=== PATIENT | female | born 1945 | race Caucasian/White ===

== ENCOUNTER 2018-08-11 17:50 | Observation (INO) ==
[2018-08-11 18:50] LABS: Basophils # (auto) 0.02 K/uL (0-0.2); Basophils % (auto) 0.2 %; Eosinophils # (auto) 0.41 K/uL (0-0.5); Eosinophils % (auto) 4.1 %; Hematocrit (blood only) 42.6 % (37-47); Hemoglobin 14.1 g/dL (12.0-16.0); Immature Granulocytes # (auto) 0.02 K/uL (0.00-0.02); Immature Granulocytes % (auto) 0.2 %; Lymphocytes # (auto) 1.18 K/uL (1.2-3.4); Lymphocytes % (auto) 11.8 %; Mean Corpuscular Hgb Conc 33.1 g/dL (32-36); Mean Corpuscular Volume 92.4 fL (80-100); Mean Platelet Volume 10.5 fL (7.4-10.4); Monocytes # (auto) 0.61 K/uL (0.11-0.59); Monocytes % (auto) 6.1 %; Neutrophils % (auto) 77.6 %; Platelet Count 221 K/uL (130-400); RDW Coefficient of Variation 15.4 % (11.5-14.5); RDW Standard Deviation 52.1 fL (36.4-46.3); Red Blood Count 4.61 M/uL (4.2-5.4); White Blood Count 10.04 K/uL (4.8-10.8)
--- NOTE | 2018-08-11 18:50 | XRay Report ---
SINGLE VIEW CHEST CLINICAL HISTORY: Atypical chest pain. FINDINGS: An AP, portable, upright chest radiograph is obtained. No prior studies are available for c omparison at the time of dictation. The examination is degraded by portable technique and patient rot ation. There is a large hiatal hernia. The heart is enlarged and there is atherosclerotic calcificati on of the thoracic ureter. There is pulmonary vascular congestion. There is nonspecific interstitial thickening and hazy bilateral airspace opacities. No large pleural effusion or pneumothorax is seen. The skeletal structures are osteopenic. Chronic posttraumatic deformity is noted in the right humerus . IMPRESSION: 1. Cardiomegaly with evidence of mild congestive failure. 2. Nonspecific interstitial thickening is noted and there are hazy bilateral opacities. This may repr esent changes of chronic lung disease. Correlate clinically for evidence of superimposed pulmonary ed lo or pneumonia. 3. No large pleural effusion is identified. 4. Hiatal hernia. Electronically signed by: Krzysztof Quintero M.D. 08/11/2018 6:49 PM
--- NOTE | 2018-08-11 18:55 | Emergency Department Note ---
Entered by Melissa Duarte acting as a scribe for History of Present Illness General Chief complaint: Shortness of Breath/Dyspnea Stated complaint: REFERRED BY PCP FOR EVAL. Time Seen by Provider: 08/11/18 17:57 Source: patient Mode of arrival: EMS Limitations: no limitations History of Present Illness Provider complaint: shortness of breath Onset (ago): month(s) 1 Location: chest Pain Consistency: + other (persistent) Quality: + other (shortness of breath) Associated symptoms: + denies other symptoms (hematochezia, abdominal pain, pedal edema, numbness), + cough and + nausea/vomiting; no chest pain, no fever/ chills, no headaches and no weakness The patient is a 72 year old female who presents to the Emergency Room with complaints of a persistent shortness of breath that began a month ago. The patient reports that she has been coughing as well. She notes that she coughs "until she vomits." The patient states that she was referred here after being evaluated at [facility]. The patient denies any fevers, hematochezia, abdominal pain , headaches, pedal edema, weakness, numbness, chest pain or recent traumas or travel. She notes that she was placed on nasal cannula oxygen a month ago. The patient also denies any tobacco use, or a history of blood clots or fluid in her lungs. The patient states that she has a stent placed but denies taking any blood thinners. She reports that she takes daily diuretics. Home Medications Home Medications Medication Instructions Recorded Confirmed Type albuterol sulfate [Ventolin HFA] 2 puff INHALATION Q6H PRN 08/11/18 08/11/18 History alendronate 35 mg PO WK 08/11/18 08/11/18 History aspirin 81 mg PO DAILY 08/11/18 08/11/18 History betamethasone, augmented 1 applic TOPICAL DAILY PRN 08/11/18 08/11/18 History ergocalciferol (vitamin D2) 50,000 unit PO WK 08/11/18 08/11/18 History [Drisdol] furosemide [Lasix] 20 mg PO 3XWK 08/11/18 08/11/18 History letrozole 2.5 mg PO DAILY 08/11/18 08/11/18 History metoprolol succinate [Toprol XL] 25 mg PO DAILY 08/11/18 08/11/18 History mirtazapine 7.5 mg PO DAILY 08/11/18 08/11/18 History nitroglycerin [Nitrostat] 0.4 mg SUBLINGUAL DIRECTED PRN 08/11/18 08/11/18 History omeprazole 40 mg PO QAM 08/11/18 08/11/18 History potassium chloride [Klor-Con M20] 40 meq PO DAILY 08/11/18 08/11/18 History sertraline [Zoloft] 200 mg PO DAILY 08/11/18 08/11/18 History simvastatin 40 mg PO PM 08/11/18 08/11/18 History Allergies Allergy/AdvReac Type Severity Reaction Status Date / Time No Known Allergies Allergy Unverified 08/11/18 19:33 Past Med/Surg History Medical History HTN (hypertension) (Chronic) CAD (coronary artery disease) (Chronic) Depression Suicidal ideation Surgical History History of coronary artery stent placement (Resolved) History of colon resection (Resolved) H/O hernia repair (Resolved) H/O: hysterectomy (Resolved) History of cholecystectomy (Resolved) Social History marital status: Current Living Situation: Spouse Feels Safe at Home: Yes Smoking Status: Never smoker Review of Systems See HPI for pertinent positives & negatives. and A total of 10 systems reviewed and were otherwise negative Physical Exam Vital Signs Vital Signs - 24 hr 08/11/18 18:02 08/11/18 18:11 08/11/18 18:20 Temperature 37.1 C Temperature Source Oral Sepsis Recent Fever Within 48 Hours No Sepsis New/Unexplained Change in Mental Status No Sepsis Action Taken by Nursing No Action Required Pulse Rate 98 H Pulse Rate [Apical] Respiratory Rate 24 Respiratory Effort / Characteristics Non-Labored Respiratory Depth Normal Respiratory Pattern Regular Blood Pressure 152/88 H Blood Pressure [Left Arm] Blood Pressure Mean 109 Blood Pressure Mean [Left Arm] Pulse Oximetry 95 Oxygen Delivery Method Nasal Cannula Nasal Cannula Nasal Cannula Oxygen Flow Rate 3 3 08/11/18 19:59 08/11/18 21:06 08/11/18 22:47 Temperature Temperature Source Sepsis Recent Fever Within 48 Hours Sepsis New/Unexplained Change in Mental Status Sepsis Action Taken by Nursing Pulse Rate 85 Pulse Rate [Apical] 79 75 Respiratory Rate 20 22 22 Respiratory Effort / Characteristics Respiratory Depth Normal Respiratory Pattern Blood Pressure 137/75 Blood Pressure [Left Arm] 163/109 H 169/84 H Blood Pressure Mean Blood Pressure Mean [Left Arm] 127 112 Pulse Oximetry 98 98 96 Oxygen Delivery Method Room Air Nasal Cannula Nasal Cannula Oxygen Flow Rate 3 3 General: Non-ill appearing older female in no acute distress, wearing nasal cannula with O2 sat in lower. HEENT: Normal cephalic atraumatic. Pupils are equal round and reactive to light. Extraocular movements are intact. Oropharynx is pink with moist mucous membranes. No swelling of the mouth lips or tongue. Neck: Supple with a midline trachea. No meningeal signs or stiffness, no JVD or bruits. No Stridor. Chest: Clear to auscultation bilaterally. No wheezes or rhonchi. No increased work of breathing. Heart: regular rate and rhythm. Abdomen: Soft nontender, nondistended without rebound guarding or rigidity. Extremities: No cyanosis clubbing or edema. No calf tenderness or assymetry Spine/Back. Non tender to palpation. No CVA tenderness Skin: Good turgor without rashes. Neurologic exam: Cranial nerves two through 12 are intact. Motor and sensation are intact and symmetrical throughout. Course 1800: Past medical records reviewed. The patient was evaluated in room C11B, and a complete history and physical examination were performed. 1913: I spoke with the multiple family members present. The patient appears comfortable. 2052: I reviewed the patient's [facility] He will evaluate the patient for further management. Administered Medications Discontinued Medications Furosemide (Lasix) 20 mg IV NOW STA Stop: 08/11/18 20:45 Last Admin: 08/11/18 21:05 Dose: 20 mg Ioversol (Optiray 320 125ml) 116 ml IV ONCE PRN PRN Reason: Interaction Checking Stop: 08/15/18 19:54 Last Admin: 08/11/18 19:55 Dose: 116 ml Medical Decision Making Differential Diagnosis Differential Diagnosis includes: CHF, pneumonia, cardiac disease, PE, anemia, infection, electrolyte and metabolic abnormality. Medical Records Attestation: I reviewed the patient's medical records. Home Medications Current Medication List: was personally reviewed by me Laboratory Data Attestation: I reviewed the patient's lab results. Result diagrams: 08/11/18 18:35 12/16/18 18:35 Lab Results 08/11/18 08/11/18 08/11/18 Range/Units 18:35 18:35 18:46 WBC 10.04 (4.8-10.8) K/uL RBC 4.61 (4.2-5.4) M/uL Hgb 14.1 (12.0-16.0) g/dL Hct 42.6 (37-47) % MCV 92.4 (80-100) fL MCH 30.6 (25-34) pg MCHC 33.1 (32-36) g/dL RDW Std Deviation 52.1 H (36.4-46.3) fL RDW Coeff of Nicanor 15.4 H (11.5-14.5) % Plt Count 221 (130-400) K/uL MPV 10.5 H (7.4-10.4) fL Immature Gran % (Auto) 0.2 % Neut % (Auto) 77.6 % Lymph % (Auto) 11.8 % [place] % (Auto) 6.1 % Eos % (Auto) 4.1 % Baso % (Auto) 0.2 % Immature Gran # (Auto) 0.02 (0.00-0.02) K/uL Neut # (Auto) 7.80 H (1.4-6.5) K/uL Lymph # (Auto) 1.18 L (1.2-3.4) K/uL [place] # (Auto) 0.61 H (0.11-0.59) K/uL Eos # (Auto) 0.41 (0-0.5) K/uL Baso # (Auto) 0.02 (0-0.2) K/uL Sodium 139 (136-145) mmol/L Potassium 3.2 L (3.5-5.1) mmol/L Chloride 101 (98-107) mmol/L Carbon Dioxide 29 (21-32) mmol/L Anion Gap 9.0 (3-11) BUN 10 (7-18) mg/dl Creatinine 0.96 (0.6-1.2) mg/dl Est Cr Clr Drug Dosing 43.8 ml/min Est GFR ( Amer) 69.0 Est GFR (Non-Af Amer) 59.5 BUN/Creatinine Ratio 10.0 (10-20) Glucose 90 (70-99) mg/dl Calcium 9.4 (8.5-10.1) mg/dl Total Bilirubin 0.7 (0.1-1) mg/dl AST 30 (15-37) U/L ALT 21 (12-78) U/L Alkaline Phosphatase 96 (45-117) U/L POC Troponin I < 0.03 (0-0.045) ng/ml Troponin I < 0.015 (0-0.045) ng/ml NT-Pro-B Natriuret Pep 1165 H (0-900) pg/ml Total Protein 8.2 (6.4-8.2) gm/dl Albumin 4.0 (3.4-5.0) gm/dl Globulin 4.2 H (2.5-4.0) gm/dl Albumin/Globulin Ratio 1.0 (0.9-2) Lipase 166 (73-393) U/L Imaging Data Radiologist's Impression: Radiology results as stated below per my review and the radiologist's interpretation: SINGLE VIEW CHEST CLINICAL HISTORY: Atypical chest pain. FINDINGS: An AP, portable, upright chest radiograph is obtained. No prior studies are available for comparison at the time of dictation. The examination is degraded by portable technique and patient rotation. There is a large hiatal hernia. The heart is enlarged and there is atherosclerotic calcification of the thoracic ureter. There is pulmonary vascular congestion. There is nonspecific interstitial thickening and hazy bilateral airspace opacities. No large pleural effusion or pneumothorax is seen. The skeletal structures are osteopenic. Chronic posttraumatic deformity is noted in the right humerus. IMPRESSION: 1. Cardiomegaly with evidence of mild congestive failure. 2. Nonspecific interstitial thickening is noted and there are hazy bilateral opacities. This may represent changes of chronic lung disease. Correlate clinically for evidence of superimposed pulmonary edema or pneumonia. 3. No large pleural effusion is identified. 4. Hiatal hernia. Electronically signed by: Krzysztof Quintero M.D. 08/11/2018 6:[address] ANGIOGRAM OF THE CHEST CLINICAL HISTORY: Atypical chest pain. COMPARISON STUDY: Chest x-ray dated 08/11/2018. TECHNIQUE: Following the IV administration of 116 cc of Optiray 320, CT angiogram of the chest was performed from the upper abdomen to the thoracic inlet utilizing the pulmonary embolus protocol. Images are reviewed in the axial , sagittal, and coronal planes. 3-D MIPS images are created and assessed. IV contrast was administered without complication. A dose lowering technique was utilized adhering to the principles of ALARA. The examination is degraded by motion artifact. CT DOSE: 191.28 mGy.cm FINDINGS: Thyroid: Atrophic. Thoracic aorta: There is mild atherosclerotic calcification of the thoracic aorta. There is mild aneurysmal dilatation of the ascending thoracic aorta which measures up to 4.1 cm in diameter. The remainder of the thoracic ureter is normal in caliber and the arch demonstrates standard 3-vessel anatomy. No dissection is seen. Pulmonary vasculature: The pulmonary trunk is dilated, measuring 3.7 cm in diameter. This suggests pulmonary artery hypertension. There are no filling defects identified in main, lobar, or segmental pulmonary branches to suggest pulmonary embolus. Heart: The heart is enlarged and without pericardial effusion. The coronary arteries are densely calcified. Lungs and pleural spaces: Evaluation of the lung parenchyma is compromised by motion artifact. There is extensive subpleural reticulation with associated groundglass change. Mild traction bronchiectasis is seen throughout both lungs. The appearance is consistent with chronic interstitial lung disease. No honeycombing is identified. The trachea and central airways are clear. No pleural effusion is identified. There is no definite superimposed airspace consolidation to suggest pneumonia. A 9 mm irregular nodule is seen at the right apex on image #192. Intralobular septal thickening suggests a component of congestive failure. Mediastinum: There are scattered subcentimeter mediastinal lymph nodes. These are not pathologically enlarged by size criteria. Kerrie: Prominent hilar lymph nodes measure up to 12 mm in short axis. Axillae: There is no axillary lymphadenopathy. Upper abdomen: Cholecystectomy clips are noted. There is a large hiatal hernia, with the majority of the stomach located in the thoracic cavity. The spleen is top normal in size measuring 13 cm in length. Skeletal structures: The skeletal structures are osteopenic. No lytic or blastic bony lesions are seen. Findings of avascular necrosis are suggested in the right humeral head. IMPRESSION: 1. Motion compromised examination. 2. There is no evidence of pulmonary embolus in the main, lobar, or segmental pulmonary arteries. 3. Cardiomegaly. Mild intralobular septal thickening suggests a component of congestive failure. Clinical correlation will be required. 4. There is mild aneurysmal dilatation of the ascending thoracic aorta which measures up to 4.1 cm in diameter. 5. Parenchyma changes are consistent with chronic interstitial lung disease. There is no clear evidence of superimposed airspace consolidation to indicate pneumonia. Clinical correlation will be required. 6. There is a 9 mm irregular pulmonary nodule at the right apex. Although this could be on an inflammatory basis, the appearance is concerning for neoplasm. A 3 month follow-up examination is recommended for reassessment. 7. Large hiatal hernia. 8. Changes of avascular necrosis are suggested in the right humeral head. 9. Additional findings as above. Electronically signed by: Krzysztof Quintero M.D. 08/11/2018 8:29 PM ECG Data Attestation: I personally reviewed and interpreted this ECG as follows: Indication: SOB/dyspnea Rate (beats per minute): 85 Rhythm: normal sinus Findings: + other (LVH); no acute ischemic change and no ectopy Comparison ECG Date: no prior available Blood Pressure Blood Pressure Findings: Elevated blood pressure Blood Pressure Disposition: further management by hospitalist [facility] Narrative This patient comes in as described above. She was placed in room C 11. She sent over by her doctor after she has had shortness of breath and hypoxemia. This been going on for about a month. she was recently placed on oxygen. Her O2 sat on room air was 69% here with 2 L nasal cannula she appears in no distress and has no complaints however. She is afebrile and has had nothing to suggest pneumonia or infection. EKG was obtained as well as chest x-ray and multiple blood testing. She was reassessed frequently. EKG does not suggest acute coronary syndrome or arrhythmia. Troponin is not elevated. BNP is mildly elevated. Chest x-ray shows congestive heart failure findings as well as probably chronic lung interstitial process. Chest CT shows no PE or any definite infiltrate again it shows likely interstitial lung disease and CHF she was given IV Lasix 20 mg. I do think she needs to be admitted/observed.she has been significant hypoxemic. she was just recently started on oxygen according the family they are not sure why she has the symptoms she does have a congestive heart failure component as well and was given IV diuretics in the emergency department. I did consult the [facility] hospitalist to see her in the ER for these measures. Impression & Plan Hypoxemia, CHF (congestive heart failure), Lung disease, interstitial Discharge Plan Visit Data *Final* Discharge Date/Time: 08/11/18 22:47 Chief Complaint: Shortness of Breath/Dyspnea Stated Complaint: REFERRED BY PCP FOR EVAL. ED Provider: Lambert Olmedo Discharge Problem: Hypoxemia, CHF (congestive heart failure), Lung disease, interstitial Patient Disposition: Being Evaluated by Hospitalist Discharge Instructions Interventions: ED Discharge Assessment Last Done: 08/11/18 22:47 The scribe's documentation has been prepared under my direction and personally reviewed by me in its entirety. I confirm that the note above accurately reflects all work, treatment, procedures, and medical decision making performed by me.
[2018-08-11 19:09] LABS: Alanine Aminotransferase 21 U/L (12-78); Aspartate Aminotransferase 30 U/L (15-37); Blood Urea Nitrogen 10 mg/dl (7-18); Calcium 9.4 mg/dl (8.5-10.1); Carbon Dioxide 29 mmol/L (21-32); Chloride 101 mmol/L (98-107); Creatinine Clr Calc Pharmacy 43.8 ml/min; Est GFR (Non-African American) 59.5; Glucose 90 mg/dl (70-99); Potassium 3.2 mmol/L (3.5-5.1); Sodium 139 mmol/L (136-145)
[2018-08-11 19:14] LABS: Alkaline Phosphatase 96 U/L (45-117); Bilirubin,Total 0.7 mg/dl (0.1-1); Globulin 4.2 gm/dl (2.5-4.0); NT Pro B Type Natriuretic Pept 1165 pg/ml (0-900); Total Protein 8.2 gm/dl (6.4-8.2); Troponin I < 0.015 ng/ml (0-0.045)
[2018-08-11] MEDS ORDERED: OPTIRAY 320 125ml IV PRN (19:55)
--- NOTE | 2018-08-11 20:30 | CT Scan Report ---
CT ANGIOGRAM OF THE CHEST CLINICAL HISTORY: Atypical chest pain. COMPARISON STUDY: Chest x-ray dated 08/11/2018. TECHNIQUE: Following the IV administration of 116 cc of Optiray 320, CT angiogram of the chest was pe rformed from the upper abdomen to the thoracic inlet utilizing the pulmonary embolus protocol. Images are reviewed in the axial, sagittal, and coronal planes. 3-D MIPS images are created and assessed. I V contrast was administered without complication. A dose lowering technique was utilized adhering to the principles of ALARA. The examination is degraded by motion artifact. CT DOSE: 191.28 mGy.cm FINDINGS: Thyroid: Atrophic. Thoracic aorta: There is mild atherosclerotic calcification of the thoracic aorta. There is mild aneu rysmal dilatation of the ascending thoracic aorta which measures up to 4.1 cm in diameter. The remain rhiannon of the thoracic ureter is normal in caliber and the arch demonstrates standard 3-vessel anatomy. No dissection is seen. Pulmonary vasculature: The pulmonary trunk is dilated, measuring 3.7 cm in diameter. This suggests pu lmonary artery hypertension. There are no filling defects identified in main, lobar, or segmental pul monary branches to suggest pulmonary embolus. Heart: The heart is enlarged and without pericardial effusion. The coronary arteries are densely calc ified. Lungs and pleural spaces: Evaluation of the lung parenchyma is compromised by motion artifact. There is extensive subpleural reticulation with associated groundglass change. Mild traction bronchiectasis is seen throughout both lungs. The appearance is consistent with chronic interstitial lung disease. No honeycombing is identified. The trachea and central airways are clear. No pleural effusion is iden tified. There is no definite superimposed airspace consolidation to suggest pneumonia. A 9 mm irregul ar nodule is seen at the right apex on image #192. Intralobular septal thickening suggests a componen t of congestive failure. Mediastinum: There are scattered subcentimeter mediastinal lymph nodes. These are not pathologically enlarged by size criteria. Kerrie: Prominent hilar lymph nodes measure up to 12 mm in short axis. Axillae: There is no axillary lymphadenopathy. Upper abdomen: Cholecystectomy clips are noted. There is a large hiatal hernia, with the majority of the stomach located in the thoracic cavity. The spleen is top normal in size measuring 13 cm in lengt h. Skeletal structures: The skeletal structures are osteopenic. No lytic or blastic bony lesions are see n. Findings of avascular necrosis are suggested in the right humeral head. IMPRESSION: 1. Motion compromised examination. 2. There is no evidence of pulmonary embolus in the main, lobar, or segmental pulmonary arteries. 3. Cardiomegaly. Mild intralobular septal thickening suggests a component of congestive failure. Clin ical correlation will be required. 4. There is mild aneurysmal dilatation of the ascending thoracic aorta which measures up to 4.1 cm in diameter. 5. Parenchyma changes are consistent with chronic interstitial lung disease. There is no clear eviden ce of superimposed airspace consolidation to indicate pneumonia. Clinical correlation will be require d. 6. There is a 9 mm irregular pulmonary nodule at the right apex. Although this could be on an inflamm atory basis, the appearance is concerning for neoplasm. A 3 month follow-up examination is recommende d for reassessment. 7. Large hiatal hernia. 8. Changes of avascular necrosis are suggested in the right humeral head. 9. Additional findings as above. Electronically signed by: Krzysztof Quintero M.D. 08/11/2018 8:29 PM
[2018-08-11] MEDS ORDERED: FUROSEMIDE 40 MG/4 ML VIAL IV STA (20:44)
[2018-08-11] MEDS ORDERED: NITROGLYCERIN SL 0.4 MG/TAB TAB SL PRN (23:17)
[2018-08-11] MEDS ORDERED: XOPENEX/ATROVENT 1.25mg/0.5MG NEB COMBO NEB PRN (23:17)
[2018-08-11] MEDS ORDERED: POLYETHYLENE (MIRALAX) 17 GM PACK PO PRN (23:17)
[2018-08-11] MEDS ORDERED: ONDANSETRON INJ 2 MG/ML 2 ML VIAL IV PRN (23:17)
[2018-08-11] MEDS ORDERED: ALUMINUM/MAGNESIUM SUSP 30 ML UDC PO PRN (23:17)
[2018-08-11] MEDS ORDERED: ALBUTEROL HFA 8 GM INHALER INH PRN (23:17)
[2018-08-11] MEDS ORDERED: ACETAMINOPHEN 325 MG TAB PO PRN (23:17)
[2018-08-11] MEDS ORDERED: IPRATROPIUM BROMIDE NEB SOLN 0.02% 2.5 ML VIAL INH PRN (23:17)
[2018-08-11] MEDS ORDERED: LEVALBUTEROL 1.25MG/0.5ML NEB INH PRN (23:17)
[2018-08-11] MEDS ORDERED: BETAMETHASONE DIP AUG (DIPROLENE) 0.05% CR 15 GM TUBE EXT PRN (23:17)
[2018-08-11] MEDS ORDERED: methylPREDNISolone 40 MG in SYRINGE 0 ML IV STA (23:26)
--- NOTE | 2018-08-12 01:27 | History and Physical Report ---
DATE OF ADMISSION: 08/11/2018 CHIEF COMPLAINT: Shortness of breath. HISTORY OF PRESENT ILLNESS: This is a 72-year-old female with past medical history significant for congestive heart failure, interstitial lung disease with hypertension, CAD status post stent, history of colon resection secondary to twisting of the bowel, depression, suicidal ideation, comes because of shortness of breath. The patient generally goes to the [facility]. Since last 2 months, she is getting short of breath and cough bringing up whitish phlegm. She was treated for pneumonia and she was put on oxygen 2 months ago. She was supposed to be 2 L, but lately she is requiring more oxygen. 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 She is getting worse. She says cough is not getting better that is the reason she came to the ER today. In the ER in the room air, oxygen saturation was in 60s. Was placed back on oxygen on 3 L and saturating rate improved to above 92%. The patient speaking in full sentences. Denies any chest pain, no fever, no chills, no headache, some dizziness while ambulating, no blurred visions, no difficulty swallowing. No sore throat, no nausea, no abdominal pain. She has on and off incontinence of the urine and the stools. Denies any blood in the stool or black stools. No burning micturition. She lives with her and walks without any help. ALLERGIES: No known drug allergies. PAST MEDICAL HISTORY: As mentioned above. PAST SURGICAL HISTORY: She has cardiac catheterization, hernia surgery, hysterectomy, cholecystectomy. MEDICATIONS: The patient is on albuterol 2 puffs inhalation q. 6 hours p.r.n., aspirin 81 mg p.o. daily, vitamin D 50,000 units p.o. weekly, Lasix 20 mg p.o. 3 times a week, letrozole 2.5 mg p.o. daily, metoprolol succinate 25 mg p.o. daily, mirtazapine 7.5 mg p.o. daily, nitroglycerin 0.4 mg sublingual p.r.n., omeprazole 40 mg p.o. q.a.m., potassium chloride 40 mEq p.o. daily, Zoloft 200 mg p.o. daily, simvastatin 40 mg p.o. q.p.m. FAMILY HISTORY: The patient is adopted, but she thinks her family has history of significant heart disease. SOCIAL HISTORY: Significant passive smoking, no alcohol. Lives with her . REVIEW OF SYMPTOMS: As per HPI. Rest of review of systems negative. PHYSICAL EXAMINATION: GENERAL: The patient is old and frail, not in acute distress. VITAL SIGNS: Temperature 37.1, pulse 74, respiratory rate 22, blood pressure 116/84, oxygen 96% on 3 liters. HEENT: No pallor, no icterus. Pupils equal, round, and react to light. NECK: No JVD, no neck masses, no carotid bruits. CARDIOVASCULAR: S1, S2 heard, regular rate and rhythm, no murmur, no gallop. RESPIRATORY SYSTEM: Normal AP diameter, diminished bilateral breath sounds. Occasional fine crackles heard bilateral. ABDOMEN: Soft, bowel sounds present. Nontender. No distention. CENTRAL NERVOUS SYSTEM: Cranial nerves II-XII grossly nonfocal. EXTREMITIES: Trace pedal edema, no erythema seen. LABORATORIES: WBC 10, hemoglobin 14.1, hematocrit 42.6, platelets 221. Sodium 139, potassium 3.2, chloride 101, bicarbonate 29, BUN 10, creatinine 0.9, serum glucose 90, calcium 9.4, total bilirubin 0.4, AST 30, ALT 21, alkaline phosphatase 96, troponin I less than 0.015. BNP 1165. Lipase 166. CT of the chest, no evidence of pulmonary embolism, cardiomegaly, mild intralobular septal thickening, consistent with CHF, mild aneurysm dilatation of the ascending thoracic aorta, which measures 4.1 cm. Parenchymal changes are consistent with chronic interstitial lung disease. No clear evidence of pneumonia, 9 mm irregular pulmonary nodule on the right apex, although this could be inflammatory basis, appearance is concerning for neoplasm and 3 month followup examination is recommended for reassessment. Avascular necrosis of right humeral head. Chest x-ray: Cardiomegaly with evidence of mild congestive failure. EKG: Normal sinus rhythm with sinus arrhythmia at rate of 85, nonspecific T-wave abnormalities, no acute ST changes seen. ASSESSMENT AND PLAN: This is a 72-year-old female who presents with ongoing shortness of breath. 1. Shortness of breath, possible interstitial lung disease, flare up or acute congestive heart failure. The patient is on Lasix 20 mg 3 times a week and also on inhalers. Received 20mg IV Lasix in the ER. We will continue with IV Lasix 20 daily. We will get an echocardiogram. Place her on steroids. Nebs. Consult pulmonary and cardiology for further recommendation. Monitor on medical floor. The patient was started on oxygen 2 months ago by family doctor and recently saw pulmonary at [facility] in [place] recently. Two step prior to discharge. Await cardiology and pulmonary recommendations. 2. Lung nodule 9mm irregular at right apex. Await pulmonary input. 3. Ascending aortic aneurysm 4.1 cm. Needs followup. 4. Coronary artery disease status post stent. Continue home medication of aspirin, Toprol-XL, and statins. Currently stable. Follow echocardiogram. 5. History of hypertension. Continue Toprol-XL. Monitor the blood pressure. 6. Hyperlipidemia. Continue statin. 7. Depression and suicidal ideation. Continue Zoloft and Remeron. 8. History of breast cancer status post right breast lumpectomy, 9. Avascular necrosis right humeral head. consulted ortho. 10. Deep venous thrombosis prophylaxis, sequential compression devices for now. DISPOSITION: Observation in tele floor. PT and OT prior to discharge. office services clerk to help with discharge planning. Level 1 full code. MTDD
[2018-08-12] MEDS: IPRATROPIUM BROMIDE NEB SOLN 0.02% 2.5 ML VIAL INH SCH ×2 (07:15→13:56)
[2018-08-12] MEDS: LEVALBUTEROL 1.25MG/0.5ML NEB INH SCH ×2 (07:15→13:57)
[2018-08-12] MEDS: predniSONE 20 MG TAB PO SCH (07:46)
[2018-08-12] MEDS: LETROZOLE 2.5 MG TAB PO SCH (07:46)
[2018-08-12] MEDS: ASPIRIN 81 MG ECTAB PO SCH (07:46)
[2018-08-12] MEDS: POTASSIUM CHLORIDE 20 MEQ TABCR PO SCH (07:46)
[2018-08-12] MEDS: METOPROLOL SUCC 25MG EXT REL TAB PO SCH (07:47)
[2018-08-12] MEDS: PANTOprazole 40 MG TAB PO SCH (07:47)
[2018-08-12] MEDS: SERTRALINE HCL 100 MG TABLET PO SCH (07:47)
[2018-08-12] MEDS: MIRTAZAPINE TAB 15 MG TAB PO SCH ×2 (07:47→20:57)
[2018-08-12] MEDS ORDERED: FUROSEMIDE 20 MG in SYRINGE 0 ML IV SCH (09:00)
[2018-08-12] MEDS ORDERED: FUROSEMIDE 40 MG/4 ML VIAL IV SCH (09:00)
[2018-08-12] MEDS ORDERED: XOPENEX/ATROVENT 1.25mg/0.5MG NEB COMBO NEB SCH (09:00)
--- NOTE | 2018-08-12 09:20 | Cardiology Consultation ---
Date of Consultation August 12, 2018 Assessment & Plan (1) Hypoxemia: Patient does not appear acutely volume overloaded. Mild diastolic dysfunction with preserved LV systolic function noted per echocardiogram without evidence of significant valvular disease. I suspect dyspnea and hypoxemia related to underlying pulmonary/interstitial lung process. Await pulmonary consultation. Discontinue IV Lasix at this time. Transition to 20 mg p.o. daily as inpatient then resume 20 mg 3 days/week in the outpatient setting. (2) HTN (hypertension): BP somewhat labile however controlled this a.m. Continue current medications including Toprol-XL and furosemide. (3) CAD (coronary artery disease): No evidence of acute coronary syndrome thus far. Repeat troponin. Continue aspirin, statin, and beta-beatriz therapy. (4) History of coronary artery stent placement: (5) Ascending aortic aneurysm: Repeat imaging in 1 year. This can be reassessed for echocardiogram or CT. Given evidence of pulmonary mass, CT may be the more appropriate choice. History of Present Illness Reason for Consultation: Possible CHF, SOB, hypoxia Requesting Physician: Dr. Leonel Frazier Attending Physician: Leonel Frazier MD History of Present Illness 72-year-old female presented to the emergency department with shortness of breath and hypoxia. Symptoms progressive over the past 6-8 weeks. Prescribed supplemental oxygen approximately 1 month ago after being diagnosed with pneumonia. Carries a history of coronary disease status post stenting approximately 6 years ago to on the close vessel. Patient is uncertain of details. Follows with Dr. Sesay in the [place] area. Denies orthopnea, PND, or weight gain. Notes bilateral varicose veins and mild intermittent pedal edema. Takes Lasix 3 days/week. Denies palpitations, lightheadedness, dizziness, syncope, near syncope, focal weakness, slurred speech, or paresthesias. Telemetry demonstrates sinus rhythm and sinus tachycardia. Occasional PVCs noted. Initial troponins are negative. CT of the chest negative for pulmonary embolus with evidence of interstitial process. 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 Possible chemical/irritant exposure noted. Offers no other concerns/complaints at this time. Allergies Allergy/AdvReac Type Severity Reaction Status Date / Time No Known Allergies Allergy Unverified 08/11/18 19:33 Home Medications Home Medications Medication Instructions Recorded Confirmed Type albuterol sulfate [Ventolin HFA] 2 puff INHALATION Q6H PRN 08/11/18 08/11/18 History alendronate 35 mg PO WK 08/11/18 08/11/18 History aspirin 81 mg PO DAILY 08/11/18 08/11/18 History betamethasone, augmented 1 applic TOPICAL DAILY PRN 08/11/18 08/11/18 History ergocalciferol (vitamin D2) 50,000 unit PO WK 08/11/18 08/11/18 History [Drisdol] furosemide [Lasix] 20 mg PO 3XWK 08/11/18 08/11/18 History letrozole 2.5 mg PO DAILY 08/11/18 08/11/18 History metoprolol succinate [Toprol XL] 25 mg PO DAILY 08/11/18 08/11/18 History mirtazapine 7.5 mg PO DAILY 08/11/18 08/11/18 History nitroglycerin [Nitrostat] 0.4 mg SUBLINGUAL DIRECTED PRN 08/11/18 08/11/18 History omeprazole 40 mg PO QAM 08/11/18 08/11/18 History potassium chloride [Klor-Con M20] 40 meq PO DAILY 08/11/18 08/11/18 History sertraline [Zoloft] 200 mg PO DAILY 08/11/18 08/11/18 History simvastatin 40 mg PO PM 08/11/18 08/11/18 History Patient History Medical History HTN (hypertension) (Chronic) CAD (coronary artery disease) (Chronic) Depression Suicidal ideation Surgical History History of coronary artery stent placement (Resolved) History of colon resection (Resolved) H/O hernia repair (Resolved) H/O: hysterectomy (Resolved) History of cholecystectomy (Resolved) Social History marital status: Current Living Situation: Alone Other Information That Helps Us Care for You: No Feels Safe at Home: Yes Safety Concerns: Feels Safe At This Time Smoking Status: Never smoker Do You Dip or Chew Tobacco: No Second Hand Exposure: No Tobacco Cessation Education Requested by Patient: No Hx Alcohol Use: No Hx Substance Use: No Beliefs That Will Affect Care: None Preferred Language: Austrian Communication Ability: Effective Review of Systems Pertinent positives noted per HPI, comprehensive 10 system review otherwise negative. Physical Exam 2 Vital Signs (Past 24 Hours): Last Vital Signs Temp 36.7 C 08/12/18 07:42 Pulse 97 H 08/12/18 07:42 Resp 18 08/12/18 07:42 BP 114/72 08/12/18 07:42 Pulse Ox 94 08/12/18 07:42 Physical Exam: General: NAD, AAO x3, well nourished. HEENT: Normocephalic. Atraumatic. Conjunctiva pink, no scleral icterus. Neck: No carotid bruits, the carotid upstrokes are brisk. No JVD. No HJR Heart: Regular normal S-1 and S-2 no S-3 or S-4 gallop. No murmurs or rub appreciated. PMI is not displaced. No RV heave. Lungs: +crackles B/L lower and mid lung doss. Abdomen: Normal bowel sounds. Soft. Nontender. No masses or organomegaly. No abdominal bruits. Extremities: + B/L LE varicoe veins. No clubbing, cyanosis, or edema. Pulses: radial=2/4, Dorsalis pedis =2/4, posterior tibial=2/4. Neuro: Cranial nerves grossly intact. No focal motor deficit. Results & Data Laboratory Results Laboratory Results - last 24 hr 08/11/18 08/11/18 08/11/18 18:35 18:35 18:46 WBC 10.04 RBC 4.61 Hgb 14.1 Hct 42.6 MCV 92.4 MCH 30.6 MCHC 33.1 RDW Std Deviation 52.1 H RDW Coeff of Nicanor 15.4 H Plt Count 221 MPV 10.5 H Immature Gran % (Auto) 0.2 Neut % (Auto) 77.6 Lymph % (Auto) 11.8 [place] % (Auto) 6.1 Eos % (Auto) 4.1 Baso % (Auto) 0.2 Immature Gran # (Auto) 0.02 Neut # (Auto) 7.80 H Lymph # (Auto) 1.18 L [place] # (Auto) 0.61 H Eos # (Auto) 0.41 Baso # (Auto) 0.02 Sodium 139 Potassium 3.2 L Chloride 101 Carbon Dioxide 29 Anion Gap 9.0 BUN 10 Creatinine 0.96 Est Cr Clr Drug Dosing 43.8 Est GFR ( Amer) 69.0 Est GFR (Non-Af Amer) 59.5 BUN/Creatinine Ratio 10.0 Glucose 90 Calcium 9.4 Total Bilirubin 0.7 AST 30 ALT 21 Alkaline Phosphatase 96 POC Troponin I < 0.03 Troponin I < 0.015 NT-Pro-B Natriuret Pep 1165 H Total Protein 8.2 Albumin 4.0 Globulin 4.2 H Albumin/Globulin Ratio 1.0 Lipase 166 ECG Additional Comments: Sinus rhythm with nonspecific ST abnormality.
--- NOTE | 2018-08-12 11:56 | XRay Report ---
XR hip RT 2-3V w pelvis CLINICAL HISTORY: Avascular necrosis. Right hip pain. COMPARISON: None. FINDINGS: There is contrast within the bladder from recent contrast-enhanced CT. Hip joint spaces ar e preserved. There is no radiographic evidence for avascular necrosis within the femoral heads. There are pelvic surgical clips. IMPRESSION: No radiographic evidence of avascular necrosis of the femoral heads. Electronically signed by: Ambrose Arenas M.D. 08/12/2018 11:55 AM
--- NOTE | 2018-08-12 13:33 | Orthopedic Progress Note ---
Date of Service August 12, 2018 Subjective Right hip x rays were ordered in error, there was no examination findings to indicate hip x rays. Right shoulder x rays were ordered as per consult. Physical Exam 2 Vital Signs (Past 24 Hours): Last Vital Signs Temp 36.6 C 08/12/18 12:00 Pulse 91 H 08/12/18 12:00 Resp 18 08/12/18 12:00 BP 105/69 08/12/18 12:00 Pulse Ox 97 08/12/18 12:00
--- NOTE | 2018-08-12 13:38 | Consultation Report ---
DATE OF CONSULTATION: 08/12/2018 REASON FOR CONSULTATION: Pulmonary hypertension/interstitial lung disease. HISTORY OF PRESENT ILLNESS: A 72-year-old black female from the [place] area and a patient of Dr. Maria Novak, who was admitted through the Emergency Room by Dr. Molina on to the [facility] service. She states she has been dyspneic for approximately a month when she was placed on O2 at 2 L via nasal cannula continually. She has been a nonsmoker although has had secondary exposure from her first who smoked significantly. 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 She has a history of hypertension, ischemic cardiac disease with stenting, history of colon resection from a bowel volvulus, depression, with suicidal ideation, and progressive shortness of breath. She was scheduled to see a claim attorney with [facility] in the near future. She states she has been treated for pneumonia in the past, and she is currently bringing up whitish phlegm, perhaps a small amount of blood streaking in the remote past. She has been on oxygen at 2 L. 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 Her dyspnea is getting worse, and she has had increased pedal edema as well. She has been on a diuretic several times a week. She was brought to the ER on room air and oxygen saturation was in the 60s, on 3 L it improved to 92%. She denies recent fevers, chills, or sweats. She has some arthralgias with arthritis involving the distal joints of her fingers but nothing active. She denies nausea, sore throat, or GI symptomatology. She denies voice change. Besides cardiac catheterization, she has had a hernia surgery, hysterectomy, and cholecystectomy. MEDICATIONS: Include albuterol inhaler p.r.n., Lasix 20 mg 3 times weekly. She is on antireflux. FAMILY HISTORY: She is adopted and does not know much of her family history. SOCIAL HISTORY: See HPI. REVIEW OF SYSTEMS: See HPI. PHYSICAL EXAMINATION: GENERAL: Well-developed, well-nourished, friendly white female, in no obvious distress at rest. VITAL SIGNS: Temperature 36.5, pulse 76 and regular, respiratory rate in mid 20s, blood pressure 110/84, and O2 saturation 96% on 3 L. SKIN: Without lesion. HEENT: Atraumatic and normocephalic. PERRLA. EOMI. Conjunctivae pink. Sclerae are nonicteric. Fundi benign. Tympanic membranes within normal limits. Pharyngeal exam intact. NECK: Neck veins are not distended at 45 degrees. No lymphadenopathy in the supraclavicular or infraclavicular areas. LUNGS: Velcro rales at the bases, left greater than right. CARDIAC: Regular rate and rhythm. I do not appreciate a gallop. ABDOMEN: Soft, scaphoid, no evidence of hepatosplenomegaly. EXTREMITIES: Trace pedal edema. No clubbing. Peripheral cyanosis. NEUROLOGIC: Intact. No lateralizing signs. Echocardiogram shows an LVEF 65%-70%, grade 1 diastolic dysfunction, mild AI, estimated pulmonary arterial systolic pressure of 69 mmHg. The CTA done in the ER was reviewed, shows no evidence of pulmonary thromboembolic disease. Cardiomegaly is noted. There is mild intralobular septal thickening suggesting a component of CHF with mild aneurysmal dilatation of the ascending thoracic aorta and clear changes of extensive subpleural reticulation with associated ground-glass changes and mild traction bronchiectasis seen throughout both lungs. No honeycombing identified. There is no obvious evidence for consolidation. A 9 mm irregular nodule is seen at the right apex that is suspicious but nondiagnostic. LABORATORY DATA: White count 10,000, H and H 14 and 42. Potassium 3.2. ProBNP 1165 pg/mL, which is markedly elevated. ASSESSMENT: Overall, a 72-year-old with ischemic and hypertensive cardiomyopathy, presents with a 1 month history of progressive dyspnea and marked hypoxemia requiring significant O2 supplementation to maintain adequate saturations. The CT scan looks very reminiscent of usual interstitial pneumonitis/IPF without the honeycombing, but the subpleural reticulation, ground glass opacities, and distribution in the regions noted are certainly a concern. There may be an element of left ventricular decompensation suggesting mild CHF per Dr. Garcia and has been called in to evaluate the patient. Patient appears to have moderate to severe pulmonary hypertension, which I believe is a result of longstanding interstitial lung disease and chronic hypoxemia. I do not think at her age, given what I have seen on x-ray, that a video-assisted thorascopic biopsy would be helpful, and it may be that we will need to start patient on pirfenidone as an outpatient once it is preauthorized. In addition, we may need to start the patient on treatment for pulmonary arterial hypertension as well. All this could be done as an outpatient. Unfortunately, patient's overall prognosis remains poor. Patient apparently is currently on observation status. She is on prednisone and receiving aerosolized bronchodilator. I do not believe there is evidence to suggest infection at this point in time, and it is pretty common to have a dry and for the most part nonproductive cough with this disease, and I agree with diuresis for the potential that she has an element of CHF. Will be happy to see her in our clinic as an outpatient once discharged. Will order some additional rheumatologic serologies to rule out an accompanying connective tissue disease although that would seem less likely. While it is possible that patient has significant occupational exposure that could have triggered this, the development of ILD, this may help explain things but would not change overall prognosis.
--- NOTE | 2018-08-12 14:25 | XRay Report ---
RIGHT SHOULDER 4 VIEWS CLINICAL HISTORY: Avascular necrosis of the right humeral head. FINDINGS: 4 views of the right shoulder are correlated with chest x-ray and chest CT dated 08/11/2018 . The skeletal structures are osteopenic. No acute fracture is identified. There is chronic posttraum atic deformity of the right humeral head and neck. The humeral head is flattened with evidence of maggi scular necrosis. Superior subluxation of the humeral head suggests chronic rotator cuff injury. Mild productive change is noted at the acromioclavicular joint. The overlying soft tissues are within norm al limits. Parenchymal abnormality throughout the right lung was better assessed on yesterday's chest CT. IMPRESSION: 1. Osteopenia with no acute bony abnormality identified. 2. There is chronic posttraumatic deformity with evidence of avascular necrosis of the right humeral head. Dictated: 08/12/2018 2:17 PM Transcribed: 08/12/2018 2:24 PM Yue [id number] [facility] Electronically signed by: Krzysztof Quintero M.D. 08/12/2018 2:38 PM
--- NOTE | 2018-08-12 15:19 | Orthopedic Consultation ---
Date of Consultation August 12, 2018 Assessment & Plan (1) Avascular necrosis of bone: Mild malunion proximal humerus with AVN probable with no collapse of the bone. Patient has some minor end range of motion pain likely due to malunion of the humerus and will have some mild loss of range of motion that is permanent due to the mild malunion of the proximal humerus fracture. Patient asymptomatic with regard to any AVN. I discussed with her that at this time no treatment is required. If she develops pain running in her shoulder loss of mobility and will re-x-ray the shoulder and surgical options would include shoulder arthroplasty type procedure. This time no activity restrictions are required and she can be full weightbearing on the right upper extremity. No follow-up required unless she is symptomatic. History of Present Illness Attending Physician: Leonel Frazier MD Consult for radiographic finding right shoulder. Patient's history is that she fractured her arm about 2-1/2 years ago. Apparently she had a fall and fell along with her who was holding onto her at the time. She had no surgical intervention. Allergies Allergy/AdvReac Type Severity Reaction Status Date / Time No Known Allergies Allergy Unverified 08/11/18 19:33 Home Medications Home Medications Medication Instructions Recorded Confirmed Type albuterol sulfate [Ventolin HFA] 2 puff INHALATION Q6H PRN 08/11/18 08/11/18 History alendronate 35 mg PO WK 08/11/18 08/11/18 History aspirin 81 mg PO DAILY 08/11/18 08/11/18 History betamethasone, augmented 1 applic TOPICAL DAILY PRN 08/11/18 08/11/18 History ergocalciferol (vitamin D2) 50,000 unit PO WK 08/11/18 08/11/18 History [Drisdol] furosemide [Lasix] 20 mg PO 3XWK 08/11/18 08/11/18 History letrozole 2.5 mg PO DAILY 08/11/18 08/11/18 History metoprolol succinate [Toprol XL] 25 mg PO DAILY 08/11/18 08/11/18 History mirtazapine 7.5 mg PO DAILY 08/11/18 08/11/18 History nitroglycerin [Nitrostat] 0.4 mg SUBLINGUAL DIRECTED PRN 08/11/18 08/11/18 History omeprazole 40 mg PO QAM 08/11/18 08/11/18 History potassium chloride [Klor-Con M20] 40 meq PO DAILY 08/11/18 08/11/18 History sertraline [Zoloft] 200 mg PO DAILY 08/11/18 08/11/18 History simvastatin 40 mg PO PM 08/11/18 08/11/18 History Patient History Medical History HTN (hypertension) (Chronic) CAD (coronary artery disease) (Chronic) Depression Suicidal ideation Surgical History History of coronary artery stent placement (Resolved) History of colon resection (Resolved) H/O hernia repair (Resolved) H/O: hysterectomy (Resolved) History of cholecystectomy (Resolved) Social History marital status: Current Living Situation: Alone Other Information That Helps Us Care for You: No Feels Safe at Home: Yes Safety Concerns: Feels Safe At This Time Smoking Status: Never smoker Do You Dip or Chew Tobacco: No Second Hand Exposure: No Tobacco Cessation Education Requested by Patient: No Hx Alcohol Use: No Hx Substance Use: No Beliefs That Will Affect Care: None Communication Ability: Effective Review of Systems Patient denies any pain in her right shoulder or left shoulder at this time. No recent injury. Physical Exam 2 Vital Signs (Past 24 Hours): Last Vital Signs Temp 36.6 C 08/12/18 12:00 Pulse 81 08/12/18 13:57 Resp 18 08/12/18 13:57 BP 105/69 08/12/18 12:00 Pulse Ox 95 08/12/18 13:57 Physical Exam: Right shoulder exam demonstrates that she has no pain with range of motion she has no crepitation she has normal strength normal neurological exam. She does have some restricted range of motion and has abduction of 130 degrees, forward elevation of 150 degrees and normal internal/ external rotation with the arm at the side. Her opposite shoulder has full range of motion. Results & Data Diagnostic Findings Shoulder x-rays demonstrate that she has some mild malunion of a proximal humerus fracture with sclerotic and cystic changes of the proximal humeral subchondral bone likely consistent with avascular necrosis. There is no collapse however and there is a round articular surface of the humeral head.
[2018-08-12 15:54] LABS: Eosinophils # (auto) 0.01 K/uL (0-0.5); Eosinophils % (auto) 0.2 %; Hematocrit (blood only) 40.7 % (37-47); Lymphocytes # (auto) 0.59 K/uL (1.2-3.4); Lymphocytes % (auto) 11.1 %; Mean Corpuscular Volume 91.3 fL (80-100); Mean Platelet Volume 10.3 fL (7.4-10.4); Monocytes # (auto) 0.18 K/uL (0.11-0.59); Monocytes % (auto) 3.4 %; Neutrophils # (auto) 4.54 K/uL (1.4-6.5); Neutrophils % (auto) 85.3 %; Platelet Count 238 K/uL (130-400); RDW Coefficient of Variation 14.9 % (11.5-14.5); Red Blood Count 4.46 M/uL (4.2-5.4); White Blood Count 5.32 K/uL (4.8-10.8)
[2018-08-12 16:08] LABS: Mean Corpuscular Hgb Conc 34.4 g/dL (32-36)
[2018-08-12 16:13] LABS: Albumin Level 3.7 gm/dl (3.4-5.0); Calcium 10.2 mg/dl (8.5-10.1); Creatinine Clr Calc Pharmacy 47.4 ml/min; Est GFR (African American) 76.6; Est GFR (Non-African American) 66.1; Magnesium 2.3 mg/dl (1.8-2.4); Potassium 3.8 mmol/L (3.5-5.1)
[2018-08-12 16:21] LABS: Albumin Globulin Ratio 0.9 (0.9-2); Bilirubin,Total 0.5 mg/dl (0.1-1); Globulin 4.1 gm/dl (2.5-4.0); Total Protein 7.8 gm/dl (6.4-8.2)
--- NOTE | 2018-08-12 17:37 | Hospitalist Progress Note ---
Date of Service August 12, 2018 Assessment & Plan (1) Hypoxemia: 72 year old female who presents to the Emergency Room with complaints of a persistent shortness of breath she has been on oxygen therapy since 1 to 2 month ago multi-factorial reasons for acute on chronic respiratory failure with hypoxia -as per pulmonary consult Dr. Alcantara: The CT scan looks very reminiscent of usual interstitial pneumonitis/IPF without the honeycombing, but the subpleural reticulation, ground glass opacities, and distribution in the regions noted are certainly a concern. -may be an element of left ventricular decompensation -moderate to severe pulmonary hypertension, may need to start the patient on treatment for pulmonary arterial hypertensioas outpatient -possibly may benefit from pirfenidone as an outpatient which may need prior authorization -as per cardiology consult Dr. Garcia: Patient does not appear acutely volume overloaded. Mild diastolic dysfunction with preserved LV systolic function noted per echocardiogram without evidence of significant valvular disease. Discontinue IV Lasix at this time. Transition to 20 mg p.o. daily as inpatient then resume 20 mg 3 days/week in the outpatient setting -given this above assessments, will continue daily lasix, will change scheduled nebulizer treatments to just prn for acute shortness of breath, will continue prednisone 40 mg which was started on admission There is a 9 mm irregular pulmonary nodule at the right apex. Although this could be on an inflammatory basis, the appearance is concerning for neoplasm. A 3 month follow-up examination is recommended for reassessment mild aneurysmal dilatation of the ascending thoracic aorta which measures up to 4.1 cm in diameter -will need outpatient follow up in the future Coronary artery disease status post stent. -Continue home medication of aspirin, Toprol-XL, and statins hypertension -Continue Toprol-XL and Lasix Mild malunion proximal humerus with Avascular necrosis probable with no collapse of the bone -orthopedics evaluated and this requires no intervention as per their assessment History of Depression (no suicidal ideation on this admission) Continue Zoloft and Remeron. History of breast cancer status post right breast lumpectomy, Deep venous thrombosis prophylaxis, sequential compression devices DISPOSITION: will monitor further in the hospital upon discharge will need follow up with primary care doctor; patient is considering a switch from PCP Dr. Novak will need follow up with pulmonary clinic whether this is pulmonary at [facility] in [place] or with [facility] pulmonary clinic Full Code Subjective Patient breathing on oxygen nasal cannula. Denies chest pain. Able to eat her food. Denies vomiting. Denies abdominal pain. Denies leg pain Physical Exam 2 Vital Signs (Past 24 Hours): Last Vital Signs Temp 36.4 C L 08/12/18 15:13 Pulse 79 08/12/18 15:13 Resp 18 08/12/18 15:13 BP 116/73 08/12/18 15:13 Pulse Ox 96 08/12/18 15:13 Constitutional: WD/WN, vitals as above Eyes: PERRL, conjunctivae normal, anicteric sclerae EOM intact bilaterally ENMT: external ear and nose normal, oropharynx normal Neck: trachea midline, no thyromegaly Respiratory: normal respiratory effort Auscultation: + rales Cardiovascular: Rate/Rhythm: regular rate and regular rhythm Gastrointestinal (Abdomen): normal bowel sounds, soft, nontender, no hepatosplenomegaly Musculoskeletal: no cyanosis or clubbing, extremities motor strength 5/5 Head/Neck/Chest: normocephalic Neurologic: PERRL, EOMI, accommodation nl, no face palsy, no dysarthria CN' s II-XI intact bilaterally Psychiatric: A+Ox3, euthymic affect
[2018-08-12] MEDS ORDERED: SIMVASTATIN 40 MG TAB PO SCH (21:00)
[2018-08-13] MEDS: METOPROLOL SUCC 25MG EXT REL TAB PO SCH (07:22)
[2018-08-13] MEDS: POTASSIUM CHLORIDE 20 MEQ TABCR PO SCH (07:23)
[2018-08-13] MEDS: predniSONE 20 MG TAB PO SCH (07:23)
[2018-08-13] MEDS: PANTOprazole 40 MG TAB PO SCH (07:23)
[2018-08-13] MEDS: SERTRALINE HCL 100 MG TABLET PO SCH (07:23)
[2018-08-13] MEDS: ASPIRIN 81 MG ECTAB PO SCH (07:23)
[2018-08-13] MEDS: LETROZOLE 2.5 MG TAB PO SCH (07:23)
[2018-08-13] MEDS ORDERED: FUROSEMIDE 20 MG TAB PO SCH (09:00)
--- NOTE | 2018-08-13 10:58 | Cardiology Progress Note ---
Date of Service August 13, 2018 Assessment & Plan (1) Hypoxemia: Patient does not appear acutely volume overloaded. Mild diastolic dysfunction with preserved LV systolic function noted per echocardiogram without evidence of significant valvular disease. Pulmonary consultation appreciated. Patient may resume Lasix 3 days weekly at time of discharge. No further inpatient cardiac testing or medication changes. She will follow-up at the outpatient setting with her usual journal clerk, Dr. Sesay. Cardiology will sign off at this time. Please call with questions. (2) HTN (hypertension): Labile with fair control. No medication changes at this time. (3) CAD (coronary artery disease): No evidence of acute coronary syndrome thus far. Continue current medications including aspirin, statin, and beta-beatriz. (4) History of coronary artery stent placement: (5) Ascending aortic aneurysm: Repeat imaging in 1 year. This can be reassessed for echocardiogram or CT. Further evaluation of pulmonary mass via pulmonary medicine. Subjective Patient seen and examined at the bedside. Feeling well from a cardiovascular standpoint. Denies chest pain or usual shortness of breath. Chronic cough and dyspnea on exertion unchanged. No edema, orthopnea, or PND. No dysrhythmias on telemetry. is present at bedside. He offers no additional concerns/ complaints at this time. Review of Systems All systems reviewed & are unremarkable except as noted in HPI & below Physical Exam 2 Vital Signs (Past 24 Hours): Last Vital Signs Temp 36.7 C 08/13/18 07:42 Pulse 61 08/13/18 07:42 Resp 16 08/13/18 07:42 BP 151/87 H 08/13/18 07:42 Pulse Ox 100 08/13/18 07:42 Physical Exam: General: NAD, AAO x3, well nourished. HEENT: Normocephalic. Atraumatic. Conjunctiva pink, no scleral icterus. Neck: No carotid bruits, the carotid upstrokes are brisk. No JVD. No HJR Heart: Regular normal S-1 and S-2 no S-3 or S-4 gallop. No murmurs or rub appreciated. PMI is not displaced. No RV heave. Lungs: + Crackles bilaterally at the base and mid lung doss. No wheeze. No rhonchi appreciated. Abdomen: Normal bowel sounds. Soft. Nontender. No masses or organomegaly. No abdominal bruits. Extremities: + Bilateral varicose veins. No clubbing, cyanosis, or edema. Pulses: radial=2/4, Dorsalis pedis =2/4, posterior tibial=2/4. Neuro: Cranial nerves grossly intact. No focal motor deficit. _ (1) HTN (hypertension) Hypertension type: essential hypertension Qualified Code(s): I10 - Essential (primary) hypertension (2) CAD (coronary artery disease) Coronary Disease-Associated Artery/Lesion type: [place] artery [place] vs. transplanted heart: [place] heart Associated angina: without angina Qualified Code(s): I25.10 - Atherosclerotic heart disease of [place] coronary artery without angina pectoris
--- NOTE | 2018-08-13 12:42 | Progress Note ---
DATE: 08/13/2018 Patient's chart was reviewed, patient examined. Patient feels much better since her admission. She has been diuresed although the assessment by cardiology was that patient does not appear acutely volume overloaded. The echo did show grade 1 diastolic dysfunction with preserved LV systolic function but significant pulmonary hypertension. Her essential hypertension has been labile. Clearly, patient presented hypoxemic, and this was multifactorial in my opinion. She has responded nicely to oxygen therapy and will need to go home on O2 either at 2-3 L pending a 6-minute ambulation study to see what level of supplementation she requires. This will need to be a 24/7 form of therapy and that has been explained to the patient. The addition of oxygen therapy in that manner may very well bring down the level of pulmonary hypertension, and some people have been known to respond to O2 therapy alone; however, suspect in the near future will need to treat her underlying interstitial lung disease and probably UIP with pirfenidone and would need to get her preauthorized for that drug as they can be quite expensive. In addition, I would continue to diurese patient perhaps 3 times weekly with Lasix, and we will need to consider treatment for pulmonary arterial hypertension, some of the more effective drugs out there. I have had a lengthy discussion with the family and believe she can be discharged within the next 24 hours on home oxygen with home health consultation as the family has several questions for social service before her discharge. We will be happy to see her in the clinic and make arrangements to get started on therapy. Thank you very much for this consultation.
[2018-08-13] MEDS ORDERED: ALBUTEROL 0.5% NEB SOLN 2.5 MG/0.5 ML VIAL NEB PRN (15:55)
--- NOTE | 2018-08-13 16:08 | Hospitalist Progress Note ---
Date of Service August 13, 2018 Assessment & Plan (1) Hypoxemia: 72 year old female who presents to the Emergency Room with complaints of a persistent shortness of breath she has been on oxygen therapy since 1 to 2 month ago multi-factorial reasons for acute on chronic respiratory failure with hypoxia -as per pulmonary consult Dr. Alcantara: The CT scan looks very reminiscent of usual interstitial pneumonitis/IPF without the honeycombing, but the subpleural reticulation, ground glass opacities, and distribution in the regions noted are certainly a concern; moderate to severe pulmonary hypertension, may need to start the patient on treatment for pulmonary arterial hypertension as outpatient -possibly may benefit from pirfenidone as an outpatient which may need prior authorization -08/13/19 Had 2 step walk test (6 minute walk test) which showed that on room air at rest that patient saturates at 90% oxygen and does not meet medical criteria to continue oxygen at rest but on ambulation she desturates to 84% and needs 2.5 liters/min (Patient can take nasal cannula 2.5 liters/minute with exertion) (Patient also can take albuterol nebulizer every 6 hours as needed for shortness of breath or wheezing with nebuilzer machine and prescriptions were made for the interstitial lung disease) -admission CT scan: There is a 9 mm irregular pulmonary nodule at the right apex. Although this could be on an inflammatory basis, the appearance is concerning for neoplasm. A 3 month follow-up examination is recommended for reassessment -will follow up with [facility] -as per cardiology consult Dr. Garcia: Patient does not appear acutely volume overloaded. Mild diastolic dysfunction with preserved LV systolic function noted per echocardiogram without evidence of significant valvular disease; was started on IV Lasix but then switched to oral lasix 20 mg; because no acute CHF, and then recommend on discharge back to Lasix 3 days weekly at time of discharge admission CT scan: mild aneurysmal dilatation of the ascending thoracic aorta which measures up to 4.1 cm in diameter -will need outpatient follow up in the future Coronary artery disease status post stent. -Continue home medication of aspirin, Toprol-XL, and statins hypertension -Continue Toprol-XL and Lasix home doses Mild malunion proximal humerus with Avascular necrosis probable with no collapse of the bone -orthopedics evaluated and this requires no intervention as per their assessment History of Depression (no suicidal ideation on this admission) Continue Zoloft and Remeron. History of breast cancer status post right breast lumpectomy, Deep venous thrombosis prophylaxis, sequential compression devices while inpatient Discharge Diagnosis shortness of breath Interstitial Lung disease (interstitial pneumonitis/IPF without the honeycombing ) pulmonary arterial hypertension Mild diastolic dysfunction with preserved LV systolic function noted per echocardiogram without evidence of significant valvular disease chronic respiratory failure with Hypoxemia (on exertion requiring supplementary oxygen) 9 mm irregular pulmonary nodule at the right apex of the lung mild aneurysmal dilatation of the ascending thoracic aorta which measures up to 4.1 cm in diameter (ascending aortic aneurysm) Mild malunion proximal humerus with Avascular necrosis probable with no collapse of the bone Discharge Instructions Patient should follow up with primary care doctor in 1 week Sunday August 19, 2018 at 10 AM with Rosy Sanders nurse practitioner Pulmonary Clinic appointment [address], [address] [place] [id number] Patient can take nasal cannula 2.5 liters/minute with exertion Patient also can take albuterol nebulizer every 6 hours as needed for shortness of breath or wheezing with nebuilzer machine Ascending aortic aneurysm: Repeat imaging in 1 year. This can be reassessed for echocardiogram or CT Follow up with outpatient cardiology doctor 9 mm irregular pulmonary nodule at the right apex: A 3 month follow-up examination is recommended for reassessment Subjective Patient reports that the breathing feels better. Had 2 step walk test (6 minute walk test) which showed that on room air at rest that patient saturates at 90% oxygen and does not meet medical criteria to continue oxygen at rest but on ambulation she desturates to 84% and needs 2.5 liters/min Patient denies chest pain or leg swelling or lightheadedness. Denies vomiting. denies abdominal pain Physical Exam 2 Vital Signs (Past 24 Hours): Last Vital Signs Temp 36.3 C L 08/13/18 15:16 Pulse 70 08/13/18 15:16 Resp 16 08/13/18 15:16 BP 147/85 H 08/13/18 15:16 Pulse Ox 98 08/13/18 15:16 Constitutional: WD/WN, vitals as above Eyes: PERRL, conjunctivae normal, anicteric sclerae EOM intact bilaterally ENMT: external ear and nose normal, oropharynx normal Neck: trachea midline, no thyromegaly Respiratory: normal respiratory effort Auscultation: + rales Cardiovascular: Rate/Rhythm: regular rate and regular rhythm Gastrointestinal (Abdomen): normal bowel sounds, soft, nontender, no hepatosplenomegaly Musculoskeletal: no cyanosis or clubbing, extremities motor strength 5/5 Head/Neck/Chest: normocephalic Neurologic: PERRL, EOMI, accommodation nl, no face palsy, no dysarthria CN' s II-XI intact bilaterally Psychiatric: A+Ox3, euthymic affect
--- NOTE | 2018-08-13 16:27 | Discharge Summary ---
Date of Service August 13, 2018 Admission HPI Per Admitting Provider HISTORY OF PRESENT ILLNESS: This is a 72-year-old female with past medical history significant for congestive heart failure, interstitial lung disease with hypertension, CAD status post stent, history of colon resection secondary to twisting of the bowel, depression, suicidal ideation, comes because of shortness of breath. The patient generally goes to the [facility]. Since last 2 months, she is getting short of breath and cough bringing up whitish phlegm. She was treated for pneumonia and she was put on oxygen 2 months ago. She was supposed to be 2 L, but lately she is requiring more oxygen. 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 She is getting worse. She says cough is not getting better that is the reason she came to the ER today. In the ER in the room air, oxygen saturation was in 60s. Was placed back on oxygen on 3 L and saturating rate improved to above 92%. The patient speaking in full sentences. Denies any chest pain, no fever, no chills, no headache, some dizziness while ambulating, no blurred visions, no difficulty swallowing. No sore throat, no nausea, no abdominal pain. She has on and off incontinence of the urine and the stools. Denies any blood in the stool or black stools. No burning micturition. She lives with her and walks without any help. ALLERGIES: No known drug allergies. PAST MEDICAL HISTORY: As mentioned above. PAST SURGICAL HISTORY: She has cardiac catheterization, hernia surgery, hysterectomy, cholecystectomy. MEDICATIONS: The patient is on albuterol 2 puffs inhalation q. 6 hours p.r.n., aspirin 81 mg p.o. daily, vitamin D 50,000 units p.o. weekly, Lasix 20 mg p.o. 3 times a week, letrozole 2.5 mg p.o. daily, metoprolol succinate 25 mg p.o. daily, mirtazapine 7.5 mg p.o. daily, nitroglycerin 0.4 mg sublingual p.r.n., omeprazole 40 mg p.o. q.a.m., potassium chloride 40 mEq p.o. daily, Zoloft 200 mg p.o. daily, simvastatin 40 mg p.o. q.p.m. FAMILY HISTORY: The patient is adopted, but she thinks her family has history of significant heart disease. SOCIAL HISTORY: Significant passive smoking, no alcohol. Lives with her . REVIEW OF SYMPTOMS: As per HPI. Rest of review of systems negative. Admission Exam Per Admitting Provider PHYSICAL EXAMINATION: GENERAL: The patient is old and frail, not in acute distress. VITAL SIGNS: Temperature 37.1, pulse 74, respiratory rate 22, blood pressure 116/84, oxygen 96% on 3 liters. HEENT: No pallor, no icterus. Pupils equal, round, and react to light. NECK: No JVD, no neck masses, no carotid bruits. CARDIOVASCULAR: S1, S2 heard, regular rate and rhythm, no murmur, no gallop. RESPIRATORY SYSTEM: Normal AP diameter, diminished bilateral breath sounds. Occasional fine crackles heard bilateral. ABDOMEN: Soft, bowel sounds present. Nontender. No distention. CENTRAL NERVOUS SYSTEM: Cranial nerves II-XII grossly nonfocal. EXTREMITIES: Trace pedal edema, no erythema seen. Principal Diagnosis shortness of breath Interstitial Lung disease (interstitial pneumonitis/IPF without the honeycombing ) pulmonary arterial hypertension Mild diastolic dysfunction with preserved LV systolic function noted per echocardiogram without evidence of significant valvular disease chronic respiratory failure with Hypoxemia (on exertion requiring supplementary oxygen) 9 mm irregular pulmonary nodule at the right apex of the lung mild aneurysmal dilatation of the ascending thoracic aorta which measures up to 4.1 cm in diameter (ascending aortic aneurysm) Mild malunion proximal humerus with Avascular necrosis probable with no collapse of the bone Discharge Exam Constitutional WD/WN, vitals as above Eyes PERRL, conjunctivae normal, anicteric sclerae EOM intact bilaterally ENMT external ear and nose normal, oropharynx normal Neck trachea midline, no thyromegaly Respiratory normal respiratory effort Auscultation: + rales Cardiovascular Rate/Rhythm: regular rate and regular rhythm Gastrointestinal (Abdomen) normal bowel sounds, soft, nontender, no hepatosplenomegaly Musculoskeletal no cyanosis or clubbing, extremities motor strength 5/5 Head/Neck/Chest: normocephalic Neurologic PERRL, EOMI, accommodation nl, no face palsy, no dysarthria CN's II-XI intact bilaterally Psychiatric A+Ox3, euthymic affect Discharge Data Allergies Allergy/AdvReac Type Severity Reaction Status Date / Time No Known Allergies Allergy Unverified 08/11/18 19:33 Consultations 08/11/18 20:43 ED Decision to Admit Stat 08/11/18 23:17 Consult Case Management - Discharge Planning Routine 08/12/18 08:00 Consult Cardiology Routine Consult Orthopedic Surgery Routine Consult Pulmonology Routine Ordered Studies 08/11/18 19:19 CT angio chest PE protocol Stat Hospital Course (1) Hypoxemia: 72 year old female who presents to the Emergency Room with complaints of a persistent shortness of breath she has been on oxygen therapy since 1 to 2 month ago multi-factorial reasons for acute on chronic respiratory failure with hypoxia -as per pulmonary consult Dr. Alcantara: The CT scan looks very reminiscent of usual interstitial pneumonitis/IPF without the honeycombing, but the subpleural reticulation, ground glass opacities, and distribution in the regions noted are certainly a concern; moderate to severe pulmonary hypertension, may need to start the patient on treatment for pulmonary arterial hypertension as outpatient -possibly may benefit from pirfenidone as an outpatient which may need prior authorization -08/13/19 Had 2 step walk test (6 minute walk test) which showed that on room air at rest that patient saturates at 90% oxygen and does not meet medical criteria to continue oxygen at rest but on ambulation she desturates to 84% and needs 2.5 liters/min (Patient can take nasal cannula 2.5 liters/minute with exertion) (Patient also can take albuterol nebulizer every 6 hours as needed for shortness of breath or wheezing with nebuilzer machine and prescriptions were made for the interstitial lung disease) -admission CT scan: There is a 9 mm irregular pulmonary nodule at the right apex. Although this could be on an inflammatory basis, the appearance is concerning for neoplasm. A 3 month follow-up examination is recommended for reassessment -will follow up with [facility] pulmonary -as per cardiology consult Dr. Garcia: Patient does not appear acutely volume overloaded. Mild diastolic dysfunction with preserved LV systolic function noted per echocardiogram without evidence of significant valvular disease; was started on IV Lasix but then switched to oral lasix 20 mg; because no acute CHF, and then recommend on discharge back to Lasix 3 days weekly at time of discharge admission CT scan: mild aneurysmal dilatation of the ascending thoracic aorta which measures up to 4.1 cm in diameter -will need outpatient follow up in the future Coronary artery disease status post stent. -Continue home medication of aspirin, Toprol-XL, and statins hypertension -Continue Toprol-XL and Lasix home doses Mild malunion proximal humerus with Avascular necrosis probable with no collapse of the bone -orthopedics evaluated and this requires no intervention as per their assessment History of Depression (no suicidal ideation on this admission) Continue Zoloft and Remeron. History of breast cancer status post right breast lumpectomy, Deep venous thrombosis prophylaxis, sequential compression devices while inpatient Discharge Diagnosis shortness of breath Interstitial Lung disease (interstitial pneumonitis/IPF without the honeycombing ) pulmonary arterial hypertension Mild diastolic dysfunction with preserved LV systolic function noted per echocardiogram without evidence of significant valvular disease chronic respiratory failure with Hypoxemia (on exertion requiring supplementary oxygen) 9 mm irregular pulmonary nodule at the right apex of the lung mild aneurysmal dilatation of the ascending thoracic aorta which measures up to 4.1 cm in diameter (ascending aortic aneurysm) Mild malunion proximal humerus with Avascular necrosis probable with no collapse of the bone Discharge Instructions Patient should follow up with primary care doctor in 1 week Sunday August 19, 2018 at 10 AM with Rosy Sanders nurse practitioner Pulmonary Clinic appointment [address], [address] [place] [address] Patient can take nasal cannula 2.5 liters/minute with exertion Patient also can take albuterol nebulizer every 6 hours as needed for shortness of breath or wheezing with nebuilzer machine Ascending aortic aneurysm: Repeat imaging in 1 year. This can be reassessed for echocardiogram or CT Follow up with outpatient cardiology doctor 9 mm irregular pulmonary nodule at the right apex: A 3 month follow-up examination is recommended for reassessment Total Time Total Time Spent Total Time Spent (In Minutes): 40 minutes Total Time Includes: Examination of the Patient, Discharge Planning and Medication Reconciliation Discharge Plan Discharge Items Patient Disposition: Home - Self-Care Reason For Visit: SOB Discharge Diagnosis: shortness of breath Interstitial Lung disease (interstitial pneumonitis/IPF without the honeycombing ) pulmonary arterial hypertension Mild diastolic dysfunction with preserved LV systolic function noted per echocardiogram without evidence of significant valvular disease chronic respiratory failure with Hypoxemia (on exertion requiring supplementary oxygen) 9 mm irregular pulmonary nodule at the right apex of the lung; mild aneurysmal dilatation of the ascending thoracic aorta which measures up to 4.1 cm in diameter (ascending aortic aneurysm); Mild malunion proximal humerus with Avascular necrosis probable with no collapse of the bone Condition: Good Discharge Goals: Improve disease control Activity: Resume your previous activity Non-emergency contact: Primary Care Provider and Chain Offbearer Call non-emergency contact if: you have any medication questions Diet: Heart Healthy Addtl Provider Instructions: Discharge Instructions Patient should follow up with primary care doctor in 1 week Sunday August 19, 2018 at 10 AM with Rosy Sanders nurse practitioner Pulmonary Clinic appointment [address], [address] [place] [address] Patient can take nasal cannula 2.5 liters/minute with exertion Patient also can take albuterol nebulizer every 6 hours as needed for shortness of breath or wheezing with nebuilzer machine Ascending aortic aneurysm: Repeat imaging in 1 year. This can be reassessed for echocardiogram or CT Follow up with outpatient cardiology doctor 9 mm irregular pulmonary nodule at the right apex: A 3 month follow-up examination is recommended for reassessment Prescriptions: New albuterol sulfate 2.5 mg/0.5 mL Solution For Nebulization 2.5 mg NEB Q6R PRN (Reason: shortness of breath or wheezing) 30 Days Qty: 120 RF: 0 Continue metoprolol succinate [Toprol XL] 50 mg Tablet Extended Release 24 Hr 25 mg PO DAILY RF: 0 betamethasone, augmented 0.05 % Cream 1 applic TOPICAL DAILY PRN (Reason: breakout) RF: 0 sertraline [Zoloft] 100 mg Tablet 200 mg PO DAILY RF: 0 omeprazole 40 mg Capsule,Delayed Release(Dr/Ec) 40 mg PO QAM RF: 0 aspirin 81 mg Tablet,Delayed Release (Dr/Ec) 81 mg PO DAILY RF: 0 simvastatin 40 mg Tablet 40 mg PO PM RF: 0 alendronate 35 mg Tablet 35 mg PO WK RF: 0 potassium chloride [Klor-Con M20] 20 mEq Tablet,Er Particles/Crystals 40 meq PO DAILY RF: 0 nitroglycerin [Nitrostat] 0.4 mg Tablet, Sublingual 0.4 mg Sublingual DIRECTED PRN (Reason: Chest Pain) RF: 0 furosemide [Lasix] 20 mg Tablet 20 mg PO 3XWK RF: 0 ergocalciferol (vitamin D2) [Drisdol] 50,000 unit Capsule 50,000 unit PO WK RF: 0 letrozole 2.5 mg Tablet 2.5 mg PO DAILY RF: 0 albuterol sulfate [Ventolin HFA] 90 mcg/actuation Hfa Aerosol Inhaler 2 puff INHALATION Q6H PRN (Reason: Shortness Of Breath) RF: 0 mirtazapine 7.5 mg Tablet 7.5 mg PO DAILY RF: 0 Visit Report Forms: [facility] Discharge Orders: Discharge Order (Routine); Ordered 08/13/18 Ordered By: Leonel Frazier Admission Data Admit Date/Time: 08/11/18 22:20 Attending Provider: Leonel Frazier Admit Provider: Celio Molina Primary Care Provider: Sarah Thapa. Other Providers: Celio Molina ; Fidel Abbasi ; Ronald Ambrose ; Sony Lopez ; Augusto Garcia ; Cristóbal Fung ; Gilson Gamino ; Olivia Antonio ; Janet Alonso ; Cory Omer ; Petr Nuñez Service: Telemetry
== END 2018-08-13 17:15 | disposition home or self-care (01) ==
LOC: ED 17:50 → 2S 17:50

== ENCOUNTER 2019-04-04 09:10 | Inpatient (IN) ==
[2019-04-04] MEDS ORDERED: methylPREDNISolone 125 MG/2 ML VIAL IV STA (09:28)
[2019-04-04] MEDS ORDERED: cefTRIAXone SODIUM 1,000 MG/50 ML BAG IV STA (09:28)
[2019-04-04] MEDS ORDERED: ALBUT/IPRATROP 3MG/0.5MG NEB 3 ML VIAL INH STA (09:28)
[2019-04-04 09:42] LABS: Basophils # (auto) 0.02 K/uL (0-0.2); Basophils % (auto) 0.2 %; Eosinophils # (auto) 0.11 K/uL (0-0.5); Eosinophils % (auto) 0.9 %; Hematocrit (blood only) 34.7 % (37-47); Hemoglobin 11.8 g/dL (12.0-16.0); Immature Granulocytes # (auto) 0.15 K/uL (0.00-0.02); Immature Granulocytes % (auto) 1.2 %; Lymphocytes % (auto) 8.9 %; Mean Corpuscular Volume 95.3 fL (80-100); Monocytes # (auto) 0.47 K/uL (0.11-0.59); Monocytes % (auto) 3.8 %; Neutrophils # (auto) 10.57 K/uL (1.4-6.5); Nucleated RBC # (auto) 0.13 K/uL (0-0); Nucleated RBC % (auto) 1.1 %; Platelet Count 172 K/uL (130-400); RDW Coefficient of Variation 19.6 % (11.5-14.5); RDW Standard Deviation 65.7 fL (36.4-46.3); Red Blood Count 3.64 M/uL (4.2-5.4); White Blood Count 12.42 K/uL (4.8-10.8)
[2019-04-04 09:52] LABS: Alanine Aminotransferase 31 U/L (12-78); Albumin Level 2.9 gm/dl (3.4-5.0); Aspartate Aminotransferase 29 U/L (15-37); BUN Creatinine Ratio 16.4 (10-20); Blood Urea Nitrogen 18 mg/dl (7-18); Calcium 9.6 mg/dl (8.5-10.1); Carbon Dioxide 26 mmol/L (21-32); Chloride 101 mmol/L (98-107); Est GFR (African American) 57.5; Est GFR (Non-African American) 49.6; Glucose 199 mg/dl (70-99); Potassium 4.1 mmol/L (3.5-5.1); Sodium 139 mmol/L (136-145)
[2019-04-04 09:57] LABS: Albumin Globulin Ratio 0.7 (0.9-2); Alkaline Phosphatase 94 U/L (45-117); Bilirubin,Total 1.1 mg/dl (0.2-1); Creatine Kinase MB 1.3 ng/ml (0.5-3.6); Globulin 4.2 gm/dl (2.5-4.0); Total Protein 7.1 gm/dl (6.4-8.2); Troponin I 0.032 ng/ml (0-0.045)
[2019-04-04 10:05] LABS: Partial Thromboplastin Ratio 0.9; Partial Thromboplastin Time 23.4 Seconds (21.0-31.0)
--- NOTE | 2019-04-04 10:07 | XRay Report ---
XR chest 1V portable HISTORY: 73 years-old Female Dyspnea acute shortness of breath COMPARISON: Chest CT 12/25/2018, chest radiograph 11/26/2018 TECHNIQUE: Portable AP view of the chest FINDINGS: Cardiac silhouette is enlarged, unchanged. Calcified plaque of the thoracic aortic arch. No pneumotho rax or pleural effusion. Chronic extensive reticular opacities, right greater than left redemonstrate d. Slightly progressed ill-defined opacities about the right midlung and right upper lobe. Large hiat al hernia. Degenerative changes of the shoulders and spine. IMPRESSION: 1. Chronic interstitial lung disease with new ill-defined opacities about the right midlung and right upper lobe suspicious for superimposed pneumonitis or asymmetric pulmonary edema. Correlate clinical ly. 2. Cardiomegaly. 3. Large hiatal hernia. The above report was generated using voice recognition software. It may contain grammatical, syntax o r spelling errors. Electronically signed by: Maxim Alford M.D. 04/04/2019 10:05 AM
[2019-04-04 10:16] LABS: iSTAT Arterial Blood Gas HCO3 26 meg/L (19-24); iSTAT Arterial Blood Gas pCO2 37 mmHg (35-46); iSTAT Arterial Blood Gas pH 7.46 (7.35-7.45); iSTAT Carbon Dioxide 27 mEq/l (24-31)
[2019-04-04] MEDS ORDERED: LEVOFLOXACIN/D5W 500 MG/100 ML BAG IV SCH (10:45)
--- NOTE | 2019-04-04 12:14 | Communication Note ---
Date of Service: April 04, 2019 73 yo F with idiopathic pulmonary fibrosis on Enbriet presents with worsening shortness of breath for the past two days. She denies productive cough, fevers, or chills and is not feeling ill but is short of breath at rest. She has been trying to increase her supplemental oxygen for the last two days without success. On arrival to the ER, she was placed on BIPAP which has improved her work of breathing. She is feeling better in the ER at the time of this examination, and is mentating well. She is a poor historian, however. Daughters and supplement the history. She reportedly stopped the Enbriet 2/2 side effects for several months until starting it again one month ago when her breathing was worse. She did well until her titration went to 3 tabs daily and she developed n/v/d which affected her in the last two days. This happened in the past. Family also notes a d=swollen face 2/2 a recent steroid taper. She is now on prednisone 10mg daily. Imaging reveals possible edema but she doesn't appear volume overloaded on exam. Additionally, there is a question of pneumonia, however, she doesn't clinically appear to be infected. Will order procalcitonin and cont empiric antibiotics until breathing improved and we discuss the case with pulmonary. Will continue IV solumedrol and nebs. Will cont BIPAP but would try her off when she gets upstairs and gets settled. NPO until breathing reliably. Ice chips and small sips with meds ok for now. On exam she is in no acute distress on 12/6 BIPAP mask. She is oriented. MMM, oropharynx clear, no cervical or submandibular LAD. No sinus TTP. No JVD, S1/2 heard without murmurs, gallops or rubs. Diffuse crackles heard to auscultation of lungs throughout all doss. No edema. Assessment: Acute on chronic respiratory failure 2/2 probable IPF flare with possible superimposed pneumonia. Admit to PCU, cont BIPAP with respiratory performing intermittent weaning trials as she is improved, solumedrol IV, bronchodilator via nebs, ceftriaxone. Hold Enbriet for now. Consult pulmonary. Appreciate recommendations. DO Vinnie
--- NOTE | 2019-04-04 12:22 | History & Physical Report ---
Date of Service April 04, 2019 Assessment & Plan (1) Acute and chronic respiratory failure: (2) Lung disease, interstitial: 73 yo F with PMHx of interstitial lung disease (Idiopathic Pulmonary Fibrosis), pulm HTN, CAD who presents today with increased SOB in the last 48 hours. She is typically on 4L of oxygen at home but in the last two days has increased to 5L but is still feeling SOB at rest which caused her to come to the hospital today. In the ED was placed on BIPAP which has greatly improved her dyspnea and work of breathing. She reports at baseline has a cough and mucous production, does not note an increase in this recently. Denies any fevers or chills, feeling ill otherwise. Has a hx of ILD and follows with Dr. Crowe for pulm needs-- she was started on a prednisone taper 03/18/19 and is currently taking 10 mg daily. Also takes Esbriet 267 mg which she restarted on one month ago-- has found that she can only tolerate 2 tablets daily, when she increased to 3 tabs daily is when she started noticing issues with n/v/d which happened in the last 2 days. Family also notes increase in swelling of face and feet-- thought to be secondary to recent steroid taper and pt increase in sodium in diet. Pt is a poor historian and history was obtained through patient, family (who appears reliable), and past progress notes from PCP and pulmonary. In the ED: Improved tachypnea on BIPAP, sats stabilized WBC 12.42, pCO2 53, CXR: 1. Chronic interstitial lung disease with new ill- defined opacities about the right midlung and right upper lobe suspicious for superimposed pneumonitis or asymmetric pulmonary edema. Correlate clinically. 2. Cardiomegaly. 3. Large hiatal hernia. In the ED given: Solumedrol, Duoneb, Rocephin, and Levaquin - Admit to PCU - Does not appear to be septic or volume overloaded - Continue with BIPAP with intermittent weaning trials - Continue with Duonebs q6 - Solumedrol IV - ? of PNA so will continue with empiric antibiotics until improved -- Rocephin and Zithromax and await further recommendations from pulmonary - NPO, hold PO meds aside from metoprolol, zoloft, and simvastatin - consult pulm, Dr. Junior (3) HTN (hypertension): (4) CAD (coronary artery disease): Stable. Continue to monitor-- continue home meds of metoprolol 50 mg, simvastatin 20 mg (5) Depression: Stable. Continue home med of sertraline 200 mg VTE Prophylaxis: Heparin 5,000U SQ q8h Pt is a DNR/DNI-- discussed with patient and family. Pt follows with Dr. Morocho of [facility] for routine care, office # [phone]. Patient seen in coordination with Dr. [place]. See addendum for further details. History of Present Illness Chief Complaint: SOB Primary Care Provider: Jose Manuel Morocho 73 yo F with PMHx of interstitial lung disease (IPF), pulm HTN, CAD who presents today with increased SOB in the last 48 hours. She is typically on 4L of oxygen at home but in the last two days has increased to 5L but is still feeling SOB at rest which caused her to come to the hospital today. In the ED was placed on BIPAP which has greatly improved her dyspnea and work of breathing. She reports at baseline has a cough and mucous production, does not note an increase in this recently. Denies any fevers or chills, feeling ill otherwise. Has a hx of ILD and follows with Dr. Crowe for pulm needs-- she was started on a prednisone taper 03/18/19 and is currently taking 10 mg daily. Also takes Esbriet 267 mg which she restarted on one month ago-- has found that she can only tolerate 2 tablets daily, when she increased to 3 tabs daily is when she started noticing issues with n/v/d which happened in the last 2 days. Family also notes increase in swelling of face and feet-- thought to be secondary to recent steroid taper and pt increase in sodium in diet. Denies hx of COPD, asthma, smoking. Pt is a poor historian and history was obtained through patient, family (who appears reliable), and past progress notes from PCP and pulmonary. Allergies Allergy/AdvReac Type Severity Reaction Status Date / Time No Known Allergies Allergy Verified 08/21/18 16:19 Home Medications Home Medications Medication Instructions Recorded Confirmed Type albuterol sulfate [Ventolin HFA] 2 puff INHALATION Q6H PRN 08/11/18 04/04/19 History alendronate 75 mg PO WK 12/16/18 08/09/19 History aspirin 81 mg PO DAILY 08/11/18 04/04/19 History betamethasone, augmented 1 applic TOPICAL DAILY PRN 08/11/18 04/04/19 History furosemide [Lasix] 20 mg PO DAILY 08/11/18 04/04/19 History letrozole 2.5 mg PO DAILY 08/11/18 04/04/19 History metoprolol succinate [Toprol XL] 50 mg PO DAILY 08/11/18 04/04/19 History mirtazapine 7.5 mg PO DAILY 08/11/18 04/04/19 History nitroglycerin [Nitrostat] 0.4 mg SUBLINGUAL DIRECTED PRN 08/11/18 04/04/19 History omeprazole 40 mg PO QAM 08/11/18 04/04/19 History potassium chloride [Klor-Con M20] 40 meq PO DAILY 08/11/18 04/04/19 History sertraline [Zoloft] 200 mg PO DAILY 08/11/18 04/04/19 History simvastatin 20 mg PO PM 08/11/18 04/04/19 History pirfenidone [Esbriet] 534 mg PO DAILY 04/04/19 04/04/19 History prednisone 10 mg PO DAILY 04/04/19 04/04/19 History Past Med/Surg History Medical History Avascular necrosis of bone Ascending aortic aneurysm Hypoxemia (Acute) CHF (congestive heart failure) (Acute) Lung disease, interstitial (Acute) HTN (hypertension) (Chronic) CAD (coronary artery disease) (Chronic) Depression Suicidal ideation Surgical History History of coronary artery stent placement (Resolved) History of colon resection (Resolved) H/O hernia repair (Resolved) H/O: hysterectomy (Resolved) History of cholecystectomy (Resolved) Family History Other No significant family history Social History Preferred Language: Thai Communication Ability: Effective 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 Beliefs That Will Affect Care: None marital status: Current Living Situation: Spouse Feels Safe at Home: Yes Smoking Status: Never smoker Second Hand Exposure: No ; Hx Alcohol Use: No Hx Substance Use: No Review of Systems Review of Systems: A total of 10 systems were reviewed and otherwise negative unless noted in the HPI or below: Physical Exam Physical Exam: GENERAL: alert, oriented, in no acute distress on BIPAP mask resting in bed comfortably HEAD: Normocephalic, atraumatic EYES: PERRL, EOMI, Conjunctiva are pink and non-injected, sclera clear NECK: supple, no adenopathy HEART: regular rate & rhythm, no murmurs and no gallops, trace edema b/l LE, no warmth or tenderness LUNGS: mild diffuse crackles on auscultation ABDOMEN: abdomen soft, non-tender, normal bowel sounds, no masses or organomegaly, no rebound or guarding, no CVA tenderness, no bladder distention identified and no bruits SKIN: skin color, texture, turgor are normal, no rashes or significant lesions NEURO: alert & oriented x 3 with fluent speech, no focal motor/sensory deficits Results & Data Vital Signs (Past 12 Hours) Vital Signs Temp Pulse Pulse Resp BP Pulse Ox 04/04/19 10:00 121 H 36 H 95 04/04/19 09:44 123 H 28 H 95 04/04/19 09:18 37.1 C 134 H 50 H 124/67 95 Laboratory Results Short CBC 04/04/19 Range/Units 09:20 WBC 12.42 H (4.8-10.8) K/uL Hgb 11.8 L (12.0-16.0) g/dL Hct 34.7 L (37-47) % Plt Count 172 (130-400) K/uL BMP 04/04/19 09:20 Sodium 139 Potassium 4.1 Chloride 101 Carbon Dioxide 26 BUN 18 Creatinine 1.11 Glucose 199 H Calcium 9.6 Cardiac Enzymes 04/04/19 Range/Units 09:20 CK-MB (CK-2) 1.3 (0.5-3.6) ng/ml Troponin I 0.032 (0-0.045) ng/ml Liver Function 04/04/19 Range/Units 09:20 Total Bilirubin 1.1 H (0.2-1) mg/dl AST 29 (15-37) U/L ALT 31 (12-78) U/L Alkaline Phosphatase 94 (45-117) U/L Albumin 2.9 L (3.4-5.0) gm/dl Diagnostic Findings Chest Xray: IMPRESSION: 1. Chronic interstitial lung disease with new ill-defined opacities about the right midlung and right upper lobe suspicious for superimposed pneumonitis or asymmetric pulmonary edema. Correlate clinically. 2. Cardiomegaly. 3. Large hiatal hernia. Supervising Physician Co-Signing Physician Notes I have seen and examined the patient and have discussed the case with the provider above. I agree with the assessment and plan as stated with the following exceptions. 73 yo F with idiopathic pulmonary fibrosis on Enbriet presents with worsening shortness of breath for the past two days. She denies productive cough, fevers, or chills and is not feeling ill but is short of breath at rest. She has been trying to increase her supplemental oxygen for the last two days without success. On arrival to the ER, she was placed on BIPAP which has improved her work of breathing. She is feeling better in the ER at the time of this examination, and is mentating well. She is a poor historian, however. Daughters and supplement the history. She reportedly stopped the Enbriet 2/2 side effects for several months until starting it again one month ago when her breathing was worse. She did well until her titration went to 3 tabs daily and she developed n/v/d which affected her in the last two days. This happened in the past. Family also notes facial swelling after a recent steroid taper. She is now on prednisone 10mg daily. Imaging reveals possible edema but she doesn't appear volume overloaded on exam. BNP pending. Additionally, there is a question of pneumonia, however, she doesn't clinically appear to be infected. Will order procalcitonin and cont empiric antibiotics until breathing improved and we discuss the case with pulmonary. Will continue IV solumedrol and nebs. Will cont BIPAP but would try her off when she gets upstairs and gets settled. NPO until breathing reliably. Ice chips and small sips with meds ok for now. On exam she is in no acute distress on 12/6 BIPAP mask. She is oriented. MMM, oropharynx clear, no cervical or submandibular LAD. No sinus TTP. No JVD, S1/2 heard without murmurs, gallops or rubs. Diffuse crackles heard to auscultation of lungs throughout all doss. No edema. Assessment: Acute on chronic respiratory failure 2/2 probable IPF flare with possible superimposed pneumonia. Admit to PCU, cont BIPAP with respiratory performing intermittent weaning trials as she is improved, solumedrol IV, bronchodilator via nebs, ceftriaxone. Hold Enbriet for now. Consult pulmonary. Appreciate recommendations. DO Vinnie (1) CAD (coronary artery disease) Associated angina: without angina Coronary Disease-Associated Artery/Lesion type: [place] artery [place] vs. transplanted heart: hop[place] heart Qualified Code(s): I25.10 - Atherosclerotic heart disease of [place] coronary artery without angina pectoris (2) HTN (hypertension) Hypertension type: essential hypertension Qualified Code(s): I10 - Essential (primary) hypertension
--- NOTE | 2019-04-04 12:42 | Emergency Department Note ---
Entered by Fifi Pruett acting as a scribe for Edi Roche DO History of Present Illness General Chief complaint: Shortness of Breath/Dyspnea Stated complaint: sob/chest pain Time Seen by Provider: 04/04/19 09:18 Source: patient and EMS History of Present Illness Onset (ago): day(s) 1 Location: chest Pain Consistency: + other (worsening) Quality: + other (shortness of breath) Associated symptoms: + cough, + nausea/vomiting and + other (negative abdominal pain; negative pain or swelling in legs; negative anxious; negative nervous) Treatments prior to arrival: other (oxygen) The patient is a 73 year old female who presents to the Emergency Room with complaints of worsening shortness of breath that began yesterday. The patient states that she began coughing during this time. She reports vomiting this morning, but denies abdominal pain. The patient denies pain or swelling in her legs. She denies any history of COPD, but states that she wears 4-5L of oxygen at home. Per EMS, the patient was 50% on room air just prior to arrival. The patient denies feeling anxious or nervous. Home Medications Home Medications Medication Instructions Recorded Confirmed Type albuterol sulfate [Ventolin HFA] 2 puff INHALATION Q6H PRN 08/11/18 04/04/19 History alendronate 75 mg PO WK 08/11/18 04/04/19 History aspirin 81 mg PO DAILY 08/11/18 04/04/19 History betamethasone, augmented 1 applic TOPICAL DAILY PRN 08/11/18 04/04/19 History furosemide [Lasix] 20 mg PO DAILY 08/11/18 04/04/19 History letrozole 2.5 mg PO DAILY 08/11/18 04/04/19 History metoprolol succinate [Toprol XL] 50 mg PO DAILY 08/11/18 04/04/19 History mirtazapine 7.5 mg PO DAILY 08/11/18 04/04/19 History nitroglycerin [Nitrostat] 0.4 mg SUBLINGUAL DIRECTED PRN 08/11/18 04/04/19 History omeprazole 40 mg PO QAM 08/11/18 04/04/19 History potassium chloride [Klor-Con M20] 40 meq PO DAILY 08/11/18 04/04/19 History sertraline [Zoloft] 200 mg PO DAILY 08/11/18 04/04/19 History simvastatin 20 mg PO PM 08/11/18 04/04/19 History pirfenidone [Esbriet] 534 mg PO DAILY 04/04/19 04/04/19 History prednisone 10 mg PO DAILY 04/04/19 04/04/19 History Allergies Allergy/AdvReac Type Severity Reaction Status Date / Time No Known Allergies Allergy Verified 08/21/18 16:19 Past Med/Surg History Medical History Avascular necrosis of bone Ascending aortic aneurysm Hypoxemia (Acute) CHF (congestive heart failure) (Acute) Lung disease, interstitial (Acute) HTN (hypertension) (Chronic) CAD (coronary artery disease) (Chronic) Depression Suicidal ideation Surgical History History of coronary artery stent placement (Resolved) History of colon resection (Resolved) H/O hernia repair (Resolved) H/O: hysterectomy (Resolved) History of cholecystectomy (Resolved) Family History Other No significant family history Social History Preferred Language: [place] Communication Ability: Effective Beliefs That Will Affect Care: None marital status: Current Living Situation: Alone Feels Safe at Home: Yes Smoking Status: Unknown if ever smoked Hx Alcohol Use: No Hx Substance Use: No Review of Systems See HPI for pertinent positives & negatives. and A total of 10 systems reviewed and were otherwise negative Physical Exam Vital Signs Vital Signs - 24 hr 04/04/19 09:18 04/04/19 09:44 04/04/19 10:00 Temperature 37.1 C Temperature Source Oral Sepsis Recent Fever Within 48 Hours No Sepsis New/Unexplained Change in Mental Status No Sepsis Action Taken by Nursing Physician Notified Pulse Rate 134 H 121 H Pulse Rate [Apical] 123 H Pulse Rhythm Regular Pulse Strength Normal Respiratory Rate 50 H 28 H 36 H Respiratory Effort / Characteristics Spontaneous Spontaneous Spontaneous Short of Breath Respiratory Depth Shallow Respiratory Pattern Regular Blood Pressure 124/67 Blood Pressure Mean 86 Blood Pressure Position Lying Pulse Oximetry 95 95 95 Oxygen Delivery Method Non-rebreather Oxymask Oxygen Flow Rate 15 15 Fraction of Inspired Oxygen 50 CONSTITUTIONAL/VITAL SIGNS: Reviewed / noted above. GENERAL: Non-toxic in appearance. INTEGUMENTARY: Warm, dry, and [place]. HEAD: Normocephalic. EYES: without scleral icterus or trauma. ENT/OROPHARYNX: clear and moist. LYMPHADENOPATHY/NECK: Is supple without lymphadenopathy or meningismus. RESPIRATORY: Tachypneic. Fine diffuse crackles, good air movement. Lungs are eq ual. CARDIOVASCULAR: Regular rate and rhythm. GI/ABDOMEN: Soft and nontender. No organomegaly or pulsatile mass. No rebound or guarding. Normal bowel sounds. EXTREMITIES: Warm and well perfused. BACK: No CVA tenderness. NEUROLOGICAL: Intact without focal deficits. PSYCHIATRIC: normal affect. MUSCULOSKELETAL: Normally developed with good muscle tone. Course 917: Past medical records reviewed. The patient was evaluated in room B6. A complete history and physical exam was performed. 1047: I discussed the case with Lilian Winter PA-C who accepts the patient for further evaluation under Dr. Paty Gonzalez service. Consultations Consultation #1: I discussed the case with Lilian Winter PA-C who accepts the patient for further evaluation under Dr. Paty Gonzalez service. Time: 10:47 Administered Medications Levofloxacin/Dextrose (Levaquin/D5w) 500 mg in 100 mls @ 100 mls/hr IV ONCE TOY Stop: 04/06/19 10:44 Last Admin: 04/04/19 12:36 Dose: 100 mls/hr Documented by: [id number] Discontinued Medications Albuterol (Duoneb) 12 ml INH ONE STA Stop: 04/04/19 09:29 Last Admin: 04/04/19 09:43 Dose: 12 ml Documented by: [id number] Ceftriaxone Sodium (Rocephin) 1,000 mg in 50 mls @ 100 mls/hr IV NOW STA Stop: 04/04/19 09:57 Last Infusion: 04/04/19 10:19 Dose: 0 mls/hr Documented by: [id number] Admin: 04/04/19 09:46 Dose: 100 mls/hr Documented by: [id number] Methylprednisolone (Solumedrol) 125 mg IV NOW STA Stop: 04/04/19 09:29 Last Admin: 04/04/19 09:46 Dose: 125 mg Documented by: [id number] Medical Decision Making Differential Diagnosis Differential diagnosis: Etiologies such as infections, reactive airway disease, pneumonia, pneumothorax, COPD, CHF, cardiac ischemia, pulmonary embolism, musculoskeletal, gastrointestinal, as well as others were entertained. Medical Records Attestation: I reviewed the patient's medical records. Home Medications Current Medication List: was personally reviewed by me Laboratory Data Attestation: I reviewed the patient's lab results. Result diagrams: 04/04/19 09:20 04/04/19 09:20 Lab Results 04/04/19 04/04/19 04/04/19 Range/Units 09:20 09:20 09:20 WBC 12.42 H (4.8-10.8) K/uL RBC 3.64 L (4.2-5.4) M/uL Hgb 11.8 L (12.0-16.0) g/dL Hct 34.7 L (37-47) % MCV 95.3 (80-100) fL MCH 32.4 (25-34) pg MCHC 34.0 (32-36) g/dL RDW Std Deviation 65.7 H (36.4-46.3) fL RDW Coeff of Nicanor 19.6 H (11.5-14.5) % Plt Count 172 (130-400) K/uL MPV 10.0 (7.4-10.4) fL Immature Gran % (Auto) 1.2 % Neut % (Auto) 85.0 % Lymph % (Auto) 8.9 % [place] % (Auto) 3.8 % Eos % (Auto) 0.9 % Baso % (Auto) 0.2 % Immature Gran # (Auto) 0.15 H (0.00-0.02) K/uL Neut # (Auto) 10.57 H (1.4-6.5) K/uL Lymph # (Auto) 1.10 L (1.2-3.4) K/uL [place] # (Auto) 0.47 (0.11-0.59) K/uL Eos # (Auto) 0.11 (0-0.5) K/uL Baso # (Auto) 0.02 (0-0.2) K/uL Absolute Nucleated RBC 0.13 H (0-0) K/uL Nucleated RBC % (auto) 1.1 % PT 10.0 (9.0-12.0) Seconds INR 1.0 (0.9-1.1) APTT 23.4 (21.0-31.0) Seconds PTT Ratio 0.9 POC pH (7.35-7.45) POC pCO2 (35-46) mmHg POC pO2 (80-95) mmHg POC HCO3 (19-24) [place]/L POC Total CO2 (24-31) mEq/l POC Base Excess (-9-1.8) [place]/L POC ABG O2 Sat (90-95) % Sodium 139 (136-145) mmol/L Potassium 4.1 (3.5-5.1) mmol/L Chloride 101 (98-107) mmol/L Carbon Dioxide 26 (21-32) mmol/L Anion Gap 12.0 H (3-11) BUN 18 (7-18) mg/dl Creatinine 1.11 (0.6-1.2) mg/dl Est Cr Clr Drug Dosing Not Reportable Est GFR ( Amer) 57.5 Est GFR (Non-Af Amer) 49.6 BUN/Creatinine Ratio 16.4 (10-20) Glucose 199 H (70-99) mg/dl Calcium 9.6 (8.5-10.1) mg/dl Total Bilirubin 1.1 H (0.2-1) mg/dl AST 29 (15-37) U/L ALT 31 (12-78) U/L Alkaline Phosphatase 94 (45-117) U/L CK-MB (CK-2) 1.3 (0.5-3.6) ng/ml CK/CKMB % Calc Not Reportable Troponin I 0.032 (0-0.045) ng/ml Total Protein 7.1 (6.4-8.2) gm/dl Albumin 2.9 L (3.4-5.0) gm/dl Globulin 4.2 H (2.5-4.0) gm/dl Albumin/Globulin Ratio 0.7 L (0.9-2) 04/04/19 Range/Units 10:00 WBC (4.8-10.8) K/uL RBC (4.2-5.4) M/uL Hgb (12.0-16.0) g/dL Hct (37-47) % MCV (80-100) fL MCH (25-34) pg MCHC (32-36) g/dL RDW Std Deviation (36.4-46.3) fL RDW Coeff of Nicanor (11.5-14.5) % Plt Count (130-400) K/uL MPV (7.4-10.4) fL Immature Gran % (Auto) % Neut % (Auto) % Lymph % (Auto) % [place] % (Auto) % Eos % (Auto) % Baso % (Auto) % Immature Gran # (Auto) (0.00-0.02) K/uL Neut # (Auto) (1.4-6.5) K/uL Lymph # (Auto) (1.2-3.4) K/uL [place] # (Auto) (0.11-0.59) K/uL Eos # (Auto) (0-0.5) K/uL Baso # (Auto) (0-0.2) K/uL Absolute Nucleated RBC (0-0) K/uL Nucleated RBC % (auto) % PT (9.0-12.0) Seconds INR (0.9-1.1) APTT (21.0-31.0) Seconds PTT Ratio POC pH 7.46 H (7.35-7.45) POC pCO2 37 (35-46) mmHg POC pO2 53 L (80-95) mmHg POC HCO3 26 H (19-24) [place]/L POC Total CO2 27 (24-31) mEq/l POC Base Excess 2.0 H (-9-1.8) [place]/L POC ABG O2 Sat 89.0 L (90-95) % Sodium (136-145) mmol/L Potassium (3.5-5.1) mmol/L Chloride (98-107) mmol/L Carbon Dioxide (21-32) mmol/L Anion Gap (3-11) BUN (7-18) mg/dl Creatinine (0.6-1.2) mg/dl Est Cr Clr Drug Dosing Est GFR ( Amer) Est GFR (Non-Af Amer) BUN/Creatinine Ratio (10-20) Glucose (70-99) mg/dl Calcium (8.5-10.1) mg/dl Total Bilirubin (0.2-1) mg/dl AST (15-37) U/L ALT (12-78) U/L Alkaline Phosphatase (45-117) U/L CK-MB (CK-2) (0.5-3.6) ng/ml CK/CKMB % Calc Troponin I (0-0.045) ng/ml Total Protein (6.4-8.2) gm/dl Albumin (3.4-5.0) gm/dl Globulin (2.5-4.0) gm/dl Albumin/Globulin Ratio (0.9-2) Imaging Data Radiologist's Impression: Radiology results as stated below per my review and the radiologist's interpretation: XR chest 1V portable HISTORY: 73 years-old Female Dyspnea acute shortness of breath COMPARISON: Chest CT 12/25/2018, chest radiograph 11/26/2018 TECHNIQUE: Portable AP view of the chest FINDINGS: Cardiac silhouette is enlarged, unchanged. Calcified plaque of the thoracic aortic arch. No pneumothorax or pleural effusion. Chronic extensive reticular opacities, right greater than left redemonstrated. Slightly progressed ill- defined opacities about the right midlung and right upper lobe. Large hiatal hernia. Degenerative changes of the shoulders and spine. IMPRESSION: 1. Chronic interstitial lung disease with new ill-defined opacities about the right midlung and right upper lobe suspicious for superimposed pneumonitis or asymmetric pulmonary edema. Correlate clinically. 2. Cardiomegaly. 3. Large hiatal hernia. The above report was generated using voice recognition software. It may contain grammatical, syntax or spelling errors. Electronically signed by: Maxim Alford M.D. 04/04/2019 10:05 AM ECG Data Attestation: I personally reviewed and interpreted this ECG as follows: Indication: SOB/dyspnea Rate (beats per minute): 126 Rhythm: sinus tachycardia Findings: no PAC, no PVC, no ST elevation and no ectopy Blood Pressure Blood Pressure Findings: Normal blood pressure MDM Narrative This is a 73-year-old female who presents to the ED with a chief complaint of increasing shortness of breath over the last 24 hours. The patient reports a chronic history of interstitial lung disease. She denies COPD or smoking. The patient is chronically on 4 L of oxygen at home. The patient's initial vital signs revealed a tachycardia. EKG showed a sinus tach at a rate of 126. Chemistry panel was unremarkable. White blood cell count was 12. Troponin was negative. Chest x-ray reveals chronic interstitial lung disease with a right mid and upper lung pneumonia. The patient was ordered a 1 hour DuoNeb treatment as well as IV Rocephin, IV Levaquin and Solu-Medrol. The patient required BiPAP because of some increased respiratory distress and fatigue. She was placed on BiPAP. I spoke with the hospitalist, who will see the patient for further inpatient evaluation and care. Impression & Plan Pneumonia, Hypoxia, Respiratory failure Critical Care Time Critical Care Time: Yes Total Critical Care Time: 35 I have personally spent 35 minutes of critical care time in the direct management of this patient. This includes bedside care, interpretation of diagnostic studies, and testing, discussion with consultants, patient, and family members, and other required patient management activities. This 35 minutes is in excess of all separately billable procedures. Discharge Plan Visit Data Chief Complaint: Shortness of Breath/Dyspnea Stated Complaint: sob/chest pain ED Provider: Edi Roche Discharge Problem: Pneumonia, Hypoxia, Respiratory failure Patient Disposition: Being Evaluated by Hospitalist Forms Stand Alone Forms: [facility] Prescriptions Prescriptions: No Action metoprolol succinate [Toprol XL] 50 mg Tablet Extended Release 24 Hr 50 mg PO DAILY RF: 0 betamethasone, augmented 0.05 % Cream 1 applic TOPICAL DAILY PRN (Reason: breakout) RF: 0 sertraline [Zoloft] 100 mg Tablet 200 mg PO DAILY RF: 0 omeprazole 40 mg Capsule,Delayed Release(Dr/Ec) 40 mg PO QAM RF: 0 aspirin 81 mg Tablet,Delayed Release (Dr/Ec) 81 mg PO DAILY RF: 0 simvastatin 40 mg Tablet 20 mg PO PM RF: 0 alendronate 35 mg Tablet 75 mg PO WK RF: 0 potassium chloride [Klor-Con M20] 20 mEq Tablet,Er Particles/Crystals 40 meq PO DAILY RF: 0 nitroglycerin [Nitrostat] 0.4 mg Tablet, Sublingual 0.4 mg Sublingual DIRECTED PRN (Reason: Chest Pain) RF: 0 furosemide [Lasix] 20 mg Tablet 20 mg PO DAILY RF: 0 letrozole 2.5 mg Tablet 2.5 mg PO DAILY RF: 0 albuterol sulfate [Ventolin HFA] 90 mcg/actuation Hfa Aerosol Inhaler 2 puff INHALATION Q6H PRN (Reason: Shortness Of Breath) RF: 0 mirtazapine 7.5 mg Tablet 7.5 mg PO DAILY RF: 0 prednisone 10 mg Tablet 10 mg PO DAILY RF: 0 Esbriet 267 mg Tablet 534 mg PO DAILY RF: 0 Referrals Referrals: Jose Manuel Morocho [Primary Care Provider] - Discharge Problem: Pneumonia Qualifiers: Pneumonia type: due to unspecified organism Laterality: right Lung location: mi ddle lobe of lung Qualified Code(s): J18.1 - Lobar pneumonia, unspecified o rganism Respiratory failure Qualifiers: Chronicity: acute Respiratory failure complication: hypoxia Qualified Code(s): J96.01 - Acute respiratory failure with hypoxia The scribe's documentation has been prepared under my direction and personally reviewed by me in its entirety. I confirm that the note above accurately reflects all work, treatment, procedures, and medical decision making performed by me.
--- NOTE | 2019-04-04 14:49 | Pulmonary Consultation ---
Date of Consultation April 04, 2019 Impression: 73-year-old female with advanced interstitial lung disease, presumptively felt to be idiopathic pulmonary fibrosis with baseline oxygen requirement between 2 and 4 L presenting now with increasing breathlessness, cough, and increasing oxygen requirement. Assessment & Plan (1) Lung disease, interstitial: Plan: 1. Interstitial lung disease NOS. Presumptive working diagnosis has been idiopathic pulmonary fibrosis/UIP however CT scan is not classic as there is not really a basilar predominance and significant associated bronchiectasis. Will conduct serological evaluation including rheumatoid factor, anti-CCP, DELMI with reflex, ANCA, CRP, ESR, IgE level, aldolase 2. The patient is a poor candidate for bronchoscopy or lung biopsy and given the advanced nature of her disease, I am not sure that it would change the overall therapy. 3. We will hold pirfenidone for now. 4. There may be a component of fluid overload as well as potential infection. Seems reasonable to continue antibiotics for now awaiting procalcitonin. Would also recommend diuretics pending BNP level. Ggven the progression noted on CT scan, higher dose steroids may be appropriate and would continue Solu-Medrol for now. 5. The patient's advanced age would preclude transplant. (2) Acute hypoxemic respiratory failure: 1. Secondary to above. Patient initially required bilevel in the emergency room however she appears to be doing quite well currently with an oxygen mask. Should her oxygen requirements increased, consideration for heated high flow oxygen may be appropriate. (3) Pulmonary hypertension: 1. Suspect WHO class II and III. No indication for additional evaluation or pulmonary vasodilators. Continue oxygen therapy and optimize lung disease. Gentle diuresis is being initiated pending BNP levels. History of Present Illness History of Present Illness History is obtained from review the electronic medical record as well as the interview the patient in the bedside in discussion with the admitting hospitalist service. The patient is a 73-year-old female with a history of interstitial lung disease, presumptive IPF. She was diagnosed approximately 8 months ago. She was seen by Dr. Alcantara at that point in time. She followed up in the pulmonary clinic and was initiated on prednisone as well as pirfenidone. She has had difficulty tolerating the pirfenidone due to GI issues. She states she has been compliant with her oxygen at 2 to 4 L/min on a regular basis but over the last several days she has noted increasing breathlessness with some cough. She does not rep ort fevers chills or night sweats. No chest pain or palpitations. She has noted some mild lower extremity edema. She states she has been taking her pirfenidone and prednisone as previously prescribed. She has not noted any skin rashes or lesions. Allergies Allergy/AdvReac Type Severity Reaction Status Date / Time No Known Allergies Allergy Verified 08/21/18 16:19 Home Medications Home Medications Medication Instructions Recorded Confirmed Type albuterol sulfate [Ventolin HFA] 2 puff INHALATION Q6H PRN 08/11/18 04/04/19 History alendronate 75 mg PO WK 08/11/18 04/04/19 History aspirin 81 mg PO DAILY 08/11/18 04/04/19 History betamethasone, augmented 1 applic TOPICAL DAILY PRN 08/11/18 04/04/19 History furosemide [Lasix] 20 mg PO DAILY 08/11/18 04/04/19 History letrozole 2.5 mg PO DAILY 08/11/18 04/04/19 History metoprolol succinate [Toprol XL] 50 mg PO DAILY 08/11/18 04/04/19 History mirtazapine 7.5 mg PO DAILY 08/11/18 04/04/19 History nitroglycerin [Nitrostat] 0.4 mg SUBLINGUAL DIRECTED PRN 08/11/18 04/04/19 History omeprazole 40 mg PO QAM 08/11/18 04/04/19 History potassium chloride [Klor-Con M20] 40 meq PO DAILY 08/11/18 04/04/19 History sertraline [Zoloft] 200 mg PO DAILY 08/11/18 04/04/19 History simvastatin 20 mg PO PM 08/11/18 04/04/19 History pirfenidone [Esbriet] 534 mg PO DAILY 04/04/19 04/04/19 History prednisone 10 mg PO DAILY 04/04/19 04/04/19 History Patient History Medical History Avascular necrosis of bone Ascending aortic aneurysm Hypoxemia (Acute) CHF (congestive heart failure) (Acute) Lung disease, interstitial (Acute) HTN (hypertension) (Chronic) CAD (coronary artery disease) (Chronic) Depression Suicidal ideation Surgical History History of coronary artery stent placement (Resolved) History of colon resection (Resolved) H/O hernia repair (Resolved) H/O: hysterectomy (Resolved) History of cholecystectomy (Resolved) Family History Other No significant family history Social History Preferred Language: Frisian Communication Ability: Effective Beliefs That Will Affect Care: None marital status: Current Living Situation: Alone Feels Safe at Home: Yes Smoking Status: Unknown if ever smoked Hx Alcohol Use: No Hx Substance Use: No Review of Systems Review of Systems: All systems reviewed & are unremarkable except as noted in HPI & below Physical Exam Constitutional: WD/WN, vitals as above Neck: trachea midline, no thyromegaly Respiratory: Coarse basilar crackles. Cardiovascular: RRR, no murmur, no edema Gastrointestinal (Abdomen): normal bowel sounds, soft, nontender, no hepatosplenomegaly Skin: no rashes, warm and dry Results & Data Vital Signs (Past 12 Hours) Vital Signs Temp Pulse Pulse Resp BP Pulse Ox 04/04/19 13:59 111 H 36 H 100 04/04/19 13:15 92 H 32 H 100 04/04/19 10:00 121 H 36 H 95 04/04/19 09:44 123 H 38 H 95 04/04/19 09:18 37.1 C 134 H 50 H 124/67 95 Laboratory Results 04/04/19 09:20 04/04/19 09:20 Prior labs were reviewed. No significant serological data. Diagnostic Findings Chest x-ray independently reviewed. XR chest 1V portable HISTORY: 73 years-old Female Dyspnea acute shortness of breath COMPARISON: Chest CT 12/25/2018, chest radiograph 11/26/2018 TECHNIQUE: Portable AP view of the chest FINDINGS: Cardiac silhouette is enlarged, unchanged. Calcified plaque of the thoracic aortic arch. No pneumothorax or pleural effusion. Chronic extensive reticular opacities, right greater than left redemonstrated. Slightly progressed ill- defined opacities about the right midlung and right upper lobe. Large hiatal hernia. Degenerative changes of the shoulders and spine. IMPRESSION: 1. Chronic interstitial lung disease with new ill-defined opacities about the right midlung and right upper lobe suspicious for superimposed pneumonitis or asymmetric pulmonary edema. Correlate clinically. 2. Cardiomegaly. 3. Large hiatal hernia. PG Care Time/CCT Total # of Minutes Spent Total Time Spent with Patient: Total time spent is greater than 50% in coordination of care (as documented) at patient's floor/unit and/or counseling patient:
[2019-04-04] MEDS: ALBUT/IPRATROP 3MG/0.5MG NEB 3 ML VIAL NEB SCH ×2 (15:31→19:41)
[2019-04-04 16:09] LABS: C Reactive Protein 12.4 mg/dl (0-0.29)
[2019-04-04] MEDS: methylPREDNISolone 125 MG in SYRINGE 0 ML IV SCH ×2 (16:11→20:46)
[2019-04-04] MEDS: HEPARIN SOD 5,000 UNIT/0.5 ML VIAL SQ SCH ×2 (16:12→20:47)
[2019-04-04] MEDS: METOPROLOL SUCC 50MG EXT REL TAB PO SCH (16:21)
[2019-04-04] MEDS ORDERED: FUROSEMIDE 20 MG in SYRINGE 0 ML IV ONE (16:30)
[2019-04-04] MEDS ORDERED: SIMVASTATIN 20 MG TAB PO SCH (21:00)
[2019-04-05] MEDS: ALBUT/IPRATROP 3MG/0.5MG NEB 3 ML VIAL NEB SCH ×4 (01:35→19:00)
[2019-04-05] MEDS: methylPREDNISolone 125 MG in SYRINGE 0 ML IV SCH ×4 (04:01→20:21)
[2019-04-05] MEDS: HEPARIN SOD 5,000 UNIT/0.5 ML VIAL SQ SCH ×3 (06:03→20:21)
[2019-04-05 06:31] LABS: Hematocrit (blood only) 28.7 % (37-47); Hemoglobin 9.9 g/dL (12.0-16.0); Mean Corpuscular Hgb Conc 34.5 g/dL (32-36); Mean Corpuscular Volume 93.5 fL (80-100); Mean Platelet Volume 9.6 fL (7.4-10.4); Platelet Count 133 K/uL (130-400); RDW Coefficient of Variation 18.8 % (11.5-14.5); RDW Standard Deviation 62.2 fL (36.4-46.3); Red Blood Count 3.07 M/uL (4.2-5.4); White Blood Count 6.72 K/uL (4.8-10.8)
[2019-04-05 07:00] LABS: BUN Creatinine Ratio 22.7 (10-20); Calcium 9.1 mg/dl (8.5-10.1); Creatinine Clr Calc Pharmacy 48.7 ml/min; Est GFR (African American) 81.7; Est GFR (Non-African American) 70.4; Potassium 3.9 mmol/L (3.5-5.1)
[2019-04-05] MEDS: cefTRIAXone SODIUM 1,000 MG in DEXTROSE 5% 50 ML IV SCH (08:32)
[2019-04-05] MEDS: FUROSEMIDE 20 MG TAB PO SCH (08:32)
[2019-04-05] MEDS: SERTRALINE HCL 100 MG TABLET PO SCH (08:33)
[2019-04-05] MEDS: METOPROLOL SUCC 50MG EXT REL TAB PO SCH (08:33)
[2019-04-05] MEDS ORDERED: AZITHROMYCIN 500 MG in DEXTROSE 5% 250 ML IV SCH (09:00)
--- NOTE | 2019-04-05 11:19 | Hospitalist Progress Note ---
Date of Service April 05, 2019 Assessment & Plan (1) Acute and chronic respiratory failure: 2/2 flare IPF vs pneumonia in the setting of volume overload-Net output 1- 1.5L overnight with Lasix administration. She is feeling better and tachypnea has resolved. Cont Duonebs, steroids, ceftriaxone and azithromycin for now pending cultures and continued clinical improvement. Appreciate pulm recs. IPF workup pending. (2) Lung disease, interstitial: workup pending as above. Holding pirfenidone. (3) CAD (coronary artery disease): stable, cont medical management including ASA, Toprol XL. Notably not on ACEI at [facility]-will discuss with her who manages her medications. Holding Zocor in setting of leg cramps. Will check CK level. (4) Depression: stable, sertraline. (5) Diarrhea: resolved per patient. (6) Leg cramping: chronic issue, may be precipitated by diuretics. Will try holding statin first. CK level pending. PO meds held yesterday with poor respiratory status. Now that improved PO meds are being added back including daily potassium. (7) DVT prophylaxis: Heparin DNR/DNI Dispo-cont PCU monitoring. Denise Birmingham DO [facility] Hospitalist Subjective Feeling better today breathing easier +coughing-nonproductive denies fevers or chills reports resolution of diarrhea tolerationg PO Review of Systems Review of Systems: All systems reviewed & are unremarkable except as noted in HPI & below Physical Exam Physical Exam: CONSTITUTIONAL: WNWD, vitals as above, generally well- appearing EYES: normal conjunctivae, no scleral icterus ENT: MMM, NC in place RESPIRATORY: crackles at bases, no wheezing or rales, good air movement, no respiratory ditress. CARDIOVASCULAR: regular rate and rhythm, S1 and 2 heard without murmurs, gallops or rubs, no JVD, no peripheral edema GASTROINTESTINAL: soft, nontender, nondistended MUSCULOSKELETAL: strength 5/5 throughout, head is normocephalic and atraumatic, able to sit up in bed without assistance. SKIN: warm and dry NEUROLOGIC: CN 2-12 grossly intact, normal cognition, normal speech, no gross focal deficits. Results & Data Vital Signs (Past 12 Hours) Vital Signs Temp Pulse Resp BP Pulse Ox 04/05/19 07:19 100 H 26 H 97 08/10/19 03:54 36.6 C 88 21 104/67 98 04/05/19 01:35 77 24 96 04/05/19 00:01 36.5 C 98 H 19 102/65 100 Laboratory Results Short CBC 04/05/19 Range/Units 06:21 WBC 6.72 (4.8-10.8) K/uL Hgb 9.9 L (12.0-16.0) g/dL Hct 28.7 L (37-47) % Plt Count 133 (130-400) K/uL BMP 04/05/19 06:21 Sodium 138 Potassium 3.9 Chloride 98 Carbon Dioxide 35 H BUN 19 H Creatinine 0.83 Glucose 154 H Calcium 9.1 Medications Administered Current Inpatient Medications Albuterol (Duoneb) 3 ml NEB Q6R TOY Stop: 05/04/19 14:49 Last Admin: 04/05/19 07:19 Dose: 3 ml Documented by: Furosemide (Lasix) 20 mg PO DAILY TOY Stop: 05/05/19 08:59 Last Admin: 04/05/19 08:32 Dose: 20 mg Documented by: Heparin Sodium (Porcine) (Heparin Sodium (Porcine)) 5,000 units SQ Q8 TOY Stop: 05/04/19 14:49 Last Admin: 04/05/19 06:03 Dose: 5,000 units Documented by: Methylprednisolone 125 mg/ (Syringe) 2 mls @ 1.5 mls/min IV Q6H [facility] Stop: 05/04/19 15:59 Last Admin: 04/05/19 09:05 Dose: 1.5 mls/min Documented by: Azithromycin 500 mg/ Dextrose 255 mls @ 125 mls/hr IV Q24H [facility] Stop: 04/07/19 08:59 Last Admin: 04/05/19 09:05 Dose: 125 mls/hr Documented by: Ceftriaxone Sodium 1,000 mg/ (Dextrose) 50 mls @ 100 mls/hr IV Q24H [facility]; Protocol Stop: 04/07/19 08:59 Last Infusion: 04/05/19 09:02 Dose: Infused Documented by: Metoprolol Succinate (Toprol Xl) 50 mg PO DAILY [facility] Stop: 05/04/19 14:49 Last Admin: 04/05/19 08:33 Dose: 50 mg Documented by: Sertraline HCl (Zoloft) 200 mg PO DAILY TOY Stop: 05/05/19 08:59 Last Admin: 04/05/19 08:33 Dose: 200 mg Documented by: (1) CAD (coronary artery disease) Coronary Disease-Associated Artery/Lesion type: beaver artery [place] vs. transplanted heart: beaver heart Associated angina: without angina Qualified Code(s): I25.10 - Atherosclerotic heart disease of beaver coronary artery witho ut angina pectoris
--- NOTE | 2019-04-05 11:23 | Pulmonology Progress Note ---
Date of Service April 05, 2019 Impression: 73-year-old female with advanced interstitial lung disease, presumptively felt to be idiopathic pulmonary fibrosis with baseline oxygen requirement between 2 and 4 L presenting now with increasing breathlessness, cou gh, and increasing oxygen requirement. Her procalcitonin was markedly elevated suggestive of an infectious etiology and the patient appears to be responding to therapy for infection Assessment & Plan (1) Lung disease, interstitial: Plan: 1. Interstitial lung disease NOS. Presumptive working diagnosis has been idiopathic pulmonary fibrosis/UIP however CT scan is not classic as there is not really a basilar predominance and significant associated bronchiectasis. Serologic evaluation currently pending. The patient does not have hot bird or animal exposures. Hypersensitivity panel pending 2. The patient is a poor candidate for bronchoscopy or lung biopsy and given the advanced nature of her disease. She does not give any clear history for etiologies which may be associated with hypersensitivity pneumonitis but this would remain on the differential in which case anti-inflammatory agents such as Cellcept may be a consideration. she can likely be discharged from the hospital on prednisone 40 mg daily with outpatient follow-up in the pulmonary clinic within the next 1 to 2 weeks 3. We will hold pirfenidone for now. Continue antibiotics and steroids 4. There may be a component of fluid overload as well as potential infection. Can transition to oral Ceftin and azithromycin for total of 7 days therapy. With elevated BNP, outpatient low-dose diuretic such as Lasix 20 mg a day would be reasonable as well 5. The patient's advanced age would preclude transplant. The patient's oxygen requirement appears to be at her baseline. Recommend having her ambulate and see how she does. She may be approaching dismissal from the hospital. (2) Acute hypoxemic respiratory failure: 1. Secondary to above. (3) Pulmonary hypertension: 1. Suspect WHO class II and III. No indication for additional evaluation or pulmonary vasodilators. Continue oxygen therapy and optimize lung disease. Continue gentle diuresis. Subjective Patient feels that her breathing is better. She is coughing less. Her oxygen requirement is decreased significantly. She denies any chest pain or palpitations. No significant lower extremity edema. Physical Exam Constitutional: WD/WN, vitals as above Neck: trachea midline, no thyromegaly Cardiovascular: RRR, no murmur, no edema Gastrointestinal (Abdomen): normal bowel sounds, soft, nontender, no hepatosplenomegaly Skin: no rashes, warm and dry Results & Data Vital Signs (Past 12 Hours) Vital Signs Temp Pulse Resp BP Pulse Ox 04/05/19 07:19 100 H 26 H 97 04/05/19 03:54 36.6 C 88 21 104/67 98 04/05/19 01:35 77 24 96 04/05/19 00:01 36.5 C 98 H 19 102/65 100 Laboratory Results 04/05/19 06:21 04/05/19 06:21 PG Care Time/CCT Total # of Minutes Spent Total Time Spent with Patient: Total time spent is greater than 50% in coordination of care (as documented) at patient's floor/unit and/or counseling patient:
[2019-04-05] MEDS: PANTOprazole 40 MG TAB PO SCH (12:34)
[2019-04-05] MEDS: ASPIRIN 81 MG ECTAB PO SCH (12:34)
[2019-04-05] MEDS: POTASSIUM CHLORIDE 20 MEQ TABCR PO SCH (12:34)
[2019-04-05] MEDS: MIRTAZAPINE TAB 15 MG TAB PO SCH (12:34)
[2019-04-05] MEDS: LETROZOLE 2.5 MG TAB PO SCH (12:34)
[2019-04-06] MEDS: ALBUT/IPRATROP 3MG/0.5MG NEB 3 ML VIAL NEB SCH ×2 (01:47→07:08)
[2019-04-06] MEDS: methylPREDNISolone 125 MG in SYRINGE 0 ML IV SCH (03:33)
[2019-04-06] MEDS: HEPARIN SOD 5,000 UNIT/0.5 ML VIAL SQ SCH (06:08)
[2019-04-06 06:32] LABS: Hematocrit (blood only) 28.1 % (37-47); Hemoglobin 9.6 g/dL (12.0-16.0); Mean Corpuscular Hgb Conc 34.2 g/dL (32-36); Mean Corpuscular Volume 95.6 fL (80-100); Nucleated RBC # (auto) 0.03 K/uL (0-0); Nucleated RBC % (auto) 0.4 %; Platelet Count 166 K/uL (130-400); RDW Coefficient of Variation 19.1 % (11.5-14.5); RDW Standard Deviation 64.5 fL (36.4-46.3); Red Blood Count 2.94 M/uL (4.2-5.4); White Blood Count 7.51 K/uL (4.8-10.8)
[2019-04-06 07:03] LABS: BUN Creatinine Ratio 25.4 (10-20); Calcium 9.2 mg/dl (8.5-10.1); Creatinine Clr Calc Pharmacy 45.4 ml/min; Est GFR (Non-African American) 64.7; Potassium 4.8 mmol/L (3.5-5.1)
--- NOTE | 2019-04-06 08:14 | Pulmonology Progress Note ---
Date of Service April 06, 2019 Impression: 73-year-old female with advanced interstitial lung disease, presumptively felt to be idiopathic pulmonary fibrosis with baseline oxygen requirement between 2 and 4 L presenting now with increasing breathlessness, cou gh, and increasing oxygen requirement. Assessment & Plan (1) Lung disease, interstitial: Plan: 1. Interstitial lung disease NOS. Presumptive working diagnosis has been idiopathic pulmonary fibrosis/UIP however CT scan is not classic as there is not really a basilar predominance and significant associated bronchiectasis. Sero logic evaluation currently pending. The patient does not have hot tub, bird or animal exposures. Hypersensitivity panel and additional serologies currently pending 2. The patient is a poor candidate for bronchoscopy or lung biopsy and given the advanced nature of her disease. She does not give any clear history for etiologies which may be associated with hypersensitivity pneumonitis but this would remain on the differential in which case anti-inflammatory agents such as Cellcept may be a consideration. she can likely be discharged from the hospital on prednisone 40 mg daily with outpatient follow-up in the pulmonary clinic within the next 1 to 2 weeks 3. We will hold pirfenidone for now. Continue antibiotics and steroids 4. There may be a component of fluid overload as well as potential infection. Can transition to oral Ceftin and azithromycin for total of 7 days therapy. Wi th elevated BNP, outpatient low-dose diuretic such as Lasix 20 mg a day would be reasonable as well Okay to discharge from a pulmonary standpoint with close outpatient pulmonary follow-up. 5. The patient's advanced age would preclude transplant. The patient's oxygen requirement appears to be at her baseline. Recommend having her ambulate and see how she does. She may be approaching dismissal from the hospital. (2) Acute hypoxemic respiratory failure: 1. Secondary to above. (3) Pulmonary hypertension: 1. Suspect WHO class II and III. No indication for additional evaluation or pulmonary vasodilators. Continue oxygen therapy and optimize lung disease. Continue gentle diuresis. Subjective Feels much better. Her shortness of breath is left. She is not coughing or expectorating phlegm. Her oxygen requirement is decreased. She tried to use her CPAP at night but has difficulty tolerating it when she is coughing. Review of Systems Review of Systems: Unchanged from prior Physical Exam Constitutional: WD/WN, vitals as above Neck: trachea midline, no thyromegaly Cardiovascular: RRR, no murmur, no edema Gastrointestinal (Abdomen): normal bowel sounds, soft, nontender, no hepa tosplenomegaly Skin: no rashes, warm and dry Results & Data Vital Signs (Past 12 Hours) Vital Signs Temp Pulse Pulse Pulse Resp BP Pulse Ox 04/06/19 07:23 36.9 C 76 18 138/79 91 04/06/19 07:09 77 77 20 96 04/06/19 04:41 36.4 C L 72 19 120/43 L 99 04/06/19 01:51 74 18 98 04/06/19 01:47 74 18 100 04/05/19 23:36 36.7 C 78 19 120/74 98 04/05/19 22:28 81 22 99 04/05/19 20:22 36.4 C L 94 H 21 115/72 92 Laboratory Results 04/06/19 05:57 04/06/19 05:57 C-reactive protein 12.4 BNP elevated at almost 5000 Procalcitonin elevated at 3.95 Aldolase pending Anti-CCP negative. Remaining serologies pending. PG Care Time/CCT Total # of Minutes Spent Total Time Spent with Patient: Total time spent is greater than 50% in coordination of care (as documented) at patient's floor/unit and/or counseling patient:
[2019-04-06] MEDS: cefTRIAXone SODIUM 1,000 MG in DEXTROSE 5% 50 ML IV SCH (08:16)
[2019-04-06] MEDS: METOPROLOL SUCC 50MG EXT REL TAB PO SCH (08:19)
[2019-04-06] MEDS: PANTOprazole 40 MG TAB PO SCH (08:19)
[2019-04-06] MEDS: SERTRALINE HCL 100 MG TABLET PO SCH (08:19)
[2019-04-06] MEDS: MIRTAZAPINE TAB 15 MG TAB PO SCH (08:20)
[2019-04-06] MEDS: FUROSEMIDE 20 MG TAB PO SCH (08:21)
[2019-04-06] MEDS: ASPIRIN 81 MG ECTAB PO SCH (08:21)
[2019-04-06] MEDS: LETROZOLE 2.5 MG TAB PO SCH (08:21)
[2019-04-06] MEDS: POTASSIUM CHLORIDE 20 MEQ TABCR PO SCH (08:22)
[2019-04-06] MEDS ORDERED: AZITHROMYCIN 250 MG TAB PO SCH (09:00)
[2019-04-06] MEDS ORDERED: ALBUT/IPRATROP 3MG/0.5MG NEB 3 ML VIAL NEB PRN (09:21)
[2019-04-06] MEDS ORDERED: predniSONE 20 MG TAB PO SCH (09:30)
[2019-04-06 11:16] VITALS: BP 108/73; TEMP 97.7; O2SAT 100
--- NOTE | 2019-04-06 12:55 | Discharge Summary ---
Date of Service April 06, 2019 Admission HPI Per Admitting Provider 73 yo F with PMHx of interstitial lung disease (IPF), pulm HTN, CAD who presents today with increased SOB in the last 48 hours. She is typically on 4L of oxygen at home but in the last two days has increased to 5L but is still feeling SOB at rest which caused her to come to the hospital today. In the ED was placed on BIPAP which has greatly improved her dyspnea and work of breathing. She reports at baseline has a cough and mucous production, does not note an increase in this recently. Denies any fevers or chills, feeling ill otherwise. Has a hx of ILD and follows with Dr. Crowe for pulm needs-- she was started on a prednisone taper 03/18/19 and is currently taking 10 mg daily. Also takes Esbriet 267 mg which she restarted on one month ago-- has found that she can only tolerate 2 tablets daily, when she increased to 3 tabs daily is when she started noticing issues with n/v/d which happened in the last 2 days. Family also notes increase in swelling of face and feet-- thought to be secondary to recent steroid taper and pt increase in sodium in diet. Denies hx of COPD, asthma, smoking. Pt is a poor historian and history was obtained through patient, family (who appears reliable), and past progress notes from PCP and pulmonary. Admission Exam Per Admitting Provider GENERAL: alert, oriented, in no acute distress on BIPAP mask resting in bed comfortably HEAD: Normocephalic, atraumatic EYES: PERRL, EOMI, Conjunctiva are pink and non-injected, sclera clear NECK: supple, no adenopathy HEART: regular rate & rhythm, no murmurs and no gallops, trace edema b/l LE, no warmth or tenderness LUNGS: mild diffuse crackles on auscultation ABDOMEN: abdomen soft, non-tender, normal bowel sounds, no masses or organomegaly, no rebound or guarding, no CVA tenderness, no bladder distention identified and no bruits SKIN: skin color, texture, turgor are normal, no rashes or significant lesions NEURO: alert & oriented x 3 with fluent speech, no focal motor/sensory deficits Principal Diagnosis Acute on chronic hypoxic respiratory failure Pneumonia Interstitial lung disease NAYANA on CPAP Pulmonary Hypertension Discharge Data Allergies Allergy/AdvReac Type Severity Reaction Status Date / Time No Known Allergies Allergy Verified 08/21/18 16:19 Consultations 04/04/19 10:47 ED Decision to Admit Stat 04/04/19 14:50 Consult Case Management - Discharge Planning Routine Consult Pulmonology Routine Hospital Course (1) Acute and chronic respiratory failure: (2) Lung disease, interstitial: (3) CAD (coronary artery disease): (4) Depression: (5) Leg cramping: The patient was placed on BIPAP in the ER, and was admitted to the Hospitalist service with acute on chronic respiratory failure. She was able to wean down to face mask the nasal cannula within a few hours. Solu-Medrol 125mg every 6 hours was continued for 2 days. She was notably on 4 L of oxygen at home chronically. Esbriet was held. Duo nebs were continued in addition to antibiotics. Although the patient did not appear volume overloaded on exam, imaging revealed possible pulmonary edema versus pneumonia. She did not report overt infectious symptoms. However a BNP and procalcitonin were elevated. Antibiotics were continued for community-acquired pneumonia, and she was given IV diuresis with improvement in breathing. On admission diffuse crackles were heard to auscultation of the lungs throughout all doss, and by time of discharge there were only mild crackles at the bases of her lungs and she was breathing at baseline with her baseline supplemental oxygen. Pulmonary was consulted. He ordered a work-up for presumed idiopathic pulmonary fibrosis/UIP as the diagnosis was uncertain and the CT scan did not reflect the classic findings associated with this. Serologic evaluation was pending at time of discharge. Hypersensitivity panel was also pending at discharge. She was notably a poor candidate for bronchoscopy or lung biopsy given the advanced nature of her disease. Although she did not give a clear history for etiologies which may be associated with hypersensitivity pneumonitis this would remain on the differential in which case anti-inflammatory agent such as CellCept may be a consideration. In the event the question would arise the patient's advanced age would preclude transplant per pulmonology recommendations. At time of discharge a [id number] examination was performed with lung exam as above. Otherwise physical exam was unremarkable. She was hemodynamically stable and afebrile and mentating and ambulating at baseline. She was evaluated by physical therapy and occupational therapy and felt safe to return home with family support. She was discharged with home health for physical therapy and medical management. Close from her care follow-up and pulmonary follow-up was recommended within the next 1 to 2 weeks. She was discharged on prednisone 40 mg daily and Ceftin and azithromycin for pneumonia. A repeat chest x-ray was recommended in the next 2 to 4 weeks to ensure resolution of pneumonia radiographically. A complete medicine reconciliation was performed with the patient and her at time of discharge including identification of bottles and what would be stopped and continued. She reported leg cramping throughout the hospitalization and simvastatin was stopped. Total CK level was 49. This issue should be followed up by primary care doctor. Total Time Total Time Spent Total Time Spent (In Minutes): 60 Total Time Includes: Examination of the Patient, Discharge Planning, Medication Reconciliation, Communication With Other Providers and Other Discharge Plan Discharge Items Patient Disposition: Home - Home Health Services Reason For Visit: HYPOXIA Discharge Diagnosis: Acute on chronic hypoxic respiratory failure Pneumonia Interstitial lung disease NAYANA on CPAP Pulmonary Hypertension Condition: Good Discharge Goals: Improve disease control Activity: Resume your previous activity Non-emergency contact: Primary Care Provider Call non-emergency contact if: you have any medication questions, your symptoms worsen, your pain is not controlled, your pain is worsening, your pain is unusual for you, your pain is concerning for you and you have a fever Follow-up/Referrals: Jay Junior MD [Physician] - Jose Manuel Morocho [Primary Care Provider] - Diet: Low Sodium (2gm) Diet Texture: Dental soft (bite-sized) Addtl Provider Instructions: Please take all medications as instructed on discharge list below. A one week follow-up with your primary care physician is recommended to ensure you are doing well after discharge, and tolerating the medications prescribed. Someone will contact you on Sunday to set up a time and date that works for you. You will need to see Dr. Junior at the [facility] Pulmon[facility] office in 1-2 weeks time. Please contact the office to schedule. Please continue the prednisone until that time. Please stay off of the Esbriet until that time. It was a pleasure taking care of you! Please call if you have any questions or problems. You can reach a [facility] hospitalist on duty at [facility] 24 hours a day by calling [phone]. Take care of yourself. Denise Birmingham, DO [facility] Hospitalist Prescriptions: New azithromycin [Zithromax] 250 mg Tablet 250 mg PO QAM Qty: 5 RF: 0 cefuroxime axetil 500 mg Tablet 500 mg PO Q12H 5 Days Qty: 10 RF: 0 prednisone 20 mg Tablet 40 mg PO DAILY Qty: 60 RF: 1 Continued metoprolol succinate [Toprol XL] 50 mg Tablet Extended Release 24 Hr 50 mg PO DAILY RF: 0 betamethasone, augmented 0.05 % Cream 1 applic TOPICAL DAILY PRN (Reason: breakout) RF: 0 sertraline [Zoloft] 100 mg Tablet 150 mg PO DAILY RF: 0 omeprazole 40 mg Capsule,Delayed Release(Dr/Ec) 40 mg PO QAM RF: 0 aspirin 81 mg Tablet,Delayed Release (Dr/Ec) 81 mg PO DAILY RF: 0 alendronate 35 mg Tablet 75 mg PO LU@0900 RF: 0 potassium chloride [Klor-Con M20] 20 mEq Tablet,Er Particles/Crystals 40 meq PO DAILY RF: 0 furosemide [Lasix] 20 mg Tablet 20 mg PO DAILY RF: 0 letrozole 2.5 mg Tablet 2.5 mg PO DAILY RF: 0 albuterol sulfate [Ventolin HFA] 90 mcg/actuation Hfa Aerosol Inhaler 2 puff INHALATION Q6H PRN (Reason: Shortness Of Breath) RF: 0 mirtazapine 7.5 mg Tablet 7.5 mg PO DAILY RF: 0 ergocalciferol (vitamin D2) 50,000 unit Capsule 50,000 unit PO FR@0900 RF: 0 Discontinued prednisone 10 mg Tablet 10 mg PO DAILY RF: 0 Esbriet 267 mg Tablet 534 mg PO DAILY RF: 0 simvastatin 20 mg Tablet 20 mg PO HS RF: 0 Stand-Alone Forms: [facility] Discharge Orders: Discharge Order (Routine); Ordered 04/06/19 Ordered By: Denise Birmingham Admission Data Admit Date/Time: 04/04/19 12:11 Attending Provider: Denise Birmingham Admit Provider: Denise Birmingham Primary Care Provider: Jose Manuel Morocho Other Providers: Jay Junior ; Denise Birmingham Service: Telemetry Other Interventions: Discharge Summary Assessment (RN) Last Done: 04/06/19 13:18 DC Date/Time DO NOT enter until pt leaves facility: 04/06/19 14:05
[2019-04-06 13:19] VITALS: PULSE 77
[2019-04-07] MEDS ORDERED: cefUROXime axetil 500 MG TAB PO SCH (09:00)
[2019-04-13 18:54] LABS: Aldolase 6.3 U/L (0.0-8.1); Anti Nuclear Antibody Screen NEGATIVE (NEGATIVE); Aspergillus fumigatus NEGATIVE (NEGATIVE); Immunoglobulin IgE 50 KU/L (<115); JO 1 Antibody <1.0 NEG AI (<1.0 NEG); Myeloperoxidase Ab <1.0 AI (<1.0); Rheumatoid Factor < 14 IU/ML (<14)
== END 2019-04-06 14:05 | disposition home health service (06) | DRG 189 ==
LOC: ED 09:10 → 2S 12:11

== ENCOUNTER 2019-04-27 12:26 | Inpatient (IN) ==
[2019-04-27 13:00] LABS: Basophils # (auto) 0.01 K/uL (0-0.2); Basophils % (auto) 0.1 %; Eosinophils # (auto) 0.06 K/uL (0-0.5); Eosinophils % (auto) 0.5 %; Hematocrit (blood only) 44.1 % (37-47); Hemoglobin 14.9 g/dL (12.0-16.0); Immature Granulocytes # (auto) 0.07 K/uL (0.00-0.02); Immature Granulocytes % (auto) 0.5 %; Lymphocytes # (auto) 0.87 K/uL (1.2-3.4); Lymphocytes % (auto) 6.8 %; Mean Corpuscular Hemoglobin 34.6 pg (25-34); Mean Corpuscular Hgb Conc 33.8 g/dL (32-36); Mean Corpuscular Volume 102.3 fL (80-100); Monocytes % (auto) 3.1 %; Neutrophils # (auto) 11.43 K/uL (1.4-6.5); Platelet Count 185 K/uL (130-400); RDW Coefficient of Variation 19.2 % (11.5-14.5); RDW Standard Deviation 71.7 fL (36.4-46.3); Red Blood Count 4.31 M/uL (4.2-5.4); White Blood Count 12.84 K/uL (4.8-10.8)
[2019-04-27 13:01] LABS: Appearance Urine Clear (Clear); Bilirubin Urine Negative (Negative); Blood Urine Negative (Negative); Color Urine Yellow; Glucose Urine UA Negative (Negative); Ketones Urine Negative (Negative); Leukocyte Esterase Urine Negative (Negative); Nitrite Urine Negative (Negative); Protein Urine Negative (Negative); Specific Gravity Urine 1.011 (1.000-1.030); Urobilinogen Urine Negative (Negative); pH Urine 7.5 (4.5-7.5)
[2019-04-27 13:12] LABS: Alanine Aminotransferase 38 U/L (12-78); Albumin Level 4.6 gm/dl (3.4-5.0); Aspartate Aminotransferase 29 U/L (15-37); BUN Creatinine Ratio 20.3 (10-20); Bilirubin Direct 0.2 mg/dl (0-0.2); Blood Urea Nitrogen 21 mg/dl (7-18); Calcium 10.3 mg/dl (8.5-10.1); Carbon Dioxide 35 mmol/L (21-32); Chloride 97 mmol/L (98-107); Est GFR (African American) 61.4; Glucose 130 mg/dl (70-99); Magnesium 2.7 mg/dl (1.8-2.4); Potassium 3.6 mmol/L (3.5-5.1); Sodium 139 mmol/L (136-145)
[2019-04-27 13:15] LABS: INR 0.9 (0.9-1.1); Prothrombin Time 9.7 Seconds (9.0-12.0)
[2019-04-27 13:16] LABS: Alkaline Phosphatase 116 U/L (45-117); Total Protein 8.3 gm/dl (6.4-8.2); Troponin I < 0.015 ng/ml (0-0.045)
--- NOTE | 2019-04-27 13:24 | CT Scan Report ---
HEAD CT NONCONTRAST CT DOSE: 537.48 mGy.cm HISTORY: confusion TECHNIQUE: Multiaxial CT images of the head were performed without the use of intravenous contrast. A utomated exposure control was utilized for this study. A dose lowering technique was utilized adheri ng to the principles of ALARA. Comparison: Head CT 11/26/2018. Findings: The paranasal sinuses and mastoid air cells are clear. Anterior nasal septal perforation me asuring 1.2 cm. The calvarium and skull base are intact. There is no mass, hematoma, midline shift, a cute infarct. White matter hypodensity is nonspecific but suggestive of microvascular ischemic change . The ventricles and sulci demonstrate mild age-related involutional changes. Impression: No acute intracranial abnormality. Atrophy and microvascular ischemic changes. Electronically signed by: Alexsander Thomas M.D. 04/27/2019 1:23 PM
[2019-04-27] MEDS ORDERED: SODIUM CHLORIDE 0.9% 1000ML 1,000 ML IV ONE (13:31)
--- NOTE | 2019-04-27 14:12 | XRay Report ---
XR chest 1V portable HISTORY: confusion COMPARISON: Chest 04/04/2019. FINDINGS: No pneumothorax. No pleural effusions. There are low lung volumes with diffuse interstitial thickening. This remains unchanged. The heart remains mildly enlarged. Prior cholecystectomy. Large hiatus hernia, unchanged. IMPRESSION: No significant change compared to the prior study. Chronic fibrotic change and a large hiatus hernia again noted. Electronically signed by: Alexsander Thomas M.D. 04/27/2019 2:10 PM
--- NOTE | 2019-04-27 17:54 | History and Physical Report ---
DATE OF ADMISSION: 04/27/2019 CHIEF COMPLAINT: Confusion. HISTORY OF PRESENT ILLNESS: This is a 73-year-old female with past medical history significant for interstitial lung disease, pulmonary hypertension, CAD, history of chronic respiratory failure on 4 liters oxygen, hypertension, depression, history of suicidal ideation, history of CHF, presents with confusion. The patient was recently in the hospital for acute on chronic respiratory failure secondary to interstitial lung disease flare and she was treated with antibiotics for community-acquired pneumonia and also given IV Lasix during the admission for some volume overload. Seen by Pulmonary, and was of opinion maybe possible hypersensitivity pneumonitis and some labs were done. She was thought to be not a candidate for bronchoscopy because of her respiratory status. She did fine and she was sent home with home health and she was discharged on prednisone 40 mg daily to follow with pulmonary. She saw Pulmonary as per recently and advised to taper down prednisone 5 mg a week until 20 mg and to stay on 20 mg and currently she is on prednisone 30 mg daily. As per , since last Sunday, she started getting confused and other day she saw some shooting in the news and she got worked up and she got scared and her confusion got progressively worse and she was just totally confused today , then he brought the patient to the hospital. Currently, the patient is alert and awake. Speech is clear, but she is speaking tangentially, which does not make any sense. She is not oriented, but obeys simple commands. As per , she is eating fine. Her appetite is much better now than prior. denies any fever, chills. No complaints of chest pain or belly pain. She has some loose stools and she has normal bladder movements. No blood in stools or black stools, no hematuria. She is ambulating okay. Cough is better. No nausea or vomiting. Currently, patient is confused but does not seem to be agitated. As per , she is also not angry at home. Her blood pressure is running somewhat high otherwise vitals are okay. She is saturating fine on 4 liters. She has some leukocytosis of 12, but she is on prednisone. Her kidney function is okay. LFTs are okay. Troponin is negative. Urinalysis was negative. CT of the head was unremarkable for any acute findings. Chest x-ray, no significant change from prior. EKG is unremarkable. Family is concerned if the patient had stroke. ALLERGIES: No known drug allergies. PAST MEDICAL HISTORY: As mentioned above. PAST SURGICAL HISTORY: History of cardiac catheterization and stent placement, history of colon resection, history of hernia repair, history of hysterectomy, history of cholecystectomy. FAMILY HISTORY: No significant family history. SOCIAL HISTORY: Lives with her spouse. No smoking history. No alcohol use, no drug use. REVIEW OF SYSTEMS: Unobtainable at this time because of confusion. MEDICATIONS: Patient is on currently prednisone 30 mg daily, Toprol-XL 50 mg p.o. daily, betamethasone topical application daily p.r.n., Zoloft 150 mg p.o. daily, omeprazole 40 mg p.o. in a.m., aspirin 81 mg p.o. daily, alendronate 75 mg p.o. weekly, potassium chloride 40 mEq p.o. daily, Lasix 20 mg p.o. daily, letrozole 2.5 mg p.o. daily, albuterol 2 puffs inhalation q. 6 hours p.r.n., mirtazapine 7.5 mg p.o. daily, vitamin D 50,000 units p.o. weekly. PHYSICAL EXAMINATION: GENERAL: The patient is alert and awake but a little confused. VITAL SIGNS: Temperature 36.8, pulse 78, respiratory rate 20s, blood pressure 172/101, oxygen 100% on 4 liters. HEENT: No pallor, no icterus. Pupils equal, round, and reactive to light. NECK: No JVD, no neck masses, no carotid bruits. CARDIOVASCULAR: S1, S2 heard, regular rate and rhythm, no murmur, no gallop. RESPIRATORY SYSTEM: Normal AP diameter. No accessory muscle use. No wheezing. No crackles. ABDOMEN: Soft, bowel sounds present, nontender. No distention. CENTRAL NERVOUS SYSTEM: Alert and awake, but confused and speaks tangentially, but obeys simple commands. EXTREMITIES: No edema, no erythema. LABORATORY DATA: WBC 12.8, hemoglobin 14.9, hematocrit 44.1, platelets 185. PT 9.7, INR 0.9. Sodium 139, potassium 3.6, chloride 97, bicarbonate 35, BUN 21, creatinine 1.05, serum glucose 130, calcium 10.3, magnesium 2.7, total bilirubin 1, direct bilirubin 0.2, AST 29, ALT 38, alkaline phosphatase 116. Troponin I less than 0.015. Urinalysis negative. IMAGING: CT of the head, no acute abnormality, atrophy and microvascular ischemic changes. Chest x-ray, no significant change compared to prior study. EKG: Normal sinus rhythm, rate of 77, left ventricle hypertrophy. No acute findings. ASSESSMENT AND PLAN: A 73-year-old female with history of chronic respiratory failure on 4 liters oxygen at home and interstitial lung disease presents with confusion. 1. Confusion, encephalopathy, etiology unclear, patient was on high dose prednisone at home for last couple of weeks. Infectious?, but UA is negative and chest x-ray is unremarkable. Mild leukocytosis could be from the steroids, recently treated for community-acquired pneumonia. We will get an ABG and also ammonia level, rule out cerebrovascular accident. Because the patient understanding questions and obeys simple commands, but speaking tangentially. We will get MRI scan and if the patient is uncooperative, we will give a small dose of Ativan, so we can complete the MRI scan. We will place on Seroquel p.r.n. for anxiety or agitation. As per the , patient is not angry at home. Will also consult Neurology to help with diagnosis and workup for ongoing confusion. We will follow the blood cultures. 2. History of chronic interstitial lung disease. Last time presented with respiratory failure requiring BiPAP. We will follow the ABG levels. Continue home inhalers. Currently, she saw Pulmonary and tapered on prednisone 5 mg per week. Currently on 30 mg daily, plan to keep on 20 mg. Workup for hypersensitivity pneumonitis was done last admission labs seems to be unremarkable. Currently, saturating okay and exam is benign, we will closely monitor.Continuing prednisone 30mg for now but if any concerns for it causing confusion will taper it down. 3. History of coronary artery disease status post stent. Continue her home medication of aspirin, beta beatriz. 4. History of pulmonary artery hypertension, follow with Pulmonary. 5. History of congestive heart failure, possible diastolic. Continue home diuretics and potassium supplements.Seems stable 6. Depression. Continue mirtazapine and Zoloft. 7. Hypertension. Continue Toprol-XL. We will monitor blood pressure. 8. Deep venous thrombosis prophylaxis. We will keep her on SCDs for now. 9. Code status, DNR/DNI as per my discussion with the family DISPOSITION: Admit to tele floor. To be determined. MTDD
[2019-04-27] MEDS ORDERED: XOPENEX/ATROVENT 1.25mg/0.5MG NEB COMBO NEB PRN (18:00)
[2019-04-27] MEDS ORDERED: BETAMETHASONE DIP AUG (DIPROLENE) 0.05% CR 15 GM TUBE EXT PRN (18:00)
[2019-04-27] MEDS ORDERED: ONDANSETRON INJ 2 MG/ML 2 ML VIAL IV PRN (18:00)
[2019-04-27] MEDS ORDERED: ALBUTEROL HFA 8 GM INHALER INH PRN (18:00)
[2019-04-27] MEDS ORDERED: IPRATROPIUM BROMIDE NEB SOLN 0.02% 2.5 ML VIAL INH PRN (18:00)
[2019-04-27] MEDS ORDERED: NITROGLYCERIN SL 0.4 MG/TAB TAB SL PRN (18:00)
[2019-04-27] MEDS ORDERED: ACETAMINOPHEN 325 MG TAB PO PRN (18:00)
[2019-04-27] MEDS ORDERED: LORazepam 0.5 MG/1 ML VIAL IV SCH (18:00)
[2019-04-27] MEDS ORDERED: LEVALBUTEROL 1.25MG/0.5ML NEB INH PRN (18:00)
--- NOTE | 2019-04-27 18:32 | Emergency Department Note ---
Entered by Sabine Meyers acting as a scribe for ED Provider Note Name: Anne Malone Age: 73 Arrives Via: Ambulance Informant: Patient CC: Confusion HPI: A 73 year old female arrives for evaluation of confusion beginning 2 days ago. HPI and ROS limited due to the patient's AMS. She arrives via EMS coming from home where she lives with her . She denies any headache, breathing problems, abdominal pain. As per nursing staff, the patient is incontinent however, the patient states she has no issues using the bathroom. Per family no reported falls/injuries. She has been breathing comfortably and happy though they note 2 days acute change in mental status and talking to herself and others in 3rd person. ROS: See above HPI for pertinent positives & negatives. HPI and ROS limited due to the patient's AMS. Past Medical History: Pulmonary fibrosis. Hypoxia. HTN. CHF. CAD. Pneumonia Past Surgical History: H/O of hernia repair. H/O hysterectomy. H/O cholecystectomy. Hx of coronary artery stent placement. Family History: No pertinent family history Social History: . Home Medications: Albuterol. 81 mg Aspirin. Lasix. Zoloft. Prednisone. Allergies None Physical: Vitals: BP 159/113, P 88, R 20, O2 97%, Temp 98.2 Exam: GENERAL: Patient is well appearing and in no minimal distress. Pleasantly confused. EYES: No scleral icterus, unremarkable pupils. ENT: Mucous membranes moist, no nasal congestion. NECK: No masses appreciated, no meningismus, trachea is midline. RESPIRATORY: Distant lung sounds. No wheezing. CARDIOVASCULAR: Regular rate and rhythm. No murmurs, rubs, gallops appreciated. GASTROINTESTINAL: Abdomen soft, non-tender, no peritonitis. Bowel sounds positive. No masses appreciated. BACK: No midline tenderness, no CVA tenderness EXTREMITIES: Normal motion all extremities, no cyanosis, no edema. NEUROLOGIC: Awake, answers questions in third person. Doesnt answer some question. GCS 15. SKIN: No rash, no jaundice, no diaphoresis. ED Course: Prior Medical Record, Triage/Nursing Notes, Medications, Allergies reviewed by Me Vital Signs: reviewed and remarkable for HTN Labs: Reviewed and remarkable for mild hypercalcemia Interventions: saline lock, nss bolus 1 L IV Imaging: Radiology results as stated below per my review and the radiologist's interpretation: HEAD CT NONCONTRAST CT DOSE: 537.48 mGy.cm HISTORY: confusion TECHNIQUE: Multiaxial CT images of the head were performed without the use of intravenous contrast. Automated exposure control was utilized for this study. A dose lowering technique was utilized adhering to the principles of ALARA. Comparison: Head CT 11/26/2018. Findings: The paranasal sinuses and mastoid air cells are clear. Anterior nasal septal perforation measuring 1.2 cm. The calvarium and skull base are intact. There is no mass, hematoma, midline shift, acute infarct. White matter hypodensity is nonspecific but suggestive of microvascular ischemic change. The ventricles and sulci demonstrate mild age-related involutional changes. Impression: No acute intracranial abnormality. Atrophy and microvascular ischemic changes. Electronically signed by: Alexsander Thomas M.D. 04/27/2019 1:23 PM EKG: Per My Interpretation: Indication Confusion: NSR 77bpm qtc 434 no ectopy no ischemia. Similar to ekg 04/04/19 with decreased rate Blood pressure: 159/113 Elevated - Further management by hospitalist Course: 1245: The patient was evaluated in room B6. A complete history and physical examination was performed. 1328: I checked on the patient at this time. Family confirms this is, in no way, her normal self. She continues to be confused and speaking in third person. They agree to inpatient evaluation. Consults: 1416: I discussed the patients case with GUANAKO Olmedo. The patient will be further evaluated by Dr. Molina, [facility] Hospitalist. Disposition: Hospitalization Prescriptions: none. Differentials: Toxicological, Infectious, Stroke, SAH, Trauma, Electrolyte Abnormality, Hypoglycemia, Alcohol Intoxication, Drug Intoxication, Cardiac Abnormality, Sepsis, Meningitis/Encephalitis, Trauma, Excited Delirium, Serotonin Syndrome, Psychiatric, amongst other pathologies Entertained. Medical Decision Makin yr old female arrives with acutely altered mental status in last 48-72 hours. She is pleasant though clearly confused and is referring to herself in third person. Neuro intact. No fevers. No nuchal ridgity. No evidence of trauma nor injury. Labs unremarkable other than mild ca elevation which I suspect is not cause of her symptoms though may represent some mild dehydration. She was given IV fluids for treatment. She has no evidence of UTI, pna, nor meningitis. She has normal CT head. While dehydrated could cause this, I am suspicious for some stroke like event causing this and given persistent of symptoms in setting of acuity I feel bringing in to hospitalist would be necessary. Impression: Acute confusion Hypercalcemia Dehydration The scribe's documentation has been prepared under my direction and personally reviewed by me in its entirety. I confirm that the note above accurately reflects all work, treatment, procedures, and medical decision making performed by me. Cleve Osuna MD Impression & Plan Acute confusion, Hypercalcemia, Dehydration Past Med/Surg History Medical History Avascular necrosis of bone Ascending aortic aneurysm Hypoxemia (Acute) CHF (congestive heart failure) (Acute) Lung disease, interstitial (Acute) HTN (hypertension) (Chronic) CAD (coronary artery disease) (Chronic) Depression Suicidal ideation Surgical History History of coronary artery stent placement (Resolved) History of colon resection (Resolved) H/O hernia repair (Resolved) H/O: hysterectomy (Resolved) History of cholecystectomy (Resolved) Family History Other No significant family history Social History Preferred Language: Lebanese Communication Ability: Effective Communication Ability Comment: able to answer some history, states.."I know..I know.." Clinical Research Nurse Required: No Beliefs That Will Affect Care: None marital status: Current Living Situation: Spouse Other Information That Helps Us Care for You: No Feels Safe at Home: Yes Safety Concerns: Feels Safe At This Time Smoking Status: Never smoker Do You Dip or Chew Tobacco: No ; Second Hand Exposure: No ; Tobacco Cessation Education Requested by Patient: No Hx Alcohol Use: No Hx Substance Use: No Results & Data Vital Signs Vital Signs - 24 hr 04/27/19 12:25 04/27/19 13:27 04/27/19 15:10 Temperature 36.8 C Temperature Source Oral Sepsis Recent Fever Within 48 Hours No Sepsis Action Taken by Nursing No Action Required Pulse Rate 88 Pulse Rate [Left Finger] 90 78 Respiratory Rate 20 20 26 H Respiratory Effort / Characteristics Non-Labored Non-Labored Non-Labored Respiratory Depth Normal Normal Normal Respiratory Pattern Blood Pressure 169/113 H Blood Pressure [Right Arm] 135/83 172/101 H Blood Pressure Mean 131 Blood Pressure Mean [Right Arm] 100 124 Pulse Oximetry 97 100 100 Oxygen Delivery Method Nasal Cannula Nasal Cannula Room Air Oxygen Flow Rate 4 4 04/27/19 15:31 Temperature Temperature Source Sepsis Recent Fever Within 48 Hours Sepsis Action Taken by Nursing Pulse Rate Pulse Rate [Left Finger] Respiratory Rate Respiratory Effort / Characteristics Non-Labored Spontaneous Respiratory Depth Normal Respiratory Pattern Regular Tachypnea Blood Pressure Blood Pressure [Right Arm] Blood Pressure Mean Blood Pressure Mean [Right Arm] Pulse Oximetry Oxygen Delivery Method Room Air Oxygen Flow Rate Home Medications Current Medication List: was personally reviewed by me Laboratory Data Attestation: I reviewed the patient's lab results. Result diagrams: 04/27/19 12:43 04/27/19 12:43 Lab Results 04/27/19 04/27/19 04/27/19 Range/Units 12:43 12:43 12:43 WBC 12.84 H (4.8-10.8) K/uL RBC 4.31 (4.2-5.4) M/uL Hgb 14.9 (12.0-16.0) g/dL Hct 44.1 (37-47) % MCV 102.3 H (80-100) fL MCH 34.6 H (25-34) pg MCHC 33.8 (32-36) g/dL RDW Std Deviation 71.7 H (36.4-46.3) fL RDW Coeff of Nicanor 19.2 H (11.5-14.5) % Plt Count 185 (130-400) K/uL MPV 10.0 (7.4-10.4) fL Immature Gran % (Auto) 0.5 % Neut % (Auto) 89.0 % Lymph % (Auto) 6.8 % [place] % (Auto) 3.1 % Eos % (Auto) 0.5 % Baso % (Auto) 0.1 % Immature Gran # (Auto) 0.07 H (0.00-0.02) K/uL Neut # (Auto) 11.43 H (1.4-6.5) K/uL Lymph # (Auto) 0.87 L (1.2-3.4) K/uL [place]oun # (Auto) 0.40 (0.11-0.59) K/uL Eos # (Auto) 0.06 (0-0.5) K/uL Baso # (Auto) 0.01 (0-0.2) K/uL PT 9.7 (9.0-12.0) Seconds INR 0.9 (0.9-1.1) Sodium 139 (136-145) mmol/L Potassium 3.6 (3.5-5.1) mmol/L Chloride 97 L (98-107) mmol/L Carbon Dioxide 35 H (21-32) mmol/L Anion Gap 7.0 (3-11) BUN 21 H (7-18) mg/dl Creatinine 1.05 (0.6-1.2) mg/dl Est Cr Clr Drug Dosing Not Reportable Est GFR ( Amer) 61.4 Est GFR (Non-Af Amer) 53.0 BUN/Creatinine Ratio 20.3 H (10-20) Glucose 130 H (70-99) mg/dl Calcium 10.3 H (8.5-10.1) mg/dl Magnesium 2.7 H (1.8-2.4) mg/dl Total Bilirubin 1.0 (0.2-1) mg/dl Direct Bilirubin 0.2 (0-0.2) mg/dl AST 29 (15-37) U/L ALT 38 (12-78) U/L Alkaline Phosphatase 116 (45-117) U/L Troponin I < 0.015 (0-0.045) ng/ml Total Protein 8.3 H (6.4-8.2) gm/dl Albumin 4.6 (3.4-5.0) gm/dl Urine Color Urine Appearance (Clear) Urine pH (4.5-7.5) Ur Specific [place] (1.000-1.030) Urine Protein (Negative) Urine Glucose (UA) (Negative) Urine Ketones (Negative) Urine Blood (Negative) Urine Nitrite (Negative) Urine Bilirubin (Negative) Urine Urobilinogen (Negative) Ur Leukocyte Esterase (Negative) 04/27/19 Range/Units 12:43 WBC (4.8-10.8) K/uL RBC (4.2-5.4) M/uL Hgb (12.0-16.0) g/dL Hct (37-47) % MCV (80-100) fL MCH (25-34) pg MCHC (32-36) g/dL RDW Std Deviation (36.4-46.3) fL RDW Coeff of Nicanor (11.5-14.5) % Plt Count (130-400) K/uL MPV (7.4-10.4) fL Immature Gran % (Auto) % Neut % (Auto) % Lymph % (Auto) % [place]oun % (Auto) % Eos % (Auto) % Baso % (Auto) % Immature Gran # (Auto) (0.00-0.02) K/uL Neut # (Auto) (1.4-6.5) K/uL Lymph # (Auto) (1.2-3.4) K/uL [place]oun # (Auto) (0.11-0.59) K/uL Eos # (Auto) (0-0.5) K/uL Baso # (Auto) (0-0.2) K/uL PT (9.0-12.0) Seconds INR (0.9-1.1) Sodium (136-145) mmol/L Potassium (3.5-5.1) mmol/L Chloride (98-107) mmol/L Carbon Dioxide (21-32) mmol/L Anion Gap (3-11) BUN (7-18) mg/dl Creatinine (0.6-1.2) mg/dl Est Cr Clr Drug Dosing Est GFR ( Amer) Est GFR (Non-Af Amer) BUN/Creatinine Ratio (10-20) Glucose (70-99) mg/dl Calcium (8.5-10.1) mg/dl Magnesium (1.8-2.4) mg/dl Total Bilirubin (0.2-1) mg/dl Direct Bilirubin (0-0.2) mg/dl AST (15-37) U/L ALT (12-78) U/L Alkaline Phosphatase (45-117) U/L Troponin I (0-0.045) ng/ml Total Protein (6.4-8.2) gm/dl Albumin (3.4-5.0) gm/dl Urine Color Yellow Urine Appearance Clear (Clear) Urine pH 7.5 (4.5-7.5) Ur Specific [place] 1.011 (1.000-1.030) Urine Protein Negative (Negative) Urine Glucose (UA) Negative (Negative) Urine Ketones Negative (Negative) Urine Blood Negative (Negative) Urine Nitrite Negative (Negative) Urine Bilirubin Negative (Negative) Urine Urobilinogen Negative (Negative) Ur Leukocyte Esterase Negative (Negative) Administered Medications Discontinued Medications Sodium Chloride (Nss 1000ml) 1,000 mls @ 999 mls/hr IV .[id number] ONE Stop: 04/27/19 14:31 Last Infusion: 04/27/19 16:00 Dose: 0 mls/hr Documented by: [id number] Admin: 04/27/19 14:27 Dose: 999 mls/hr Documented by: [id number] Imaging Data Radiologist's Impression: Radiology results as stated below per my review and the radiologist's interpretation: HEAD CT NONCONTRAST CT DOSE: 537.48 mGy.cm HISTORY: confusion TECHNIQUE: Multiaxial CT images of the head were performed without the use of intravenous contrast. Automated exposure control was utilized for this study. A dose lowering technique was utilized adhering to the principles of ALARA. Comparison: Head CT 11/26/2018. Findings: The paranasal sinuses and mastoid air cells are clear. Anterior nasal septal perforation measuring 1.2 cm. The calvarium and skull base are intact. There is no mass, hematoma, midline shift, acute infarct. White matter hypodensity is nonspecific but suggestive of microvascular ischemic change. The ventricles and sulci demonstrate mild age-related involutional changes. Impression: No acute intracranial abnormality. Atrophy and microvascular ischemic changes. Electronically signed by: Alexsander Thomas M.D. 04/27/2019 1:23 PM Blood Pressure Blood Pressure Findings: Elevated blood pressure Blood Pressure Disposition: elevated BP felt to be situational Head Trauma GCS Score: 15 Discharge Plan Visit Data Chief Complaint: Confusion ED Provider: Cleve Osuna Discharge Problem: Acute confusion, Hypercalcemia, Dehydration Patient Disposition: Being Evaluated by Hospitalist Discharge Instructions Interventions: ED Discharge Assessment Last Done: 04/27/19 17:57 The scribe's documentation has been prepared under my direction and personally reviewed by me in its entirety. I confirm that the note above accurately reflects all work, treatment, procedures, and medical decision making performed by me.
[2019-04-27 19:00] LABS: Allen Test Pos (Pos); Base Excess ABG 10.2 mEq/L (-9-1.8); HCO3 ABG 34 mmol/L (19-24); PCO2 ABG 44 mmHg (35-46); PO2 ABG 79 mm/Hg (80-95)
[2019-04-27 19:05] LABS: pH ABG 7.51 (7.35-7.45)
[2019-04-27] MEDS: SODIUM CHLORIDE 0.9% 1000ML 1,000 ML IV SCH (20:44)
[2019-04-28] MEDS: SODIUM CHLORIDE 0.9% 1000ML 1,000 ML IV SCH (05:20)
[2019-04-28 06:04] LABS: BUN Creatinine Ratio 28.4 (10-20); Calcium 8.5 mg/dl (8.5-10.1); Creatinine Clr Calc Pharmacy 51.4 ml/min; Est GFR (African American) 86.7; Est GFR (Non-African American) 74.8; Magnesium 2.4 mg/dl (1.8-2.4); Potassium 4.2 mmol/L (3.5-5.1)
[2019-04-28 06:23] LABS: Basophils # (auto) 0.01 K/uL (0-0.2); Basophils % (auto) 0.2 %; Eosinophils # (auto) 0.11 K/uL (0-0.5); Eosinophils % (auto) 1.7 %; Hematocrit (blood only) 33.2 % (37-47); Hemoglobin 10.8 g/dL (12.0-16.0); Immature Granulocytes # (auto) 0.05 K/uL (0.00-0.02); Immature Granulocytes % (auto) 0.8 %; Lymphocytes # (auto) 1.71 K/uL (1.2-3.4); Lymphocytes % (auto) 26.8 %; Mean Corpuscular Hemoglobin 33.3 pg (25-34); Mean Corpuscular Hgb Conc 32.5 g/dL (32-36); Mean Corpuscular Volume 102.5 fL (80-100); Mean Platelet Volume 9.4 fL (7.4-10.4); Monocytes # (auto) 0.46 K/uL (0.11-0.59); Monocytes % (auto) 7.2 %; Neutrophils # (auto) 4.04 K/uL (1.4-6.5); Neutrophils % (auto) 63.3 %; Platelet Count 136 K/uL (130-400); RDW Coefficient of Variation 18.7 % (11.5-14.5); RDW Standard Deviation 70.6 fL (36.4-46.3); Red Blood Count 3.24 M/uL (4.2-5.4); White Blood Count 6.38 K/uL (4.8-10.8)
[2019-04-28 07:18] LABS: Estimated Average Glucose 97 mg/dl
[2019-04-28 07:46] LABS: Base Excess ABG 7.7 mEq/L (-9-1.8); HCO3 ABG 32 mmol/L (19-24); Oxygen Saturation ABG 97.8 % (90-95); PCO2 ABG 46 mmHg (35-46); PO2 ABG 99 mm/Hg (80-95); pH ABG 7.47 (7.35-7.45)
[2019-04-28 08:00] LABS: Allen Test Pos (Pos)
[2019-04-28] MEDS: SERTRALINE HCL 100 MG TABLET PO SCH (08:15)
[2019-04-28] MEDS: LETROZOLE 2.5 MG TAB PO SCH (08:15)
[2019-04-28] MEDS: METOPROLOL SUCC 50MG EXT REL TAB PO SCH (08:15)
[2019-04-28] MEDS: MIRTAZAPINE TAB 15 MG TAB PO SCH (08:16)
[2019-04-28] MEDS: ASPIRIN 81 MG ECTAB PO SCH (08:16)
[2019-04-28] MEDS: QUETIAPINE FUMARATE 25 MG TABLET PO PRN ×2 (08:16→22:54)
[2019-04-28] MEDS ORDERED: POTASSIUM CHLORIDE 20 MEQ TABCR PO SCH (09:00)
[2019-04-28] MEDS ORDERED: FUROSEMIDE 20 MG TAB PO SCH (09:00)
[2019-04-28] MEDS ORDERED: predniSONE 10 MG TABLET PO SCH (09:00)
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
[2019-04-28] MEDS ORDERED: LORazepam 2 MG/4 ML VIAL ONE (09:18)
[2019-04-28] MEDS ORDERED: GADOBUTROL 65ML VIAL IV PRN (10:21)
--- NOTE | 2019-04-28 11:30 | Magnetic Resonance Report ---
MR brain wo/w con CLINICAL HISTORY: 73 years-old Female presenting with confusion starting on last Sunday, worsening on Sunday into Sunday morning, history of remote fall earlier this year, history of breast cancer. TECHNIQUE: Multisequence, multiplanar MR imaging of the brain was performed before and after the admi nistration of intravenous contrast. IV contrast: 5.8 mL of Gadavist. COMPARISON: Noncontrast CT head performed the previous day. FINDINGS: Localizer images: Unremarkable. Bone marrow signal intensity within the calvarium within normal limits. Normal midline sagittal structures. Proportional ventricular and sulcal prominence, likely age-relate d parenchymal volume loss. No mass effect or midline shift. No restricted diffusion or hemorrhage. Br ain parenchyma normal in appearance with preserved wright-white differentiation. No abnormal parenchyma l enhancement. No extra-axial fluid collection. T2 skull base flow voids preserved. Bilateral [place] lenses are abse nt. IMPRESSION: 1. No acute intracranial pathology. No abnormal enhancement. Electronically signed by: Az Reaves M.D. 04/28/2019 11:29 AM
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
--- NOTE | 2019-04-28 16:35 | Pulmonology Progress Note ---
Date of Service April 28, 2019 Assessment & Plan (1) Delusions: Impression: 73-year-old female with interstitial lung disease of unclear etiology. Serological evaluation has been unrevealing. This does not appear classic for UIP and the patient was briefly on a trial of pirfenidone. Steroids had been initiated in an effort to see whether this would be a steroid responsive illness but the patient may have poorly tolerated them and certainly steroid psychosis could have contributed to her underlying current neurological presentation. Her lung status appears stable. Recommendations: 1. Acute encephalopathy in the setting of ILD: As I cannot exclude a potential contributing component of the steroids, would recommend rapid taper decreasing by 5 mg every other day until off and following the patient's mental status. If her mental status is related to the steroids, should see fairly rapid resolution with decreasing the dose. Her lung disease does not appear to be steroid re sponsive and as of yet has defied classification. She is not a candidate for bronchoscopy or surgical lung biopsy. If her mental status improves significantly, would have to weigh risk versus benefit of continued immunosuppressive therapy. Could consider alternative agents such as mycophenolate or azathioprine but again the diagnostic uncertainty may preclude empiric trials of agents with higher incidence of toxicity. Additional evaluation for encephalopathic changes per primary service. 2. Chronic hypoxemic respiratory failure: Continue oxygen therapy. This is secondary to her interstitial lung disease. Oxygen is medically necessary and she is achieving a clinical benefit from it. 3. We will continue to follow with you. Feel free to contact us with additional pulmonary questions (2) Acute and chronic respiratory failure: Subjective Asked by a primary hospitalist service to assist in evaluating this patient with known interstitial lung disease ill-defined on chronic steroid therapy who I had the opportunity to meet approximately 2 weeks ago. We did check serologies at that point time to evaluate for other potential etiologies of interstitial lung pattern was not entirely consistent with UIP. She was discharged on prednisone and followed up with Dr. Alcantara who initiated a 5 mg a week taper. The patient presented to the emergency room with altered mental status which is been going on for over a week. The etiology was unclear. Imaging was under dealing for acute vascular injury. The patient states her breathing is fine although history is somewhat compromised. Neurological evaluation was also on. Review of Systems Review of Systems: Unobtainable due to mental health condition Unable to complete reliable review of systems with the patient due to her tangential speech and being easily distracted. Physical Exam Constitutional: WD/WN, vitals as above Neck: trachea midline, no thyromegaly Respiratory: Coarse crackles bilaterally more prominent on the right than the left. Cardiovascular: RRR, no murmur, no edema Extremities: no edema Gastrointestinal (Abdomen): normal bowel sounds, soft, nontender, no hepatosplenomegaly Skin: no rashes, warm and dry Results & Data Vital Signs (Past 12 Hours) Vital Signs Temp Pulse Pulse Resp BP Pulse Ox 04/28/19 16:00 85 04/28/19 14:58 36.6 C 75 18 116/73 99 04/28/19 11:55 36.5 C 78 18 130/65 98 04/28/19 07:09 36.5 C 73 16 147/76 H 98 Laboratory Results 04/28/19 05:03 04/28/19 05:03 Diagnostic Findings Imaging studies independently reviewed. Chest x-ray from this hospitalization demonstrated no acute change. Persistent interstitial abnormalities identified. MRI of the brain unrevealing. Clinical notes from outpatient pulmonary were reviewed. PG Care Time/CCT Total # of Minutes Spent Total Time Spent with Patient: Total time spent is greater than 50% in coordination of care (as documented) at patient's floor/unit and/or counseling patient:
[2019-04-28 18:39] LABS: Hemoglobin 12.3 g/dL (12.0-16.0); Mean Corpuscular Hemoglobin 33.7 pg (25-34); Mean Corpuscular Volume 104.1 fL (80-100); Mean Platelet Volume 9.7 fL (7.4-10.4); Platelet Count 168 K/uL (130-400); RDW Coefficient of Variation 18.8 % (11.5-14.5); RDW Standard Deviation 71.2 fL (36.4-46.3); Red Blood Count 3.65 M/uL (4.2-5.4); White Blood Count 7.54 K/uL (4.8-10.8)
[2019-04-28 18:43] LABS: Mean Corpuscular Hgb Conc 32.4 g/dL (32-36)
[2019-04-28 19:03] LABS: BUN Creatinine Ratio 20.9 (10-20); Calcium 8.5 mg/dl (8.5-10.1); Creatinine Clr Calc Pharmacy 39.4 ml/min; Est GFR (African American) 62.9; Est GFR (Non-African American) 54.3; Potassium 3.6 mmol/L (3.5-5.1)
[2019-04-29] MEDS: predniSONE 5 MG TAB PO SCH (08:27)
[2019-04-29] MEDS: MIRTAZAPINE TAB 15 MG TAB PO SCH (08:27)
[2019-04-29] MEDS: METOPROLOL SUCC 50MG EXT REL TAB PO SCH (08:27)
[2019-04-29] MEDS: SERTRALINE HCL 100 MG TABLET PO SCH (08:28)
[2019-04-29] MEDS: LETROZOLE 2.5 MG TAB PO SCH (08:28)
[2019-04-29] MEDS: QUETIAPINE FUMARATE 25 MG TABLET PO PRN (08:28)
[2019-04-29] MEDS: ASPIRIN 81 MG ECTAB PO SCH (08:28)
[2019-04-29 08:40] LABS: Hematocrit (blood only) 36.3 % (37-47); Hemoglobin 11.9 g/dL (12.0-16.0); Mean Corpuscular Hemoglobin 33.8 pg (25-34); Mean Corpuscular Hgb Conc 32.8 g/dL (32-36); Mean Corpuscular Volume 103.1 fL (80-100); Mean Platelet Volume 9.3 fL (7.4-10.4); Platelet Count 148 K/uL (130-400); RDW Coefficient of Variation 18.5 % (11.5-14.5); RDW Standard Deviation 69.4 fL (36.4-46.3); Red Blood Count 3.52 M/uL (4.2-5.4); White Blood Count 9.46 K/uL (4.8-10.8)
[2019-04-29 09:16] LABS: BUN Creatinine Ratio 24.3 (10-20); Calcium 9.1 mg/dl (8.5-10.1); Creatinine Clr Calc Pharmacy 45.9 ml/min; Est GFR (Non-African American) 64.7
--- NOTE | 2019-04-29 10:56 | Pulmonology Progress Note ---
Date of Service April 29, 2019 Assessment & Plan (1) Delusions: Impression: 73-year-old female with interstitial lung disease of unclear etiology. Serological evaluation has been unrevealing. This does not appear classic for UIP and the patient was briefly on a trial of pirfenidone. Steroids had been initiated in an effort to see whether this would be a steroid responsive illness but the patient may have poorly tolerated them and certainly steroid psychosis could have contributed to her underlying current neurological presentation. Her lung status appears stable. Recommendations: 1. Acute encephalopathy in the setting of ILD: Recommend taper of steroids as noted previously. She is not a candidate for bronchoscopy or surgical lung biopsy. If her mental status improves significantly off steroids, would have to weigh risk versus benefit of continued immunosuppressive therapy. Could consider alternative agents such as mycophenolate or azathioprine but again the diagnostic uncertainty may preclude empiric trials of agents with higher incidence of toxicity. Additional evaluation for encephalopathic changes per primary service. 2. Chronic hypoxemic respiratory failure: Continue oxygen therapy. This is secondary to her interstitial lung disease. Oxygen is medically necessary and she is achieving a clinical benefit from it. 3. We will continue to follow with you. Feel free to contact us with additional pulmonary questions (2) Acute and chronic respiratory failure: Subjective Patient seen and examined. EMR reviewed. She again pleasantly delirious. She is having no respiratory issues and denies any cough or sputum production or chest pain. She continues to have tangential speech. Review of Systems Review of Systems: Unable to complete reliable review of systems with the patient due to her tangential speech and being easily distracted. Physical Exam Constitutional: WD/WN, vitals as above Neck: trachea midline, no thyromegaly Cardiovascular: RRR, no murmur, no edema Extremities: no edema Gastrointestinal (Abdomen): normal bowel sounds, soft, nontender, no hepatosplenomegaly Skin: no rashes, warm and dry Results & Data Vital Signs (Past 12 Hours) Vital Signs Temp Pulse Pulse Resp BP Pulse Ox 04/29/19 08:34 36.8 C 79 16 118/63 97 04/29/19 08:00 62 04/28/19 23:44 73 04/28/19 23:02 36.6 C 78 19 145/97 H 90 PG Care Time/CCT Total # of Minutes Spent Total Time Spent with Patient: Total time spent is greater than 50% in coordination of care (as documented) at patient's floor/unit and/or counseling patient:
[2019-04-29] MEDS: POTASSIUM CHLORIDE 20 MEQ TABCR PO SCH ×2 (12:13→17:18)
--- NOTE | 2019-04-29 14:10 | Psychiatric Consultation ---
Date of Consultation April 29, 2019 Impression / Recommendations Impression 73 yo female with prior history of depression presents with onset of disorganized thinking and some lability of affect following restart of steroids for chronic lung disease--she doesn't appear to have full blown michaela at this time and is quite pleasant yet perseverative in conversation. Symptoms are persistent rather than waxing and waning. She has received a few doses of low dose Seroquel and Steroid is being tapered as able given chronic dependence on O2. discussed impression with son and daughter in law. reviewed that I'd suggest temporary use of low dose Haldol which they support. Reviewed that I would generally start Haldol [address] Birmingham. Risk Factors Assessment Do You Have Access To A Gun?: No Psych History Identifying Data 73 yo female previously treated by our service for depression in 2013, consult is by Dr. Birmingham for additional recs re: MS change, neurology ruled out acute stroke, etc via MRI. Chief Complaint "I'm bad, so are those boys, and also that Rosey, mog mouth". History of Present Illness Confusion reportedly started 04/24, recently hospitalized for respiratory failure for interstitial lung disease, tx with antibiotics and prednisone. Son/daughter in law arrived toward end of exam and stated that Dr. Alcantara had tapered her chronic steroids, home O2 requirement has remained 4L. UA, CT head, CXR negative so no identifiable cause for delirium. Family confirms she has been making these senseless statements about Rosey, they believe is her landlord. She also perseverates on things like technology but doesn't report paranoia or seem to be responding to internal stimuli. At the same time she is alert, clearly recognizes and even jokes with them. The patient also keeps saying that she has a secret. Family confirms that until this started she has remained sharp/in usual state of health. Past Psychiatric History Current Psychiatric Diagnosis: remains on Remeron and Zoloft for depressive disorder, no bipolar Outpatient Services: after discharge 2013 to [facility] Previous Psych Admissions: 2013 [facility] Do You Have Access To A Gun?: No History of Previous Suicide Attempt: No Past Medication Trials: Celexa, Ativan Allergies Allergy/AdvReac Type Severity Reaction Status Date / Time No Known Allergies Allergy Verified 04/16/19 11:24 Home Medications Home Medications Medication Instructions Recorded Confirmed Type albuterol sulfate [Ventolin HFA] 2 puff INHALATION Q6H PRN 08/11/18 04/27/19 History alendronate 75 mg PO LU@0900 08/11/18 04/27/19 History aspirin 81 mg PO DAILY 08/11/18 04/27/19 History betamethasone, augmented 1 applic TOPICAL DAILY PRN 08/11/18 04/27/19 History furosemide [Lasix] 20 mg PO DAILY 08/11/18 04/27/19 History letrozole 2.5 mg PO DAILY 08/11/18 04/27/19 History metoprolol succinate [Toprol XL] 50 mg PO DAILY 08/11/18 04/27/19 History mirtazapine 7.5 mg PO DAILY 08/11/18 04/27/19 History potassium chloride [Klor-Con M20] 40 meq PO DAILY 08/11/18 04/27/19 History sertraline [Zoloft] 200 mg PO DAILY 08/11/18 04/27/19 History azithromycin [Zithromax] 250 mg PO QAM #5 tab 04/06/19 04/27/19 Rx ergocalciferol (vitamin D2) 50,000 unit PO FR@0900 04/06/19 04/27/19 History prednisone 40 mg PO DAILY #60 tab 04/06/19 04/27/19 Rx prednisone 10 mg tablet 10 mg PO .COMPLEX #100 tab 04/16/19 04/27/19 Rx Family History adopted Substance Abuse History none Personal History Living Arrangements: Home Employment Status: Retired Marital Status: (following of first ) Beliefs That Will Affect Care: None History of Legal Problems: no Patient History Medical History Avascular necrosis of bone Ascending aortic aneurysm Hypoxemia (Acute) CHF (congestive heart failure) (Acute) Lung disease, interstitial (Acute) HTN (hypertension) (Chronic) CAD (coronary artery disease) (Chronic) Depression Suicidal ideation Surgical History History of coronary artery stent placement (Resolved) History of colon resection (Resolved) H/O hernia repair (Resolved) H/O: hysterectomy (Resolved) History of cholecystectomy (Resolved) Family History Other No significant family history Social History Preferred Language: [place] Communication Ability: Effective Communication Ability Comment: able to answer some history, states.."I know..I know.." 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 Beliefs That Will Affect Care: None marital status: Current Living Situation: Spouse Other Information That Helps Us Care for You: No Feels Safe at Home: Yes Safety Concerns: Feels Safe At This Time Smoking Status: Never smoker Do You Dip or Chew Tobacco: No ; Second Hand Exposure: No ; Tobacco Cessation Education Requested by Patient: No Hx Alcohol Use: No Hx Substance Use: No Physical Exam Psychiatric: Orientation: alert Apperance: appropriately groomed Eye Contact: good eye contact Motor Behavior: no abnormal motor movements Speech: normal rate/rhythm/volume of speech silly affect at times Thought Process: + tangential thought process Thought Content: + preoccupation; not paranoid Suicidal Thoughts: denies suicidal thoughts Homicidal Thoughts: denies homicidal thoughts Hallucinations: no auditory hallucinations and no visual hallucinations Cognition: language grossly intact; + recent memory not intact and + attention not intact Insight: + impaired insight Judgement: + impaired judgement Vital Signs (Past 24 Hours): Last Vital Signs Temp 37.2 C 04/29/19 11:04 Pulse 76 04/29/19 11:04 Resp 18 04/29/19 11:04 BP 111/63 04/29/19 11:04 Pulse Ox 96 04/29/19 11:04 Review of Systems Unobtainable due to mental health condition Results & Data Medications Administered Aspirin (Ecotrin Ectab) 81 mg PO DAILY TOY Stop: 05/28/19 08:59 Last Admin: 04/29/19 08:28 Dose: 81 mg Documented by: [id number] Admin: 04/28/19 08:16 Dose: 81 mg Documented by: [id number] Furosemide (Lasix) 20 mg PO DAILY TOY Stop: 05/28/19 08:59 Last Admin: 04/28/19 08:15 Dose: 20 mg Documented by: [id number] Gadobutrol (Gadavist 65ml) 5.8 ml IV ONCE PRN PRN Reason: Interaction Checking Stop: 05/02/19 10:20 Last Admin: 04/28/19 10:00 Dose: 5.8 ml Documented by: [id number] Letrozole (Femara) 2.5 mg PO DAILY [facility] Stop: 05/28/19 08:59 Last Admin: 04/29/19 08:28 Dose: 2.5 mg Documented by: [id number] Cosigned by: [id number] Admin: 04/28/19 08:15 Dose: 2.5 mg Documented by: [id number] Cosigned by: [id number] Metoprolol Succinate (Toprol Xl) 50 mg PO DAILY [facility] Stop: 05/28/19 08:59 Last Admin: 04/29/19 08:27 Dose: 50 mg Documented by: [id number] Admin: 04/28/19 08:15 Dose: 50 mg Documented by: [id number] Mirtazapine (Remeron) 7.5 mg PO DAILY [facility] Stop: 05/28/19 08:59 Last Admin: 04/29/19 08:27 Dose: 7.5 mg Documented by: [id number] Admin: 04/28/19 08:16 Dose: 7.5 mg Documented by: [id number] Potassium Chloride (Klor-Con M20) 40 meq PO DAILY [facility] Stop: 05/28/19 08:59 Last Admin: 04/28/19 08:17 Dose: 40 meq Documented by: [id number] Potassium Chloride (Klor-Con M20) 40 meq PO Q6H [facility] Stop: 04/29/19 17:31 Last Admin: 04/29/19 12:13 Dose: 40 meq Documented by: [id number] Prednisone (Prednisone) 25 mg PO DAILY [facility]; Taper Stop: 05/09/19 08:59 Last Admin: 04/29/19 08:27 Dose: 25 mg Documented by: [id number] Quetiapine Fumarate (Seroquel) 12.5 mg PO Q6H PRN PRN Reason: Anxiety/Agitation Stop: 05/27/19 17:59 Last Admin: 04/29/19 08:28 Dose: 12.5 mg Documented by: [id number] Admin: 04/28/19 22:54 Dose: 12.5 mg Documented by: [id number] Sertraline HCl (Zoloft) 200 mg PO DAILY [facility] Stop: 05/28/19 08:59 Last Admin: 04/29/19 08:28 Dose: 200 mg Documented by: [id number] Admin: 04/28/19 08:15 Dose: 200 mg Documented by: [id number]
[2019-04-29] MEDS: HALOPERIDOL 1 MG TAB PO SCH ×2 (15:29→20:11)
--- NOTE | 2019-04-29 17:38 | Hospitalist Progress Note ---
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 Will manage delirium with reassurance at this point if it occurs. Pulmonology was consulted and is of the opinion the steroids were not improving her interstitial lung disease, of which the diagnosis is still unclear. Tapering prednisone down per their recommended schedule, started 25mg today. Haldol scheduled per psych. Will stop Odansetron and seroquel and monitor QTc with daily EKG. (2) Lung disease, interstitial: Taper prednisone per pulmonology. Will watch for any disease flare. Currently has baseline crackles at bases of lungs but no increased respiratory distress. She is oxygen eating well on her baseline home oxygen supplementation at 4 L/min. (3) Hypernatremia: resolved. (4) Hypokalemia: Possibly secondary to recent diuretic use. Lasix and potassium per home regimen were held. Replaced today and repeat in am. (5) Anemia: Improved, no overt bleeding. Monitor CBC PRN. (6) DVT prophylaxis: Heparin DNR Dispo-uncertain at this time depending on needs and home support options. Denise Birmingham DO [facility] Hospitalist Subjective confused, unable to obtain a ROS or history of how her day and night went. 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 Titration down of prednisone 5mg q2days has started. Haldol started per psych. Daily EKGs while on this and Zofran was stopped, although not using this. Review of Systems Review of Systems: Unobtainable due to mental health condition Physical Exam Physical Exam: CONSTITUTIONAL: WNWD, vitals as above, generally well- appearing EYES: pupils are equal and round bilaterally, normal conjunctivae ENT: MMM RESPIRATORY: clear to auscultation bilaterally, no crackles, rales or wheezes, normal respiratory effort CARDIOVASCULAR: regular rate and rhythm, S1 and 2 heard without murmurs, gallops or rubs, no JVD, no peripheral edema GASTROINTESTINAL: soft, nontender, nondistended. MUSCULOSKELETAL: moves all extremities equally SKIN: warm and dry NEUROLOGIC: limited as cannot participate with exam 2/2 cognitive status. CN 2-12 grossly intact. Clear speech PSYCHIATRIC: alert , disoriented Results & Data Vital Signs (Past 12 Hours) Vital Signs Temp Pulse Pulse Resp BP Pulse Ox 04/29/19 15:15 37.2 C 77 21 123/71 99 04/29/19 11:04 37.2 C 76 18 111/63 96 04/29/19 08:34 36.8 C 79 16 118/63 97 04/29/19 08:00 62 Laboratory Results Short CBC 04/28/19 04/29/19 Range/Units 18:27 08:26 WBC 7.54 9.46 (4.8-10.8) K/uL Hgb 12.3 11.9 L (12.0-16.0) g/dL Hct 38.0 36.3 L (37-47) % Plt Count 168 148 (130-400) K/uL BMP 04/28/19 04/29/19 18:27 08:26 Sodium 142 145 Potassium 3.6 3.0 L D Chloride 106 106 Carbon Dioxide 34 H 34 H BUN 22 H 22 H Creatinine 1.03 0.89 Glucose 158 H 93 Calcium 8.5 9.1 Medications Administered Current Inpatient Medications Acetaminophen (Tylenol) 650 mg PO Q4H PRN PRN Reason: Pain or Fever Stop: 05/27/19 17:59 Albuterol (Ventolin Hfa) 2 puffs INH Q6H PRN PRN Reason: Shortness Of Breath Stop: 05/27/19 17:59 Aspirin (Ecotrin Ectab) 81 mg PO DAILY [facility] Stop: 05/28/19 08:59 Last Admin: 04/29/19 08:28 Dose: 81 mg Documented by: Betamethasone Dipropion Augmented (Diprolene 0.5%) 1 gm EXT DAILY PRN PRN Reason: breakout Stop: 05/27/19 17:59 Furosemide (Lasix) 20 mg PO DAILY [facility] Stop: 05/28/19 08:59 Last Admin: 04/28/19 08:15 Dose: 20 mg Documented by: Gadobutrol (Gadavist 65ml) 5.8 ml IV ONCE PRN PRN Reason: Interaction Checking Stop: 05/02/19 10:20 Last Admin: 04/28/19 10:00 Dose: 5.8 ml Documented by: Haloperidol (Haldol) 1 mg PO BID TOY Stop: 05/29/19 14:44 Last Admin: 04/29/19 15:29 Dose: 1 mg Documented by: Ipratropium [place] (Atrovent 0.02% 0.5mg/2.5ml) 0.5 mg INH Q4H PRN PRN Reason: SOB/WHEEZING Stop: 05/27/19 17:59 Letrozole (Femara) 2.5 mg PO DAILY [facility] Stop: 05/28/19 08:59 Last Admin: 04/29/19 08:28 Dose: 2.5 mg Documented by: Levalbuterol HCl (Xopenex 1.25mg/0.5ml Neb) 1.25 mg INH Q4H PRN PRN Reason: SOB/WHEEZING Stop: 05/27/19 17:59 Metoprolol Succinate (Toprol Xl) 50 mg PO DAILY [facility] Stop: 05/28/19 08:59 Last Admin: 04/29/19 08:27 Dose: 50 mg Documented by: Mirtazapine (Remeron) 7.5 mg PO DAILY [facility] Stop: 05/28/19 08:59 Last Admin: 04/29/19 08:27 Dose: 7.5 mg Documented by: Nitroglycerin (Nitrostat) 0.4 mg SL UD PRN PRN Reason: Chest Pain Stop: 05/27/19 17:59 Ondansetron HCl (Zofran) 4 mg IV Q6H PRN PRN Reason: Nausea Stop: 05/27/19 17:59 Potassium Chloride (Klor-Con M20) 40 meq PO DAILY [facility] Stop: 05/28/19 08:59 Last Admin: 04/28/19 08:17 Dose: 40 meq Documented by: Prednisone (Prednisone) 25 mg PO DAILY [facility]; Taper Stop: 05/09/19 08:59 Last Admin: 04/29/19 08:27 Dose: 25 mg Documented by: Sertraline HCl (Zoloft) 200 mg PO DAILY [facility] Stop: 05/28/19 08:59 Last Admin: 04/29/19 08:28 Dose: 200 mg Documented by:
[2019-04-30 06:33] LABS: BUN Creatinine Ratio 21.6 (10-20); Calcium 8.8 mg/dl (8.5-10.1); Creatinine Clr Calc Pharmacy 50.8 ml/min; Est GFR (African American) 85.4; Est GFR (Non-African American) 73.7; Magnesium 2.3 mg/dl (1.8-2.4); Potassium 3.5 mmol/L (3.5-5.1)
[2019-04-30] MEDS ORDERED: POTASSIUM CHLORIDE 20 MEQ TABCR PO STA (07:19)
[2019-04-30] MEDS: LETROZOLE 2.5 MG TAB PO SCH (07:50)
[2019-04-30] MEDS: ASPIRIN 81 MG ECTAB PO SCH (07:50)
[2019-04-30] MEDS: predniSONE 5 MG TAB PO SCH (07:50)
[2019-04-30] MEDS: SERTRALINE HCL 100 MG TABLET PO SCH (07:50)
[2019-04-30] MEDS: METOPROLOL SUCC 50MG EXT REL TAB PO SCH (07:50)
[2019-04-30] MEDS: MIRTAZAPINE TAB 15 MG TAB PO SCH (07:50)
[2019-04-30] MEDS: HALOPERIDOL 1 MG TAB PO SCH ×2 (07:51→19:33)
--- NOTE | 2019-04-30 08:08 | Hospitalist Progress Note ---
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 -patient was evaluated by psychiatry and as of the evaluation on 04/29/19 and "doesn't appear to have full blown michaela at this time" -continue Haldol 1 mg BID as recommended by psychiatry at this time -patient currently on 25 mg prednisone daily and the plan will be to gradually taper -check TSH, B12, folic acid levels, RPR serology -telemetry reviewed, repeat EKG on 04/30/19 to rule out prolonged QTc, patient is cardiac stable to be transferred to medical katz from telemetry service (2) Lung disease, interstitial: -as per pulmonary evaluations, patient with interstitial lung disease of unclear etiology. Serological evaluation has been unrevealing. "This does not appear classic for UIP and the patient was briefly on a trial of pirfenidone. Steroids had been initiated in an effort to see whether this would be a steroid responsive illness but the patient may have poorly tolerated them and certainly steroid psychosis could have contributed to her underlying current neurological presentation. Her lung status appears stable." -patient currently on 25 mg prednisone daily and the plan will be to gradually taper -outpatient home oxygen supplementation at 4 L/min, continue supplementary oxygen in the hospital as needed (3) Hypernatremia: -admission serum sodium on 04/28/19 elevated as 146 -hypernatremia appears resolved or at high limits of normal at this time (4) Hypokalemia: -has been improving off diuretic and with potassium supplementation -continue to hold Lasix as patient us euvolemic (5) Anemia: -stable (6) DVT prophylaxis: -Lovenox 40 mg daily as long as renal function is stable and no signs of bleeding DNR/DNI James Malone () contact number [phone] Subjective Patient seen and examined on telemetry katz. No acute telemetry events. Patient seen this AM singing to herself "Please pay attention" repetitively. Patient was asked whether she was in pain and she denies while continuing to sing. She reports she is singing because she is happy. She cannot answer what medical staff should pay attention to. She allowed physician to perform physical exam. When asked if she was aware where she was right now or whom she lived with at home, patient responds that it does not matter. Physical Exam Constitutional: comfortable Eyes: EOM intact bilaterally ENMT: external ear and nose normal, oropharynx normal Neck: normal visual inspection Cardiovascular: RRR, no murmur, no edema Gastrointestinal (Abdomen): normal bowel sounds, soft, nontender, no hepatosplenomegaly Musculoskeletal: Head/Neck/Chest: normocephalic and head atraumatic Neurologic: moves all extremities and awake Psychiatric: Orientation: alert and cooperative Patient seen this AM singing to herself "Please pay attention" repetitively. Patient was asked whether she was in pain and she denies while continuing to sing. She reports she is singing because she is happy. She cannot answer what medical staff should pay attention to. She allowed physician to perform physical exam. When asked if she was aware where she was right now or whom she lived with at home, patient responds that it does not matter Results & Data Vital Signs (Past 12 Hours) Vital Signs Temp Pulse Resp BP Pulse Ox 04/30/19 07:07 36.8 C 82 19 135/72 98 04/30/19 04:00 37.0 C 80 19 141/78 H 95 04/30/19 00:20 36.8 C 72 18 145/79 H 99
[2019-04-30 08:55] LABS: Folate (Folic Acid) 15.74 ng/ml (>5.38)
[2019-04-30] MEDS: ENOXAPARIN INJ 40 MG/0.4 ML SYR SQ SCH (08:56)
[2019-04-30] MEDS ORDERED: CYANOCOBALAMIN 1000 MCG/ML VIAL IM STA (14:40)
[2019-04-30] MEDS: CYANOCOBALAMIN 500 MCG TABLET (VITAMIN B-12) PO SCH (15:41)
[2019-04-30] MEDS ORDERED: HALOPERIDOL LACTATE 5 MG/ML 1 ML VIAL IM STA (19:29)
[2019-05-01] MEDS: CYANOCOBALAMIN 500 MCG TABLET (VITAMIN B-12) PO SCH (08:09)
[2019-05-01] MEDS: MIRTAZAPINE TAB 15 MG TAB PO SCH (08:09)
[2019-05-01] MEDS: ASPIRIN 81 MG ECTAB PO SCH (08:09)
[2019-05-01] MEDS: predniSONE 5 MG TAB PO SCH (08:10)
[2019-05-01] MEDS: METOPROLOL SUCC 50MG EXT REL TAB PO SCH (08:10)
[2019-05-01] MEDS: ENOXAPARIN INJ 40 MG/0.4 ML SYR SQ SCH (08:11)
[2019-05-01] MEDS: LETROZOLE 2.5 MG TAB PO SCH (08:11)
[2019-05-01] MEDS: SERTRALINE HCL 100 MG TABLET PO SCH (08:11)
[2019-05-01] MEDS: HALOPERIDOL 1 MG TAB PO SCH ×2 (08:11→23:07)
--- NOTE | 2019-05-01 12:11 | Hospitalist Progress Note ---
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 she is to be on 20 mg prednisone today on 05/01/19, then 20 mg on 05/02/19 and to decrease by 5 mg every 2 days; as of 05/01/19 physical exam, patient's agitation is resolving but it is unclear whether this a period of lucidity versus a substantial behavioral change Vitamin B12 deficiency -lab reference of normal is 211 to 911 pg/ml but patient's level is low as 180 -given IM dose of 1000 mcg on 04/30/19, give 1000 mcg orally once per day of vitamin B12 started on 04/30/19 and to continue daily (2) Lung disease, interstitial: -as per pulmonary evaluations, patient with interstitial lung disease of unclear etiology. Serological evaluation has been unrevealing. "This does not appear classic for UIP and the patient was briefly on a trial of pirfenidone. Steroids had been initiated in an effort to see whether this would be a steroid responsive illness but the patient may have poorly tolerated them and certainly steroid psychosis could have contributed to her underlying current neurological presentation. Her lung status appears stable." -patient currently on prednisone taper -outpatient home oxygen supplementation at 4 L/min, continue supplementary oxygen in the hospital as needed (3) Hypernatremia: -admission serum sodium on 04/28/19 elevated as 146 -hypernatremia appears resolved or at high limits of normal at this time (4) Hypokalemia: -has been improving off diuretic and with potassium supplementation -continue to hold Lasix as patient us euvolemic (5) Anemia: -stable (6) DVT prophylaxis: -Lovenox 40 mg daily as long as renal function is stable and no signs of bleeding DNR/DNI James Malone () contact number [phone] Daughter Arabella [phone] Subjective Overnight she was agitated and night time medical doctor gave additional haldol dose. She is currently around noon time seen by medical doctor and is calm and cooperative and eating her lunch. She does not know that she is in a hospital. she denies acute pain. is on nasal cannula. patient does not report of other symptoms Physical Exam Constitutional: comfortable Eyes: EOM intact bilaterally ENMT: external ear and nose normal, oropharynx normal Neck: normal visual inspection Respiratory: normal respiratory effort, lungs clear to auscultation Cardiovascular: RRR, no murmur, no edema Gastrointestinal (Abdomen): normal bowel sounds, soft, nontender, no hepatosplenomegaly Musculoskeletal: Head/Neck/Chest: normocephalic and head atraumatic Neurologic: moves all extremities and awake Psychiatric: Orientation: alert and cooperative Results & Data Vital Signs (Past 12 Hours) Vital Signs Temp Pulse Resp BP Pulse Ox 05/01/19 08:26 36.9 C 71 18 154/81 H 100 05/01/19 00:21 36.6 C 88 20 121/75 98
[2019-05-02 08:47] LABS: Basophils # (auto) 0.01 K/uL (0-0.2); Basophils % (auto) 0.1 %; Eosinophils # (auto) 0.22 K/uL (0-0.5); Eosinophils % (auto) 3.3 %; Hematocrit (blood only) 37.7 % (37-47); Hemoglobin 12.2 g/dL (12.0-16.0); Immature Granulocytes # (auto) 0.04 K/uL (0.00-0.02); Immature Granulocytes % (auto) 0.6 %; Lymphocytes # (auto) 1.64 K/uL (1.2-3.4); Lymphocytes % (auto) 24.3 %; Mean Corpuscular Hemoglobin 33.5 pg (25-34); Mean Corpuscular Hgb Conc 32.4 g/dL (32-36); Mean Corpuscular Volume 103.6 fL (80-100); Mean Platelet Volume 9.7 fL (7.4-10.4); Monocytes % (auto) 8.9 %; Neutrophils # (auto) 4.24 K/uL (1.4-6.5); Neutrophils % (auto) 62.8 %; Platelet Count 168 K/uL (130-400); RDW Coefficient of Variation 17.8 % (11.5-14.5); RDW Standard Deviation 67.3 fL (36.4-46.3); Red Blood Count 3.64 M/uL (4.2-5.4); White Blood Count 6.75 K/uL (4.8-10.8)
[2019-05-02] MEDS ORDERED: predniSONE 5 MG TAB PO SCH (09:00)
[2019-05-02] MEDS ORDERED: HALOPERIDOL 0.5 MG TAB PO SCH (09:00)
[2019-05-02 09:11] LABS: BUN Creatinine Ratio 25.3 (10-20); Calcium 9.2 mg/dl (8.5-10.1); Creatinine Clr Calc Pharmacy 42.7 ml/min; Est GFR (African American) 70.2; Est GFR (Non-African American) 60.6; Potassium 3.4 mmol/L (3.5-5.1)
[2019-05-02] MEDS: ENOXAPARIN INJ 40 MG/0.4 ML SYR SQ SCH (09:18)
[2019-05-02] MEDS: SERTRALINE HCL 100 MG TABLET PO SCH (09:19)
[2019-05-02] MEDS: CYANOCOBALAMIN 500 MCG TABLET (VITAMIN B-12) PO SCH (09:19)
[2019-05-02] MEDS: LETROZOLE 2.5 MG TAB PO SCH (09:19)
[2019-05-02] MEDS: METOPROLOL SUCC 50MG EXT REL TAB PO SCH (09:19)
[2019-05-02] MEDS: MIRTAZAPINE TAB 15 MG TAB PO SCH (09:20)
[2019-05-02] MEDS: ASPIRIN 81 MG ECTAB PO SCH (09:20)
[2019-05-02] MEDS: predniSONE 5 MG TAB PO SCH (11:02)
--- NOTE | 2019-05-02 12:53 | Hospitalist Progress Note ---
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 -patient was evaluated by psychiatry and as of the evaluation on 04/29/19 and "doesn't appear to have full blown michaela at this time"; was then started Haldol 1 mg BID as recommended by psychiatry -TSH is mildly elevated as 5.07, but normal free T4 and T4 levels, RPR serology nonreactive -patient on prednisone taper which is to decrease the home dose prednisone 40 mg daily, currently she is on 20 mg prednisone on 05/02/19 and to continue decrease by 5 mg every 2 days -as per recent assessments, patient;s ag as of 05/01/19 and 05/02/19 assessments, patient's delirium appears to be resolving as she is more calm and cooperative, will hold off further Haldol starting on 05/02/19 and continue to monitor patient in hospital during steroid taper Vitamin B12 deficiency -lab reference of normal is 211 to 911 pg/ml but patient's level is low as 180 -given IM dose of 1000 mcg on 04/30/19, give 1000 mcg orally once per day of vitamin B12 started on 04/30/19 and to continue daily (2) Lung disease, interstitial: -as per pulmonary evaluations, patient with interstitial lung disease of unclear etiology. Serological evaluation has been unrevealing. "This does not appear classic for UIP and the patient was briefly on a trial of pirfenidone. Steroids had been initiated in an effort to see whether this would be a steroid responsive illness but the patient may have poorly tolerated them and certainly steroid psychosis could have contributed to her underlying current neurological presentation. Her lung status appears stable." -outpatient home oxygen supplementation had been 4 L/min -patient currently on prednisone taper and attempt to titrate oxygen requirements if possible - (3) Hypernatremia: -admission serum sodium on 04/28/19 elevated as 146 -hypernatremia appears resolved or at high limits of normal at this time (4) Hypokalemia: -had improved off diuretic and with potassium supplementation -continue to hold Lasix as patient us euvolemic -will try to aim to serum potassium level of 3.5 or above (5) Anemia: -stable (6) DVT prophylaxis: -Lovenox 40 mg daily as long as renal function is stable and no signs of bleeding DNR/DNI James Malone () contact number [phone] Daughter Arabella [phone] Subjective Patient is calm and cooperative. She is not oriented to place that she is currently in the hospital but she is not agitated and responds to questions and walks to the bathroom with supervision. no complaints of pain. continues to be on nasal cannula oxygen Physical Exam Constitutional: comfortable Eyes: EOM intact bilaterally ENMT: external ear and nose normal, oropharynx normal Neck: normal visual inspection Respiratory: normal respiratory effort, lungs clear to auscultation Cardiovascular: RRR, no murmur, no edema Gastrointestinal (Abdomen): normal bowel sounds, soft, nontender, no hepatosplenomegaly Musculoskeletal: Head/Neck/Chest: normocephalic and head atraumatic Neurologic: moves all extremities and awake Psychiatric: Orientation: alert and cooperative Patient is calm and cooperative. She is not oriented to place that she is currently in the hospital but she is not agitated and responds to questions and walks to the bathroom with supervision Results & Data Vital Signs (Past 12 Hours) Vital Signs Temp Pulse Resp BP Pulse Ox 05/02/19 07:00 37.3 C 66 20 140/78 96
[2019-05-02] MEDS ORDERED: POTASSIUM CHLORIDE 20 MEQ TABCR PO STA (13:00)
[2019-05-02] MEDS: POTASSIUM CHLORIDE / WTR 10 MEQ/100 ML PLCT IV SCH ×2 (13:27→15:38)
[2019-05-03] MEDS: CYANOCOBALAMIN 500 MCG TABLET (VITAMIN B-12) PO SCH (08:30)
[2019-05-03] MEDS: METOPROLOL SUCC 50MG EXT REL TAB PO SCH (08:30)
[2019-05-03] MEDS: SERTRALINE HCL 100 MG TABLET PO SCH (08:31)
[2019-05-03] MEDS: ASPIRIN 81 MG ECTAB PO SCH (08:31)
[2019-05-03] MEDS: MIRTAZAPINE TAB 15 MG TAB PO SCH (08:31)
[2019-05-03] MEDS: LETROZOLE 2.5 MG TAB PO SCH (08:31)
[2019-05-03] MEDS: predniSONE 5 MG TAB PO SCH (08:32)
[2019-05-03] MEDS: ENOXAPARIN INJ 40 MG/0.4 ML SYR SQ SCH (08:32)
[2019-05-03 09:54] LABS: BUN Creatinine Ratio 22.6 (10-20); Calcium 8.9 mg/dl (8.5-10.1); Creatinine Clr Calc Pharmacy 39.9 ml/min; Est GFR (African American) 64.4; Est GFR (Non-African American) 55.6; Magnesium 2.2 mg/dl (1.8-2.4); Potassium 3.3 mmol/L (3.5-5.1)
--- NOTE | 2019-05-03 12:17 | XRay Report ---
XR chest 1V portable CLINICAL HISTORY: Chronic hypoxia COMPARISON STUDY: 04/27/2019 FINDINGS: The heart remains enlarged. There is stable right hilar/paramediastinal fullness, finding l ikely secondary to a prominent pulmonary artery and prominent ascending thoracic aorta. There are dif fuse interstitial pulmonary fibrotic changes. There is no acute parenchymal consolidation. There is n o overt failure. There are no pleural effusions. There is an old proximal right humeral deformity.[ IMPRESSION: Chronic interstitial lung disease similar to the prior study. No acute findings Electronically signed by: Ab Mckeon M.D. 05/03/2019 12:16 PM
--- NOTE | 2019-05-03 14:48 | Hospitalist Progress Note ---
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 -patient was evaluated by psychiatry and as of the evaluation on 04/29/19 and "doesn't appear to have full blown michaela at this time"; was then started Haldol 1 mg BID as recommended by psychiatry -TSH is mildly elevated as 5.07, but normal free T4 and T4 levels, RPR serology nonreactive -patient on prednisone taper which is to decrease the home dose prednisone 40 mg daily, currently she is on 20 mg prednisone on 05/02/19 and to continue decrease by 5 mg every 2 days -as per recent assessments, patient;s ag as of 05/01/19 and 05/02/19 assessments, patient's delirium appears to be resolving as she is more calm and cooperative, held off further Haldol starting on 05/02/19 and steroid taper was continued -05/03/19: as per patient's family members they affirm she is baseline mental status, and that with her being able to ambulate at baseline. Family members to take patient home today. Discharge plans and follow ups discussed at length. Patient is aware that she is in the hospital currently. responding well to questions. denies acute pain -discharge to home under care of her family referral to [facility] in place continue prednisone taper at home as 15 mg on 05/04/19,then 10 mg for 2 days,then 5 mg for 2 days Patient should follow up with primary care doctor and clinic pulmonary doctor. Patient should have vitamin B12 levels retested and oxygen use re-assessed by clinic doctors Vitamin B12 deficiency -lab reference of normal is 211 to 911 pg/ml but patient's level is low as 180 -given IM dose of 1000 mcg on 04/30/19, give 1000 mcg orally once per day of vitamin B12 started on 04/30/19 and to continue daily -continue cyanocobalamin Vitamin B12 1,000 mcg daily for next 14 days (2) Lung disease, interstitial: -Chronic Respiratory failure with hypoxia as per pulmonary evaluations, patient with interstitial lung disease of unclear etiology. Serological evaluation has been unrevealing. "This does not appear classic for UIP and the patient was briefly on a trial of pirfenidone. Steroids had been initiated in an effort to see whether this would be a steroid responsive illness but the patient may have poorly tolerated them and certainly steroid psychosis could have contributed to her underlying current neurological presentation. Her lung status appears stable." -outpatient home oxygen supplementation had been 4 L/min -Patient remains on nasal cannula 4 liters/minute as her baseline. attempts to try to titrate down oxygen yesterday was not successful (3) Hypernatremia: -admission serum sodium on 04/28/19 elevated as 146 -hypernatremia appears resolved or at high limits of normal at this time (4) Hypokalemia: -serum potassium is 3 on 04/29/19 -had gotten potassium supplements during hospital course and Lasix had been held -discharge serum potassium is 3.3 which is acceptable as long patient follow up with primary care doctor while on home dose potassium supplements and can resume Lasix at home (5) Anemia: -stable (6) DVT prophylaxis: -Lovenox 40 mg daily as long as renal function is stable and no signs of bleeding DNR/DNI James Malone () contact number [phone] Daughter Arabella [phone] Discharge Diagnosis: Acute confusion (altered mental status/encephalopathy on this admission has been 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 attempts to try to titrate down oxygen yesterday was not successful. as per patient's family members they affirm she is baseline mental status, and that with her being able to ambulate at baseline. Family members to take patient home today. Discharge plans and follow ups discussed at length. Patient is aware that she is in the hospital currently. responding well to questions. denies acute pain. Physical Exam Constitutional: comfortable Eyes: EOM intact bilaterally ENMT: external ear and nose normal, oropharynx normal Neck: normal visual inspection Respiratory: normal respiratory effort, lungs clear to auscultation Cardiovascular: RRR, no murmur, no edema Gastrointestinal (Abdomen): normal bowel sounds, soft, nontender, no hepatosplenomegaly Musculoskeletal: Head/Neck/Chest: normocephalic and head atraumatic Neurologic: moves all extremities and awake Psychiatric: Orientation: alert and cooperative Results & Data Vital Signs (Past 12 Hours) Vital Signs Temp Pulse Resp BP Pulse Ox 05/03/19 07:22 36.8 C 65 20 131/78 96
--- NOTE | 2019-05-03 14:54 | Discharge Summary ---
Date of Service May 03, 2019 Admission HPI Per Admitting Provider Confusion reportedly started 04/24, recently hospitalized for respiratory failure for interstitial lung disease, tx with antibiotics and prednisone. Son/daughter in law arrived toward end of exam and stated that Dr. Alcantara had tapered her chronic steroids, home O2 requirement has remained 4L. UA, CT head, CXR negative so no identifiable cause for delirium. Family confirms she has been making these senseless statements about Rosey, they believe is her landlord. She also perseverates on things like technology but doesn't report paranoia or seem to be responding to internal stimuli. At the same time she is alert, clearly recognizes and even jokes with them. The patient also keeps saying that she has a secret. Family confirms that until this started she has remained sharp/in usual state of health. Admission Exam Per Admitting Provider PHYSICAL EXAMINATION: GENERAL: The patient is alert and awake but a little confused. VITAL SIGNS: Temperature 36.8, pulse 78, respiratory rate 20s, blood pressure 172/101, oxygen 100% on 4 liters. HEENT: No pallor, no icterus. Pupils equal, round, and reactive to light. NECK: No JVD, no neck masses, no carotid bruits. CARDIOVASCULAR: S1, S2 heard, regular rate and rhythm, no murmur, no gallop. RESPIRATORY SYSTEM: Normal AP diameter. No accessory muscle use. No wheezing. No crackles. ABDOMEN: Soft, bowel sounds present, nontender. No distention. CENTRAL NERVOUS SYSTEM: Alert and awake, but confused and speaks tangentially, but obeys simple commands. EXTREMITIES: No edema, no erythema. 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), chronic respiratory failure with hypoxia; Vitamin B12 deficiency, Hypokalemia Discharge Exam Constitutional comfortable Eyes EOM intact bilaterally ENMT external ear and nose normal, oropharynx normal Neck normal visual inspection Respiratory normal respiratory effort, lungs clear to auscultation Cardiovascular RRR, no murmur, no edema Gastrointestinal (Abdomen) normal bowel sounds, soft, nontender, no hepatosplenomegaly Musculoskeletal Head/Neck/Chest: normocephalic and head atraumatic Neurologic moves all extremities and awake Psychiatric Orientation: alert and cooperative Discharge Data Allergies Allergy/AdvReac Type Severity Reaction Status Date / Time No Known Allergies Allergy Verified 04/16/19 11:24 Consultations 04/27/19 13:33 ED Decision to Admit Stat 04/27/19 18:00 Consult Case Management - Discharge Planning Routine Consult Neurology Routine 04/28/19 15:16 Consult Psychiatry Routine 04/28/19 15:18 Consult Pulmonology Routine Ordered Studies 04/27/19 12:51 CT head/brain wo con Stat 04/28/19 09:01 MR brain wo/w con Urgent Hospital Course (1) Acute confusion: -altered mental status/encephalopathy on this admission has been 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 -patient was evaluated by psychiatry and as of the evaluation on 04/29/19 and "doesn't appear to have full blown michaela at this time"; was then started Haldol 1 mg BID as recommended by psychiatry -TSH is mildly elevated as 5.07, but normal free T4 and T4 levels, RPR serology nonreactive -patient on prednisone taper which is to decrease the home dose prednisone 40 mg daily, currently she is on 20 mg prednisone on 05/02/19 and to continue decrease by 5 mg every 2 days -as per recent assessments, patient;s ag as of 05/01/19 and 05/02/19 assessments, patient's delirium appears to be resolving as she is more calm and cooperative, held off further Haldol starting on 05/02/19 and steroid taper was continued -05/03/19: as per patient's family members they affirm she is baseline mental status, and that with her being able to ambulate at baseline. Family members to take patient home today. Discharge plans and follow ups discussed at length. Patient is aware that she is in the hospital currently. responding well to questions. denies acute pain -discharge to home under care of her family referral to [facility] in place continue prednisone taper at home as 15 mg on 05/04/19,then 10 mg for 2 days,then 5 mg for 2 days Patient should follow up with primary care doctor and clinic pulmonary doctor. Patient should have vitamin B12 levels retested and oxygen use re-assessed by clinic doctors Vitamin B12 deficiency -lab reference of normal is 211 to 911 pg/ml but patient's level is low as 180 -given IM dose of 1000 mcg on 04/30/19, give 1000 mcg orally once per day of vitamin B12 started on 04/30/19 and to continue daily -continue cyanocobalamin Vitamin B12 1,000 mcg daily for next 14 days (2) Lung disease, interstitial: -Chronic Respiratory failure with hypoxia as per pulmonary evaluations, patient with interstitial lung disease of unclear etiology. Serological evaluation has been unrevealing. "This does not appear classic for UIP and the patient was briefly on a trial of pirfenidone. Steroids had been initiated in an effort to see whether this would be a steroid responsive illness but the patient may have poorly tolerated them and certainly steroid psychosis could have contributed to her underlying current neurological presentation. Her lung status appears stable." -outpatient home oxygen supplementation had been 4 L/min -Patient remains on nasal cannula 4 liters/minute as her baseline. attempts to try to titrate down oxygen yesterday was not successful (3) Hypernatremia: -admission serum sodium on 04/28/19 elevated as 146 -hypernatremia appears resolved or at high limits of normal at this time (4) Hypokalemia: -serum potassium is 3 on 04/29/19 -had gotten potassium supplements during hospital course and Lasix had been held -discharge serum potassium is 3.3 which is acceptable as long patient follow up with primary care doctor while on home dose potassium supplements and can resume Lasix at home (5) Anemia: -stable (6) DVT prophylaxis: -Lovenox 40 mg daily as long as renal function is stable and no signs of bleeding DNR/DNI James Malone () contact number [phone] Daughter Arabella [phone] Discharge Diagnosis: Acute confusion (altered mental status/encephalopathy on this admission has been 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), chronic respiratory failure with hypoxia; Vitamin B12 deficiency, Hypokalemia Total Time Total Time Spent Total Time Spent (In Minutes): 40 minutes Total Time Includes: Examination of the Patient, Discharge Planning, Medication Reconciliation and Communication With Other Providers Discharge Plan Discharge Items Patient Disposition: Home - Home Health Services Reason For Visit: CONFUSION Discharge Diagnosis: Acute confusion (altered mental status/encephalopathy on this admission has been 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), chronic respiratory failure with hypoxia; Vitamin B12 deficiency; Hypokalemia Condition: Good Discharge Goals: Improve disease control Activity: Resume your previous activity Non-emergency contact: Primary Care Provider and [employer] 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 Patient should have vitamin B12 levels retested and oxygen use re-assessed by clinic doctors discharge serum potassium is 3.3 which is acceptable as long patient follow up with primary care doctor while on home dose potassium supplements and can resume Lasix at home Prescriptions: New cyanocobalamin (vitamin B-12) [Vitamin B-12] 500 mcg Tablet 1,000 mcg PO QAM 14 Days Qty: 28 RF: 0 prednisone 5 mg Tablet 5 mg PO DAILY 5 Days Qty: 9 RF: 0 Continued metoprolol succinate [Toprol XL] 50 mg Tablet Extended Release 24 Hr 50 mg PO DAILY RF: 0 betamethasone, augmented 0.05 % Cream 1 applic TOPICAL DAILY PRN (Reason: breakout) RF: 0 sertraline [Zoloft] 100 mg Tablet 200 mg PO DAILY RF: 0 aspirin 81 mg Tablet,Delayed Release (Dr/Ec) 81 mg PO DAILY RF: 0 alendronate 35 mg Tablet 75 mg PO LU@0900 RF: 0 potassium chloride [Klor-Con M20] 20 mEq Tablet,Er Particles/Crystals 40 meq PO DAILY RF: 0 furosemide [Lasix] 20 mg Tablet 20 mg PO DAILY RF: 0 letrozole 2.5 mg Tablet 2.5 mg PO DAILY RF: 0 albuterol sulfate [Ventolin HFA] 90 mcg/actuation Hfa Aerosol Inhaler 2 puff INHALATION Q6H PRN (Reason: Shortness Of Breath) RF: 0 mirtazapine 7.5 mg Tablet 7.5 mg PO DAILY RF: 0 ergocalciferol (vitamin D2) 50,000 unit Capsule 50,000 unit PO FR@0900 RF: 0 azithromycin [Zithromax] 250 mg Tablet 250 mg PO QAM Qty: 5 RF: 0 Discontinued prednisone 10 mg tablet 10 mg PO .COMPLEX Qty: 100 RF: 1 prednisone 20 mg Tablet 40 mg PO DAILY Qty: 60 RF: 1 Stand-Alone Forms: [facility] Discharge Orders: Discharge Order (Routine); Ordered 05/03/19 Ordered By: Leonel Frazier Admission Data Admit Date/Time: 04/28/19 15:16 Attending Provider: Leonel Frazier Admit Provider: Celio Molina Primary Care Provider: Jose Manuel Morocho Other Providers: Celio Molina ; Jose Nelson ; Jovita Gaxiola Gregory Service: Medical
[2019-05-07] MEDS ORDERED: CYANOCOBALAMIN 1000 MCG/ML VIAL IM SCH (09:00)
== END 2019-05-03 16:01 | disposition home health service (06) | DRG 947 ==
LOC: 2E 12:26 → ED 12:26 → 2E 17:57 → SUATTDRO 04-28 15:16 → 2W 04-30 09:15

== ENCOUNTER 2019-05-04 13:53 | Inpatient (IN) ==
--- NOTE | 2019-05-04 14:19 | XRay Report ---
SINGLE VIEW CHEST CLINICAL HISTORY: Generalized weakness. FINDINGS: An AP, portable, upright chest radiograph is compared to study dated 05/03/2019 and correlate d with chest CT dated 12/25/2018. The examination is degraded by portable technique and patient rotatio n. There is a large hiatal hernia. The heart is enlarged and there is atherosclerotic calcification o f the thoracic aorta. Pulmonary vascular congestion has improved from yesterday. Changes of chronic i nterstitial lung disease are similar to previous. No focal airspace consolidation or large pleural ef fusion is identified. There is no pneumothorax. The skeletal structures are osteopenic. Chronic postt raumatic deformity is noted in the right humerus. Cholecystectomy clips are noted in the right upper quadrant. IMPRESSION: 1. Cardiomegaly. Mild pulmonary vascular congestion has improved from yesterday. 2. Changes of chronic interstitial lung disease are similar to previous. 3. There is no evidence of superimposed airspace consolidation or large pleural effusion. 4. Hiatal hernia. Electronically signed by: Krzysztof Quintero M.D. 05/04/2019 2:18 PM
[2019-05-04 14:56] LABS: Basophils # (auto) 0.01 K/uL (0-0.2); Basophils % (auto) 0.1 %; Eosinophils # (auto) 0.04 K/uL (0-0.5); Eosinophils % (auto) 0.4 %; Hematocrit (blood only) 39.5 % (37-47); Hemoglobin 13.4 g/dL (12.0-16.0); Immature Granulocytes # (auto) 0.06 K/uL (0.00-0.02); Immature Granulocytes % (auto) 0.6 %; Lymphocytes # (auto) 0.77 K/uL (1.2-3.4); Lymphocytes % (auto) 7.7 %; Mean Corpuscular Hemoglobin 34.4 pg (25-34); Mean Corpuscular Hgb Conc 33.9 g/dL (32-36); Mean Corpuscular Volume 101.3 fL (80-100); Mean Platelet Volume 9.5 fL (7.4-10.4); Monocytes # (auto) 0.57 K/uL (0.11-0.59); Monocytes % (auto) 5.7 %; Neutrophils # (auto) 8.51 K/uL (1.4-6.5); Neutrophils % (auto) 85.5 %; Nucleated RBC # (auto) 0.02 K/uL (0-0); Nucleated RBC % (auto) 0.2 %; Platelet Count 180 K/uL (130-400); RDW Coefficient of Variation 17.1 % (11.5-14.5); RDW Standard Deviation 63.7 fL (36.4-46.3); White Blood Count 9.96 K/uL (4.8-10.8)
[2019-05-04 15:14] LABS: Albumin Level 3.9 gm/dl (3.4-5.0); BUN Creatinine Ratio 18.8 (10-20); Calcium 9.3 mg/dl (8.5-10.1); Creatinine Clr Calc Pharmacy 42.6 ml/min; Est GFR (African American) 69.4; Est GFR (Non-African American) 59.8; Potassium 3.7 mmol/L (3.5-5.1)
[2019-05-04 15:17] LABS: Albumin Globulin Ratio 1.1 (0.9-2); Bilirubin,Total 0.5 mg/dl (0.2-1); Globulin 3.6 gm/dl (2.5-4.0); Total Protein 7.5 gm/dl (6.4-8.2)
[2019-05-04] MEDS ORDERED: ALBUTEROL HFA 8 GM INHALER INH PRN (16:01)
--- NOTE | 2019-05-04 16:09 | History & Physical Report ---
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 At time of discharge, patient's family members confirmed that patient had been back to baseline mental status as prednisone was tapered down and as patient was ambulating at baseline, there did not appear to be any needs that may have qualified patient for physical therapy rehabilitation. When patient was discharged she went back to her home with her . Patient's daughter reported at night the patient awoke from sleep and not following directions appropriately. As per patient's daughter the patient also did take scheduled medications including prednisone 15 mg. Patient's daughter found out after going to the patient's home today. A nurse from [facility] at the patient's home called hospitalist medical doctor and explained that patient was back to "rocking motions" back and forth. And that patient's family members would like patient to be brought back to the hospital for [place] [facility] [place]. When examined by hospitalist medical doctor, patient was calm and laid on the bed and laid still but an inability to focus her attention appropriately almost like how she was acting 4 days prior to hospital discharge. When asked how she was doing or if anything was bothering her, the patient just responded "You're funny" several times. She was not combative or in acute pain but she could not cooperate to follow directions for physical exam as she had done in the days leading up to her hospital discharge -at this time a diagnosis of dementia is very likely as multiple work up on previous hospitalization from 04/27/19 to 05/03/19 did not find acute reversible causes of delirium. And patient was treated for diagnosis of steroid induced psychosis, it seems unlikely that current behaviors are reflective of steroid use as patient is on less steroids than previous 40 mg daily dosing prior to 04/27/19 hospitalization. Interstitial lung disease Chronic Respiratory failure with hypoxia -home oxygen supplementation had been 4 L/min -prednisone was started in the past by [facility] pulmonary service because of interstitial lung disease of unclear etiology -Patient will need follow up as outpatient with Dr. Alcantara of [facility] pulmonary service or his colleagues -will continue current prednisone taper as 10 mg on 05/05/19 for 2 days, then 5 mg for 2 days then stop as previously planned when it was thought that steroids were contributing to patient's confusion Vitamin B12 deficiency -lab reference of normal is 211 to 911 pg/ml but patient's level was low as 180 on 04/30/19 -she had been given 1000 mcg on 04/30/19 IM and then started on oral cyanocobalamin Vitamin B12 1,000 mcg daily on 04/30/19 -level is 947 on 05/04/19 which shows adequate repletion. will hold off oral cyanocobalamin Vitamin B12 for now Patient had recent workup with 04/30/19 labs of normal folic acid levels, TSH of 5 with normal total/free T4 levels, negative RPR send copper serum levels as part of mental status workup but emphasized to patient's family that these levels are unlikely the cause of confusion normal Urine analysis and and no signs of infection on last admission. blood cultures drawn on 05/04/19 and send urine analysis Electrolytes -normal level sodium and potassium on 05/04/19 presentation Anemia: -Hgb on 05/04/19 is 13.4 which is stable DVT prophylaxis:SCDs Code Status: DNR/DNI Case Management needed for placement. 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 At time of discharge, patient's family members confirmed that patient had been back to baseline mental status as prednisone was tapered down and as patient was ambulating at baseline, there did not appear to be any needs that may have qualified patient for physical therapy rehabilitation. When patient was discharged she went back to her home with her . Patient's daughter reported at night the patient awoke from sleep and not following directions appropriately. As per patient's daughter the patient also did take scheduled medications including prednisone 15 mg. Patient's daughter found out after going to the patient's home today. A nurse from [facility] at the patient's home called hospitalist medical doctor and explained that patient was back to "rocking motions" back and forth. And that patient's family members would like patient to be brought back to the hospital for [place] [facility] [place]. When examined by hospitalist medical doctor, patient was calm and laid on the bed and laid still but an inability to focus her attention appropriately almost like how she was acting 4 days prior to hospital discharge. When asked how she was doing or if anything was bothering her, the patient just responded "You're funny" several times. She was not combative or in acute pain but she could not cooperate to follow directions for physical exam as she had done in the days leading up to her hospital discharge. Patient's daughter denies family history of medical issues Primary Care Provider: Jose Manuel Morocho Allergies Allergy/AdvReac Type Severity Reaction Status Date / Time No Known Allergies Allergy Verified 05/04/19 14:25 Home Medications Home Medications Medication Instructions Recorded Confirmed Type albuterol sulfate [Ventolin HFA] 2 puff INHALATION Q6H PRN 08/11/18 05/04/19 History alendronate 75 mg PO LU@0908/11/18 05/04/19 History aspirin 81 mg PO DAILY 08/11/18 05/04/19 History betamethasone, augmented 1 applic TOPICAL DAILY PRN 08/11/18 05/04/19 History furosemide [Lasix] 20 mg PO DAILY 08/11/18 05/04/19 History letrozole 2.5 mg PO DAILY 08/11/18 05/04/19 History metoprolol succinate [Toprol XL] 50 mg PO DAILY 08/11/18 05/04/19 History mirtazapine 7.5 mg PO DAILY 08/11/18 05/04/19 History potassium chloride [Klor-Con M20] 40 meq PO DAILY 08/11/18 05/04/19 History sertraline [Zoloft] 200 mg PO DAILY 08/11/18 05/04/19 History azithromycin [Zithromax] 250 mg PO QAM #5 tab 04/06/19 05/04/19 Rx ergocalciferol (vitamin D2) 50,000 unit PO FR@0900 04/06/19 05/04/19 History cyanocobalamin (vitamin B-12) 1,000 mcg PO QAM 14 Days #28 tab 05/03/19 05/04/19 Rx [Vitamin B-12] prednisone See Rx Instructions .ROUTE .COMPLEX 05/04/19 05/04/19 History Past Med/Surg History Medical History Avascular necrosis of bone Ascending aortic aneurysm Hypoxemia (Acute) CHF (congestive heart failure) (Acute) Lung disease, interstitial (Acute) HTN (hypertension) (Chronic) CAD (coronary artery disease) (Chronic) Depression Suicidal ideation Surgical History History of coronary artery stent placement (Resolved) History of colon resection (Resolved) H/O hernia repair (Resolved) H/O: hysterectomy (Resolved) History of cholecystectomy (Resolved) Family History Other No significant family history Social History Preferred Language: Lao Communication Ability: Effective Consumer Safety Officer Required: No Beliefs That Will Affect Care: None marital status: Current Living Situation: Spouse Feels Safe at Home: Yes Smoking Status: Never smoker Second Hand Exposure: No ; Hx Alcohol Use: No Hx Substance Use: No Physical Exam Constitutional: comfortable Eyes: PERRL, conjunctivae normal, anicteric sclerae EOM intact bilaterally Neck: normal visual inspection Respiratory: normal respiratory effort, lungs clear to auscultation Cardiovascular: Rate/Rhythm: regular rate and regular rhythm Gastrointestinal (Abdomen): normal bowel sounds, soft, nontender, no hepatosplenomegaly Musculoskeletal: Head/Neck/Chest: normocephalic and head atraumatic Neurologic: When examined by hospitalist medical doctor, patient was calm and laid on the bed and laid still but an inability to focus her attention appropriately almost like how she was acting 4 days prior to hospital discharge. When asked how she was doing or if anything was bothering her, the patient just responded "You're funny" several times. She was not combative or in acute pain but she could not cooperate to follow directions for physical exam as she had done in the days leading up to her hospital discharge Results & Data Vital Signs (Past 12 Hours) Vital Signs Temp Pulse Resp BP Pulse Ox 05/04/19 14:11 96 05/04/19 14:10 88 L 05/04/19 14:05 37.4 C 95 H 16 127/82 95 Code Status & VTE Plan VTE Prophylaxis Plan VTE Prophylaxis will be ordered: Yes
--- NOTE | 2019-05-04 18:51 | Emergency Department Note ---
Entered by Hayley White acting as a scribe for Krzysztof Aldridge MD History of Present Illness General Chief complaint: Confusion Time Seen by Provider: 05/04/19 13:59 Source: patient Limitations: altered mental status History of Present Illness Provider complaint: Confusion Onset (ago): unknown The patient is a 73 year old female with past medical history of hypokalemia, anemia, delusions, confusion, who presents to the ED with complaints of confusion. Per nursing staff: The ambulance received a called from the family and was told they would like the patient to stay at the hospital for worsening dementia. HPI is limited secondary to mental state. Home Medications Home Medications Medication Instructions Recorded Confirmed Type albuterol sulfate [Ventolin HFA] 2 puff INHALATION Q6H PRN 08/11/18 05/04/19 History alendronate 75 mg PO UL@0900 08/11/18 05/04/19 History aspirin 81 mg PO DAILY 08/11/18 05/04/19 History betamethasone, augmented 1 applic TOPICAL DAILY PRN 08/11/18 05/04/19 History furosemide [Lasix] 20 mg PO DAILY 08/11/18 05/04/19 History letrozole 2.5 mg PO DAILY 08/11/18 05/04/19 History metoprolol succinate [Toprol XL] 50 mg PO DAILY 08/11/18 05/04/19 History mirtazapine 7.5 mg PO DAILY 08/11/18 05/04/19 History potassium chloride [Klor-Con M20] 40 meq PO DAILY 08/11/18 05/04/19 History sertraline [Zoloft] 200 mg PO DAILY 08/11/18 05/04/19 History azithromycin [Zithromax] 250 mg PO QAM #5 tab 04/06/19 05/04/19 Rx ergocalciferol (vitamin D2) 50,000 unit PO FR@0900 04/06/19 05/04/19 History cyanocobalamin (vitamin B-12) 1,000 mcg PO QAM 14 Days #28 tab 05/03/19 05/04/19 Rx [Vitamin B-12] prednisone See Rx Instructions .ROUTE .COMPLEX 05/04/19 05/04/19 History Allergies Allergy/AdvReac Type Severity Reaction Status Date / Time No Known Allergies Allergy Verified 05/04/19 14:25 Past Med/Surg History Medical History Avascular necrosis of bone Ascending aortic aneurysm Hypoxemia (Acute) CHF (congestive heart failure) (Acute) Lung disease, interstitial (Acute) HTN (hypertension) (Chronic) CAD (coronary artery disease) (Chronic) Depression Suicidal ideation Surgical History History of coronary artery stent placement (Resolved) History of colon resection (Resolved) H/O hernia repair (Resolved) H/O: hysterectomy (Resolved) History of cholecystectomy (Resolved) Family History Other No significant family history Social History Preferred Language: Slovenian Communication Ability: Effective Lens Grinder And Polisher Required: No Beliefs That Will Affect Care: None marital status: Current Living Situation: Spouse Feels Safe at Home: Yes Safety Concerns: Feels Safe At This Time Smoking Status: Never smoker Second Hand Exposure: No ; Hx Alcohol Use: No Hx Substance Use: No Review of Systems Other (ROS is limited secondary to mental state. ) Physical Exam Vital Signs Vital Signs - 24 hr 05/04/19 14:05 05/04/19 14:10 05/04/19 14:11 Temperature 37.4 C Temperature Source Oral Sepsis Recent Fever Within 48 Hours No Sepsis New/Unexplained Change in Mental Status No Sepsis Action Taken by Nursing No Action Required Oxygen Flow Rate - Titration 4 Pulse Oximetry Post Tiitration 96 Pulse Rate 95 H Respiratory Rate 16 Blood Pressure 127/82 Blood Pressure Mean 97 Pulse Oximetry 95 88 L 96 Oxygen Delivery Method Nasal Cannula Room Air Nasal Cannula Nasal Cannula Oxygen Flow Rate 4 0 4 GENERAL: Patient is in no acute distress. HEENT: No acute trauma, normocephalic atraumatic, mucous membranes moist, no nasal congestion, no scleral icterus. NECK: No stridor, no adenopathy, no meningismus, trachea is midline. LUNGS: Crackles heard bilaterally. No respiratory distress. No wheezing. HEART: Without murmurs gallops or rubs, regular rate and rhythm. ABDOMEN: Soft, nontender, bowel sounds positive, no hernias, no peritonitis. EXTREMITIES: No cyanosis or edema, full range of motion of all the joints without pain or difficulty, no signs for acute trauma. NEUROLOGIC: Awake, moves all extremities, confused, pleasant, follows simple commands. SKIN: No rash, no jaundice, no diaphoresis. Course 1403: The patient was evaluated in room C12B. A complete history and physical exam was performed. 1359: I reviewed the patients old records. The patient was discharged yesterday with confusion secondary to steroid use, as well as hypoxia and respiratory failure. She was seen by psychiatry and was started on Haldol during her hospital stay. However, she did not continue it when she left the hospital. 1419: I discussed the patient's case with Ivanna Mosley PA-C. The patient will be evaluated by Dr. Frazier, [place] [facility]. Medical Decision Making Differential Diagnosis Differential Diagnosis: Dementia, medication reaction, electrolyte imbalance, anemia, infection, interracial bleeding, stroke. Medical Records Attestation: I reviewed the patient's medical records. Home Medications Current Medication List: was personally reviewed by me Laboratory Data Attestation: I reviewed the patient's lab results. Result diagrams: 05/04/19 14:40 05/04/19 14:40 Lab Results 05/04/19 05/04/19 05/04/19 Range/Units 14:40 14:40 15:10 WBC 9.96 (4.8-10.8) K/uL RBC 3.90 L (4.2-5.4) M/uL Hgb 13.4 (12.0-16.0) g/dL Hct 39.5 (37-47) % MCV 101.3 H (80-100) fL MCH 34.4 H (25-34) pg MCHC 33.9 (32-36) g/dL RDW Std Deviation 63.7 H (36.4-46.3) fL RDW Coeff of Nicanor 17.1 H (11.5-14.5) % Plt Count 180 (130-400) K/uL MPV 9.5 (7.4-10.4) fL Immature Gran % (Auto) 0.6 % Neut % (Auto) 85.5 % Lymph % (Auto) 7.7 % [place] % (Auto) 5.7 % Eos % (Auto) 0.4 % Baso % (Auto) 0.1 % Immature Gran # (Auto) 0.06 H (0.00-0.02) K/uL Neut # (Auto) 8.51 H (1.4-6.5) K/uL Lymph # (Auto) 0.77 L (1.2-3.4) K/uL [place] # (Auto) 0.57 (0.11-0.59) K/uL Eos # (Auto) 0.04 (0-0.5) K/uL Baso # (Auto) 0.01 (0-0.2) K/uL Absolute Nucleated RBC 0.02 H (0-0) K/uL Nucleated RBC % (auto) 0.2 % Sodium 143 (136-145) mmol/L Potassium 3.7 (3.5-5.1) mmol/L Chloride 102 (98-107) mmol/L Carbon Dioxide 31 (21-32) mmol/L Anion Gap 10.0 (3-11) BUN 18 (7-18) mg/dl Creatinine 0.95 (0.6-1.2) mg/dl Est Cr Clr Drug Dosing 42.6 ml/min Est GFR ( Amer) 69.4 Est GFR (Non-Af Amer) 59.8 BUN/Creatinine Ratio 18.8 (10-20) Glucose 160 H (70-99) mg/dl Calcium 9.3 (8.5-10.1) mg/dl Total Bilirubin 0.5 (0.2-1) mg/dl AST 20 (15-37) U/L ALT 29 (12-78) U/L Alkaline Phosphatase 74 (45-117) U/L Ammonia 12.9 (11-32) umol/L Total Protein 7.5 (6.4-8.2) gm/dl Albumin 3.9 (3.4-5.0) gm/dl Globulin 3.6 (2.5-4.0) gm/dl Albumin/Globulin Ratio 1.1 (0.9-2) Vitamin B12 (211-911) pg/ml 05/04/19 Range/Units 15:10 WBC (4.8-10.8) K/uL RBC (4.2-5.4) M/uL Hgb (12.0-16.0) g/dL Hct (37-47) % MCV (80-100) fL MCH (25-34) pg MCHC (32-36) g/dL RDW Std Deviation (36.4-46.3) fL RDW Coeff of Nicanor (11.5-14.5) % Plt Count (130-400) K/uL MPV (7.4-10.4) fL Immature Gran % (Auto) % Neut % (Auto) % Lymph % (Auto) % [place] % (Auto) % Eos % (Auto) % Baso % (Auto) % Immature Gran # (Auto) (0.00-0.02) K/uL Neut # (Auto) (1.4-6.5) K/uL Lymph # (Auto) (1.2-3.4) K/uL [place] # (Auto) (0.11-0.59) K/uL Eos # (Auto) (0-0.5) K/uL Baso # (Auto) (0-0.2) K/uL Absolute Nucleated RBC (0-0) K/uL Nucleated RBC % (auto) % Sodium (136-145) mmol/L Potassium (3.5-5.1) mmol/L Chloride (98-107) mmol/L Carbon Dioxide (21-32) mmol/L Anion Gap (3-11) BUN (7-18) mg/dl Creatinine (0.6-1.2) mg/dl Est Cr Clr Drug Dosing ml/min Est GFR ( Amer) Est GFR (Non-Af Amer) BUN/Creatinine Ratio (10-20) Glucose (70-99) mg/dl Calcium (8.5-10.1) mg/dl Total Bilirubin (0.2-1) mg/dl AST (15-37) U/L ALT (12-78) U/L Alkaline Phosphatase (45-117) U/L Ammonia (11-32) umol/L Total Protein (6.4-8.2) gm/dl Albumin (3.4-5.0) gm/dl Globulin (2.5-4.0) gm/dl Albumin/Globulin Ratio (0.9-2) Vitamin B12 947 H (211-911) pg/ml Imaging Data Radiologist's Impression: Radiology results as stated below per my review and the radiologist's interpretation: SINGLE VIEW CHEST CLINICAL HISTORY: Generalized weakness. FINDINGS: An AP, portable, upright chest radiograph is compared to study dated 05/03/2019 and correlated with chest CT dated 12/25/2018. The examination is degr aded by portable technique and patient rotation. There is a large hiatal hernia. The heart is enlarged and there is atherosclerotic calcification of the thoracic aorta. Pulmonary vascular congestion has improved from yesterday. Changes of chronic interstitial lung disease are similar to previous. No focal airspace consolidation or large pleural effusion is identified. There is no pneumothorax. The skeletal structures are osteopenic. Chronic posttraumatic deformity is noted in the right humerus. Cholecystectomy clips are noted in the right upper quadrant. IMPRESSION: 1. Cardiomegaly. Mild pulmonary vascular congestion has improved from yesterday. 2. Changes of chronic interstitial lung disease are similar to previous. 3. There is no evidence of superimposed airspace consolidation or large pleural effusion. 4. Hiatal hernia. Electronically signed by: Krzysztof Quintero M.D. 05/04/2019 2:18 PM ECG Data Attestation: I personally reviewed and interpreted this ECG as follows: Indication: other (confusion ) Rate (beats per minute): 92 Rhythm: normal sinus Findings: + other (LVH is present. ) and + nonspecific-ST abn; no ST elevation and no acute ischemic change Comparison ECG Date: from (05/10/19) Change: no significant change Blood Pressure Blood Pressure Findings: Elevated blood pressure Blood Pressure Disposition: further management by hospitalist AJ Narrative There is no leukocytosis. No worrisome anemia. No significant electrolyte abnormality or kidney failure. No concerning liver enzyme elevation. Ammonia level was normal. Chest film did not show any new findings, there was some parenchymal congestion noted which appears baseline. On exam, the patient was not febrile or toxic. She was moving all extremities. She was awake and pleasant. The patient presents to the ED by ambulance after being discharged just yesterday. She is confused. She has dementia. Her family no longer capable of caring for her. The patient will require placement. I did speak to the patient, I did speak with case management. The on-call hospitalist has been consulted. Case management did attempt to find placement for the patient directly from the ED but this was unsuccessful. Hospitalization will be required. In short, I suspect her confusion is from persistent/worsening dementia. Impression & Plan Change in mental status, Confusion Discharge Plan Visit Data *Final* Discharge Date/Time: 05/04/19 16:55 Chief Complaint: Confusion ED Provider: Krzysztof Aldridge Discharge Problem: Change in mental status, Confusion Patient Disposition: Admitted As Inpatient Discharge Instructions Interventions: ED Discharge Assessment Last Done: 05/04/19 16:55 Discharge Problem: Change in mental status Qualifiers: Altered mental status type: unspecified Qualified Code(s): R41.82 - Altered mental status, unspecified The scribe's documentation has been prepared under my direction and personally reviewed by me in its entirety. I confirm that the note above accurately reflects all work, treatment, procedures, and medical decision making performed by me.
[2019-05-04] MEDS ORDERED: MICONAZOLE NITRATE POWDER 43 GM EXT PRN (19:13)
[2019-05-04 21:52] LABS: Appearance Urine Clear (Clear); Bacteria Urine Automated Negative (Negative); Bilirubin Urine Negative (Negative); Blood Urine Negative (Negative); Color Urine Yellow; Glucose Urine UA Negative (Negative); Ketones Urine Trace (Negative); Leukocyte Esterase Urine Negative (Negative); Nitrite Urine Negative (Negative); Protein Urine 2+ (Negative); RBC Urine Automated 0-4 /hpf (0-4); Specific Gravity Urine 1.022 (1.000-1.030); Urobilinogen Urine Negative (Negative); pH Urine 5.5 (4.5-7.5)
[2019-05-05] MEDS: SERTRALINE HCL 100 MG TABLET PO SCH (08:16)
[2019-05-05] MEDS: ASPIRIN 81 MG ECTAB PO SCH (08:16)
[2019-05-05] MEDS: MIRTAZAPINE TAB 15 MG TAB PO SCH (08:16)
[2019-05-05] MEDS: METOPROLOL SUCC 50MG EXT REL TAB PO SCH (08:16)
[2019-05-05] MEDS: predniSONE 5 MG TAB PO SCH (08:16)
[2019-05-05] MEDS: LETROZOLE 2.5 MG TAB PO SCH (08:17)
[2019-05-05] MEDS ORDERED: CYANOCOBALAMIN 500 MCG TABLET (VITAMIN B-12) PO SCH (09:00)
--- NOTE | 2019-05-05 11:29 | Hospitalist Progress Note ---
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 At time of discharge, patient's family members confirmed that patient had been back to baseline mental status as prednisone was tapered down and as patient was ambulating at baseline, there did not appear to be any needs that may have qualified patient for physical therapy rehabilitation. When patient was discharged she went back to her home with her . Patient's daughter reported at night the patient awoke from sleep and not following directions appropriately. As per patient's daughter the patient also did take scheduled medications including prednisone 15 mg. Patient's daughter found out after going to the patient's home today. A nurse from [facility] at the patient's home called hospitalist medical doctor and explained that patient was back to "rocking motions" back and forth. And that patient's family members would like patient to be brought back to the hospital for shelter placement. When examined by hospitalist medical doctor, patient was calm and laid on the bed and laid still but an inability to focus her attention appropriately almost like how she was acting 4 days prior to hospital discharge. When asked how she was doing or if anything was bothering her, the patient just responded "You're funny" several times. She was not combative or in acute pain but she could not cooperate to follow directions for physical exam as she had done in the days leading up to her hospital discharge -at this time a diagnosis of dementia is very likely as multiple work up on previous hospitalization from 04/27/19 to 05/03/19 did not find acute reversible causes of delirium. And patient was treated for diagnosis of steroid induced psychosis, it seems unlikely that current behaviors are reflective of steroid use as patient is on less steroids than previous 40 mg daily dosing prior to 04/27/19 hospitalization. -05/05/19 exam:Yesterday night, patient was singing for a long time and then went to sleep. Patient seen and examined today and is calm and cooperative. She was able to focus and carry a conversation with medical providers. She reports that she is aware that she is in the hospital. Patient denies pain. She was cooperative and allow for physical exam. Interstitial lung disease Chronic Respiratory failure with hypoxia -home oxygen supplementation had been 4 L/min -prednisone was started in the past by [facility] pulmonary service because of interstitial lung disease of unclear etiology -Patient will need follow up as outpatient with Dr. Alcantara of [facility] pulmonary service or his colleagues -continue current prednisone taper as 10 mg on 05/05/19 for 2 days, then 5 mg for 2 days then stop as previously planned when it was thought that steroids were contributing to patient's confusion Vitamin B12 deficiency -lab reference of normal is 211 to 911 pg/ml but patient's level was low as 180 on 04/30/19 -she had been given 1000 mcg on 04/30/19 IM and then started on oral cyanocobalamin Vitamin B12 1,000 mcg daily on 04/30/19 -level is 947 on 05/04/19 which shows adequate repletion. hold off oral cyanocobalamin Vitamin B12 for now Patient had recent workup with 04/30/19 labs of normal folic acid levels, TSH of 5 with normal total/free T4 levels, negative RPR send copper serum levels as part of mental status workup but emphasized to patient's family that these levels are unlikely the cause of confusion normal Urine analysis and and no signs of infection on last admission. blood cultures drawn on 05/04/19 and send urine analysis Electrolytes -normal level sodium and potassium on 05/04/19 presentation Anemia: -Hgb on 05/04/19 is 13.4 which is stable DVT prophylaxis:SCDs Code Status: DNR/DNI Case Management consulted for placement. patient to be re-assess by PT/OT evaluations on this hospital presentation James Malone () contact number [phone] Daughter Arabella [phone] Subjective Yesterday night, patient was singing for a long time and then went to sleep. Patient seen and examined today and is calm and cooperative. She was able to focus and carry a conversation with medical providers. She reports that she is aware that she is in the hospital. Patient denies pain. She was cooperative and allow for physical exam Patient denies pain. breathing on baseline nasal cannula oxygen supplementation. no acute distress. Physical Exam Constitutional: comfortable Eyes: PERRL, conjunctivae normal, anicteric sclerae EOM intact bilaterally Neck: normal visual inspection Respiratory: normal respiratory effort, lungs clear to auscultation Cardiovascular: Rate/Rhythm: regular rate and regular rhythm Gastrointestinal (Abdomen): normal bowel sounds, soft, nontender, no hepatosplenomegaly Musculoskeletal: Head/Neck/Chest: normocephalic and head atraumatic Neurologic: PERRL, EOMI, accommodation nl, no face palsy, no dysarthria Psychiatric: Patient seen and examined today and is calm and cooperative. She was able to focus and carry a conversation with medical providers. She reports that she is aware that she is in the hospital. Patient denies pain. She was cooperative and allow for physical exam Results & Data Vital Signs (Past 12 Hours) Vital Signs Temp Pulse Resp BP Pulse Ox 05/05/19 07:17 36.9 C 79 18 126/80 95
[2019-05-05] MEDS ORDERED: ACETAMINOPHEN 325 MG TAB PO STA (14:27)
[2019-05-05] MEDS ORDERED: ACETAMINOPHEN 325 MG TAB ONE (14:32)
[2019-05-05] MEDS ORDERED: LORazepam 0.25 MG/0.5 ML VIAL IV PRN (16:15)
[2019-05-05] MEDS ORDERED: LORazepam 0.5 MG/1 ML VIAL IV ONE (16:30)
[2019-05-06] MEDS: ASPIRIN 81 MG ECTAB PO SCH (07:27)
[2019-05-06] MEDS: predniSONE 5 MG TAB PO SCH (07:27)
[2019-05-06] MEDS: SERTRALINE HCL 100 MG TABLET PO SCH (07:27)
[2019-05-06] MEDS: METOPROLOL SUCC 50MG EXT REL TAB PO SCH (07:27)
[2019-05-06] MEDS: LETROZOLE 2.5 MG TAB PO SCH (07:27)
[2019-05-06] MEDS: MIRTAZAPINE TAB 15 MG TAB PO SCH (07:27)
--- NOTE | 2019-05-06 12:39 | Hospitalist Progress Note ---
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 At time of discharge, patient's family members confirmed that patient had been back to baseline mental status as prednisone was tapered down and as patient was ambulating at baseline, there did not appear to be any needs that may have qualified patient for physical therapy rehabilitation. When patient was discharged she went back to her home with her . Patient's daughter reported at night the patient awoke from sleep and not following directions appropriately. As per patient's daughter the patient also did take scheduled medications including prednisone 15 mg. Patient's daughter found out after going to the patient's home today. A nurse from [facility] at the patient's home called hospitalist medical doctor and explained that patient was back to "rocking motions" back and forth. And that patient's family members would like patient to be brought back to the hospital for residential placement. When examined by hospitalist medical doctor, patient was calm and laid on the bed and laid still but an inability to focus her attention appropriately almost like how she was acting 4 days prior to hospital discharge. When asked how she was doing or if anything was bothering her, the patient just responded "You're funny" several times. She was not combative or in acute pain but she could not cooperate to follow directions for physical exam as she had done in the days leading up to her hospital discharge -at this time a diagnosis of dementia is very likely as multiple work up on previous hospitalization from 04/27/19 to 05/03/19 did not find acute reversible causes of delirium. And patient was treated for diagnosis of steroid induced psychosis, it seems unlikely that current behaviors are reflective of steroid use as patient is on less steroids than previous 40 mg daily dosing prior to 04/27/19 hospitalization. -05/05/19 exam:Yesterday night, patient was singing for a long time and then went to sleep. Patient cooperative during the day and was able to focus with speaking with physician and physical exam. Later in evening, patient needed several nurses to help orient her as she was repeatedly banging her leg on the bedboard. IV ativan needed -05/06/19 exam: patient needed IV ativan for acute agitation in AM. when examined by medical doctor, patient calm and cooperative. as per case management, patient did not qualify for placement to care home facility and that remaining disposition would be ultimately back to home with family. will upgrade to full admission and transition Ativan prn IV to Ativan prn oral with anticipation that if patient can remain behaviorally stable without IV anxiolytics then this may help patient's transition from hospital to home Interstitial lung disease Chronic Respiratory failure with hypoxia -home oxygen supplementation had been 4 L/min -prednisone was started in the past by [facility] pulmonary service because of interstitial lung disease of unclear etiology -Patient will need follow up as outpatient with Dr. Alcantara of [facility] pulmonary service or his colleagues -continue current prednisone taper as 10 mg on 05/05/19 for 2 days, then 5 mg for 2 days starting on 05/07/19 then stop as previously planned when it was thought that steroids were contributing to patient's confusion Vitamin B12 deficiency -lab reference of normal is 211 to 911 pg/ml but patient's level was low as 180 on 04/30/19 -she had been given 1000 mcg on 04/30/19 IM and then started on oral c yanocobalamin Vitamin B12 1,000 mcg daily on 04/30/19 -level is 947 on 05/04/19 which shows adequate repletion. hold off oral cyanocobalamin Vitamin B12 for now Patient had recent workup with 04/30/19 labs of normal folic acid levels, TSH of 5 with normal total/free T4 levels, negative RPR send copper serum levels as part of mental status workup but emphasized to patient's family that these levels are unlikely the cause of confusion normal Urine analysis and and no signs of infection on last admission. blood cultures drawn on 05/04/19 and no growth and normal urine analysis on this presentation Electrolytes -normal level sodium and potassium on 05/04/19 presentation Anemia: -Hgb on 05/04/19 is 13.4 which is stable DVT prophylaxis:heparin subcut Code Status: DNR/DNI James Malone () contact number [phone] Daughter Arabella [phone] Subjective Patient needed IV ativan earlier this morning for acute agitation. Patient currently calm and cooperative and sitting in chair and responding appropriately to physician verbally. patient denies acute pain. Physical Exam Constitutional: comfortable Eyes: PERRL, conjunctivae normal, anicteric sclerae EOM intact bilaterally ENMT: external ear and nose normal, oropharynx normal Neck: normal visual inspection Respiratory: normal respiratory effort, lungs clear to auscultation Cardiovascular: Rate/Rhythm: regular rate and regular rhythm Gastrointestinal (Abdomen): normal bowel sounds, soft, nontender, no hepatosplenomegaly Musculoskeletal: Head/Neck/Chest: normocephalic and head atraumatic Neurologic: PERRL, EOMI, accommodation nl, no face palsy, no dysarthria Psychiatric: Patient currently calm and cooperative and sitting in chair and responding appropriately to physician verbally. patient denies acute pain. Results & Data Vital Signs (Past 12 Hours) Vital Signs Temp Pulse Resp BP Pulse Ox 05/06/19 07:31 36.7 C 80 18 143/83 H 96
[2019-05-06] MEDS: FUROSEMIDE 20 MG TAB PO SCH (15:12)
[2019-05-06] MEDS: LORazepam 0.5 MG TAB PO PRN (16:41)
[2019-05-06] MEDS: HEPARIN SOD 5,000 UNIT/0.5 ML VIAL SQ SCH (19:53)
[2019-05-07] MEDS: predniSONE 5 MG TAB PO SCH (07:40)
[2019-05-07] MEDS: LETROZOLE 2.5 MG TAB PO SCH (07:40)
[2019-05-07] MEDS: MIRTAZAPINE TAB 15 MG TAB PO SCH (07:40)
[2019-05-07] MEDS: ASPIRIN 81 MG ECTAB PO SCH (07:40)
[2019-05-07] MEDS: HEPARIN SOD 5,000 UNIT/0.5 ML VIAL SQ SCH ×2 (07:40→20:39)
[2019-05-07] MEDS: SERTRALINE HCL 100 MG TABLET PO SCH (07:41)
[2019-05-07] MEDS: METOPROLOL SUCC 50MG EXT REL TAB PO SCH (07:41)
[2019-05-07] MEDS: LORazepam 0.5 MG TAB PO PRN (10:43)
--- NOTE | 2019-05-07 12:19 | Hospitalist Progress Note ---
Date of Service May 07, 2019 Assessment & Plan (1) Change in mental status: possibly related to steroid-induced psychosis, as she appears the same as last visit. Consider scheduled Haldol per prior recommendation by psychiatry which seemed to have a calming effect on her after a couple of days. Monitor EKG daily. Almost through her taper. (2) Dementia: steroid-related psychosis with delusions, readmitted after haldol was stopped. Restarted this as above. Monitor for improvement off the steroids. (3) Diarrhea: soft brown formed stool noted by nurses x 1 this am. Cont to monitor, appears to have resolved. (4) Lung disease, interstitial: Interstitial lung disease Chronic Respiratory failure with hypoxia -home oxygen supplementation had been 4 L/min -prednisone started over the summer with outpatient pulm followup. (5) Chronic respiratory failure with hypoxia: At baseline oxygen needs. No respiratory symptoms, respiratory distress and continues on supplemental oxygen. (6) DVT prophylaxis: Heparin DNR Dispo-home with home health once confusion is improved on a couple of days of haldol and off steroids. Cont to monitor. Denise Birmingham DO [facility] Hospitalist Subjective 73-year-old female presents as a readmission to the hospital a few days ago for continued confusion at home. She now has reported loose stools, but is otherwise feeling well. She is alert and oriented to person and place. Long- term memory appears to be intact. During last hospitalization she was seen by psychiatry and placed on Haldol twice daily as a scheduled medication for steroid-induced psychosis. Pulmonary was able to put her on a rapid taper of steroids for which she is still taking but is almost complete as of tomorrow. The Haldol was stopped prior to discharge although she was not having any apparent adverse reactions to it. She was noted to be more calm and cooperative, actually. Mental status appears to be similar to her last hospitalization. She is living with her at home alone, however her daughter Arabella is planning to move in with a couple upon discharge. The patient does not qualify for SNF at this time and a residential is cost prohibitive for the family. Will discuss continued options with case management and continue to assess her mental status as the prednisone taper is completed. Review of Systems Review of Systems: All systems reviewed & are unremarkable except as noted in HPI & below Physical Exam Physical Exam: CONSTITUTIONAL: WNWD, vitals as above, generally well- appearing EYES: normal conjunctivae, no scleral icterus ENT: MMM RESPIRATORY: diffuse crackles at bases bilaterally, no rales or wheezes, normal respiratory effort CARDIOVASCULAR: regular rate and rhythm, S1 and 2 heard without murmurs, gallops or rubs, no JVD, no peripheral edema GASTROINTESTINAL: normal bowel sounds, soft, nontender, nondistended MUSCULOSKELETAL: strength 5/5 throughout, head is normocephalic and atraumatic SKIN: warm and dry NEUROLOGIC: No facial palsy, no dysarthria. CN 2-12 grossly intact, normal speech, no tremor. Abnormal cognition. PSYCHIATRIC: alert cooperative and oriented to person and place. Results & Data Vital Signs (Past 12 Hours) Vital Signs Temp Pulse Resp BP Pulse Ox 05/07/19 07:25 36.8 C 72 16 126/80 96 Medications Administered Current Inpatient Medications Acetaminophen (Tylenol) 325 mg PO Q4H PRN PRN Reason: Pain or Fever Stop: 06/04/19 14:26 Albuterol (Ventolin Hfa) 2 puffs INH Q6H PRN PRN Reason: Shortness Of Breath Stop: 06/03/19 16:00 Aspirin (Ecotrin Ectab) 81 mg PO DAILY [facility] Stop: 06/04/19 08:59 Last Admin: 05/07/19 07:40 Dose: 81 mg Documented by: Furosemide (Lasix) 20 mg PO Q3D@0900 [facility] Stop: 06/05/19 12:44 Last Admin: 05/06/19 15:12 Dose: 20 mg Documented by: Heparin Sodium (Porcine) (Heparin Sodium (Porcine)) 5,000 units SQ Q12 [facility] Stop: 06/05/19 20:59 Last Admin: 05/07/19 07:40 Dose: 5,000 units Documented by: Letrozole (Femara) 2.5 mg PO DAILY [facility] Stop: 06/04/19 08:59 Last Admin: 05/07/19 07:40 Dose: 2.5 mg Documented by: Lorazepam (Ativan) 0.5 mg PO Q8H PRN PRN Reason: Anxiety Stop: 06/05/19 12:28 Last Admin: 05/07/19 10:43 Dose: 0.5 mg Documented by: Metoprolol Succinate (Toprol Xl) 50 mg PO DAILY [facility] Stop: 06/04/19 08:59 Last Admin: 05/07/19 07:41 Dose: 50 mg Documented by: Miconazole Nitrate (Desenex) 1 appln EXT PRN PRN PRN Reason: Affected Skin Folds Stop: 06/03/19 19:12 Mirtazapine (Remeron) 7.5 mg PO DAILY [facility] Stop: 06/04/19 08:59 Last Admin: 05/07/19 07:40 Dose: 7.5 mg Documented by: Prednisone (Prednisone) 5 mg PO DAILY [facility] Stop: 05/09/19 10:59 Last Admin: 05/07/19 07:40 Dose: 5 mg Documented by: Sertraline HCl (Zoloft) 200 mg PO DAILY [facility] Stop: 06/04/19 08:59 Last Admin: 05/07/19 07:41 Dose: 200 mg Documented by: (1) Change in mental status Altered mental status type: unspecified Qualified Code(s): R41.82 - Altered mental status, unspecified
[2019-05-07] MEDS: HALOPERIDOL 1 MG TAB PO SCH (20:39)
[2019-05-08] MEDS: predniSONE 5 MG TAB PO SCH (08:29)
[2019-05-08] MEDS: HEPARIN SOD 5,000 UNIT/0.5 ML VIAL SQ SCH ×2 (08:29→20:34)
[2019-05-08] MEDS: ASPIRIN 81 MG ECTAB PO SCH (08:29)
[2019-05-08] MEDS: LETROZOLE 2.5 MG TAB PO SCH (08:29)
[2019-05-08] MEDS: HALOPERIDOL 1 MG TAB PO SCH (08:29)
[2019-05-08] MEDS: SERTRALINE HCL 100 MG TABLET PO SCH (08:30)
[2019-05-08] MEDS: MIRTAZAPINE TAB 15 MG TAB PO SCH (08:30)
[2019-05-08] MEDS: METOPROLOL SUCC 50MG EXT REL TAB PO SCH (08:30)
[2019-05-08] MEDS: LORazepam 0.5 MG TAB PO PRN (09:46)
--- NOTE | 2019-05-08 11:51 | Hospitalist Progress Note ---
Date of Service May 08, 2019 Assessment & Plan (1) Change in mental status: possibly related to steroid-induced psychosis, as she appears the same as last visit. Haldol appears to be helping keep her calm and free of delusions. She is demonstrating good judgement. She is otherwise tolerating PO and doing well. Steroid taper almost complete. Cont to monitor (2) Dementia: steroid-related psychosis with delusions, readmitted after haldol was stopped. Restarted this as above. Monitor for improvement off the steroids. (3) Lung disease, interstitial: Interstitial lung disease Chronic Respiratory failure with hypoxia -home oxygen supplementation had been 4 L/min -prednisone started over the summer with outpatient pulm followup. (4) Chronic respiratory failure with hypoxia: At baseline oxygen needs. No respiratory symptoms, respiratory distress and continues on supplemental oxygen. (5) DVT prophylaxis: Heparin DNR Dispo-home with home health once confusion is improved on a couple of days of haldol and off steroids. Cont to monitor. Denise Birmingham DO [facility] Hospitalist Subjective doing well today states that she hasn't seen Rosey today tolerating PO one episode of loose brown stool-nurse reviewed, no blood likely diet related-eats alot of ice cream Review of Systems Review of Systems: All systems reviewed & are unremarkable except as noted in HPI & below Physical Exam Physical Exam: CONSTITUTIONAL: WNWD, vitals as above, generally well- appearing EYES: normal conjunctivae, no scleral icterus ENT: MMM RESPIRATORY: diffuse crackles at bases bilaterally, no rales or wheezes, normal respiratory effort CARDIOVASCULAR: regular rate and rhythm, S1 and 2 heard without murmurs, gallops or rubs, no JVD, no peripheral edema GASTROINTESTINAL: normal bowel sounds, soft, nontender, nondistended MUSCULOSKELETAL: strength 5/5 throughout, head is normocephalic and atraumatic SKIN: warm and dry NEUROLOGIC: No facial palsy, no dysarthria. CN 2-12 grossly intact, normal speech, no tremor. She is answering questions appropriately. She is demonstrating appropriate judgement, telling me that if there was a fire in the trashcan she would try to throw water on it, and if that didn't work she would get away and call for help. She is not demonstrating hallucinations today. PSYCHIATRIC: alert cooperative and oriented to person and place. Results & Data Vital Signs (Past 12 Hours) Vital Signs Temp Pulse Resp BP BP Pulse Ox 05/08/19 07:31 36.9 C 79 18 124/80 97 05/08/19 00:44 36.3 C L 75 20 145/90 H 92 Medications Administered Current Inpatient Medications Acetaminophen (Tylenol) 325 mg PO Q4H PRN PRN Reason: Pain or Fever Stop: 06/04/19 14:26 Albuterol (Ventolin Hfa) 2 puffs INH Q6H PRN PRN Reason: Shortness Of Breath Stop: 06/03/19 16:00 Aspirin (Ecotrin Ectab) 81 mg PO DAILY [facility] Stop: 06/04/19 08:59 Last Admin: 05/08/19 08:29 Dose: 81 mg Documented by: Furosemide (Lasix) 20 mg PO Q3D@0900 [facility] Stop: 06/05/19 12:44 Last Admin: 05/06/19 15:12 Dose: 20 mg Documented by: Haloperidol (Haldol) 1 mg PO BID [facility] Stop: 06/07/19 20:59 Heparin Sodium (Porcine) (Heparin Sodium (Porcine)) 5,000 units SQ Q12 [facility] Stop: 06/05/19 20:59 Last Admin: 05/08/19 08:29 Dose: 5,000 units Documented by: Letrozole (Femara) 2.5 mg PO DAILY [facility] Stop: 06/04/19 08:59 Last Admin: 05/08/19 08:29 Dose: 2.5 mg Documented by: Lorazepam (Ativan) 0.5 mg PO Q8H PRN PRN Reason: Anxiety Stop: 06/05/19 12:28 Last Admin: 05/08/19 09:46 Dose: 0.5 mg Documented by: Metoprolol Succinate (Toprol Xl) 50 mg PO DAILY [facility] Stop: 06/04/19 08:59 Last Admin: 05/08/19 08:30 Dose: 50 mg Documented by: Miconazole Nitrate (Desenex) 1 appln EXT PRN PRN PRN Reason: Affected Skin Folds Stop: 06/03/19 19:12 Mirtazapine (Remeron) 7.5 mg PO DAILY [facility] Stop: 06/04/19 08:59 Last Admin: 05/08/19 08:30 Dose: 7.5 mg Documented by: Prednisone (Prednisone) 5 mg PO DAILY [facility] Stop: 05/09/19 10:59 Last Admin: 05/08/19 08:29 Dose: 5 mg Documented by: Sertraline HCl (Zoloft) 200 mg PO DAILY [facility] Stop: 06/04/19 08:59 Last Admin: 05/08/19 08:30 Dose: 200 mg Documented by: (1) Change in mental status Altered mental status type: unspecified Qualified Code(s): R41.82 - Altered mental status, unspecified
[2019-05-08] MEDS: HALOPERIDOL 0.5 MG TAB PO SCH (20:34)
[2019-05-09 06:22] LABS: Hematocrit (blood only) 33.1 % (37-47); Hemoglobin 10.6 g/dL (12.0-16.0); Mean Corpuscular Hemoglobin 33.1 pg (25-34); Mean Corpuscular Volume 103.4 fL (80-100); Mean Platelet Volume 9.7 fL (7.4-10.4); Platelet Count 157 K/uL (130-400); RDW Coefficient of Variation 16.2 % (11.5-14.5); RDW Standard Deviation 61.4 fL (36.4-46.3); White Blood Count 6.96 K/uL (4.8-10.8)
[2019-05-09 06:51] LABS: BUN Creatinine Ratio 20.4 (10-20); Calcium 9.1 mg/dl (8.5-10.1); Creatinine Clr Calc Pharmacy 52.6 ml/min; Est GFR (African American) 90.8; Est GFR (Non-African American) 78.4; Potassium 3.7 mmol/L (3.5-5.1)
[2019-05-09] MEDS: HEPARIN SOD 5,000 UNIT/0.5 ML VIAL SQ SCH ×2 (08:40→20:12)
[2019-05-09] MEDS: HALOPERIDOL 0.5 MG TAB PO SCH ×2 (08:41→20:12)
[2019-05-09] MEDS: MIRTAZAPINE TAB 15 MG TAB PO SCH (08:41)
[2019-05-09] MEDS: ASPIRIN 81 MG ECTAB PO SCH (08:41)
[2019-05-09] MEDS: FUROSEMIDE 20 MG TAB PO SCH (08:41)
[2019-05-09] MEDS: LETROZOLE 2.5 MG TAB PO SCH (08:41)
[2019-05-09] MEDS: METOPROLOL SUCC 50MG EXT REL TAB PO SCH (08:43)
[2019-05-09] MEDS: SERTRALINE HCL 100 MG TABLET PO SCH (08:43)
[2019-05-09] MEDS: predniSONE 5 MG TAB PO SCH (08:43)
--- NOTE | 2019-05-09 18:46 | Hospitalist Progress Note ---
Date of Service May 09, 2019 Assessment & Plan (1) Change in mental status: Improved, back to normal per her who is at bedside today. 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 Haldol appears to be helping keep her calm and free of delusions. She is demonstrating good judgement. She is otherwise tolerating PO and doing well. Steroid taper almost complete. Cont to monitor (2) Dementia: steroid-related psychosis with delusions, readmitted after haldol was stopped. Restarted this as above. Monitor for improvement off the steroids. (3) Lung disease, interstitial: Interstitial lung disease Chronic Respiratory failure with hypoxia -home oxygen supplementation had been 4 L/min -prednisone started over the summer with outpatient pulm followup. (4) Chronic respiratory failure with hypoxia: At baseline oxygen needs. No respiratory symptoms, respiratory distress and continues on supplemental oxygen. (5) DVT prophylaxis: Heparin DNR Dispo-home with home health once confusion is improved on a couple of days of haldol and off steroids. Cont to monitor. Denise Birmingham DO [facility] Hospitalist Subjective doing well no issues today tolerating PO Review of Systems Review of Systems: All systems reviewed & are unremarkable except as noted in HPI & below Physical Exam Physical Exam: CONSTITUTIONAL: WNWD, vitals as above, generally well- appearing EYES: normal conjunctivae, no scleral icterus ENT: MMM RESPIRATORY: diffuse crackles at bases bilaterally, no rales or wheezes, normal respiratory effort CARDIOVASCULAR: regular rate and rhythm, S1 and 2 heard without murmurs, gallops or rubs, no JVD, no peripheral edema GASTROINTESTINAL: normal bowel sounds, soft, nontender, nondistended MUSCULOSKELETAL: strength 5/5 throughout, head is normocephalic and atraumatic SKIN: warm and dry NEUROLOGIC: no hallucinations today, no gross focal deficits. PSYCHIATRIC: alert cooperative and oriented to person and place. Results & Data Vital Signs (Past 12 Hours) Vital Signs Temp Pulse Resp BP Pulse Ox 05/09/19 15:15 36.9 C 86 20 107/68 93 05/09/19 07:27 36.9 C 60 16 120/78 94 Laboratory Results Short CBC 05/09/19 Range/Units 06:05 WBC 6.96 (4.8-10.8) K/uL Hgb 10.6 L (12.0-16.0) g/dL Hct 33.1 L (37-47) % Plt Count 157 (130-400) K/uL BMP 05/09/19 06:05 Sodium 144 Potassium 3.7 Chloride 106 Carbon Dioxide 33 H BUN 16 Creatinine 0.76 Glucose 85 Calcium 9.1 Medications Administered Current Inpatient Medications Acetaminophen (Tylenol) 325 mg PO Q4H PRN PRN Reason: Pain or Fever Stop: 06/04/19 14:26 Albuterol (Ventolin Hfa) 2 puffs INH Q6H PRN PRN Reason: Shortness Of Breath Stop: 06/03/19 16:00 Aspirin (Ecotrin Ectab) 81 mg PO DAILY [facility] Stop: 06/04/19 08:59 Last Admin: 05/09/19 08:41 Dose: 81 mg Documented by: Furosemide (Lasix) 20 mg PO Q3D@0900 [facility] Stop: 06/05/19 12:44 Last Admin: 05/09/19 08:41 Dose: 20 mg Documented by: Haloperidol (Haldol) 1 mg PO BID [facility] Stop: 06/07/19 20:59 Last Admin: 05/09/19 08:41 Dose: 1 mg Documented by: Heparin Sodium (Porcine) (Heparin Sodium (Porcine)) 5,000 units SQ Q12 [facility] Stop: 06/05/19 20:59 Last Admin: 05/09/19 08:40 Dose: 5,000 units Documented by: Letrozole (Femara) 2.5 mg PO DAILY [facility] Stop: 06/04/19 08:59 Last Admin: 05/09/19 08:41 Dose: 2.5 mg Documented by: Lorazepam (Ativan) 0.5 mg PO Q8H PRN PRN Reason: Anxiety Stop: 06/05/19 12:28 Last Admin: 05/08/19 09:46 Dose: 0.5 mg Documented by: Metoprolol Succinate (Toprol Xl) 50 mg PO DAILY [facility] Stop: 06/04/19 08:59 Last Admin: 05/09/19 08:43 Dose: 50 mg Documented by: Miconazole Nitrate (Desenex) 1 appln EXT PRN PRN PRN Reason: Affected Skin Folds Stop: 06/03/19 19:12 Mirtazapine (Remeron) 7.5 mg PO DAILY [facility] Stop: 06/04/19 08:59 Last Admin: 05/09/19 08:41 Dose: 7.5 mg Documented by: Sertraline HCl (Zoloft) 200 mg PO DAILY [facility] Stop: 06/04/19 08:59 Last Admin: 05/09/19 08:43 Dose: 200 mg Documented by: (1) Change in mental status Altered mental status type: unspecified Qualified Code(s): R41.82 - Altered mental status, unspecified
[2019-05-10] MEDS: LETROZOLE 2.5 MG TAB PO SCH (09:58)
[2019-05-10] MEDS: ASPIRIN 81 MG ECTAB PO SCH (09:58)
[2019-05-10] MEDS: HALOPERIDOL 0.5 MG TAB PO SCH (09:59)
[2019-05-10] MEDS: HEPARIN SOD 5,000 UNIT/0.5 ML VIAL SQ SCH ×2 (09:59→21:38)
[2019-05-10] MEDS: MIRTAZAPINE TAB 15 MG TAB PO SCH (10:00)
[2019-05-10] MEDS: METOPROLOL SUCC 50MG EXT REL TAB PO SCH (10:01)
[2019-05-10] MEDS: SERTRALINE HCL 100 MG TABLET PO SCH (10:02)
[2019-05-10] MEDS: ACETAMINOPHEN 325 MG TAB PO PRN (14:17)
--- NOTE | 2019-05-10 15:01 | Hospitalist Progress Note ---
Date of Service May 10, 2019 Assessment & Plan (1) Change in mental status: Improved, back to normal per her who is at bedside today. 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 Cont Haldol. Cont monitoring off steroids. (2) Dementia: steroid-related psychosis with delusions, readmitted after haldol was stopped. Restarted this as above. Monitor for improvement off the steroids. (3) Lung disease, interstitial: Interstitial lung disease Chronic Respiratory failure with hypoxia -home oxygen supplementation had been 4 L/min -prednisone started over the summer with outpatient pulm followup. (4) Chronic respiratory failure with hypoxia: At baseline oxygen needs. No respiratory symptoms, respiratory distress and continues on supplemental oxygen. (5) DVT prophylaxis: Heparin DNR Dispo-home with home health once confusion is improved on a couple of days of haldol and off steroids. Cont to monitor. Denise Birmingham DO [facility] Hospitalist Subjective Initially evaluated earlier today and she was hemodynamically stable and afebrile and doing well. She was alert and oriented She mentioned not getting much sleep overnight because of the tailgators. I responded to a Code Purple later in the afternoon. She was hypertensive, tachycardic with a heart rate in the 120s and was sitting on the edge of the bed with a 15L NRB in place and tachypnea. She was not working to breathe and wasn't coughing or struggling. She was able to tell me that she had a negative interaction with the man taking her order just now and it upset her. She was oxygenating well and repeat BP was improved to 140s systolic. The nurse reported giving her some tylenol for a headache, and she had pulled 0.5mg Ativan to give for shakiness and nervousness. However, I requested a CXR initially and to give her a chance to calm down with reassurance only. Review of Systems Review of Systems: All systems reviewed & are unremarkable except as noted in HPI & below Physical Exam Physical Exam: CONSTITUTIONAL: WNWD, vitals as above, generally well-appeari ng EYES: normal conjunctivae, no scleral icterus ENT: MMM RESPIRATORY: diffuse crackles at bases bilaterally, no rales or wheezes, normal respiratory effort CARDIOVASCULAR: regular rate and rhythm, S1 and 2 heard without murmurs, gallops or rubs, no JVD, no peripheral edema GASTROINTESTINAL: normal bowel sounds, soft, nontender, nondistended MUSCULOSKELETAL: head is normocephalic and atraumatic SKIN: warm and dry NEUROLOGIC: no hallucinations today, no gross focal deficits. PSYCHIATRIC: alert cooperative and oriented to person and place. Results & Data Vital Signs (Past 12 Hours) Vital Signs Temp Pulse Resp BP Pulse Ox 05/10/19 07:17 37.1 C 90 17 115/70 90 Medications Administered Current Inpatient Medications Acetaminophen (Tylenol) 325 mg PO Q4H PRN PRN Reason: Pain or Fever Stop: 06/04/19 14:26 Last Admin: 05/10/19 14:17 Dose: 325 mg Documented by: Albuterol (Ventolin Hfa) 2 puffs INH Q6H PRN PRN Reason: Shortness Of Breath Stop: 06/03/19 16:00 Last Admin: 05/10/19 14:45 Dose: 2 puffs Documented by: Aspirin (Ecotrin Ectab) 81 mg PO DAILY [facility] Stop: 06/04/19 08:59 Last Admin: 05/10/19 09:58 Dose: 81 mg Documented by: Furosemide (Lasix) 20 mg PO Q3D@0900 [facility] Stop: 06/05/19 12:44 Last Admin: 05/09/19 08:41 Dose: 20 mg Documented by: Haloperidol (Haldol) 1 mg PO BID [facility] Stop: 06/07/19 20:59 Last Admin: 05/10/19 09:59 Dose: 1 mg Documented by: Heparin Sodium (Porcine) (Heparin Sodium (Porcine)) 5,000 units SQ Q12 [facility] Stop: 06/05/19 20:59 Last Admin: 05/10/19 09:59 Dose: 5,000 units Documented by: Letrozole (Femara) 2.5 mg PO DAILY [facility] Stop: 06/04/19 08:59 Last Admin: 05/10/19 09:58 Dose: 2.5 mg Documented by: Lorazepam (Ativan) 0.5 mg PO Q8H PRN PRN Reason: Anxiety Stop: 06/05/19 12:28 Last Admin: 05/08/19 09:46 Dose: 0.5 mg Documented by: Metoprolol Succinate (Toprol Xl) 50 mg PO DAILY [facility] Stop: 06/04/19 08:59 Last Admin: 05/10/19 10:01 Dose: 50 mg Documented by: Miconazole Nitrate (Desenex) 1 appln EXT PRN PRN PRN Reason: Affected Skin Folds Stop: 06/03/19 19:12 Mirtazapine (Remeron) 7.5 mg PO DAILY [facility] Stop: 06/04/19 08:59 Last Admin: 05/10/19 10:00 Dose: 7.5 mg Documented by: Sertraline HCl (Zoloft) 200 mg PO DAILY [facility] Stop: 06/04/19 08:59 Last Admin: 05/10/19 10:02 Dose: 200 mg Documented by: (1) Change in mental status Altered mental status type: unspecified Qualified Code(s): R41.82 - Altered mental status, unspecified
--- NOTE | 2019-05-10 15:35 | XRay Report ---
XR chest 1V portable CLINICAL HISTORY: 73 years-old Female presenting with increased hypoxia. TECHNIQUE: Portable upright AP view of the chest was obtained. COMPARISON: 05/04/2019. FINDINGS: Atherosclerosis of the aortic arch. Cardiac silhouette enlarged. Interval worsening of volume overloa d and interstitial prominence. Diffuse added density of the lungs, right greater than left. Small rig ht pleural effusion may be present. No pneumothorax. Post rheumatic deformity of the right humeral ne ck. Osteopenia suspected. Upper abdomen normal. IMPRESSION: 1. Cardiomegaly with worsening volume overload, congestive change, and pulmonary edema. 2. Given the slight asymmetric density of the diffuse right lung infiltrates versus the left, superi mposed infection is difficult to exclude. 3. Small right pleural effusion. Electronically signed by: Az Reaves M.D. 05/10/2019 3:34 PM
[2019-05-10] MEDS ORDERED: FUROSEMIDE 40 MG/4 ML VIAL IV STA (16:04)
[2019-05-10] MEDS ORDERED: NITROGLYCERIN 2% OINTMENT 30GM TUBE EXT STA (16:10)
--- NOTE | 2019-05-10 16:14 | Communication Note ---
Date of Service: May 10, [address] 115 with no evidence of ST changes. LVH present. CXR reveals volume overload and her hypoxia is persistent, requiring 12 L per oxymask from a baseline oxygen need of 5Lpm via nasal canula. She is in acute heart failure. Nitro was initially ordered, however repeat BP went from 168/82 to 98/63. Lasix 40mg IV was given and she was transferred to PCU and placed on BIPAP therapy. Heart rate is 103 and she is 89% on 14L with a respiratory rate of 23. She is DNR, will update family on the change in status. Place kaplan catheter to monitor output effectively. Will consult cards and pulm for assistance tomorrow relative to the acute heart failure and ILD management, respectively. DO Vinnie
[2019-05-10] MEDS ORDERED: FUROSEMIDE 40 MG in SYRINGE 0 ML IV ONE (16:15)
[2019-05-10 16:53] LABS: Hematocrit (blood only) 32.8 % (37-47); Hemoglobin 10.8 g/dL (12.0-16.0); Mean Corpuscular Hemoglobin 33.9 pg (25-34); Mean Corpuscular Volume 102.8 fL (80-100); Mean Platelet Volume 10.5 fL (7.4-10.4); Platelet Count 166 K/uL (130-400); RDW Coefficient of Variation 16.3 % (11.5-14.5); RDW Standard Deviation 61.2 fL (36.4-46.3); Red Blood Count 3.19 M/uL (4.2-5.4); White Blood Count 9.39 K/uL (4.8-10.8)
[2019-05-10 16:56] LABS: Mean Corpuscular Hgb Conc 32.9 g/dL (32-36)
[2019-05-10 17:09] LABS: BUN Creatinine Ratio 18.3 (10-20); Calcium 9.1 mg/dl (8.5-10.1); Creatinine Clr Calc Pharmacy 51.9 ml/min; Est GFR (African American) 89.4; Est GFR (Non-African American) 77.1; Potassium 3.3 mmol/L (3.5-5.1)
[2019-05-10 17:14] LABS: Troponin I 0.037 ng/ml (0-0.045)
[2019-05-10] MEDS ORDERED: POTASSIUM CHLORIDE 20 MEQ TABCR PO STA (17:16)
[2019-05-11 08:02] LABS: Partial Thromboplastin Ratio 1.1; Partial Thromboplastin Time 30.1 Seconds (21.0-31.0)
[2019-05-11 08:13] LABS: BUN Creatinine Ratio 18.3 (10-20); Blood Urea Nitrogen 13 mg/dl (7-18); Carbon Dioxide 34 mmol/L (21-32); Chloride 104 mmol/L (98-107); Creatinine Clr Calc Pharmacy 55.5 ml/min; Est GFR (Non-African American) 83.7; Glucose 99 mg/dl (70-99); Magnesium 2.1 mg/dl (1.8-2.4); Potassium 3.6 mmol/L (3.5-5.1); Sodium 144 mmol/L (136-145)
[2019-05-11 08:17] LABS: Troponin I < 0.015 ng/ml (0-0.045)
[2019-05-11] MEDS: HEPARIN SOD 5,000 UNIT/0.5 ML VIAL SQ SCH ×2 (08:25→20:50)
[2019-05-11] MEDS: ASPIRIN 81 MG ECTAB PO SCH (08:25)
[2019-05-11] MEDS: LETROZOLE 2.5 MG TAB PO SCH (08:26)
[2019-05-11] MEDS: SERTRALINE HCL 100 MG TABLET PO SCH (08:26)
[2019-05-11] MEDS: METOPROLOL SUCC 50MG EXT REL TAB PO SCH (08:26)
[2019-05-11] MEDS: MIRTAZAPINE TAB 15 MG TAB PO SCH (08:29)
--- NOTE | 2019-05-11 12:08 | Cardiology Consultation ---
Date of Consultation May 11, 2019 Assessment & Plan (1) Chronic respiratory failure with hypoxia: (2) Pulmonary hypertension: (3) History of coronary artery stent placement: (4) Lung disease, interstitial: The patient is comfortable today and enjoying lunch. She states that she has felt the best that she has felt. She is alert and oriented x3. Telemetry review indicates sinus the sinus tachycardia and no other significant arrhythmias. Although her cardiac troponins were mildly elevated this is most likely due to strain and not acute coronary syndrome. I will order an echocardiogram to evaluate LV function but currently I do not believe she is in heart failure. I would recommend no additional medication changes. History of Present Illness Attending Physician: Denise Birmingham, History of Present Illness This is a 73-year-old female who is had several hospital admissions recently. She has a history of interstitial lung disease and had her steroids increased. She then developed mental status changes with dementia and psychosis. Her steroid dose has since been decreased and my interview this morning she is alert and oriented x3. She was admitted to the hospital several days ago. The records are incomplete but it appears that she developed some respiratory distress last night and was transferred to the telemetry unit. During my interview she is happy and stating that she feels much improved. She is eating her lunch. She has a history of heart disease and was followed by Dr. Sesay in [place]. She states that several years ago she had a stent placed in her heart. She has had no additional cardiac events following her stent. She also has a history of breast cancer. She has no current cardiac complaints. Allergies Allergy/AdvReac Type Severity Reaction Status Date / Time No Known Allergies Allergy Verified 05/04/19 14:25 Home Medications Home Medications Medication Instructions Recorded Confirmed Type albuterol sulfate [Ventolin HFA] 2 puff INHALATION Q6H PRN 08/11/18 05/04/19 History alendronate 75 mg PO LU@0900 08/11/18 05/04/19 History aspirin 81 mg PO DAILY 08/11/18 05/04/19 History betamethasone, augmented 1 applic TOPICAL DAILY PRN 08/11/18 05/04/19 History furosemide [Lasix] 20 mg PO DAILY 08/11/18 05/04/19 History letrozole 2.5 mg PO DAILY 08/11/18 05/04/19 History metoprolol succinate [Toprol XL] 50 mg PO DAILY 08/11/18 05/04/19 History mirtazapine 7.5 mg PO DAILY 08/11/18 05/04/19 History potassium chloride [Klor-Con M20] 40 meq PO DAILY 08/11/18 05/04/19 History sertraline [Zoloft] 200 mg PO DAILY 08/11/18 05/04/19 History azithromycin [Zithromax] 250 mg PO QAM #5 tab 04/06/19 05/04/19 Rx ergocalciferol (vitamin D2) 50,000 unit PO FR@0900 04/06/19 05/04/19 History cyanocobalamin (vitamin B-12) 1,000 mcg PO QAM 14 Days #28 tab 05/03/19 05/04/19 Rx [Vitamin B-12] prednisone See Rx Instructions .ROUTE .COMPLEX 05/04/19 05/04/19 History Patient History Medical History Avascular necrosis of bone Ascending aortic aneurysm Hypoxemia (Acute) CHF (congestive heart failure) (Acute) Lung disease, interstitial (Acute) HTN (hypertension) (Chronic) CAD (coronary artery disease) (Chronic) Depression Suicidal ideation Surgical History History of coronary artery stent placement (Resolved) History of colon resection (Resolved) H/O hernia repair (Resolved) H/O: hysterectomy (Resolved) History of cholecystectomy (Resolved) Family History Other No significant family history Social History Preferred Language: Swedish Communication Ability: Impaired 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 Physical Exam Physical Exam: General: no acute distress and stated age Head: normocephalic, no masses, lesions, tenderness or abnormalities Eyes: conjunctiva are pink and non-injected, sclera clear Neck: supple, no adenopathy, no bruits, normal jugular venous pulse, no hepatojugular reflux Chest: normal shape and normal respiratory effort Lungs: clear to auscultation and percussion Cardiac Exam: - regular rate & rhythm, no murmurs gallops or rubs - normal S1, normal S2 Pulses: 2(+) throughout Abdomen: abdomen soft, non-tender, no abnormal masses and no hepatosplenomegaly Musculoskeletal: no gait disturbance, no joint inflammation, no deforming arthritis Extremities: no edema and no cyanosis Neuro: grossly normal exam Results & Data Vital Signs (Past 12 Hours) Vital Signs Temp Pulse Resp BP BP Pulse Ox 05/11/19 11:25 37.3 C 85 20 104/65 95 05/11/19 07:55 37.2 C 105 H 22 99/65 L 92 05/11/19 03:20 36.8 C 94 H 20 101/63 97 Laboratory Results Laboratory Results - last 24 hr 05/10/19 05/10/19 05/10/19 16:28 16:28 22:09 WBC 9.39 RBC 3.19 L Hgb 10.8 L Hct 32.8 L MCV 102.8 H MCH 33.9 MCHC 32.9 RDW Std Deviation 61.2 H RDW Coeff of Nicanor 16.3 H Plt Count 166 MPV 10.5 H APTT PTT Ratio Sodium 141 Potassium 3.3 L Chloride 104 Carbon Dioxide 32 Anion Gap 5.0 BUN 14 Creatinine 0.77 Est Cr Clr Drug Dosing 51.9 Est GFR ( Amer) 89.4 Est GFR (Non-Af Amer) 77.1 BUN/Creatinine Ratio 18.3 Glucose 155 H Calcium 9.1 Magnesium Troponin I 0.037 0.059 H* NT-Pro-B Natriuret Pep 3543 H 05/11/19 05/11/19 06:35 06:35 WBC RBC Hgb Hct MCV MCH MCHC RDW Std Deviation RDW Coeff of Nicanor Plt Count MPV APTT 30.1 PTT Ratio 1.1 Sodium 144 Potassium 3.6 Chloride 104 Carbon Dioxide 34 H Anion Gap 6.0 BUN 13 Creatinine 0.72 Est Cr Clr Drug Dosing 55.5 Est GFR ( Amer) 97.0 Est GFR (Non-Af Amer) 83.7 BUN/Creatinine Ratio 18.3 Glucose 99 Calcium 9.0 Magnesium 2.1 Troponin I < 0.015 NT-Pro-B Natriuret Pep Medications Administered Current Inpatient Medications Acetaminophen (Tylenol) 325 mg PO Q4H PRN PRN Reason: Pain or Fever Stop: 06/04/19 14:26 Last Admin: 05/10/19 14:17 Dose: 325 mg Documented by: Albuterol (Ventolin Hfa) 2 puffs INH Q6H PRN PRN Reason: Shortness Of Breath Stop: 06/03/19 16:00 Last Admin: 05/10/19 14:45 Dose: 2 puffs Documented by: Aspirin (Ecotrin Ectab) 81 mg PO DAILY [facility] Stop: 06/04/19 08:59 Last Admin: 05/11/19 08:25 Dose: 81 mg Documented by: Haloperidol (Haldol) 1 mg PO BID [facility] Stop: 06/07/19 20:59 Last Admin: 05/10/19 09:59 Dose: 1 mg Documented by: Heparin Sodium (Porcine) (Heparin Sodium (Porcine)) 5,000 units SQ Q12 [facility] Stop: 06/05/19 20:59 Last Admin: 05/11/19 08:25 Dose: 5,000 units Documented by: Letrozole (Femara) 2.5 mg PO DAILY [facility] Stop: 06/04/19 08:59 Last Admin: 05/11/19 08:26 Dose: 2.5 mg Documented by: Metoprolol Succinate (Toprol Xl) 50 mg PO DAILY [facility] Stop: 06/04/19 08:59 Last Admin: 05/11/19 08:26 Dose: 50 mg Documented by: Miconazole Nitrate (Desenex) 1 appln EXT PRN PRN PRN Reason: Affected Skin Folds Stop: 06/03/19 19:12 Mirtazapine (Remeron) 7.5 mg PO DAILY [facility] Stop: 06/04/19 08:59 Last Admin: 05/11/19 08:29 Dose: 7.5 mg Documented by: Sertraline HCl (Zoloft) 200 mg PO DAILY [facility] Stop: 06/04/19 08:59 Last Admin: 05/11/19 08:26 Dose: 200 mg Documented by:
--- NOTE | 2019-05-11 12:34 | Hospitalist Progress Note ---
Date of Service May 11, 2019 Assessment & Plan (1) Acute heart failure: Acute heart failure occurred yesterday after prolonged hospitalization. Echocardiogram today reveals aortic's valve sclerosis that is moderate without significant aortic valvular stenosis. She has elevated pulmonary pressures and mildly reduced right ventricular systolic dysfunction. Her left ventricular ejection fraction is 60 to 65%. Moderate to severe tricuspid regurgitation is present. Cardiology was consulted and would not recommend changing any medications at this time. After addition of Lasix IV overnight she diuresed well with 1625 output and a net 1.3 L out overnight. BiPAP was also helpful for gas exchange overnight. She is currently tolerating food and breathing at baseline, reporting feeling well. (2) Change in mental status: Appears to be resolved off steroids. After acute heart failure incident yesterday, Haldol was discontinued and she is still doing very well demonstrating good insight into disease process. She is alert and oriented x3. Family feels that her mental status is back to baseline. Continue to hold Haldol at this time and use as needed if needed (3) Dementia: (4) Lung disease, interstitial: Interstitial lung disease Chronic Respiratory failure with hypoxia -home oxygen supplementation had been 4 L/min -Continue to monitor with pulmonary as outpatient. (5) Chronic respiratory failure with hypoxia: At baseline oxygen needs. No respiratory symptoms, respiratory distress and continues on supplemental oxygen. (6) DVT prophylaxis: Heparin DNR Dispo-home with home health once stable from a heart perspective and home resources in place to receive her. Denise Birmingham DO [facility] Hospitalist Subjective Greatly improved from yesterday. Mentating well and although she does not remember the event from yesterday where she was short of breath, she remembers all events from this morning including her echocardiogram. She appears to have good insight into her disease process. She is excited about the potential to go home tomorrow. She is tolerating p.o. and breathing is back to baseline. Review of Systems Review of Systems: All systems reviewed & are unremarkable except as noted in HPI & below Physical Exam Physical Exam: CONSTITUTIONAL: WNWD, vitals as above, generally well- appearing EYES: normal conjunctivae, no scleral icterus ENT: MMM RESPIRATORY: diffuse crackles at bases bilaterally but this is significantly improved from yesterday, no rales or wheezes, normal respiratory effort, oxygen via nasal canula in place. CARDIOVASCULAR: regular rate and rhythm, S1 and 2 heard without murmurs, gallops or rubs, no JVD, no peripheral edema GASTROINTESTINAL: normal bowel sounds, soft, nontender, nondistended MUSCULOSKELETAL: head is normocephalic and atraumatic SKIN: warm and dry NEUROLOGIC: no hallucinations today, no gross focal deficits. Demonstrating good insight in to her disease process with family present. PSYCHIATRIC: alert cooperative and oriented to person and place. Results & Data Vital Signs (Past 12 Hours) Vital Signs Temp Pulse Resp BP BP Pulse Ox 05/11/19 11:25 37.3 C 85 20 104/65 95 05/11/19 07:55 37.2 C 105 H 22 99/65 L 92 05/11/19 03:20 36.8 C 94 H 20 101/63 97 Laboratory Results Short CBC 05/10/19 Range/Units 16:28 WBC 9.39 (4.8-10.8) K/uL Hgb 10.8 L (12.0-16.0) g/dL Hct 32.8 L (37-47) % Plt Count 166 (130-400) K/uL BMP 05/10/19 05/11/19 16:28 06:35 Sodium 141 144 Potassium 3.3 L 3.6 Chloride 104 104 Carbon Dioxide 32 34 H BUN 14 13 Creatinine 0.77 0.72 Glucose 155 H 99 Calcium 9.1 9.0 Cardiac Enzymes 05/10/19 05/10/19 05/11/19 Range/Units 16:28 22:09 06:35 Troponin I 0.037 0.059 H* < 0.015 (0-0.045) ng/ml Medications Administered Current Inpatient Medications Acetaminophen (Tylenol) 325 mg PO Q4H PRN PRN Reason: Pain or Fever Stop: 06/04/19 14:26 Last Admin: 05/10/19 14:17 Dose: 325 mg Documented by: Albuterol (Ventolin Hfa) 2 puffs INH Q6H PRN PRN Reason: Shortness Of Breath Stop: 06/03/19 16:00 Last Admin: 05/10/19 14:45 Dose: 2 puffs Documented by: Aspirin (Ecotrin Ectab) 81 mg PO DAILY [facility] Stop: 06/04/19 08:59 Last Admin: 05/11/19 08:25 Dose: 81 mg Documented by: Haloperidol (Haldol) 1 mg PO BID [facility] Stop: 06/07/19 20:59 Last Admin: 05/10/19 09:59 Dose: 1 mg Documented by: Heparin Sodium (Porcine) (Heparin Sodium (Porcine)) 5,000 units SQ Q12 [facility] Stop: 06/05/19 20:59 Last Admin: 05/11/19 08:25 Dose: 5,000 units Documented by: Letrozole (Femara) 2.5 mg PO DAILY [facility] Stop: 06/04/19 08:59 Last Admin: 05/11/19 08:26 Dose: 2.5 mg Documented by: Metoprolol Succinate (Toprol Xl) 50 mg PO DAILY [facility] Stop: 06/04/19 08:59 Last Admin: 05/11/19 08:26 Dose: 50 mg Documented by: Miconazole Nitrate (Desenex) 1 appln EXT PRN PRN PRN Reason: Affected Skin Folds Stop: 06/03/19 19:12 Mirtazapine (Remeron) 7.5 mg PO DAILY [facility] Stop: 06/04/19 08:59 Last Admin: 05/11/19 08:29 Dose: 7.5 mg Documented by: Sertraline HCl (Zoloft) 200 mg PO DAILY [facility] Stop: 06/04/19 08:59 Last Admin: 05/11/19 08:26 Dose: 200 mg Documented by: (1) Change in mental status Altered mental status type: unspecified Qualified Code(s): R41.82 - Altered mental status, unspecified
--- NOTE | 2019-05-11 17:35 | Pulmonology Progress Note ---
Date of Service May 11, 2019 Assessment & Plan (1) Acute and chronic respiratory failure: Impression: 73-year-old female with ill-defined severe interstitial lung disease. Unfortunately the patient is not been a candidate for bronchoscopy or surgical lung biopsy and the degree of fibrosis identified on her lung would argue against an invasive approach. We have tried empiric steroids however these resulted in significant progression of her delirium and psychosis and thus have been tapered back down. She has continued hypoxemic respiratory failure. Recommendations: 1. Unfortunately, I do not think there are great options for the patient at this point time. Due to psychiatric concerns, she has been unable to tolerate immune suppression in the form of steroids. Alternative immune suppression such as azathioprine would have a more narrow therapeutic window with higher pot ential toxicity and medication such as mycophenolate may take weeks to months to have an effect. In addition we would be proceeding without a definitive diagnosis. In light of this, I think discussions with the patient and her family would be appropriate to discuss goals of therapy. It is likely that empiric therapy may significantly worsened the patient's functional status as has been the case previously. She is not a candidate for lung transplant. 2. I would continue oxygen therapy. She appears to be at her baseline oxygen her. 3. Her pulmonary hypertension is secondary to valvular heart disease, likely diastolic dysfunction, and underlying structural lung disease, WHO class II and III. No indication for additional evaluation, work-up, or therapeutics other than maintaining adequate blood pressure control and diuresis. We would be happy to follow her in clinic and have discussions with family regarding goals of therapy but unfortunately I think the risks of ongoing immune suppression in this patient would outweigh potential benefits. (2) Lung disease, interstitial: Subjective The patient was dismissed from the hospital 05/03 Patient known to me from prior admissions. We are asked to evaluate her regarding potential increase in oxygen requirement. History was reviewed in electronic medical record and the patient was interviewed at the bedside. Patient is a 73-year-old female with an ill-defined interstitial lung disease. She had previously been on immunosuppression however this was held due to concerns about steroid psychosis requiring a repeat hospitalization. The patient was dismissed from the hospital May 03 but readmitted May 04 with concerns about persistent delirium/dementia. She had been discharged on 15 mg of prednisone. During the course of this current hospitalization the patient was noted to have increasing oxygen requirement and administered empiric diuresis. Cardiology consultation was obtained and repeat echocardiogram was performed which revealed moderate aortic sclerosis without significant stenosis. Significant secondary pulmonary hypertension was also identified. On my assessment, the patient's is very pleasant. She is awake alert and conversant and on her baseline oxygen requirement of 5 L.. Review of Systems Review of Systems: Refer to HPI. No additions Physical Exam Constitutional: WD/WN, vitals as above Neck: trachea midline, no thyromegaly Respiratory: Diffuse coarse crackles bilaterally Cardiovascular: S1 and S2 present. 3 out of 6 systolic murmur Gastrointestinal (Abdomen): normal bowel sounds, soft, nontender, no hepatosplenomegaly Results & Data Vital Signs (Past 12 Hours) Vital Signs Temp Pulse Resp BP BP Pulse Ox 05/11/19 15:14 37.2 C 91 H 16 104/68 90 05/11/19 11:25 37.3 C 85 20 104/65 95 05/11/19 07:55 37.2 C 105 H 22 99/65 L 92 Laboratory Results 05/10/19 16:28 05/11/19 06:35 Diagnostic Findings Chest x-ray from 05/10/2019 was independently reviewed. It is difficult to interpret in light of her severe and advanced interstitial lung disease however does not appear appreciably changed from prior. Echocardiogram was reviewed which demonstrates moderate aortic sclerosis without significant stenosis and significant pulmonary hypertension which is likely multifactorial. PG Care Time/CCT Total # of Minutes Spent Total Time Spent with Patient: Total time spent is greater than 50% in coordination of care (as documented) at patient's floor/unit and/or counseling patient:
[2019-05-11] MEDS ORDERED: POTASSIUM CHLORIDE 20 MEQ TABCR PO STA (20:22)
[2019-05-11] MEDS ORDERED: FUROSEMIDE 20 MG in SYRINGE 0 ML IV ONE (20:22)
[2019-05-11] MEDS ORDERED: XOPENEX/ATROVENT 1.25mg/0.5MG NEB COMBO NEB STA (20:23)
[2019-05-11] MEDS ORDERED: XOPENEX/ATROVENT 1.25mg/0.5MG NEB COMBO NEB PRN (20:24)
[2019-05-11] MEDS ORDERED: ACETAMINOPHEN 325 MG TAB PO STA (20:24)
[2019-05-11] MEDS ORDERED: IPRATROPIUM BROMIDE NEB SOLN 0.02% 2.5 ML VIAL INH SCH (21:00)
[2019-05-11] MEDS ORDERED: LEVALBUTEROL 1.25MG/0.5ML NEB INH SCH (21:00)
--- NOTE | 2019-05-11 21:08 | XRay Report ---
XR chest 1V portable CLINICAL HISTORY: Fever. COMPARISON STUDY: Chest CT December 25, 2018. Chest radiograph May 10, 2019. FINDINGS: Diffuse interstitial thickening persists. Cardiomegaly is unchanged. There is no pneumothor ax. There are possible small bilateral pleural effusions. IMPRESSION: Persistent interstitial thickening which may reflect pulmonary edema or an infectious pr ocess superimposed upon interstitial lung disease. No change in appearance of the chest. Electronically signed by: Ambrose Arenas M.D. 05/11/2019 9:06 PM
[2019-05-11 21:31] LABS: Appearance Urine Clear (Clear); Bacteria Urine Automated Negative (Negative); Bilirubin Urine Negative (Negative); Blood Urine 1+ (Negative); Color Urine Yellow; Glucose Urine UA Negative (Negative); Ketones Urine Negative (Negative); Leukocyte Esterase Urine Negative (Negative); Nitrite Urine Negative (Negative); Specific Gravity Urine 1.014 (1.000-1.030); Urobilinogen Urine Negative (Negative)
[2019-05-11 21:36] LABS: Protein Urine Negative (Negative); Sulfosalicylic Acid Urine Negative (Negative)
[2019-05-12] MEDS ORDERED: IPRATROPIUM BROMIDE NEB SOLN 0.02% 2.5 ML VIAL INH PRN (01:00)
[2019-05-12] MEDS ORDERED: LEVALBUTEROL 1.25MG/0.5ML NEB INH PRN (01:00)
[2019-05-12 06:30] LABS: Basophils # (auto) 0.02 K/uL (0-0.2); Basophils % (auto) 0.3 %; Eosinophils # (auto) 0.16 K/uL (0-0.5); Eosinophils % (auto) 2.1 %; Hematocrit (blood only) 34.6 % (37-47); Hemoglobin 11.4 g/dL (12.0-16.0); Immature Granulocytes # (auto) 0.02 K/uL (0.00-0.02); Immature Granulocytes % (auto) 0.3 %; Lymphocytes # (auto) 1.57 K/uL (1.2-3.4); Lymphocytes % (auto) 20.5 %; Mean Corpuscular Hemoglobin 33.7 pg (25-34); Mean Corpuscular Hgb Conc 32.9 g/dL (32-36); Mean Corpuscular Volume 102.4 fL (80-100); Mean Platelet Volume 9.9 fL (7.4-10.4); Monocytes # (auto) 0.81 K/uL (0.11-0.59); Monocytes % (auto) 10.6 %; Neutrophils # (auto) 5.06 K/uL (1.4-6.5); Neutrophils % (auto) 66.2 %; Platelet Count 155 K/uL (130-400); RDW Coefficient of Variation 15.7 % (11.5-14.5); RDW Standard Deviation 59.5 fL (36.4-46.3); Red Blood Count 3.38 M/uL (4.2-5.4); White Blood Count 7.64 K/uL (4.8-10.8)
[2019-05-12 07:01] LABS: BUN Creatinine Ratio 19.5 (10-20); Calcium 9.1 mg/dl (8.5-10.1); Creatinine Clr Calc Pharmacy 51.9 ml/min; Est GFR (African American) 89.4; Est GFR (Non-African American) 77.1; Potassium 4.1 mmol/L (3.5-5.1)
--- NOTE | 2019-05-12 08:33 | Pulmonology Progress Note ---
Date of Service May 12, 2019 Assessment & Plan (1) Acute and chronic respiratory failure: Impression: 73-year-old female with ill-defined severe interstitial lung disease. Unfortunately the patient is not been a candidate for bronchoscopy or surgical lung biopsy and the degree of fibrosis identified on her lung would argue against an invasive approach. We have tried empiric steroids however these resulted in significant progression of her delirium and psychosis and thus have been tapered back down. She has continued hypoxemic respiratory failure. Recommendations: 1. Unfortunately, I do not think there are great options for the patient at this point time. Due to psychiatric concerns, she has been unable to tolerate immune suppression in the form of steroids. Alternative immune suppression such as azathioprine would have a more narrow therapeutic window with higher pot ential toxicity and medication such as mycophenolate may take weeks to months to have an effect. In addition we would be proceeding without a definitive diagnosis. In light of this, I think discussions with the patient and her family would be appropriate to discuss goals of therapy. It is likely that empiric therapy may significantly worsen the patient's functional status as has been the case previously. She is not a candidate for lung transplant. Diuresis as tolerated. Given her elevated bicarb level, a dose of daily Diamox for 2 to 3 days may be reasonable. 2. I would continue oxygen therapy. I do not believe the patient requires or is benefiting from positive airway pressure. As she has pure type I hypoxemic respiratory failure, would favor the use of heated high flow oxygen titrated to keep saturations at or above 88%.. 3. Her pulmonary hypertension is secondary to valvular heart disease, likely diastolic dysfunction, and underlying structural lung disease, WHO class II and III. No indication for additional evaluation, work-up, or therapeutics other than maintaining adequate blood pressure control and diuresis. We would be happy to follow her in clinic and have discussions with family regarding goals of therapy but unfortunately I think the risks of ongoing immune suppression in this patient would outweigh potential benefits. (2) Lung disease, interstitial: Subjective Patient seen and examined. She is on full face BiPAP. She appears comfortable and states her breathing is fine. She would like to have the BiPAP removed. Apparently was placed due to increasing oxygen requirements overnight. She denies any cough or sputum production. She does complain of intermittent right lower quadrant discomfort. She is not nauseated. No peritoneal signs. Her medical history and review of systems is unchanged from prior except as noted above Review of Systems Review of Systems: Refer to HPI. No additions Physical Exam Constitutional: WD/WN, vitals as above Neck: trachea midline, no thyromegaly Gastrointestinal (Abdomen): normal bowel sounds, soft, nontender, no hepatos plenomegaly Results & Data Vital Signs (Past 12 Hours) Vital Signs Temp Pulse Pulse Resp BP BP Pulse Ox 05/12/19 07:35 37.1 C 90 18 111/73 91 05/12/19 03:29 36.9 C 91 H 25 H 101/70 91 05/12/19 00:57 80 18 90 05/12/19 00:00 94 H 05/11/19 22:47 36.9 C 91 H 12 94/59 L 92 05/11/19 22:03 101 H 16 91 05/11/19 20:40 98 H 20 90 Laboratory Results 05/12/19 06:18 05/12/19 06:18 Diagnostic Findings No new films PG Care Time/CCT Total # of Minutes Spent Total Time Spent with Patient: Total time spent is greater than 50% in coordination of care (as documented) at patient's floor/unit and/or counseling patient:
[2019-05-12] MEDS: HEPARIN SOD 5,000 UNIT/0.5 ML VIAL SQ SCH ×2 (08:38→20:33)
[2019-05-12] MEDS: SERTRALINE HCL 100 MG TABLET PO SCH (08:38)
[2019-05-12] MEDS: LETROZOLE 2.5 MG TAB PO SCH (08:39)
[2019-05-12] MEDS: METOPROLOL SUCC 50MG EXT REL TAB PO SCH (08:39)
[2019-05-12] MEDS: ASPIRIN 81 MG ECTAB PO SCH (08:39)
[2019-05-12] MEDS: MIRTAZAPINE TAB 15 MG TAB PO SCH (08:39)
[2019-05-12] MEDS ORDERED: FUROSEMIDE 20 MG TAB PO SCH (09:00)
--- NOTE | 2019-05-12 09:13 | Hospitalist Progress Note ---
Date of Service May 12, 2019 Assessment & Plan (1) Acute on chronic respiratory failure with hypoxemia: (2) Lung disease, interstitial: Interstitial lung disease Acute on chronic respiratory failure 2/2 acute heart failure and ?worsened lung disease. Pulm and cards following. Appreciate recs. -home oxygen supplementation had been 4 L/min -Continue to monitor with pulmonary as outpatient. (3) Acute diastolic heart failure: Acute heart failure occurred yesterday after prolonged hospitalization. Echocardiogram today reveals aortic valve sclerosis that is moderate without significant aortic valvular stenosis. She has elevated pulmonary pressures and mildly reduced right ventricular systolic dysfunction. Her left ventricular ejection fraction is 60 to 65%. Moderate to severe tricuspid regurgitation is present. Lasix given overnight for increased SOB and hypoxia; she responded well to 20mg IV. She is back on the BIPAP this morning. Will increase her diuretics to 40mg IV BID and monitor clinical response over the next 24 hours. (4) Change in mental status: Appears to be resolved off steroids. After acute heart failure incident yesterday, Haldol was discontinued and she is still doing very well demonstrating good insight into disease process. She is alert and oriented x3. Family feels that her mental status is back to baseline. Continue to hold Haldol at this time and use as needed if needed (5) Dementia: steroid-related psychosis with delusions, readmitted after haldol was stopped. Continue supportive care at this point, optimizing lung function as above. Reorient as needed. Higher risk for hospital delirium. (6) DVT prophylaxis: Heparin DNR Dispo-cont PCU monitoring until more compensated and reliably off the bIPAP. Denise Birmingham DO [facility] Hospitalist Subjective Back on BIPAP this morning Breathing was somewhat worse overnight Denies chest pain Still demonstrating good insight into her issues and not having hallucinations although she is higher risk for this. Review of Systems Review of Systems: All systems reviewed & are unremarkable except as noted in HPI & below Physical Exam 2 Physical Exam: CONSTITUTIONAL: WNWD, vitals as above, generally well- appearing EYES: normal conjunctivae, no scleral icterus ENT: MMM RESPIRATORY: diffuse crackles at bases bilaterally, no rales or wheezes, normal respiratory effort, BIPAP in place CARDIOVASCULAR: regular rate and rhythm, S1 and 2 heard without murmurs, gallops or rubs, no JVD, no peripheral edema GASTROINTESTINAL: normal bowel sounds, soft, nontender, nondistended MUSCULOSKELETAL: head is normocephalic and atraumatic SKIN: warm and dry NEUROLOGIC: no hallucinations today, no gross focal deficits. Normal cognition. PSYCHIATRIC: alert cooperative and oriented to person and place. Results & Data Vital Signs (Past 12 Hours) Vital Signs Temp Pulse Pulse Resp BP BP Pulse Ox 05/12/19 07:35 37.1 C 90 18 111/73 91 05/12/19 03:29 36.9 C 91 H 25 H 101/70 91 05/12/19 00:57 80 18 90 05/12/19 00:00 94 H 05/11/19 22:47 36.9 C 91 H 12 94/59 L 92 05/11/19 22:03 101 H 16 91 Laboratory Results Short CBC 05/12/19 Range/Units 06:18 WBC 7.64 (4.8-10.8) K/uL Hgb 11.4 L (12.0-16.0) g/dL Hct 34.6 L (37-47) % Plt Count 155 (130-400) K/uL BMP 05/12/19 06:18 Sodium 141 Potassium 4.1 Chloride 103 Carbon Dioxide 35 H BUN 15 Creatinine 0.77 Glucose 105 H Calcium 9.1 Urine 05/11/19 Range/Units 21:20 Urine Color Yellow Urine Appearance Clear (Clear) Urine pH 8.0 H (4.5-7.5) Ur Specific [place] 1.014 (1.000-1.030) Urine Protein Negative (Negative) Urine Glucose (UA) Negative (Negative) Diagnostic Findings XR chest 1V portable CLINICAL HISTORY: Fever. COMPARISON STUDY: Chest CT December 25, 2018. Chest radiograph May 10, 2019. FINDINGS: Diffuse interstitial thickening persists. Cardiomegaly is unchanged. There is no pneumothorax. There are possible small bilateral pleural effusions. IMPRESSION: Persistent interstitial thickening which may reflect pulmonary edema or an infectious process superimposed upon interstitial lung disease. No change in appearance of the chest. Medications Administered Current Inpatient Medications Acetaminophen (Tylenol) 325 mg PO Q4H PRN PRN Reason: Pain or Fever Stop: 06/04/19 14:26 Last Admin: 05/10/19 14:17 Dose: 325 mg Documented by: Albuterol (Ventolin Hfa) 2 puffs INH Q6H PRN PRN Reason: Shortness Of Breath Stop: 06/03/19 16:00 Last Admin: 05/10/19 14:45 Dose: 2 puffs Documented by: Aspirin (Ecotrin Ectab) 81 mg PO DAILY [facility] Stop: 06/04/19 08:59 Last Admin: 05/12/19 08:39 Dose: 81 mg Documented by: Furosemide (Lasix) 20 mg PO QAM [facility] Stop: 06/11/19 08:59 Haloperidol (Haldol) 1 mg PO BID TOY Stop: 06/07/19 20:59 Last Admin: 05/10/19 09:59 Dose: 1 mg Documented by: Heparin Sodium (Porcine) (Heparin Sodium (Porcine)) 5,000 units SQ Q12 TOY Stop: 06/05/19 20:59 Last Admin: 05/12/19 08:38 Dose: 5,000 units Documented by: Furosemide 40 mg/ Syringe 4 mls @ 4 mls/min IV BID [facility] Stop: 06/11/19 09:14 Ipratropium [place] (Atrovent 0.02% 0.5mg/2.5ml) 0.5 mg INH Q4H PRN PRN Reason: Shortness Of Breath Stop: 06/11/19 00:59 Letrozole (Femara) 2.5 mg PO DAILY [facility] Stop: 06/04/19 08:59 Last Admin: 05/12/19 08:39 Dose: 2.5 mg Documented by: Levalbuterol HCl (Xopenex 1.25mg/0.5ml Neb) 1.25 mg INH Q4H PRN PRN Reason: Shortness Of Breath Stop: 06/11/19 00:59 Metoprolol Succinate (Toprol Xl) 50 mg PO DAILY [facility] Stop: 06/04/19 08:59 Last Admin: 05/12/19 08:39 Dose: 50 mg Documented by: Miconazole Nitrate (Desenex) 1 appln EXT PRN PRN PRN Reason: Affected Skin Folds Stop: 06/03/19 19:12 Mirtazapine (Remeron) 7.5 mg PO DAILY [facility] Stop: 06/04/19 08:59 Last Admin: 05/12/19 08:39 Dose: 7.5 mg Documented by: Sertraline HCl (Zoloft) 200 mg PO DAILY [facility] Stop: 06/04/19 08:59 Last Admin: 05/12/19 08:38 Dose: 200 mg Documented by: (1) Change in mental status Altered mental status type: unspecified Qualified Code(s): R41.82 - Altered mental status, unspecified
--- NOTE | 2019-05-12 09:54 | Cardiology Progress Note ---
Date of Service May 12, 2019 Assessment & Plan (1) Chronic respiratory failure with hypoxia: (2) Pulmonary hypertension: (3) History of coronary artery stent placement: (4) Lung disease, interstitial: The patient is clinically stable but will require maintenance dose of diuretics. Subjective The patient was on BiPAP this morning and given additional diuretics. Review of Systems 2 Review of Systems: All systems reviewed & are unremarkable except as noted in HPI & below Nothing additional Physical Exam Physical Exam: General: no acute distress and stated age Head: normocephalic, no masses, lesions, tenderness or abnormalities Eyes: conjunctiva are pink and non-injected, sclera clear Neck: supple, no adenopathy, no bruits, normal jugular venous pulse, no hepatojugular reflux Chest: normal shape and normal respiratory effort Lungs: clear to auscultation and percussion Cardiac Exam: - regular rate & rhythm, no murmurs gallops or rubs - normal S1, normal S2 Pulses: 2(+) throughout Abdomen: abdomen soft, non-tender, no abnormal masses and no hepatosplenomegaly Musculoskeletal: no gait disturbance, no joint inflammation, no deforming arthritis Extremities: no edema and no cyanosis Neuro: grossly normal exam Results & Data Vital Signs (Past 12 Hours) Vital Signs Temp Pulse Pulse Resp BP BP Pulse Ox 05/12/19 07:35 37.1 C 90 18 111/73 91 05/12/19 03:29 36.9 C 91 H 25 H 101/70 91 05/12/19 00:57 80 18 90 05/12/19 00:00 94 H 05/11/19 22:47 36.9 C 91 H 12 94/59 L 92 05/11/19 22:03 101 H 16 91 Laboratory Results Laboratory Results - last 24 hr 05/11/19 05/12/19 05/12/19 21:20 06:18 06:18 WBC 7.64 RBC 3.38 L Hgb 11.4 L Hct 34.6 L MCV 102.4 H MCH 33.7 MCHC 32.9 RDW Std Deviation 59.5 H RDW Coeff of [place] 15.7 H Plt Count 155 MPV 9.9 Immature Gran % (Auto) 0.3 Neut % (Auto) 66.2 Lymph % (Auto) 20.5 [place] % (Auto) 10.6 Eos % (Auto) 2.1 Baso % (Auto) 0.3 Immature Gran # (Auto) 0.02 Neut # (Auto) 5.06 Lymph # (Auto) 1.57 Haakon # (Auto) 0.81 H Eos # (Auto) 0.16 Baso # (Auto) 0.02 Sodium 141 Potassium 4.1 Chloride 103 Carbon Dioxide 35 H Anion Gap 3.0 BUN 15 Creatinine 0.77 Est Cr Clr Drug Dosing 51.9 Est GFR ( Amer) 89.4 Est GFR (Non-Af Amer) 77.1 BUN/Creatinine Ratio 19.5 Glucose 105 H Calcium 9.1 Urine Color Yellow Urine Appearance Clear Urine pH 8.0 H Ur Specific [place] 1.014 Urine Protein Negative Urine Glucose (UA) Negative Urine Ketones Negative Urine Blood 1+ H Urine Nitrite Negative Urine Bilirubin Negative Urine Urobilinogen Negative Ur Leukocyte Esterase Negative Urine WBC (Auto) 1-5 Urine RBC (Auto) 10-30 H U Hyaline Cast (Auto) 1-5 U Epithel Cells (Auto) 5-10 H Urine Bacteria (Auto) Negative Medications Administered Current Inpatient Medications Acetaminophen (Tylenol) 325 mg PO Q4H PRN PRN Reason: Pain or Fever Stop: 06/04/19 14:26 Last Admin: 05/10/19 14:17 Dose: 325 mg Documented by: Albuterol (Ventolin Hfa) 2 puffs INH Q6H PRN PRN Reason: Shortness Of Breath Stop: 06/03/19 16:00 Last Admin: 05/10/19 14:45 Dose: 2 puffs Documented by: Aspirin (Ecotrin Ectab) 81 mg PO DAILY [facility] Stop: 06/04/19 08:59 Last Admin: 05/12/19 08:39 Dose: 81 mg Documented by: Furosemide (Lasix) 20 mg PO QAM [facility] Stop: 06/11/19 08:59 Haloperidol (Haldol) 1 mg PO BID [facility] Stop: 06/07/19 20:59 Last Admin: 05/10/19 09:59 Dose: 1 mg Documented by: Heparin Sodium (Porcine) (Heparin Sodium (Porcine)) 5,000 units SQ Q12 TOY Stop: 06/05/19 20:59 Last Admin: 05/12/19 08:38 Dose: 5,000 units Documented by: Furosemide 40 mg/ Syringe 4 mls @ 4 mls/min IV BID [facility] Stop: 06/11/19 09:59 Ipratropium [place] (Atrovent 0.02% 0.5mg/2.5ml) 0.5 mg INH Q4H PRN PRN Reason: Shortness Of Breath Stop: 06/11/19 00:59 Letrozole (Femara) 2.5 mg PO DAILY [facility] Stop: 06/04/19 08:59 Last Admin: 05/12/19 08:39 Dose: 2.5 mg Documented by: Levalbuterol HCl (Xopenex 1.25mg/0.5ml Neb) 1.25 mg INH Q4H PRN PRN Reason: Shortness Of Breath Stop: 06/11/19 00:59 Metoprolol Succinate (Toprol Xl) 50 mg PO DAILY [facility] Stop: 06/04/19 08:59 Last Admin: 05/12/19 08:39 Dose: 50 mg Documented by: Miconazole Nitrate (Desenex) 1 appln EXT PRN PRN PRN Reason: Affected Skin Folds Stop: 06/03/19 19:12 Mirtazapine (Remeron) 7.5 mg PO DAILY [facility] Stop: 06/04/19 08:59 Last Admin: 05/12/19 08:39 Dose: 7.5 mg Documented by: Sertraline HCl (Zoloft) 200 mg PO DAILY [facility] Stop: 06/04/19 08:59 Last Admin: 05/12/19 08:38 Dose: 200 mg Documented by:
[2019-05-12] MEDS ORDERED: POTASSIUM CHLORIDE 20 MEQ TABCR PO ONE (10:00)
[2019-05-12] MEDS: FUROSEMIDE 40 MG in SYRINGE 0 ML IV SCH ×2 (10:02→20:31)
--- NOTE | 2019-05-12 14:28 | Palliative Care Consultation ---
Date of Consultation May 12, 2019 Assessment & Plan (1) Goals of care, counseling/discussion: -73 year old female with PMH Avascular necrosis of bone, ascending aortic aneurysm, hypoxemia, CHF, interstitial lung disease, HTN, CAD, depression, presented to the hospital a week ago with altered mental status. She was just discharged a day prior after being in the hospital for acute psychosis/encephalopathy related to steroid use for the treatment of interstitial lung disease. At that time, patient was back to baseline and had no skilled need, so she went home where she lives with her . Upon returning to the hospital, she continued to be delirious as she was finishing out her steroid taper. The plan was to monitor her and hopefully send her back home, she remained on her 4LNC which she is on chronically at home. Unfortunately two days ago patient had episode of hypoxia and tachycardia. CXR revealed volume overload. She has been given IV lasix and placed on bipap as needed. This morning, patient was hypoxic and requiring extra dose of IV Lasix. The bipap mask was kept on her through this morning, patient had no breakfast. She immediately began diuresing after lasix given and was feeling better. Thankfully patient's mental status has totally resolved back to baseline. Dr. Birmingham discussed with the patient about goals of care in the setting of advanced interstitial lung disease, chronic respiratory failure, other comorbidities and difficulty with steroid treatment. Palliative care team is consulted. -Met with patient this morning in room 237. She is awake, alert and oriented x4 on bipap mask. Denies complaints at this time. -Patient states that she knows her lungs are getting worse and we are limited in the treatment that can be given to her. She states, "I'm not ready to , but I know it's going to happen." Patient was appropriately tearful but open to discussing goals of care. -Patient's , Elliott, is POA, but he does not fully understand the gravity of patient's health care. Patient states that Bill wants patient to be at home; and patient's main goal is to be at home as well. Whether it be with home health or hospice, patient wants to be at home. Patient requested that I call her daughter Arabella, not Elliott. -Called Arabella and discussed with her about patient's medical conditions and goals. Arabella agrees that main goal is for patient to be at home, however states that she is sometimes overwhelmed with the care. She too has concerns that patient's Bill (not Arabella's father) not fully understanding patient's condition. She is supportive of patient's decisions and would also be open to hospice care if that is what's needed. -Plan is to continue current care and meet in patient's room tomorrow at 11 am with Arabella as well. If patient improves somewhat back to baseline, plan will likely be for home with home health and possible eventual transition to hospice. If patient declines/worsens, might consider hospice sooner than later. -Patient does have some waiver services/caregivers 2 hours/week at this time. They are trying to get that increased to 10 hours/week. -Patient confirmed her DNR/DNI status. (2) Acute on chronic respiratory failure with hypoxemia: (3) Acute diastolic heart failure: (4) Lung disease, interstitial: Supervising Physician Co-Signing Physician Notes Chart reviewed, patient seen and examined, collaborated with GUANAKO Ellis No family at bedside during my visit. PE: Patient awake and alert, no acute distress HEENT: EOMI, hearing within normal limits Respiratory: Patient with equal breath sounds, on O2 at 5.5 L CV: Regular rate, no edema Abdomen: Soft nontender Neuro alert and oriented x4 Nursing reported patient was more confused this a.m.-patient has since been diuresed with improvement in her respiratory status as well as her mental function. Patient reports that her daughter is to move in with both her and her to assist with their care at home. Patient states that she does well on 5 L of O2 at home unless she gets "upset" Will continue to follow and assist patient and family with medical decision making History of Present Illness Attending Physician: Denise Birmingham DO History of Present Illness This 73 year old female with PMH Avascular necrosis of bone, ascending aortic aneurysm, hypoxemia, CHF, interstitial lung disease, HTN, CAD, depression, presented to the hospital a week ago with altered mental status. She was just discharged a day prior after being in the hospital for acute psychosis/encephalopathy related to steroid use for the treatment of interstitial lung disease. At that time, patient was back to baseline and had no skilled need, so she went home where she lives with her . Upon returning to the hospital, she continued to be delirious as she was finishing out her steroid taper. The plan was to monitor her and hopefully send her back home, she remained on her 4LNC which she is on chronically at home. Unfortunately two days ago patient had episode of hypoxia and tachycardia. CXR revealed volume overload. She has been given IV lasix and placed on bipap as needed. This morning, patient was hypoxic and requiring extra dose of IV Lasix. The bipap mask was kept on her through this morning, patient had no breakfast. She imm ediately began diuresing after lasix given and was feeling better. Thankfully patient's mental status has totally resolved back to baseline. Dr. Birmingham discussed with the patient about goals of care in the setting of advanced interstitial lung disease, chronic respiratory failure, other comorbidities and difficulty with steroid treatment. Palliative care team is consulted. Thank you kindly for this consult. Palliative care team will follow as needed. Allergies Allergy/AdvReac Type Severity Reaction Status Date / Time No Known Allergies Allergy Verified 05/04/19 14:25 Home Medications Home Medications Medication Instructions Recorded Confirmed Type albuterol sulfate [Ventolin HFA] 2 puff INHALATION Q6H PRN 08/11/18 05/04/19 History alendronate 75 mg PO LU@0900 08/11/18 05/04/19 History aspirin 81 mg PO DAILY 08/11/18 05/04/19 History betamethasone, augmented 1 applic TOPICAL DAILY PRN 08/11/18 05/04/19 History furosemide [Lasix] 20 mg PO DAILY 08/11/18 05/04/19 History letrozole 2.5 mg PO DAILY 08/11/18 05/04/19 History metoprolol succinate [Toprol XL] 50 mg PO DAILY 08/11/18 05/04/19 History mirtazapine 7.5 mg PO DAILY 08/11/18 05/04/19 History potassium chloride [Klor-Con M20] 40 meq PO DAILY 08/11/18 05/04/19 History sertraline [Zoloft] 200 mg PO DAILY 08/11/18 05/04/19 History azithromycin [Zithromax] 250 mg PO QAM #5 tab 04/06/19 05/04/19 Rx ergocalciferol (vitamin D2) 50,000 unit PO FR@0900 04/06/19 05/04/19 History cyanocobalamin (vitamin B-12) 1,000 mcg PO QAM 14 Days #28 tab 05/03/19 05/04/19 Rx [Vitamin B-12] prednisone See Rx Instructions .ROUTE .COMPLEX 05/04/19 05/04/19 History Patient History Medical History Avascular necrosis of bone Ascending aortic aneurysm Hypoxemia (Acute) CHF (congestive heart failure) (Acute) Lung disease, interstitial (Acute) HTN (hypertension) (Chronic) CAD (coronary artery disease) (Chronic) Depression Suicidal ideation Surgical History History of coronary artery stent placement (Resolved) History of colon resection (Resolved) H/O hernia repair (Resolved) H/O: hysterectomy (Resolved) History of cholecystectomy (Resolved) Family History Other No significant family history Social History Preferred Language: Irish 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[employer] Required: No Beliefs That Will Affect Care: None marital status: Current Living Situation: Spouse Feels Safe at Home: Yes Safety Concerns: Feels Safe At This Time Smoking Status: Never smoker Second Hand Exposure: No ; Hx Alcohol Use: No Hx Substance Use: No Review of Systems Constitutional: + weakness Ear, Nose, Mouth, Throat: no dysphagia Respiratory: + dyspnea on exertion; no cough Cardiovascular: no chest pain and no edema Gastrointestinal: no abdominal pain and no nausea Neurologic: no confusion Psychiatric: no anxiety Physical Exam Constitutional: no acute distress ENMT: external ear and nose normal, oropharynx normal Neck: normal visual inspection Respiratory: Auscultation: + diminished lung sounds and + crackles (few, fine) Cardiovascular: RRR, no murmur, no edema Gastrointestinal (Abdomen): Inspection/Auscultation: abdomen normal to inspection and normal bowel sounds; abdomen not distended Percussion/Palpation: abdomen soft Neurologic: moves all extremities and awake Psychiatric: Orientation: alert and oriented x 3 Insight: good insight Results & Data Vital Signs (Past 12 Hours) Vital Signs Temp Pulse Pulse Resp BP BP Pulse Ox 09/16/19 11:32 90 18 94 05/12/19 11:27 37.7 C H 91 H 18 107/68 91 05/12/19 07:35 37.1 C 90 18 111/73 91 05/12/19 03:29 36.9 C 91 H 25 H 101/70 91 Time Spent Midlevel 70 minutes with >50% of the time spent at bedside with patient and on phone with family discussing condition and GOC.
[2019-05-13] MEDS: ACETAMINOPHEN 325 MG TAB PO PRN (05:35)
[2019-05-13 06:58] LABS: Hematocrit (blood only) 36.8 % (37-47); Hemoglobin 12.2 g/dL (12.0-16.0); Mean Corpuscular Hemoglobin 33.2 pg (25-34); Mean Corpuscular Hgb Conc 33.2 g/dL (32-36); Mean Corpuscular Volume 100.3 fL (80-100); Mean Platelet Volume 10.5 fL (7.4-10.4); Platelet Count 184 K/uL (130-400); RDW Coefficient of Variation 15.3 % (11.5-14.5); RDW Standard Deviation 56.8 fL (36.4-46.3); Red Blood Count 3.67 M/uL (4.2-5.4); White Blood Count 7.87 K/uL (4.8-10.8)
[2019-05-13 07:31] LABS: Calcium 9.3 mg/dl (8.5-10.1); Creatinine Clr Calc Pharmacy 43.9 ml/min; Est GFR (African American) 73.1; Potassium 3.7 mmol/L (3.5-5.1)
[2019-05-13] MEDS: ASPIRIN 81 MG ECTAB PO SCH (08:02)
[2019-05-13] MEDS: METOPROLOL SUCC 50MG EXT REL TAB PO SCH (08:02)
[2019-05-13] MEDS: MIRTAZAPINE TAB 15 MG TAB PO SCH (08:02)
[2019-05-13] MEDS: SERTRALINE HCL 100 MG TABLET PO SCH (08:02)
[2019-05-13] MEDS: HEPARIN SOD 5,000 UNIT/0.5 ML VIAL SQ SCH ×2 (08:03→19:34)
[2019-05-13] MEDS: LETROZOLE 2.5 MG TAB PO SCH (08:03)
--- NOTE | 2019-05-13 09:32 | Hospitalist Progress Note ---
Date of Service May 13, 2019 Assessment & Plan (1) Acute on chronic respiratory failure with hypoxemia: 2/2 volume overload in setting of chronic hypoxia from ILD. Cont with diuresis as below. (2) Acute diastolic heart failure: 3L out net overnight. Change from Lasix 40IV BID to 20mg PO BID now. Cont Arambula, daily weights, and low sodium diet. Back to baseline oxygen needs and she is doing well. (3) Lung disease, interstitial: Interstitial lung disease Acute on chronic respiratory failure 2/2 acute heart failure and ?worsened lung disease. Pulm and cards following. Appreciate recs. -home oxygen supplementation had been 4 L/min -Continue to monitor with pulmonary as outpatient. -No further treatments are available per pulmonology. Palliative care has been involved to ensure family and patient understand this and help them define goals of care. (4) Change in mental status: Appears to be resolved off steroids. Haldol has now been held for several days and she has remained good from a mental standpoint. (5) Dementia: Higher risk for hospital delirium. Reorient as needed. (6) DVT prophylaxis: Heparin DNR Dispo-continue hospitalization. May consider downgrade off telemetry tomorrow if breathing is still stable and appearing compensated from a heart failure standpoint. Denise Birmingham DO [facility] Hospitalist Subjective Feeling well this am tolerating PO Denies SOB Denies cough, fevers, chills Diuresed 3L net over last 24 hours so diuresis was held Review of Systems Review of Systems: All systems reviewed & are unremarkable except as noted in HPI & below Physical Exam Physical Exam: CONSTITUTIONAL: WNWD, vitals as above, generally well- appearing EYES: normal conjunctivae, no scleral icterus ENT: MMM RESPIRATORY: diffuse crackles at bases bilaterally, no rales or wheezes, normal respiratory effort CARDIOVASCULAR: regular rate and rhythm, S1 and 2 heard without murmurs, gallops or rubs, no JVD, no peripheral edema GASTROINTESTINAL: normal bowel sounds, soft, nontender, nondistended MUSCULOSKELETAL: head is normocephalic and atraumatic SKIN: warm and dry NEUROLOGIC: no hallucinations today, no gross focal deficits. Normal cognition. PSYCHIATRIC: alert cooperative and oriented to person and place. Results & Data Vital Signs (Past 12 Hours) Vital Signs Temp Pulse Pulse Pulse Resp BP BP 05/13/19 08:06 36.8 C 96 H 16 117/74 05/13/19 07:06 93 H 32 H 05/13/19 02:46 37.1 C 100 H 25 H 103/71 05/13/19 00:17 37.6 C H 94 H 24 115/78 05/12/19 23:38 83 05/12/19 22:08 87 20 Pulse Ox 05/13/19 08:06 92 05/13/19 07:06 92 05/13/19 02:46 95 05/13/19 00:17 91 05/12/19 23:38 05/12/19 22:08 90 Laboratory Results Short CBC 05/13/19 Range/Units 06:27 WBC 7.87 (4.8-10.8) K/uL Hgb 12.2 (12.0-16.0) g/dL Hct 36.8 L (37-47) % Plt Count 184 (130-400) K/uL BMP 05/13/19 06:27 Sodium 138 Potassium 3.7 Chloride 98 Carbon Dioxide 31 BUN 19 H Creatinine 0.91 Glucose 109 H Calcium 9.3 Medications Administered Current Inpatient Medications Acetaminophen (Tylenol) 325 mg PO Q4H PRN PRN Reason: Pain or Fever Stop: 06/04/19 14:26 Last Admin: 05/13/19 05:35 Dose: 325 mg Documented by: Albuterol (Ventolin Hfa) 2 puffs INH Q6H PRN PRN Reason: Shortness Of Breath Stop: 06/03/19 16:00 Last Admin: 05/10/19 14:45 Dose: 2 puffs Documented by: Aspirin (Ecotrin Ectab) 81 mg PO DAILY TOY Stop: 06/04/19 08:59 Last Admin: 05/13/19 08:02 Dose: 81 mg Documented by: Furosemide (Lasix) 20 mg PO QAM TOY Stop: 06/11/19 08:59 Last Admin: 05/12/19 14:45 Dose: Not Given Documented by: Haloperidol (Haldol) 1 mg PO BID TOY Stop: 06/07/19 20:59 Last Admin: 05/10/19 09:59 Dose: 1 mg Documented by: Heparin Sodium (Porcine) (Heparin Sodium (Porcine)) 5,000 units SQ Q12 TOY Stop: 06/05/19 20:59 Last Admin: 05/13/19 08:03 Dose: 5,000 units Documented by: Furosemide 40 mg/ Syringe 4 mls @ 4 mls/min IV BID TOY Stop: 06/11/19 09:59 Last Admin: 05/12/19 20:31 Dose: 4 mls/min Documented by: Ipratropium [place] (Atrovent 0.02% 0.5mg/2.5ml) 0.5 mg INH Q4H PRN PRN Reason: Shortness Of Breath Stop: 06/11/19 00:59 Letrozole (Femara) 2.5 mg PO DAILY TOY Stop: 06/04/19 08:59 Last Admin: 05/13/19 08:03 Dose: 2.5 mg Documented by: Levalbuterol HCl (Xopenex 1.25mg/0.5ml Neb) 1.25 mg INH Q4H PRN PRN Reason: Shortness Of Breath Stop: 06/11/19 00:59 Metoprolol Succinate (Toprol Xl) 50 mg PO DAILY TOY Stop: 06/04/19 08:59 Last Admin: 05/13/19 08:02 Dose: 50 mg Documented by: Miconazole Nitrate (Desenex) 1 appln EXT PRN PRN PRN Reason: Affected Skin Folds Stop: 06/03/19 19:12 Mirtazapine (Remeron) 7.5 mg PO DAILY TOY Stop: 06/04/19 08:59 Last Admin: 05/13/19 08:02 Dose: 7.5 mg Documented by: Sertraline HCl (Zoloft) 200 mg PO DAILY TOY Stop: 06/04/19 08:59 Last Admin: 05/13/19 08:02 Dose: 200 mg Documented by: (1) Change in mental status Altered mental status type: unspecified Qualified Code(s): R41.82 - Altered m ental status, unspecified
--- NOTE | 2019-05-13 11:45 | Palliative Care Progress Note ---
Date of Service May 13, 2019 Assessment & Plan (1) Goals of care, counseling/discussion: -Patient diuresed >3L yesterday. Is now off bipap and on nasal cannula. She is sitting in chair, comfortable, no complaints. -Lengthy discussion with patient and her daughter Arabella. Patient again states that she knows her lung disease is severe, which is irreversible. Her daughter verbalized understanding as well. -Patient is encouraged by the fact that she has improved from her episode of CHF. She wishes to continue coming to the hospital when needed at this point. She would want FULL treatment, but would not want CPR in the event of her heart stopping. Patient would be okay with going to the ICU for full treatment, would even be okay with short-term intubation as part of treatment if needed. But if she continues to decline to the point of her heart stopping, she is a DNR. -Arabella and the patient both agree that Bill does not fully understand the medical side of things and probably should not be patient's medical POA. Will ask service excellence to come by and do health care POA. -POLST form discussed at length and completed as follows: DNR in the event of no pulse AND not breathing, FULL TREATMENT "Trial of full treatment, but if no improvement in a reasonable amount of time, transition to comfort measures only," abx if life can be prolonged, and trial period of artificial hydration/nutrition. -Plan is for patient to return home with home health. She would prefer not to go to SNF for rehab. Daughter Arabella is moving in with patient and her BIll to help care for patient. (2) Acute on chronic respiratory failure with hypoxemia: (3) Acute diastolic heart failure: (4) Lung disease, interstitial: Subjective Met at length with patient and her daughter, Arabella. Patient sitting in chair on nasal cannula. Feeling much better than yesterday. Review of Systems Review of Systems: + weakness no dysphagia + dyspnea on exertion; no cough no chest pain and no edema no abdominal pain and no nausea no confusion no anxiety Physical Exam Constitutional: no acute distress ENMT: external ear and nose normal, oropharynx normal Neck: normal visual inspection Respiratory: Auscultation: + diminished lung sounds Cardiovascular: RRR, no murmur, no edema Gastrointestinal (Abdomen): Inspection/Auscultation: abdomen normal to inspection and normal bowel sounds; abdomen not distended Percussion/Palpation: abdomen soft Neurologic: moves all extremities and awake Psychiatric: Orientation: alert and oriented x 3 Insight: good insight Results & Data Vital Signs (Past 12 Hours) Vital Signs Temp Pulse Pulse Pulse Resp BP BP 05/13/19 11:38 36.5 C 98 H 18 116/78 05/13/19 08:06 36.8 C 96 H 16 117/74 05/13/19 07:06 93 H 32 H 05/13/19 02:46 37.1 C 100 H 25 H 103/71 05/13/19 00:17 37.6 C H 94 H 24 115/78 Pulse Ox 05/13/19 11:38 95 05/13/19 08:06 92 05/13/19 07:06 92 05/13/19 02:46 95 05/13/19 00:17 91 Time Spent Midlevel 65 minutes with >50% of the time spent at bedside with patient and family discussing condition, GOC, and POLST form.
[2019-05-13] MEDS: FUROSEMIDE 20 MG TAB PO SCH (16:53)
[2019-05-14] MEDS: SERTRALINE HCL 100 MG TABLET PO SCH (07:25)
[2019-05-14] MEDS: MIRTAZAPINE TAB 15 MG TAB PO SCH (07:25)
[2019-05-14] MEDS: LETROZOLE 2.5 MG TAB PO SCH (07:25)
[2019-05-14] MEDS: HEPARIN SOD 5,000 UNIT/0.5 ML VIAL SQ SCH ×2 (07:26→21:10)
[2019-05-14] MEDS: ASPIRIN 81 MG ECTAB PO SCH (07:26)
[2019-05-14] MEDS: FUROSEMIDE 20 MG TAB PO SCH ×2 (07:26→16:45)
[2019-05-14] MEDS: METOPROLOL SUCC 50MG EXT REL TAB PO SCH (07:29)
--- NOTE | 2019-05-14 10:55 | Cardiology Progress Note ---
Date of Service May 14, 2019 Assessment & Plan (1) Chronic respiratory failure with hypoxia: (2) Pulmonary hypertension: (3) History of coronary artery stent placement: (4) Lung disease, interstitial: The patient is clinically stable. No additional cardiac testing is indicated. Cardiology will sign off the case. Subjective Palliative medicine notes appreciated. Patient has no new complaints today. Review of Systems Review of Systems: All systems reviewed & are unremarkable except as noted in HPI & below Nothing additional. Physical Exam Physical Exam: General: no acute distress and stated age Head: normocephalic, no masses, lesions, tenderness or abnormalities Eyes: conjunctiva are pink and non-injected, sclera clear Neck: supple, no adenopathy, no bruits, normal jugular venous pulse, no hepatojugular reflux Chest: normal shape and normal respiratory effort Lungs: clear to auscultation and percussion Cardiac Exam: - regular rate & rhythm, no murmurs gallops or rubs - normal S1, normal S2 Pulses: 2(+) throughout Abdomen: abdomen soft, non-tender, no abnormal masses and no hepatosplenomegaly Musculoskeletal: no gait disturbance, no joint inflammation, no deforming arthritis Extremities: no edema and no cyanosis Neuro: grossly normal exam Results & Data Vital Signs (Past 12 Hours) Vital Signs Temp Pulse Pulse Resp BP Pulse Ox 05/14/19 08:00 62 05/14/19 07:20 36.4 C L 96 H 20 114/79 96 05/14/19 04:46 37.1 C 99 H 21 107/70 91 05/13/19 23:00 37.1 C 85 20 111/75 90 Medications Administered Current Inpatient Medications Acetaminophen (Tylenol) 325 mg PO Q4H PRN PRN Reason: Pain or Fever Stop: 06/04/19 14:26 Last Admin: 05/13/19 05:35 Dose: 325 mg Documented by: Albuterol (Ventolin Hfa) 2 puffs INH Q6H PRN PRN Reason: Shortness Of Breath Stop: 06/03/19 16:00 Last Admin: 05/10/19 14:45 Dose: 2 puffs Documented by: Aspirin (Ecotrin Ectab) 81 mg PO DAILY TOY Stop: 06/04/19 08:59 Last Admin: 05/14/19 07:26 Dose: 81 mg Documented by: Furosemide (Lasix) 20 mg PO BID17 TOY Stop: 06/12/19 16:59 Last Admin: 05/14/19 07:26 Dose: 20 mg Documented by: Heparin Sodium (Porcine) (Heparin Sodium (Porcine)) 5,000 units SQ Q12 TOY Stop: 06/05/19 20:59 Last Admin: 05/14/19 07:26 Dose: 5,000 units Documented by: Ipratropium [place] (Atrovent 0.02% 0.5mg/2.5ml) 0.5 mg INH Q4H PRN PRN Reason: Shortness Of Breath Stop: 06/11/19 00:59 Letrozole (Femara) 2.5 mg PO DAILY [facility] Stop: 06/04/19 08:59 Last Admin: 05/14/19 07:25 Dose: 2.5 mg Documented by: Levalbuterol HCl (Xopenex 1.25mg/0.5ml Neb) 1.25 mg INH Q4H PRN PRN Reason: Shortness Of Breath Stop: 06/11/19 00:59 Metoprolol Succinate (Toprol Xl) 50 mg PO DAILY [facility] Stop: 06/04/19 08:59 Last Admin: 05/14/19 07:29 Dose: 50 mg Documented by: Miconazole Nitrate (Desenex) 1 appln EXT PRN PRN PRN Reason: Affected Skin Folds Stop: 06/03/19 19:12 Mirtazapine (Remeron) 7.5 mg PO DAILY [facility] Stop: 06/04/19 08:59 Last Admin: 05/14/19 07:25 Dose: 7.5 mg Documented by: Sertraline HCl (Zoloft) 200 mg PO DAILY [facility] Stop: 06/04/19 08:59 Last Admin: 05/14/19 07:25 Dose: 200 mg Documented by:
--- NOTE | 2019-05-14 14:19 | Hospitalist Progress Note ---
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 At time of discharge, patient's family members confirmed that patient had been back to baseline mental status as prednisone was tapered down and as patient was ambulating at baseline, there did not appear to be any needs that may have qualified patient for physical therapy rehabilitation. When patient was discharged she went back to her home with her . Patient's daughter reported at night the patient awoke from sleep and not following directions appropriately. As per patient's daughter the patient also did take scheduled medications including prednisone 15 mg. Patient's daughter found out after going to the patient's home today. A nurse from [facility] at the patient's home called hospitalist medical doctor and explained that patient was back to "rocking motions" back and forth. And that patient's family members would like patient to be brought back to the hospital for assisted placement. When examined by hospitalist medical doctor, patient was calm and laid on the bed and laid still but an inability to focus her attention appropriately almost like how she was acting 4 days prior to hospital discharge. When asked how she was doing or if anything was bothering her, the patient just responded "You're funny" several times. She was not combative or in acute pain but she could not cooperate to follow directions for physical exam as she had done in the days leading up to her hospital discharge -Because patient did not have other identifiable organic causes of altered mental status and did improve on previous hospital stay when steroids wer downtrended but inappropriate behaviors returned, a diagnosis of Dementia can be made -As per previous hospitalist on this re-admission, patient's mental status is better and patient cooperative in recent days -Patient continues to be calm and cooperative, plans for possible discharge home to care of family on 05/15/19 Vitamin B12 deficiency -lab reference of normal is 211 to 911 pg/ml but patient's level was low as 180 on 04/30/19 -she had been given 1000 mcg on 04/30/19 IM and then started on oral cyanocobalamin Vitamin B12 1,000 mcg daily on 04/30/19 -level is 947 on 05/04/19 which shows adequate repletion and oral cyanocobalamin Vitamin B12 was held -recheck B12 levels Patient had recent workup with 04/30/19 labs of normal folic acid levels, TSH of 5 with normal total/free T4 levels, negative RPR normal serum copper serum levels 05/04/19 normal Urine analysis and and no signs of infection on last admission. blood cultures drawn on 05/04/19 have no growth and urine analysis on 05/04/19 and 05/11/19 with no bacteria Electrolytes -normal level sodium and potassium on 05/04/19 presentation Anemia: -Hgb on 05/04/19 is 13.4 which is stable (2) Change in mental status: altered mental status secondary to dementia with behavioral disturbances -mental status currently calm and cooperative (3) Lung disease, interstitial: Interstitial lung disease Chronic Respiratory failure with hypoxia -home oxygen supplementation had been 4 L/min -prednisone was started in the past by [facility] pulmonary service because of interstitial lung disease of unclear etiology -Patient was evaluated in the past by [facility] pulmonary service or his colleagues and was on steroids which have been tapered off completely in this hospitalization to avoid possibility of steroid induce psychosis -On this hospital stay, it has been determines that, there are No further treatments are available per pulmonology. Palliative care has been involved to ensure family and patient understand this and help them define goals of care. (4) Acute on chronic respiratory failure with hypoxemia: (Acute on chronic respiratory failure with hypoxia) -during this hospital stay, patient had volume overload in setting of chronic hypoxia -appears to be at respiratory baseline at this time (5) Acute diastolic heart failure: -patient had received IV furosemide on this hospital stay and evaluated by cardiology service -currently on oral Lasix 20 mg BID, continue -have discussed with patient's family members about low sodium diet -check lipid panel (6) DVT prophylaxis: -Heparin subc Conditional Code status James Malone () contact number [phone] Daughter Arabella [phone] Son [phone] Main diagnosis: altered mental status secondary to dementia with behavioral disturbances, Interstitial lung disease, Acute on chronic respiratory failure with hypoxia, acute diastolic congestive heart failure Subjective Patient seen and examined. Patient is pleasant and calm and cooperative. breathing on nasal cannula. no respiratory distress. breathing comfortably and no use of accessory muscles. denies pain. Patient's family members were at the bedside and their preference would be to have patient be discharged to tomorrow as they need to make preparations before taking patient home Physical Exam Constitutional: comfortable Eyes: PERRL, conjunctivae normal, anicteric sclerae EOM intact bilaterally ENMT: external ear and nose normal, oropharynx normal Neck: normal visual inspection Respiratory: normal respiratory effort, lungs clear to auscultation Cardiovascular: Rate/Rhythm: regular rate and regular rhythm Gastrointestinal (Abdomen): normal bowel sounds, soft, nontender, no hepatosplenomegaly Musculoskeletal: Head/Neck/Chest: normocephalic and head atraumatic Neurologic: PERRL, EOMI, accommodation nl, no face palsy, no dysarthria Psychiatric: Orientation: alert and cooperative Results & Data Vital Signs (Past 12 Hours) Vital Signs Temp Pulse Pulse Resp BP BP Pulse Ox 05/14/19 11:18 36.3 C L 91 H 20 119/73 99 05/14/19 08:00 62 05/14/19 07:20 36.4 C L 96 H 20 114/79 96 05/14/19 04:46 37.1 C 99 H 21 107/70 91 (1) Change in mental status Altered mental status type: unspecified Qualified Code(s): R41.82 - Altered mental status, unspecified
--- NOTE | 2019-05-14 23:10 | Palliative Care Progress Note ---
Date of Service May 14, 2019 Assessment & Plan (1) Goals of care, counseling/discussion: -I was called to the patients bedside by the ricardo RN who was requesting to speak with Jovita regarding their conversation yesterday. - I visited with the patient who appeared very comfortable sitting in the chair with her nasal canula on. -She, as discussed with Jovita, was working with [facility] to switch medical POA from her to her daughter, Arabella, due to his lack of und erstanding of the medical complexity of her illness. -She wanted to make sure the paperwork was completed and wanted it reviewed. -[facility] did provide the paperwork, but it was not fully completed. Patient being transfered to another unit, will ensure nursing follows up to have paperwork completed prior to discharge. -POLST form completed as follows: DNR in the event of no pulse AND not breathing, FULL TREATMENT "Trial of full treatment, but if no improvement in a reasonable amount of time, transition to comfort measures only," abx if life can be prolonged, and trial period of artificial hydration/nutrition. -Plan is for patient to return home with home health. She would prefer not to go to SNF for rehab. Daughter Arabella is moving in with patient and her BIll to help care for patient. (2) Acute on chronic respiratory failure with hypoxemia: (3) Acute diastolic heart failure: (4) Lung disease, interstitial: Subjective Patient resting sitting in her bedside chair in no apparent distress. Review of Systems Review of Systems: All systems reviewed & are unremarkable except as noted in HPI & below Physical Exam Constitutional: well developed, healthy appearing, + frail appearing and cooperative Eyes: PERRL, conjunctivae normal, anicteric sclerae Respiratory: Auscultation: + diminished lung sounds Cardiovascular: RRR, no murmur, no edema Gastrointestinal (Abdomen): normal bowel sounds, soft, nontender, no hepa tosplenomegaly Skin: no rashes, warm and dry Psychiatric: A+Ox3, euthymic affect Insight: good insight Judgement: good judgement Results & Data Vital Signs (Past 12 Hours) Vital Signs Temp Pulse Resp BP Pulse Ox 05/14/19 15:35 36.5 C 91 H 28 H 117/81 96 05/14/19 11:18 36.3 C L 91 H 20 119/73 99 PG Care Time/CCT Total # of Minutes Spent Total Time Spent with Patient: Total time spent is greater than 50% in coordination of care (as documented) at patient's floor/unit and/or counseling patient:25 Time Spent Midlevel Total time spent 25 minutes with >50% of that time spent assessing the patient and discussing goals of care.
[2019-05-15 06:31] LABS: BUN Creatinine Ratio 22.3 (10-20); Calcium 9.5 mg/dl (8.5-10.1); Creatinine Clr Calc Pharmacy 35.6 ml/min; Est GFR (African American) 56.8; Potassium 3.1 mmol/L (3.5-5.1)
[2019-05-15] MEDS: LETROZOLE 2.5 MG TAB PO SCH (07:41)
[2019-05-15] MEDS: SERTRALINE HCL 100 MG TABLET PO SCH (07:41)
[2019-05-15] MEDS: ASPIRIN 81 MG ECTAB PO SCH (07:41)
[2019-05-15] MEDS: METOPROLOL SUCC 50MG EXT REL TAB PO SCH (07:41)
[2019-05-15] MEDS: MIRTAZAPINE TAB 15 MG TAB PO SCH (07:41)
[2019-05-15] MEDS: HEPARIN SOD 5,000 UNIT/0.5 ML VIAL SQ SCH (07:42)
[2019-05-15] MEDS: FUROSEMIDE 20 MG TAB PO SCH (07:43)
[2019-05-15] MEDS ORDERED: POTASSIUM CHLORIDE 20 MEQ TABCR PO STA (07:43)
[2019-05-15] MEDS: POTASSIUM CHLORIDE / WTR 10 MEQ/100 ML PLCT IV SCH ×2 (08:12→10:07)
[2019-05-15 11:52] VITALS: TEMP 98.4; O2SAT 100
[2019-05-15 12:43] LABS: BUN Creatinine Ratio 28.6 (10-20); Calcium 9.6 mg/dl (8.5-10.1); Creatinine Clr Calc Pharmacy 45.9 ml/min; Est GFR (African American) 77.1; Est GFR (Non-African American) 66.6; Potassium 4.6 mmol/L (3.5-5.1)
--- NOTE | 2019-05-15 12:52 | Hospitalist Progress Note ---
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 At time of discharge, patient's family members confirmed that patient had been back to baseline mental status as prednisone was tapered down and as patient was ambulating at baseline, there did not appear to be any needs that may have qualified patient for physical therapy rehabilitation. When patient was discharged she went back to her home with her . Patient's daughter reported at night the patient awoke from sleep and not following directions appropriately. As per patient's daughter the patient also did take scheduled medications including prednisone 15 mg. Patient's daughter found out after going to the patient's home today. A nurse from [facility] at the patient's home called hospitalist medical doctor and explained that patient was back to "rocking motions" back and forth. And that patient's family members would like patient to be brought back to the hospital for usp placement. When examined by hospitalist medical doctor, patient was calm and laid on the bed and laid still but an inability to focus her attention appropriately almost like how she was acting 4 days prior to hospital discharge. When asked how she was doing or if anything was bothering her, the patient just responded "You're funny" several times. She was not combative or in acute pain but she could not cooperate to follow directions for physical exam as she had done in the days leading up to her hospital discharge -Because patient did not have other identifiable organic causes of altered mental status and did improve on previous hospital stay when steroids wer downtrended but inappropriate behaviors returned, a diagnosis of Dementia can be made -As per previous hospitalist on this re-admission, patient's mental status is better and patient cooperative in recent days -Patient continues to be calm and cooperative Patient is discharged under care of her family with referral to referral to [facility] Patient should follow up with primary care Dr. Morocho at [facility] in 1 week and have routine lab check of basic metabolic panel and vitamin B12 levels and vitamin D levels Vitamin B12 deficiency -lab reference of normal is 211 to 911 pg/ml but patient's level was low as 180 on 04/30/19 -she had been given 1000 mcg on 04/30/19 IM and then started on oral cyanocobalamin Vitamin B12 1,000 mcg daily on 04/30/19 -level is 947 on 05/04/19 which shows adequate repletion and oral cyanocobalamin Vitamin B12 was held -rechecked B12 levels on 05/15/19 is 378 which is in reference range or normal Patient had recent workup with 04/30/19 labs of normal folic acid levels, TSH of 5 with normal total/free T4 levels, negative RPR normal serum copper serum levels 05/04/19 normal Urine analysis and and no signs of infection on last admission. blood cultures drawn on 05/04/19 have no growth and urine analysis on 05/04/19 and 05/11/19 with no bacteria Electrolytes -normal level sodium and potassium on 05/04/19 presentation -patient received potassium supplements while on diuretics Anemia: -Hgb on 05/04/19 is 13.4 which is stable. 05/13/19 Hgb is 12.2 (2) Change in mental status: altered mental status secondary to dementia with behavioral disturbances -mental status currently calm and cooperative (3) Lung disease, interstitial: Interstitial lung disease Chronic Respiratory failure with hypoxia -home oxygen supplementation had been 4 L/min -prednisone was started in the past by [facility] pulmonary service because of interstitial lung disease of unclear etiology -Patient was evaluated in the past by [facility] pulmonary service or his colleagues and was on steroids which have been tapered off completely in this hospitalization to avoid possibility of steroid induce psychosis -On this hospital stay, it has been determines that, there are No further treatments are available per pulmonology. Palliative care has been involved to ensure family and patient understand this and help them define goals of care. (4) Acute on chronic respiratory failure with hypoxemia: (Acute on chronic respiratory failure with hypoxia) -during this hospital stay, patient had volume overload in setting of chronic hypoxia -appears to be at respiratory baseline at this time (5) Acute diastolic heart failure: -patient had received IV furosemide on this hospital stay and evaluated by cardiology service -and then was on oral Lasix 20 mg BID -have discussed with patient's family members about low sodium diet - lipid panel checked and simvastatin 10 mg daily for discharge with discharge dosing Lasix as 20 mg daily to avoid hypokalemia (6) DVT prophylaxis: -Heparin subc as per recent palliative care notes: POLST form completed as follows: DNR in the event of no pulse AND not breathing, FULL TREATMENT "Trial of full treatment, but if no improvement in a reasonable amount of time, transition to comfort measures only," abx if life can be prolonged, and trial period of artificial hydration/nutrition James Malone () contact number [phone] Daughter Arabella [phone] Son [phone] Discharge Diagnosis: altered mental status secondary to dementia with behavioral disturbances, Interstitial lung disease, Acute on chronic respiratory failure with hypoxia, acute diastolic congestive heart failure Subjective Patient calm and cooperative. serum potassium was low today so Lasix was held while potassium supplementation were given. rechecked labs in afternoon shows adequate potassium supplementation. patent's family members are at bedside awaiting to take patient home. Physical Exam Constitutional: comfortable Eyes: PERRL, conjunctivae normal, anicteric sclerae EOM intact bilaterally ENMT: external ear and nose normal, oropharynx normal Neck: normal visual inspection Respiratory: normal respiratory effort, lungs clear to auscultation Cardiovascular: Rate/Rhythm: regular rate and regular rhythm Gastrointestinal (Abdomen): normal bowel sounds, soft, nontender, no hepatosplenomegaly Musculoskeletal: Head/Neck/Chest: normocephalic and head atraumatic Neurologic: PERRL, EOMI, accommodation nl, no face palsy, no dysarthria Psychiatric: Orientation: alert and cooperative Results & Data Vital Signs (Past 12 Hours) Vital Signs Temp Pulse Pulse Resp BP BP Pulse Ox 05/15/19 11:50 36.9 C 89 22 122/80 100 05/15/19 07:52 36.6 C 106 H 106 H 24 124/84 90 (1) Change in mental status Altered mental status type: unspecified Qualified Code(s): R41.82 - Altered mental status, unspecified
[2019-05-15 12:57] VITALS: BP 124/84; PULSE 106
--- NOTE | 2019-05-15 13:01 | Discharge Summary ---
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 At time of discharge, patient's family members confirmed that patient had been back to baseline mental status as prednisone was tapered down and as patient was ambulating at baseline, there did not appear to be any needs that may have qualified patient for physical therapy rehabilitation. When patient was discharged she went back to her home with her . Patient's daughter reported at night the patient awoke from sleep and not following directions appropriately. As per patient's daughter the patient also did take scheduled medications including prednisone 15 mg. Patient's daughter found out after going to the patient's home today. A nurse from [facility] at t he patient's home called hospitalist medical doctor and explained that patient was back to "rocking motions" back and forth. And that patient's family members would like patient to be brought back to the hospital for alf placement. When examined by hospitalist medical doctor, patient was calm and laid on the bed and laid still but an inability to focus her attention appropriately almost like how she was acting 4 days prior to hospital discharge. When asked how she was doing or if anything was bothering her, the patient just responded "You're funny" several times. She was not combative or in acute pain but she could not cooperate to follow directions for physical exam as she had done in the days leading up to her hospital discharge. Admission Exam Per Admitting Provider Constitutional: comfortable Eyes: PERRL, conjunctivae normal, anicteric sclerae EOM intact bilaterally Neck: normal visual inspection Respiratory: normal respiratory effort, lungs clear to auscultation Cardiovascular: Rate/Rhythm: regular rate and regular rhythm Gastrointestinal (Abdomen): normal bowel sounds, soft, nontender, no hepatosplenomegaly Musculoskeletal: Head/Neck/Chest: normocephalic and head atraumatic Neurologic: When examined by hospitalist medical doctor, patient was calm and laid on the bed and laid still but an inability to focus her attention appropriately almost like how she was acting 4 days prior to hospital discharge. When asked how she was doing or if anything was bothering her, the patient just responded "You're funny" several times. She was not combative or in acute pain but she could not cooperate to follow directions for physical exam as she had done in the days leading up to her hospital discharge Principal Diagnosis altered mental status secondary to dementia with behavioral disturbances, Interstitial lung disease, Acute on chronic respiratory failure with hypoxia, acute diastolic congestive heart failure Discharge Exam Constitutional comfortable Eyes PERRL, conjunctivae normal, anicteric sclerae EOM intact bilaterally ENMT external ear and nose normal, oropharynx normal Neck normal visual inspection Respiratory normal respiratory effort, lungs clear to auscultation Cardiovascular Rate/Rhythm: regular rate and regular rhythm Gastrointestinal (Abdomen) normal bowel sounds, soft, nontender, no hepatosplenomegaly Musculoskeletal Head/Neck/Chest: normocephalic and head atraumatic Neurologic PERRL, EOMI, accommodation nl, no face palsy, no dysarthria Psychiatric Orientation: alert and cooperative Discharge Data Allergies Allergy/AdvReac Type Severity Reaction Status Date / Time No Known Allergies Allergy Verified 05/04/19 14:25 Consultations 05/04/19 14:20 ED Decision to Admit Stat 05/04/19 16:00 Consult Case Management - Discharge Planning Routine 05/11/19 08:00 Consult Cardiology Routine Consult Pulmonology Routine 05/12/19 09:21 Consult Palliative Care Routine 05/13/19 11:42 Consult Patient Services Routine Hospital Course (1) Dementia: Dementia with Behavioral Disturbance -This is a 73 year old female who was discharged under the care of her family on 05/03/19 after hospitalization altered mental status/encephalopathy that had been 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 At time of discharge, patient's family members confirmed that patient had been back to baseline mental status as prednisone was tapered down and as patient was ambulating at baseline, there did not appear to be any needs that may have qualified patient for physical therapy rehabilitation. When patient was discharged she went back to her home with her . Patient's daughter reported at night the patient awoke from sleep and not following directions appropriately. As per patient's daughter the patient also did take scheduled medications including prednisone 15 mg. Patient's daughter found out after going to the patient's home today. A nurse from [facility] at the patient's home called hospitalist medical doctor and explained that patient was back to "rocking motions" back and forth. And that patient's family members would like patient to be brought back to the hospital for alf pl acement. When examined by hospitalist medical doctor, patient was calm and laid on the bed and laid still but an inability to focus her attention appropriately almost like how she was acting 4 days prior to hospital discharge. When asked how she was doing or if anything was bothering her, the patient just responded "You're funny" several times. She was not combative or in acute pain but she could not cooperate to follow directions for physical exam as she had done in the days leading up to her hospital discharge -Because patient did not have other identifiable organic causes of altered mental status and did improve on previous hospital stay when steroids wer downtrended but inappropriate behaviors returned, a diagnosis of Dementia can be made -As per previous hospitalist on this re-admission, patient's mental status is better and patient cooperative in recent days -Patient continues to be calm and cooperative Patient is discharged under care of her family with referral to referral to [facility] Patient should follow up with primary care Dr. Morocho at [facility] in 1 week and have routine lab check of basic metabolic panel and vitamin B12 levels and vitamin D levels Vitamin B12 deficiency -lab reference of normal is 211 to 911 pg/ml but patient's level was low as 180 on 04/30/19 -she had been given 1000 mcg on 04/30/19 IM and then started on oral cyanocobalamin Vitamin B12 1,000 mcg daily on 04/30/19 -level is 947 on 05/04/19 which shows adequate repletion and oral cyanocobalamin Vitamin B12 was held -rechecked B12 levels on 05/15/19 is 378 which is in reference range or normal Patient had recent workup with 04/30/19 labs of normal folic acid levels, TSH of 5 with normal total/free T4 levels, negative RPR normal serum copper serum levels 05/04/19 normal Urine analysis and and no signs of infection on last admission. blood cultures drawn on 05/04/19 have no growth and urine analysis on 05/04/19 and 05/11/19 with no bacteria Electrolytes -normal level sodium and potassium on 05/04/19 presentation -patient received potassium supplements while on diuretics Anemia: -Hgb on 05/04/19 is 13.4 which is stable. 05/13/19 Hgb is 12.2 (2) Change in mental status: altered mental status secondary to dementia with behavioral disturbances -mental status currently calm and cooperative (3) Lung disease, interstitial: Interstitial lung disease Chronic Respiratory failure with hypoxia -home oxygen supplementation had been 4 L/min -prednisone was started in the past by [facility] pulmonary service because of interstitial lung disease of unclear etiology -Patient was evaluated in the past by [facility] pulmonary service or his colleagues and was on steroids which have been tapered off completely in this hospitalization to avoid possibility of steroid induce psychosis -On this hospital stay, it has been determines that, there are No further treatments are available per pulmonology. Palliative care has been involved to ensure family and patient understand this and help them define goals of care. (4) Acute on chronic respiratory failure with hypoxemia: (Acute on chronic respiratory failure with hypoxia) -during this hospital stay, patient had volume overload in setting of chronic hypoxia -appears to be at respiratory baseline at this time (5) Acute diastolic heart failure: -patient had received IV furosemide on this hospital stay and evaluated by cardiology service -and then was on oral Lasix 20 mg BID -have discussed with patient's family members about low sodium diet - lipid panel checked and simvastatin 10 mg daily for discharge with discharge dosing Lasix as 20 mg daily to avoid hypokalemia (6) DVT prophylaxis: -Heparin subc as per recent palliative care notes: POLST form completed as follows: DNR in the event of no pulse AND not breathing, FULL TREATMENT "Trial of full treatment, but if no improvement in a reasonable amount of time, transition to comfort measures only," abx if life can be prolonged, and trial period of artificial hydration/nutrition James Malone () contact number [phone] Daughter Arabella [phone] Son [phone] Discharge Diagnosis: altered mental status secondary to dementia with behavioral disturbances, Interstitial lung disease, Acute on chronic respiratory failure with hypoxia, acute diastolic congestive heart failure Total Time Total Time Spent Total Time Spent (In Minutes): 40 minutes Total Time Includes: Examination of the Patient, Discharge Planning, Medication Reconciliation and Communication With Other Providers Discharge Plan Discharge Items Patient Disposition: Home - Home Health Services Reason For Visit: DEMENTIA Discharge Diagnosis: altered mental status secondary to dementia with behavioral disturbances, Interstitial lung disease, Acute on chronic respiratory failure with hypoxia, acute diastolic congestive heart failure Condition on Discharge: Good Activity: Per Instructions section Non-emergency contact: Primary Care Provider Call non-emergency contact if: you have any medication questions Follow-up/Referrals: Jose Manuel Morocho [Primary Care Provider] - Diet: Heart Healthy and Low Sodium (2gm) Diet Comment: minced and moist diet Addtl Attending Provider Instructions: Patient is discharged under care of her family with referral to referral to [facility] Patient should follow up with primary care Dr. Morocho at [facility] in 1 week and have routine lab check of basic metabolic panel and vitamin B12 levels and vitamin D levels Call your Primary Care doctor if any of the following symptoms or problems start or get worse: * Shortness of breath or difficulty breathing * Wake up at night short of breath * Chest pain * Cough * Swelling of your hands, feet, or legs * More fatigued or tired with your normal activity * Palpitations - sudden fast heart beats WEIGHT * Weigh yourself every morning after using the bathroom. * Use the same scale. * Wear the same amount of clothing. * Write your weight down on a chart. * Call your Primary Care doctor if you gain more than 2-3 pounds in 1-2 days. MEDICATIONS * Use this discharge instruction sheet for medication instructions. * Take your medications at the time your doctor ordered. * Do not skip a dose of your medicines. * If you miss a dose of medicine, take it as soon as possible, but DO NOT DOUBLE A DOSE. * Read your medicine information when you get home. * Know all of the side effects of your medicine. If in doubt, ask your pharmacist * Call your Primary Care doctor's office if you have any side effects. * Be sure all of your doctors know what medicine and herbs you take (including cold, flu, and herbal medicine). Take the following with you to your follow-up doctor appointments: * Weight Chart * Medication List * List of questions Do not drink excessive alcohol, beer or wine. Pending Studies at Discharge: No Stand-Alone Forms: [facility] Medications and DC Order Prescriptions: New simvastatin 10 mg Tablet 10 mg PO PM 30 Days Qty: 30 RF: 0 furosemide 20 mg Tablet 20 mg PO QAM 30 Days Qty: 30 RF: 0 Continued metoprolol succinate [Toprol XL] 50 mg Tablet Extended Release 24 Hr 50 mg PO DAILY RF: 0 betamethasone, augmented 0.05 % Cream 1 applic TOPICAL DAILY PRN (Reason: breakout) RF: 0 sertraline [Zoloft] 100 mg Tablet 200 mg PO DAILY RF: 0 aspirin 81 mg Tablet,Delayed Release (Dr/Ec) 81 mg PO DAILY RF: 0 alendronate 35 mg Tablet 75 mg PO LU@0900 RF: 0 letrozole 2.5 mg Tablet 2.5 mg PO DAILY RF: 0 albuterol sulfate [Ventolin HFA] 90 mcg/actuation Hfa Aerosol Inhaler 2 puff INHALATION Q6H PRN (Reason: Shortness Of Breath) RF: 0 mirtazapine 7.5 mg Tablet 7.5 mg PO DAILY RF: 0 Discontinued cyanocobalamin (vitamin B-12) [Vitamin B-12] 500 mcg Tablet 1,000 mcg PO QAM 14 Days Qty: 28 RF: 0 prednisone 5 mg tablet See Rx Instructions .ROUTE .COMPLEX RF: 0 potassium chloride [Klor-Con M20] 20 mEq Tablet,Er Particles/Crystals 40 meq PO DAILY RF: 0 furosemide [Lasix] 20 mg Tablet 20 mg PO DAILY RF: 0 ergocalciferol (vitamin D2) 50,000 unit Capsule 50,000 unit PO FR@0900 RF: 0 azithromycin [Zithromax] 250 mg Tablet 250 mg PO QAM Qty: 5 RF: 0 Discharge Orders: Discharge Order (Routine); Ordered 05/15/19 Ordered By: Leonel Frazier Admission Data Admit Date/Time: 05/06/19 12:35 Attending Provider: Leonel Frazier Admit Provider: Leonel Frazier Primary Care Provider: Jose Manuel Morocho Other Providers: Jacob Ware ; Leonel Frazier ; Cristóbal Fung ; Jay Junior ; Luda Venegas
[2019-05-15] MEDS ORDERED: SIMVASTATIN 10 MG TAB PO SCH (21:00)
[2019-05-16] MEDS ORDERED: FUROSEMIDE 20 MG TAB PO SCH (09:00)
== END 2019-05-15 14:01 | disposition home health service (06) | DRG 884 ==
LOC: ED 13:53 → 4W 13:53 → SUATTDRO 05-06 12:35 → 2S 05-10 16:05 → 4W 05-14 13:21

== ENCOUNTER 2019-05-18 12:06 | Inpatient (IN) ==
--- NOTE | 2019-05-18 12:48 | XRay Report ---
XR chest 1V portable CLINICAL HISTORY: 73 years-old Female presenting with Chest Pain. TECHNIQUE: Portable upright AP view of the chest was obtained. COMPARISON: 05/11/2019. FINDINGS: Atherosclerosis of the aortic arch. Prominence of the superior mediastinal contour is unchanged from prior. Cardiac silhouette enlarged. Diffuse bilateral pulmonary opacities with coarsened underlying l oscar markings and suspected bronchial wall thickening. Density of opacities greatest at the lung bases . No large effusion or pneumothorax. Degenerative changes of the thoracic spine. Posttraumatic and se condary degenerative changes of the right humerus and glenohumeral joint. Upper abdomen normal. IMPRESSION: 1. Redemonstration of diffuse pulmonary infiltrates on a background of chronic lung disease. This is consistent with multifocal pneumonia or edema superimposed on fibrotic change. The appearance is sim ilar to prior. 2. Cardiomegaly. Electronically signed by: Az Reaves M.D. 05/18/2019 12:46 PM
[2019-05-18] MEDS ORDERED: ALBUT/IPRATROP 3MG/0.5MG NEB 3 ML VIAL NEB STA (12:58)
[2019-05-18 13:00] LABS: Basophils # (auto) 0.02 K/uL (0-0.2); Basophils % (auto) 0.2 %; Eosinophils # (auto) 0.28 K/uL (0-0.5); Eosinophils % (auto) 3.2 %; Hematocrit (blood only) 32.2 % (37-47); Hemoglobin 10.7 g/dL (12.0-16.0); Immature Granulocytes # (auto) 0.04 K/uL (0.00-0.02); Immature Granulocytes % (auto) 0.5 %; Lymphocytes # (auto) 1.79 K/uL (1.2-3.4); Lymphocytes % (auto) 20.4 %; Mean Corpuscular Hemoglobin 33.2 pg (25-34); Mean Corpuscular Hgb Conc 33.2 g/dL (32-36); Monocytes # (auto) 0.86 K/uL (0.11-0.59); Monocytes % (auto) 9.8 %; Neutrophils # (auto) 5.78 K/uL (1.4-6.5); Neutrophils % (auto) 65.9 %; Platelet Count 265 K/uL (130-400); RDW Coefficient of Variation 15.7 % (11.5-14.5); RDW Standard Deviation 56.4 fL (36.4-46.3); Red Blood Count 3.22 M/uL (4.2-5.4); White Blood Count 8.77 K/uL (4.8-10.8)
[2019-05-18 13:16] LABS: Base Excess VBG 6.5 mEq/L; HCO3 VBG 31 mmol/L; PCO2 VBG 44 mmHg (38-50); PO2 VBG 31 mmHg; pH VBG 7.47 (7.36-7.41)
[2019-05-18 13:17] LABS: Albumin Level 3.1 gm/dl (3.4-5.0); BUN Creatinine Ratio 14.5 (10-20); Calcium 9.1 mg/dl (8.5-10.1); Creatinine Clr Calc Pharmacy 45.6 ml/min; Est GFR (Non-African American) 64.7; Magnesium 1.9 mg/dl (1.8-2.4); Oxygen Saturation VBG < 60.0 %; Potassium 3.1 mmol/L (3.5-5.1)
[2019-05-18 13:26] LABS: Albumin Globulin Ratio 0.9 (0.9-2); Bilirubin,Total 0.5 mg/dl (0.2-1); Globulin 3.6 gm/dl (2.5-4.0); Phosphorus 3.4 mg/dl (2.5-4.9); Total Protein 6.7 gm/dl (6.4-8.2); Troponin I 0.046 ng/ml (0-0.045)
[2019-05-18] MEDS ORDERED: POTASSIUM CHLORIDE 20 MEQ TABCR PO STA ×2 (14:04→15:41)
[2019-05-18] MEDS ORDERED: FUROSEMIDE 40 MG/4 ML VIAL IV STA ×2 (14:04→14:50)
[2019-05-18 14:42] LABS: Appearance Urine Clear (Clear); Bacteria Urine Automated Negative (Negative); Bilirubin Urine Negative (Negative); Blood Urine Negative (Negative); Color Urine Yellow; Epithelial Cell Urine Auto 0-5 /lpf (0-5); Glucose Urine UA Negative (Negative); Ketones Urine Negative (Negative); Leukocyte Esterase Urine 1+ (Negative); Nitrite Urine Negative (Negative); Protein Urine Negative (Negative); RBC Urine Automated 0-4 /hpf (0-4); Specific Gravity Urine 1.012 (1.000-1.030); Urobilinogen Urine Negative (Negative); pH Urine 6.5 (4.5-7.5)
[2019-05-18] MEDS ORDERED: LEVALBUTEROL 1.25MG/0.5ML NEB NEB PRN (15:02)
--- NOTE | 2019-05-18 15:20 | History & Physical Report ---
Date of Service May 18, 2019 Assessment & Plan (1) CHF (congestive heart failure): Acute diastolic congestive heart failure -patient had shortness of breath and fluid retention on last hospital and received increased Lasix and recent echocardiogram with normal ejection fraction -was discharged back on home dose Lasix 20 mg daily to avoid renal issues -have questioned patient's medical adherence to Lasix at home which is given by patient's family member but they insist that they were following directions -will have patient on scheduled BID IV Lasix and once pulmonary edema resolves and oxygen use back to baseline then will likely need 20 mg oral Lasix BID -continue home aspirin, metoprolol, simvastatin 10 mg daily to minimize muscle cramps (2) Elevated troponin: -did report of feeling chest pressure when with EMS -EKG on ED presentation appears nonischemic -initial troponin mildly elevated 0.046, trend troponin, monitor on telemetry -mildly elevated troponins may be from demand ischemia due to increased work of breathing from pulmonary edema -Discussed with patient and patient's family members that the likely diagnosis is congestive heart failure exacerbation. In the event that patient has heart attack (myocardial infarction), the patient and family member would not want to have cardiac catheterization and prefers only medical management (3) Acute and chronic respiratory failure: -exacerbation secondary to Acute diastolic congestive heart failure -baseline has with unspecified interstitial lung disease that pulmonary service does not advise further treatment in the last hospitalization -baseline of chronic respiratory failure with hypoxia and baseline oxygen use is 4 liters/min -diuresis with IV lasix to get patent tor return to baseline oxygen use by reducing pulmonary edema (4) Hypokalemia: -admission serum potassium 3.1 -give potassium supplements while on increased diuretics -target serum potassium level of 3.5 to 4 (5) Dementia: -was treated for dementia with behavioral disturbances on last presentation -appears more calm and oriented on this ED presentation -continue home dose sertraline and mirtazapine DVT prophylaxis: heparin subc q12 hours PT/OT Case management: again family requesting case management efforts to help have patient placed in to nursing facility after hospital stay Code Status Discussed with patient and patient's family members and they affirmed that the code status is Do Not Resuscitate/Do NOT INTUBATE. Discussed with patient and patient's family members that the likely diagnosis is congestive heart failure exacerbation. In the event that patient has heart attack (myocardial infarction), the patient and family member would not want to have cardiac catheterization and prefers only medical management James Malone () contact number [phone] Daughter Arabella [phone] Son [phone] History of Present Illness Chief Complaint: increase in oxygen use Primary Care Provider: Jose Manuel Morocho This is a 73 year old female with recent hospitalizations primarily for treatment of changes in mental status which has been attributed to steroids and then ultimately to dementia, with unspecified interstitial lung disease, and chronic respiratory failure with hypoxia whose baseline oxygen use is 4 liters/min, who was discharged on 05/15/19 with baseline oxygen use and returns to the ED on 05/18/19 because of increased oxygen requirements and lung imaging findings of acute congestive heart failure exacerbation. As per daughter, patient returned home with and daughter also living with them. At night the, patient's oxygenation "dropped to 45" and was using up the oxygen supplies quickly. When patient's daughter is asked whether or not the patient has been taking the home medications including Lasix, the daughter says that the patient's gives the patient's the medications. Patient's reports he has been giving the home medications every day. In the ED, patient has been ordered Lasix. Oxygen requirement is 6 liter's minute. On review of systems, patient appears to be breathing comfortable. She denies other areas of pain in the ED. But she did report of feeling chest pressure when with EMS. Patient denies other symptoms. She has dementia history but today she seem very sharp in answering and asking questions. Discussed with patient and patient's family members and they affirmed that the code status is Do Not Resuscitate/Do NOT INTUBATE. Discussed with patient and patient's family members that the likely diagnosis is congestive heart failure exacerbation. In the event that patient has heart attack (myocardial infarction), the patient and family member would not want to have cardiac catheterization and prefers only medical management Allergies Allergy/AdvReac Type Severity Reaction Status Date / Time No Known Allergies Allergy Verified 05/18/19 12:41 Home Medications Home Medications Medication Instructions Recorded Confirmed Type albuterol sulfate [Ventolin HFA] 2 puff INHALATION Q6H PRN 08/11/18 05/18/19 History alendronate 75 mg PO LU@0900 08/11/18 05/18/19 History aspirin 81 mg PO DAILY 08/11/18 05/18/19 History betamethasone, augmented 1 applic TOPICAL DAILY PRN 08/11/18 05/18/19 History letrozole 2.5 mg PO DAILY 08/11/18 05/18/19 History metoprolol succinate [Toprol XL] 50 mg PO DAILY 08/11/18 05/18/19 History mirtazapine 7.5 mg PO DAILY 08/11/18 05/18/19 History sertraline [Zoloft] 200 mg PO DAILY 08/11/18 05/18/19 History furosemide 20 mg PO QAM 30 Days #30 tab 05/15/19 05/18/19 Rx simvastatin 10 mg PO PM 30 Days #30 tab 05/15/19 05/18/19 Rx Past Med/Surg History Medical History Avascular necrosis of bone Ascending aortic aneurysm Hypoxemia (Acute) CHF (congestive heart failure) (Acute) Lung disease, interstitial (Acute) HTN (hypertension) (Chronic) CAD (coronary artery disease) (Chronic) Depression Suicidal ideation Surgical History History of coronary artery stent placement (Resolved) History of colon resection (Resolved) H/O hernia repair (Resolved) H/O: hysterectomy (Resolved) History of cholecystectomy (Resolved) Family History Other No significant family history Social History Preferred Language: Welsh Communication Ability: Effective Safety Person Required: No Beliefs That Will Affect Care: None marital status: Current Living Situation: Spouse Other Information That Helps Us Care for You: No Feels Safe at Home: Yes Safety Concerns: Feels Safe At This Time Smoking Status: Former smoker Do You Dip or Chew Tobacco: No ; Second Hand Exposure: No ; Tobacco Cessation Education Requested by Patient: No Hx Alcohol Use: No Hx Substance Use: No Review of Systems Review of Systems: All systems reviewed & are unremarkable except as noted in HPI & below Physical Exam Constitutional: cooperative Eyes: PERRL, conjunctivae normal, anicteric sclerae EOM intact bilaterally ENMT: external ear and nose normal, oropharynx normal Neck: normal visual inspection Respiratory: Auscultation: + crackles Cardiovascular: Rate/Rhythm: regular rate and regular rhythm Gastrointestinal (Abdomen): normal bowel sounds, soft, nontender, no he patosplenomegaly Musculoskeletal: Head/Neck/Chest: normocephalic and head atraumatic Neurologic: PERRL, EOMI, accommodation nl, no face palsy, no dysarthria CN's II-XI intact bilaterally Psychiatric: Orientation: alert, oriented to person, oriented to place and cooperative Results & Data Vital Signs (Past 12 Hours) Vital Signs Temp Pulse Pulse Resp BP Pulse Ox 05/18/19 14:31 80 27 H 126/60 94 05/18/19 14:00 79 33 H 113/63 93 05/18/19 13:30 82 31 H 103/63 94 05/18/19 13:11 80 18 94 05/18/19 13:00 81 27 H 93/65 L 05/18/19 12:32 83 24 97 05/18/19 12:30 83 24 122/71 97 05/18/19 12:10 81 27 H 116/71 94 05/18/19 12:06 37.3 C 83 24 116/71 97 Code Status & VTE Plan VTE Prophylaxis Plan VTE Prophylaxis will be ordered: Yes (1) CHF (congestive heart failure) Heart failure chronicity: unspecified Heart failure type: unspecified Qualified Code(s): I50.9 - Heart failure, unspecified
[2019-05-18] MEDS ORDERED: FUROSEMIDE 20 MG in SYRINGE 0 ML IV ONE ×2 (16:50→20:00)
[2019-05-18] MEDS ORDERED: FUROSEMIDE 40 MG in SYRINGE 0 ML IV SCH (17:00)
--- NOTE | 2019-05-18 20:34 | Emergency Department Note ---
Entered by Jackie Stratton acting as a scribe for Geovani Haywood MD History of Present Illness General Chief complaint: Shortness of Breath/Dyspnea Stated complaint: sob Time Seen by Provider: 05/18/19 12:08 Source: patient and EMS History of Present Illness Onset (ago): hour(s) (this morning) Location: chest Pain Consistency: + other (episode) Quality: + other (shortness of breath) Relieved By: + other (O2, rebreather) Associated symptoms: + other (epigastric pain (chronic), swelling ankles) The patient is a 73 year old female that is presenting to the Emergency Room with complaints of an episode of shortness of breath that occurred this morning. The patient reports that she had a routine visit with her home health aide who noticed that her O2 saturation level was in the 65-70% range. She states that EMS was called at that time. EMS notes that the patients O2 saturation was around 65% on route. EMS states that the patient was placed on a rebreather, which helped her saturation level improve. The patient states that she was feeling very short of breath when the home health aide arrived. She reports that she noticed some associated swelling in her bilateral ankles this morning. She notes that she has an O2 monitor at home but states that she does not know how to use it as she is "half nuts.". She states that she lives with family who monitor her O2 saturation in between visits with the aide. The patient notes that she uses O2 at home at baseline. She reports that she feel well currently after being placed on 5L of O2 upon arrival at the ED. She denies any other significant complaints today beyond a chronic epigastric pain. Home Medications Home Medications Medication Instructions Recorded Confirmed Type albuterol sulfate [Ventolin HFA] 2 puff INHALATION Q6H PRN 08/11/18 05/18/19 History alendronate 75 mg PO LU@0900 08/11/18 05/18/19 History aspirin 81 mg PO DAILY 08/11/18 05/18/19 History betamethasone, augmented 1 applic TOPICAL DAILY PRN 08/11/18 05/18/19 History letrozole 2.5 mg PO DAILY 08/11/18 05/18/19 History metoprolol succinate [Toprol XL] 50 mg PO DAILY 08/11/18 05/18/19 History mirtazapine 7.5 mg PO DAILY 08/11/18 05/18/19 History sertraline [Zoloft] 200 mg PO DAILY 08/11/18 05/18/19 History furosemide 20 mg PO QAM 30 Days #30 tab 05/15/19 05/18/19 Rx simvastatin 10 mg PO PM 30 Days #30 tab 05/15/19 05/18/19 Rx Allergies Allergy/AdvReac Type Severity Reaction Status Date / Time No Known Allergies Allergy Verified 05/18/19 12:41 Past Med/Surg History Medical History Avascular necrosis of bone Ascending aortic aneurysm Hypoxemia (Acute) CHF (congestive heart failure) (Acute) Lung disease, interstitial (Acute) HTN (hypertension) (Chronic) CAD (coronary artery disease) (Chronic) Depression Suicidal ideation Surgical History History of coronary artery stent placement (Resolved) History of colon resection (Resolved) H/O hernia repair (Resolved) H/O: hysterectomy (Resolved) History of cholecystectomy (Resolved) Family History Other No significant family history Social History Preferred Language: Kiswahili Communication Ability: Effective 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 and A total of 10 systems reviewed and were otherwise negative Physical Exam Vital Signs Vital Signs - 24 hr 05/18/19 12:06 05/18/19 12:10 05/18/19 12:30 Temperature 37.3 C Temperature Source Oral Sepsis Recent Fever Within 48 Hours No Sepsis New/Unexplained Change in Mental Status No Sepsis Action Taken by Nursing No Action Required Oxygen Flow Rate - Titration 4 Pulse Oximetry Post Tiitration 97 Pulse Rate 83 81 83 Pulse Rate [Finger] Pulse Rate from SpO2 Sensor 80 Pulse Rhythm Respiratory Rate 24 27 H 24 Respiratory Effort / Characteristics Non-Labored Respiratory Depth Normal Respiratory Pattern Regular Blood Pressure 116/71 116/71 122/71 Blood Pressure Mean 86 86 88 Pulse Oximetry 97 94 97 Oxygen Delivery Method Nasal Cannula Nasal Cannula Nasal Cannula Oxygen Flow Rate 5 5 5 05/18/19 12:32 05/18/19 13:00 05/18/19 13:11 Temperature Temperature Source Sepsis Recent Fever Within 48 Hours Sepsis New/Unexplained Change in Mental Status Sepsis Action Taken by Nursing Oxygen Flow Rate - Titration 5 Pulse Oximetry Post Tiitration 97 Pulse Rate 83 81 Pulse Rate [Finger] 80 Pulse Rate from SpO2 Sensor 81 Pulse Rhythm Regular Respiratory Rate 24 27 H 18 Respiratory Effort / Characteristics Non-Labored Spontaneous Respiratory Depth Respiratory Pattern Blood Pressure 93/65 L Blood Pressure Mean 74 Pulse Oximetry 97 94 Oxygen Delivery Method Nasal Cannula Nasal Cannula Oxygen Flow Rate 5 6 05/18/19 13:30 05/18/19 14:00 05/18/19 14:31 Temperature Temperature Source Sepsis Recent Fever Within 48 Hours Sepsis New/Unexplained Change in Mental Status Sepsis Action Taken by Nursing Oxygen Flow Rate - Titration Pulse Oximetry Post Tiitration Pulse Rate 82 79 80 Pulse Rate [Finger] Pulse Rate from SpO2 Sensor 82 79 81 Pulse Rhythm Respiratory Rate 31 H 33 H 27 H Respiratory Effort / Characteristics Respiratory Depth Respiratory Pattern Blood Pressure 103/63 113/63 126/60 Blood Pressure Mean 76 79 82 Pulse Oximetry 94 93 94 Oxygen Delivery Method Nasal Cannula Nasal Cannula Nasal Cannula Oxygen Flow Rate 5 6 6 05/18/19 14:37 Temperature Temperature Source Sepsis Recent Fever Within 48 Hours Sepsis New/Unexplained Change in Mental Status Sepsis Action Taken by Nursing Oxygen Flow Rate - Titration Pulse Oximetry Post Tiitration Pulse Rate Pulse Rate [Finger] Pulse Rate from SpO2 Sensor Pulse Rhythm Respiratory Rate Respiratory Effort / Characteristics Spontaneous SOB on Exertion Respiratory Depth Normal Respiratory Pattern Tachypnea Blood Pressure Blood Pressure Mean Pulse Oximetry Oxygen Delivery Method Nasal Cannula Oxygen Flow Rate 6 GENERAL: Awake, alert, chronically ill-appearing, in no distress HENT: Normocephalic, atraumatic. Oropharynx with dry mucous membranes and otherwise unremarkable. EYES: Normal conjunctiva. Sclera non-icteric. NECK: Supple. No nuchal rigidity. FROM. No JVD. RESPIRATORY: Diminished breath sounds at the bilateral bases with scant intermittent wheezes. CARDIAC: Regular rate, normal rhythm. Extremities warm and well perfused. Pulses equal. ABDOMEN: Soft, non-distended. No tenderness to palpation. No rebound or guarding. No masses. RECTAL: Deferred. MUSCULOSKELETAL: Chest examination reveals no tenderness. The back is symmetrical on inspection without obvious abnormality. There is no CVA tenderness to palpation. No joint edema. LOWER EXTREMITIES: Calves are equal size bilaterally and non-tender. Scant lower extremity edema. No discoloration. NEURO: Normal sensorium. No sensory or motor deficits noted. SKIN: No rash or jaundice noted. Course 1219:The patient was evaluated in room C11B. A complete history and physical examination was performed. 1415: I discussed the patient's case with DAKOTA Pichardo, who will evaluate the patient for further management and care with Dr. Frazier as the attending physician. 1420: Upon reevaluation, the patient is resting comfortably. I discussed laboratory and radiographic results with the patient. She verbalized agreement of the treatment plan. The patient will be evaluated for further management and care. Consultations Consultation #1: I discussed the patient's case with DAKOTA Pichardo, who will evaluate the patient for further management and care with Dr. Frazier as the attending physician. Time: 14:15 Administered Medications Discontinued Medications Albuterol (Duoneb) 3 ml NEB NOW STA Stop: 05/18/19 12:59 Last Admin: 05/18/19 13:10 Dose: 3 ml Documented by: [id number] Furosemide (Lasix) 20 mg IV NOW STA Stop: 05/18/19 14:05 Last Admin: 05/18/19 14:25 Dose: 20 mg Documented by: [id number] Furosemide (Lasix) 40 mg IV NOW STA Stop: 05/18/19 14:51 Last Admin: 05/18/19 16:45 Dose: Not Given Documented by: [id number] Furosemide 20 mg/ Syringe 2 mls @ 4 mls/min IV ONE ONE Stop: 05/18/19 20:01 Last Admin: 05/18/19 20:08 Dose: 4 mls/min Documented by: [id number] Furosemide 20 mg/ Syringe 2 mls @ 4 mls/min IV ONE ONE Stop: 05/18/19 16:51 Last Admin: 05/18/19 17:00 Dose: 4 mls/min Documented by: [id number] Potassium Chloride (Klor-Con M20) 40 meq PO NOW STA Stop: 05/18/19 14:05 Last Admin: 05/18/19 14:26 Dose: 40 meq Documented by: [id number] Potassium Chloride (Klor-Con M20) 40 meq PO NOW STA Stop: 05/18/19 15:42 Last Admin: 05/18/19 16:11 Dose: 40 meq Documented by: [id number] Medical Decision Making Differential Diagnosis Differential diagnosis: Etiologies such as infections, reactive airway disease, pneumonia, pneumothorax, COPD, CHF, cardiac ischemia, pulmonary embolism, musculoskeletal, gastrointestinal, as well as others were entertained. Medical Records Attestation: I reviewed the patient's medical records. Home Medications Current Medication List: was personally reviewed by me Laboratory Data Attestation: I reviewed the patient's lab results. Result diagrams: 05/18/19 12:51 05/18/19 12:51 Lab Results 05/18/19 05/18/19 05/18/19 Range/Units 12:51 12:51 12:51 WBC 8.77 (4.8-10.8) K/uL RBC 3.22 L (4.2-5.4) M/uL Hgb 10.7 L (12.0-16.0) g/dL Hct 32.2 L (37-47) % MCV 100.0 (80-100) fL MCH 33.2 (25-34) pg MCHC 33.2 (32-36) g/dL RDW Std Deviation 56.4 H (36.4-46.3) fL RDW Coeff of Nicanor 15.7 H (11.5-14.5) % Plt Count 265 (130-400) K/uL MPV 10.0 (7.4-10.4) fL Immature Gran % (Auto) 0.5 % Neut % (Auto) 65.9 % Lymph % (Auto) 20.4 % [place] % (Auto) 9.8 % Eos % (Auto) 3.2 % Baso % (Auto) 0.2 % Immature Gran # (Auto) 0.04 H (0.00-0.02) K/uL Neut # (Auto) 5.78 (1.4-6.5) K/uL Lymph # (Auto) 1.79 (1.2-3.4) K/uL [place] # (Auto) 0.86 H (0.11-0.59) K/uL Eos # (Auto) 0.28 (0-0.5) K/uL Baso # (Auto) 0.02 (0-0.2) K/uL VBG pH 7.47 H (7.36-7.41) VBG pCO2 44 (38-50) mmHg VBG pO2 31 mmHg VBG HCO3 31 mmol/L VBG O2 Saturation < 60.0 % VBG Base Excess 6.5 mEq/L Barometric Pressure 734.8 mm/Hg Sodium 140 (136-145) mmol/L Potassium 3.1 L (3.5-5.1) mmol/L Chloride 102 (98-107) mmol/L Carbon Dioxide 29 (21-32) mmol/L Anion Gap 9.0 (3-11) BUN 13 (7-18) mg/dl Creatinine 0.89 (0.6-1.2) mg/dl Est Cr Clr Drug Dosing 45.6 ml/min Est GFR ( Amer) 75.0 Est GFR (Non-Af Amer) 64.7 BUN/Creatinine Ratio 14.5 (10-20) Glucose 96 (70-99) mg/dl Calcium 9.1 (8.5-10.1) mg/dl Phosphorus 3.4 (2.5-4.9) mg/dl Magnesium 1.9 (1.8-2.4) mg/dl Total Bilirubin 0.5 (0.2-1) mg/dl AST 23 (15-37) U/L ALT 19 (12-78) U/L Alkaline Phosphatase 92 (45-117) U/L Troponin I 0.046 H* (0-0.045) ng/ml NT-Pro-B Natriuret Pep 8560 H (0-900) pg/ml Total Protein 6.7 (6.4-8.2) gm/dl Albumin 3.1 L (3.4-5.0) gm/dl Globulin 3.6 (2.5-4.0) gm/dl Albumin/Globulin Ratio 0.9 (0.9-2) Lipase 93 (73-393) U/L Urine Color Urine Appearance (Clear) Urine pH (4.5-7.5) Ur Specific Willard (1.000-1.030) Urine Protein (Negative) Urine Glucose (UA) (Negative) Urine Ketones (Negative) Urine Blood (Negative) Urine Nitrite (Negative) Urine Bilirubin (Negative) Urine Urobilinogen (Negative) Ur Leukocyte Esterase (Negative) Urine WBC (Auto) (0-5) /hpf Urine RBC (Auto) (0-4) /hpf U Hyaline Cast (Auto) (0-5) /lpf U Epithel Cells (Auto) (0-5) /lpf Urine Bacteria (Auto) (Negative) 05/18/19 Range/Units 14:19 WBC (4.8-10.8) K/uL RBC (4.2-5.4) M/uL Hgb (12.0-16.0) g/dL Hct (37-47) % MCV (80-100) fL MCH (25-34) pg MCHC (32-36) g/dL RDW Std Deviation (36.4-46.3) fL RDW Coeff of Nicanor (11.5-14.5) % Plt Count (130-400) K/uL MPV (7.4-10.4) fL Immature Gran % (Auto) % Neut % (Auto) % Lymph % (Auto) % [place] % (Auto) % Eos % (Auto) % Baso % (Auto) % Immature Gran # (Auto) (0.00-0.02) K/uL Neut # (Auto) (1.4-6.5) K/uL Lymph # (Auto) (1.2-3.4) K/uL [place] # (Auto) (0.11-0.59) K/uL Eos # (Auto) (0-0.5) K/uL Baso # (Auto) (0-0.2) K/uL VBG pH (7.36-7.41) VBG pCO2 (38-50) mmHg VBG pO2 mmHg VBG HCO3 mmol/L VBG O2 Saturation % VBG Base Excess mEq/L Barometric Pressure mm/Hg Sodium (136-145) mmol/L Potassium (3.5-5.1) mmol/L Chloride (98-107) mmol/L Carbon Dioxide (21-32) mmol/L Anion Gap (3-11) BUN (7-18) mg/dl Creatinine (0.6-1.2) mg/dl Est Cr Clr Drug Dosing ml/min Est GFR ( Amer) Est GFR (Non-Af Amer) BUN/Creatinine Ratio (10-20) Glucose (70-99) mg/dl Calcium (8.5-10.1) mg/dl Phosphorus (2.5-4.9) mg/dl Magnesium (1.8-2.4) mg/dl Total Bilirubin (0.2-1) mg/dl AST (15-37) U/L ALT (12-78) U/L Alkaline Phosphatase (45-117) U/L Troponin I (0-0.045) ng/ml NT-Pro-B Natriuret Pep (0-900) pg/ml Total Protein (6.4-8.2) gm/dl Albumin (3.4-5.0) gm/dl Globulin (2.5-4.0) gm/dl Albumin/Globulin Ratio (0.9-2) Lipase (73-393) U/L Urine Color Yellow Urine Appearance Clear (Clear) Urine pH 6.5 (4.5-7.5) Ur Specific Willard 1.012 (1.000-1.030) Urine Protein Negative (Negative) Urine Glucose (UA) Negative (Negative) Urine Ketones Negative (Negative) Urine Blood Negative (Negative) Urine Nitrite Negative (Negative) Urine Bilirubin Negative (Negative) Urine Urobilinogen Negative (Negative) Ur Leukocyte Esterase 1+ H (Negative) Urine WBC (Auto) 10-30 H (0-5) /hpf Urine RBC (Auto) 0-4 (0-4) /hpf U Hyaline Cast (Auto) 1-5 (0-5) /lpf U Epithel Cells (Auto) 0-5 (0-5) /lpf Urine Bacteria (Auto) Negative (Negative) Imaging Data Radiologist's Impression: Radiology results as stated below per my review and the radiologist's interpretation: XR chest 1V portable CLINICAL HISTORY: 73 years-old Female presenting with Chest Pain. TECHNIQUE: Portable upright AP view of the chest was obtained. COMPARISON: 05/11/2019. FINDINGS: Atherosclerosis of the aortic arch. Prominence of the superior mediastinal contour is unchanged from prior. Cardiac silhouette enlarged. Diffuse bilateral pulmonary opacities with coarsened underlying lung markings and suspected bronchial wall thickening. Density of opacities greatest at the lung bases. No large effusion or pneumothorax. Degenerative changes of the thoracic spine. Posttraumatic and secondary degenerative changes of the right humerus and g lenohumeral joint. Upper abdomen normal. IMPRESSION: 1. Redemonstration of diffuse pulmonary infiltrates on a background of chronic lung disease. This is consistent with multifocal pneumonia or edema superimposed on fibrotic change. The appearance is similar to prior. 2. Cardiomegaly. Electronically signed by: Az Reaves M.D. 05/18/2019 12:46 PM ECG Data Attestation: I personally reviewed and interpreted this ECG as follows: Indication: SOB/dyspnea Rate (beats per minute): 82 Rhythm: normal sinus Findings: + other (non-specific t-wave abnormalites, LVH); no ST depression, no ST elevation and no acute ischemic change Comparison ECG Date: from (05/10/19) Change: no significant change Blood Pressure Blood Pressure Findings: Normal blood pressure MDM Narrative The patient is a pleasant 73-year-old woman with a past medical history of interstitial lung disease, diastolic heart failure, chronic respiratory failure who presents emergency department with worsening shortness of breath found to be hypoxic by home health providers in the 80s on her home 3 L nasal cannula per hpi. On arrival the patient is chronically ill-appearing but no acute distress, afebrile with hypoxia to 80% on 4 L nasal cannula saturating in the low 90s on 5 L nasal cannula. She has diminished breath sounds at the bases with scant intermittent wheeze. EKG without overt acute ischemia. Chest x-ray demonstrates diffuse pulmonary infiltrates on a background of chronic lung disease which are most likely related to pulmonary edema given the patient is afebrile without leukocytosis. Additionally her BNP is up to 8500 from 3500 last week. Troponin is slightly elevated at 0.046 which is slightly elevated from patient's admission though similar to slight elevation on that admission. WBC within normal limits. H/H 10.7/32.2 similar to prior range of values and likely related to component of hemodilution in the setting of patient's volume overload. Platelets within normal limits. VBG is unremarkable. Chemistry without acidosis. Potassium 3.1. Electrolytes and LFTs otherwise unremarkable. UA pending. Patient was ordered for dose of IV Lasix. Given the patient's worsening volume overload with associated hypoxia is reasonable to admit the patient for further management as unlikely to be able to catch up with treatment at home. Moreover family expresses preference to be placed following their admission as they feel the patient is too weak to rehabilitate at home. Upon her last discharge the patient prefer to trial management at home but now is agreeable for placement. Case was discussed with Dwight Pichardo, who evaluate the patient for admission. Impression & Plan Hypoxia, CHF (congestive heart failure), Volume overload Discharge Plan Visit Data *Final* Discharge Date/Time: 05/18/19 16:11 Chief Complaint: Shortness of Breath/Dyspnea Stated Complaint: sob ED Provider: Geovani Haywood Discharge Problem: Hypoxia, CHF (congestive heart failure), Volume overload Patient Disposition: Admitted As Inpatient Discharge Instructions Interventions: ED Discharge Assessment Last Done: 05/18/19 16:11 Discharge Problem: CHF (congestive heart failure) Qualifiers: Heart failure type: unspecified Heart failure chronicity: unspecified Qualified Code(s): I50.9 - Heart failure, unspecified Volume overload Qualifiers: Hypervolemia type: unspecified Qualified Code(s): E87.70 - Fluid overload, unspecified The scribe's documentation has been prepared under my direction and personally reviewed by me in its entirety. I confirm that the note above accurately reflects all work, treatment, procedures, and medical decision making performed by me.
[2019-05-18] MEDS: HEPARIN SOD 5,000 UNIT/0.5 ML VIAL SQ SCH (20:55)
[2019-05-18] MEDS: SIMVASTATIN 10 MG TAB PO SCH (20:55)
[2019-05-19 00:47] LABS: Basophils # (auto) 0.03 K/uL (0-0.2); Basophils % (auto) 0.3 %; Eosinophils # (auto) 0.29 K/uL (0-0.5); Eosinophils % (auto) 3.2 %; Hematocrit (blood only) 35.7 % (37-47); Hemoglobin 11.7 g/dL (12.0-16.0); Immature Granulocytes # (auto) 0.04 K/uL (0.00-0.02); Immature Granulocytes % (auto) 0.4 %; Lymphocytes # (auto) 1.43 K/uL (1.2-3.4); Mean Corpuscular Hemoglobin 32.9 pg (25-34); Mean Corpuscular Hgb Conc 32.8 g/dL (32-36); Mean Corpuscular Volume 100.3 fL (80-100); Mean Platelet Volume 9.5 fL (7.4-10.4); Monocytes # (auto) 0.92 K/uL (0.11-0.59); Monocytes % (auto) 10.3 %; Neutrophils # (auto) 6.24 K/uL (1.4-6.5); Neutrophils % (auto) 69.8 %; Platelet Count 242 K/uL (130-400); RDW Coefficient of Variation 15.5 % (11.5-14.5); RDW Standard Deviation 56.6 fL (36.4-46.3); Red Blood Count 3.56 M/uL (4.2-5.4); White Blood Count 8.95 K/uL (4.8-10.8)
[2019-05-19 01:05] LABS: Albumin Level 3.3 gm/dl (3.4-5.0); BUN Creatinine Ratio 10.3 (10-20); Calcium 8.7 mg/dl (8.5-10.1); Creatinine Clr Calc Pharmacy 36.2 ml/min; Est GFR (African American) 56.8; Potassium 3.4 mmol/L (3.5-5.1)
[2019-05-19 01:10] LABS: Albumin Globulin Ratio 0.9 (0.9-2); Bilirubin,Total 0.5 mg/dl (0.2-1); Globulin 3.7 gm/dl (2.5-4.0); Troponin I 0.027 ng/ml (0-0.045)
[2019-05-19] MEDS: HEPARIN SOD 5,000 UNIT/0.5 ML VIAL SQ SCH ×2 (07:41→20:09)
[2019-05-19] MEDS: FUROSEMIDE 40 MG in SYRINGE 0 ML IV SCH ×2 (07:43→16:39)
[2019-05-19] MEDS: MIRTAZAPINE TAB 15 MG TAB PO SCH (07:43)
[2019-05-19] MEDS: ASPIRIN 81 MG ECTAB PO SCH (07:43)
[2019-05-19] MEDS: POTASSIUM CHLORIDE 20 MEQ TABCR PO SCH (07:43)
[2019-05-19] MEDS: SERTRALINE HCL 100 MG TABLET PO SCH (07:43)
[2019-05-19] MEDS: METOPROLOL SUCC 50MG EXT REL TAB PO SCH (07:43)
[2019-05-19] MEDS ORDERED: POTASSIUM CHLORIDE 20 MEQ TABCR PO STA (09:11)
--- NOTE | 2019-05-19 09:11 | Hospitalist Progress Note ---
Date of Service May 19, 2019 Assessment & Plan (1) CHF (congestive heart failure): Acute diastolic congestive heart failure -patient had shortness of breath and fluid retention on last hospital and received increased Lasix and recent echocardiogram with normal ejection fraction -was discharged back on home dose Lasix 20 mg daily to avoid renal issues -have questioned patient's medical adherence to Lasix at home which is given by patient's family member but they insist that they were following directions; recent oxygen requirements of 6 liters/minute which is different from original baseline of 4 liters/minute -patient was given IV Lasix on 05/18/19 admission, continue Lasix IV as 40 mg BID for now -once pulmonary edema resolves and oxygen use back to baseline then will likely need 20 mg oral Lasix BID -continue home aspirin, metoprolol, on simvastatin 10 mg daily to minimize muscle cramps -will remove kaplan to prevent risk of urinary tract infection (2) Elevated troponin: -did report of feeling chest pressure when with EMS -EKG on ED presentation appears nonischemic -initial troponin mildly elevated 0.046, and then next 2 sets of troponins are normal, on telemetry -mildly elevated troponins may be from demand ischemia due to increased work of breathing from pulmonary edema -on admission day had discussed with patient and patient's family members that the likely diagnosis is congestive heart failure exacerbation. In the event that patient has heart attack (myocardial infarction), the patient and family member would not want to have cardiac catheterization and prefers only medical management (3) Acute and chronic respiratory failure: -exacerbation secondary to Acute diastolic congestive heart failure -baseline has with unspecified interstitial lung disease that pulmonary service does not advise further treatment in the last hospitalization -baseline of chronic respiratory failure with hypoxia and baseline oxygen use is 4 liters/min -diuresis with IV lasix to get patent tor return to baseline oxygen use by reducing pulmonary edema (4) Hypokalemia: -admission serum potassium 3.1 -was given potassium supplements while on increased diuretics -serum potassium 3.4 on 05/19/19 and will give oral potassium -target serum potassium level of 3.5 to 4 (5) Dementia: history of dementia with behavior disturbances -was treated for dementia with behavioral disturbances on last presentation -appears more calm and oriented on this hospital presentation -continue home dose sertraline and mirtazapine DVT prophylaxis: heparin subc q12 hours PT/OT Case management: again family requesting case management efforts to help have patient placed in to nursing facility after hospital stay Code Status Discussed with patient and patient's family members and they affirmed that the code status is Do Not Resuscitate/Do NOT INTUBATE. Discussed with patient and patient's family members that the likely diagnosis is congestive heart failure exacerbation. In the event that patient has heart attack (myocardial infarction), the patient and family member would not want to have cardiac catheterization and prefers only medical management James Malone () contact number [phone] Daughter Arabella [phone] Son [phone] Subjective Overnight, patient needed oxymask. currently nasal cannula at 6 liters/minute. she will be due for the IV Lasix this AM. Patient does not appear to be in respiratory distress. She appears comfortable. Her mental status is good today. she knows she is in [facility]. she reports her gives her home medications at home. cooperative on exam and no agitation. denies other pain elsewhere or other symptoms. has kaplan Physical Exam Constitutional: cooperative Eyes: PERRL, conjunctivae normal, anicteric sclerae EOM intact bilaterally ENMT: external ear and nose normal, oropharynx normal Neck: normal visual inspection Respiratory: Auscultation: + crackles Cardiovascular: Rate/Rhythm: regular rate and regular rhythm Gastrointestinal (Abdomen): normal bowel sounds, soft, nontender, no hepatosplenomegaly Musculoskeletal: Head/Neck/Chest: normocephalic and head atraumatic Neurologic: PERRL, EOMI, accommodation nl, no face palsy, no dysarthria CN's II-XI intact bilaterally Psychiatric: Orientation: alert, oriented to person, oriented to place and cooperative Genitourinary: has kaplan Results & Data Vital Signs (Past 12 Hours) Vital Signs Temp Pulse Pulse Resp BP BP Pulse Ox 05/19/19 07:40 20 95 05/19/19 07:28 36.5 C 60 30 H 143/83 H 88 L 05/19/19 04:59 36.5 C 89 20 127/78 94 05/19/19 00:00 81 05/18/19 22:59 36.9 C 86 22 107/71 96 (1) CHF (congestive heart failure) Heart failure chronicity: unspecified Heart failure type: unspecified Qualified Code(s): I50.9 - Heart failure, unspecified
[2019-05-19] MEDS: SIMVASTATIN 10 MG TAB PO SCH (20:09)
--- NOTE | 2019-05-20 03:47 | Consultation Report ---
DATE OF CONSULTATION: 05/19/2019 REASON FOR CONSULTATION: Acute on chronic hypoxic respiratory failure. 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 The patient has been admitted with acute on chronic respiratory failure with significant hypoxemia requiring higher O2 supplementation or increased O2 supplementation in the recent past. There has been questionable element of diastolic heart failure and the patient was requiring 6 liters of oxygen. She has been seen by Dr. Junior from a pulmonary standpoint in the recent past as well. Fortunately, the patient would never have tolerated an open lung video-assisted thorascopic biopsy and although there were atypical features for UIP/IPF with her interstitial lung disease, we could not get tissue confirmation or diagnosis. At one point, she was started on perfenidone empirically, but did not tolerate even low dosing and high-dose steroid therapy as well. She also has pulmonary hypertension secondary to valvular heart disease, probable diastolic dysfunction and underlying structural lung disease, WHO class 2 and 3. There was no indication for further evaluation and she is just clinically deteriorated. I have been asked to see the patient in consultation. For details of past medical history, medications, family and social history, refer to current and past record. PHYSICAL EXAMINATION: GENERAL: Well-developed, well-nourished, friendly, elderly white female, appearing stable at rest and oriented and conversant. VITAL SIGNS: Current blood pressure 112/72, pulse 90 and regular, respiratory rate 28, temperature 37.2, O2 sat 94% on 8 liters, OxyMask. SKIN: Without lesion. HEENT: Atraumatic, normocephalic. PERRLA. LUNGS: Coarse Velcro rales bilaterally with no audible wheezes. CARDIAC: Regular rate and rhythm. I do not appreciate an S3. ABDOMEN: Soft, protuberant. EXTREMITIES: Trace pedal edema. No clubbing or peripheral cyanosis. NEUROLOGICAL: Intact. No lateralizing signs. LABORATORY DATA: Echo done on 05/11/2019 shows normal LVEF with a dilated right ventricle and pulmonary hypertension, estimated at 60 mmHg. White count 8900, H&H 11.7 and 35.7 with macrocytic indices. Most recent ABG, venous gas pH 7.47, pCO2 of 44, pO2 of 31, albumin 3.3, BUN 12, creatinine 1.1. Her connective tissue workup has been uniformly negative. Chest x-ray from admission shows redemonstration of diffuse pulmonary infiltrates/chronic lung disease, cannot rule out superimposed edema on fibrotic changes. EKG on admission showed normal sinus rhythm with T-wave inversion suggesting possible ischemia in the lateral precordial leads. OVERALL ASSESSMENT: A 73-year-old with progressive interstitial lung disease, presumably UIP/IPF with atypical features, but without tissue confirmation and with moderate to severe pulmonary hypertension, admitted with confusional status and worsening hypoxemia with increased O2 supplementation requirements. I was able to talk with Dr. Frazier prior to the consultation and at this point, I think it has become clear that the patient not only needs to receive palliative care, but a hospice consultation. I did not broach the subject with the patient this evening, but would be happy to talk with family members tomorrow and have a family discussion at bedside as I believe it is fruitless to continue to treat her underlying disease at end stage and at this point showing little evidence of reversibility. GUANAKITO
[2019-05-20 06:25] LABS: Basophils # (auto) 0.02 K/uL (0-0.2); Basophils % (auto) 0.2 %; Eosinophils # (auto) 0.49 K/uL (0-0.5); Eosinophils % (auto) 4.3 %; Hematocrit (blood only) 38.8 % (37-47); Hemoglobin 12.8 g/dL (12.0-16.0); Immature Granulocytes # (auto) 0.05 K/uL (0.00-0.02); Immature Granulocytes % (auto) 0.4 %; Lymphocytes # (auto) 2.88 K/uL (1.2-3.4); Lymphocytes % (auto) 25.6 %; Mean Platelet Volume 10.2 fL (7.4-10.4); Monocytes # (auto) 1.21 K/uL (0.11-0.59); Monocytes % (auto) 10.7 %; Neutrophils # (auto) 6.62 K/uL (1.4-6.5); Neutrophils % (auto) 58.8 %; Platelet Count 340 K/uL (130-400); RDW Coefficient of Variation 15.4 % (11.5-14.5); RDW Standard Deviation 55.8 fL (36.4-46.3); Red Blood Count 3.88 M/uL (4.2-5.4); White Blood Count 11.27 K/uL (4.8-10.8)
[2019-05-20 07:09] LABS: Albumin Globulin Ratio 0.8 (0.9-2); Albumin Level 3.3 gm/dl (3.4-5.0); BUN Creatinine Ratio 12.7 (10-20); Bilirubin,Total 0.5 mg/dl (0.2-1); Calcium 9.8 mg/dl (8.5-10.1); Est GFR (African American) 67.6; Est GFR (Non-African American) 58.3; Globulin 4.1 gm/dl (2.5-4.0); Total Protein 7.4 gm/dl (6.4-8.2)
[2019-05-20] MEDS: MIRTAZAPINE TAB 15 MG TAB PO SCH (07:33)
[2019-05-20] MEDS: ASPIRIN 81 MG ECTAB PO SCH (07:33)
[2019-05-20] MEDS: SERTRALINE HCL 100 MG TABLET PO SCH (07:33)
[2019-05-20] MEDS: HEPARIN SOD 5,000 UNIT/0.5 ML VIAL SQ SCH ×2 (07:34→21:04)
[2019-05-20] MEDS: POTASSIUM CHLORIDE 20 MEQ TABCR PO SCH (07:34)
[2019-05-20] MEDS: METOPROLOL SUCC 50MG EXT REL TAB PO SCH (07:35)
[2019-05-20] MEDS: FUROSEMIDE 40 MG in SYRINGE 0 ML IV SCH ×2 (07:40→17:59)
--- NOTE | 2019-05-20 09:59 | XRay Report ---
XR chest 2V routine CLINICAL HISTORY: 73 years-old Female presenting with follow infiltrate.lung bases are areas of inter est. TECHNIQUE: Portable upright AP view of the chest was obtained. COMPARISON: 05/18/2019. FINDINGS: Atherosclerosis of the aortic arch. Cardiac silhouette enlarged. Diffuse added density of the lungs w ith reticular opacities bilaterally. Slightly improved aeration of the lungs. No new focal opacity. N o large effusion or pneumothorax. Degenerative changes of the thoracic spine. Posttraumatic deformity of the right humerus. Upper abdomen normal. IMPRESSION: 1. Slightly improved aeration with persistent diffuse bilateral pulmonary infiltrates likely on a ba ckground of chronic lung disease. Much of these infiltrates are chronic. 2. Cardiomegaly. Electronically signed by: Az Reaves M.D. 05/20/2019 9:58 AM
--- NOTE | 2019-05-20 13:27 | Hospitalist Progress Note ---
Date of Service May 20, 2019 Assessment & Plan (1) CHF (congestive heart failure): Acute diastolic congestive heart failure -patient had shortness of breath and fluid retention on last hospital and received increased Lasix and recent echocardiogram with normal ejection fraction -was discharged back on home dose Lasix 20 mg daily to avoid renal issues -have questioned patient's medical adherence to Lasix at home which is given by patient's family member but they insist that they were following directions; recent oxygen requirements of 6 liters/minute which is different from original baseline of 4 liters/minute -patient was given IV Lasix on 05/18/19 admission, continue Lasix IV as 40 mg BID for now -continue home aspirin, metoprolol, on simvastatin 10 mg daily to minimize muscle cramps -continue Lasix IV BID (2) Elevated troponin: -did report of feeling chest pressure when with EMS -EKG on ED presentation appears nonischemic -initial troponin mildly elevated 0.046, and then next 2 sets of troponins are normal, on telemetry -mildly elevated troponins may be from demand ischemia due to increased work of breathing from pulmonary edema -on admission day had discussed with patient and patient's family members that the likely diagnosis is congestive heart failure exacerbation. In the event that patient has heart attack (myocardial infarction), the patient and family member would not want to have cardiac catheterization and prefers only medical management (3) Acute and chronic respiratory failure: -exacerbation secondary to Acute diastolic congestive heart failure -baseline has with unspecified interstitial lung disease that pulmonary service does not advise further treatment in the last hospitalization -baseline of chronic respiratory failure with hypoxia and baseline oxygen use is 4 liters/min -diuresis with IV lasix to get patent tor return to baseline oxygen use by reducing pulmonary edema -05/20/19: Patient with crackles more prominent in lower lung doss. Continues to be above baseline home oxygen requirements. Patient mental baseline is calm and cooperative and answering questions appropriately. Her daughter at bedside. They understand that patient has still needed more than usual amount of oxygen despite IV Lasix therapy. Sometimes patient uses accessory muscles at rest. 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 and that if more issues with breathing then they will return patient in hospital. Patient would like to continue the Lasix treatment in the hospital at this time. She is aware that she has been told in the past that the interstitial lung disease is refractory to steroids and that this may also be contributing to higher oxygen requirements. She does not wish for second pulmonary opinion. 2 view Chest X ray 05/20/19 1. Slightly improved aeration with persistent diffuse bilateral pulmonary infiltrates likely on a background of chronic lung disease. Much of these infiltrates are chronic. 2. Cardiomegaly. 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 Discussed with patient and patient's family members that the likely diagnosis is congestive heart failure exacerbation. In the event that patient has heart attack (myocardial infar ction), the patient and family member would not want to have cardiac catheterization and prefers only medical management James Malone () contact number [phone] Daughter Arabella [phone] Son [phone] Subjective Patient with crackles more prominent in lower lung doss. Continues to be above baseline home oxygen requirements. Patient mental baseline is calm and cooperative and answering questions appropriately. Her daughter at bedside. They understand that patient has still needed more than usual amount of oxygen despite IV Lasix therapy. Sometimes patient uses accessory muscles at rest. Patient and family halfway wants to seek intermediate facility after hospital stay. and that if more issues with breathing then they will return patient in hospital. Patient would like to continue the Lasix treatment in the hospital at this time. She is aware that she has been told in the past that the interstitial lung disease is refractory to steroids and that this may also be contributing to higher oxygen requirements. She does not wish for second pulmonary opinion. patient denies other symptoms, no chest pain, no abdomen pain. no vomiting today. ate the meals Physical Exam Constitutional: cooperative Eyes: PERRL, conjunctivae normal, anicteric sclerae EOM intact bilaterally ENMT: external ear and nose normal, oropharynx normal Neck: normal visual inspection Respiratory: Auscultation: + crackles Cardiovascular: Rate/Rhythm: regular rate and regular rhythm Gastrointestinal (Abdomen): normal bowel sounds, soft, nontender, no hepatosplenomegaly Musculoskeletal: Head/Neck/Chest: normocephalic and head atraumatic Neurologic: PERRL, EOMI, accommodation nl, no face palsy, no dysarthria CN's II-XI intact bilaterally Psychiatric: Orientation: alert, oriented to person, oriented to place and cooperative Results & Data Vital Signs (Past 12 Hours) Vital Signs Temp Pulse Pulse Resp BP BP Pulse Ox 05/20/19 11:22 36.3 C L 80 17 117/77 91 05/20/19 11:11 36.8 C 78 20 104/69 95 05/20/19 07:58 36.8 C 83 18 106/70 99 05/20/19 07:48 83 05/20/19 07:25 36.8 C 80 18 110/71 98 05/20/19 04:04 36.9 C 79 22 100/66 90 05/20/19 01:30 20 92 (1) CHF (congestive heart failure) Heart failure chronicity: unspecified Heart failure type: unspecified Qualified Code(s): I50.9 - Heart failure, unspecified
[2019-05-20] MEDS: AMPICILLIN 1,000 MG in SODIUM CHLOR 0.9% AD-VAN 50 ML IV SCH ×2 (14:27→21:03)
[2019-05-20 14:38] LABS: Appearance Urine Clear (Clear); Bacteria Urine Automated Negative (Negative); Bilirubin Urine Negative (Negative); Blood Urine Negative (Negative); Color Urine Yellow; Epithelial Cell Urine Auto 20-30 /lpf (0-5); Glucose Urine UA Negative (Negative); Ketones Urine Negative (Negative); Leukocyte Esterase Urine Trace (Negative); Nitrite Urine Negative (Negative); Protein Urine Negative (Negative); RBC Urine Automated 0-4 /hpf (0-4); Specific Gravity Urine 1.013 (1.000-1.030); Urobilinogen Urine Negative (Negative)
--- NOTE | 2019-05-20 16:48 | Pulmonology Progress Note ---
Date of Service May 20, 2019 Assessment & Plan (1) Hypoxia: (2) CHF (congestive heart failure): Heart failure chronicity: unspecified Heart failure type: unspecified Qualified Code(s): I50.9 - Heart failure, unspecified (3) Acute on chronic respiratory failure with hypoxemia: I had a lengthy discussion with patient's daughter and the patient herself. They fully understand that there is no adequate treatment for her underlying lung disease. Coupled with severe pulmonary hypertension she has a very poor 6 month prognosis. They have accepted that. The question about disposition came up and although the patient would like to be home with hospice care they are concerned about her 's dementia and his behavior around her. They claim he is extremely selfish and self absorbed and will not leave her alone and actually became quite angry when she had to be hospitalized recently. That may be reason enough to seek placement at a nursing facility but I would place a consultation in for hospice care as that still remains a possibility for discharge to home if the social issues can be ameliorated. (4) Acute diastolic heart failure: (5) Dementia: (6) Confusion: (7) Pulmonary hypertension: (8) Lung disease, interstitial: (9) History of coronary artery stent placement: Subjective 73-year-old white female with severe pulmonary hypertension and poorly defined interstitial lung disease probably UIP/IPF with progressive disease and markedly increased O2 requirements over the past several months. Patient was intolerant to perfenidone and high-dose steroids probably contributed to her sensorial changes. Today I met with her daughter Arabella Guerrero and the patient to discuss her clinical situation. Unfortunately there is no further treatment that I can think of that would benefit this patient and not prove too toxic. The patient has already understood this fact and accepted it. One of the reasons they wish to consider a SNF unit or nursing facility has to do with her . He has some underlying dementia and a very poor understanding of the end-stage nature of her disease. We discussed a hospice consultation but the patient's daughter is concerned about her going home and being around her who' will not leave her alone'and that environment would be very stressful. I did not know this before I had discussion with them today. I think hospice consultation would be helpful however in case placement proved to be difficult. I certainly would stressed the fact the patient has demonstrated acute on chronic hypoxemic respiratory failure and although she is adequately saturated on current O2 supplementation her prognosis remains quite poor. There may be an element of diastolic heart failure so I agree with diuresis but do not believe that is a significant contributing factor. Review of Systems Constitutional: no problem reported Eyes: no problem reported Ear, Nose, Mouth, Throat: no problem reported Respiratory: no problem reported Cardiovascular: no problem reported Gastrointestinal: no problem reported Genitourinary: no problem reported Musculoskeletal: no problem reported Integumentary: no problem reported Neurologic: no problem reported Psychiatric: no problem reported Endocrine: no problem reported Hematologic / Lymphatic: no problem reported Allergy / Immunological: no problem reported Physical Exam Constitutional: well developed and well nourished; no acute distress Eyes: PERRL, conjunctivae normal, anicteric sclerae ENMT: external ear and nose normal, oropharynx normal Neck: trachea midline, no thyromegaly Respiratory: normal respiratory effort Auscultation: lungs clear to auscultation bilaterally and + rales (Bibasilar) Cardiovascular: RRR, no murmur, no edema Palpation: normal PMI; no thrill Gastrointestinal (Abdomen): normal bowel sounds, soft, nontender, no hepatosplenomegaly Musculoskeletal: no cyanosis or clubbing, extremities motor strength 5/5 Gait: normal gait Skin: no rashes, warm and dry Neurologic: PERRL, EOMI, accommodation nl, no face palsy, no dysarthria Psychiatric: A+Ox3, euthymic affect Lymphatic: no cervical or axillary lymphadenopathy Results & Data Vital Signs (Past 12 Hours) Vital Signs Temp Pulse Pulse Resp BP BP Pulse Ox 05/20/19 16:26 87 05/20/19 15:35 36.9 C 82 20 109/69 96 05/20/19 11:22 36.3 C L 80 17 117/77 91 05/20/19 11:11 36.8 C 78 20 104/69 95 05/20/19 07:58 36.8 C 83 18 106/70 99 05/20/19 07:48 83 05/20/19 07:25 36.8 C 80 18 110/71 98 PG Care Time/CCT Total # of Minutes Spent Total Time Spent with Patient: Total time spent is greater than 50% in coordination of care (as documented) at patient's floor/unit and/or counseling patient:
[2019-05-20] MEDS: SIMVASTATIN 10 MG TAB PO SCH (21:05)
[2019-05-21] MEDS: AMPICILLIN 1,000 MG in SODIUM CHLOR 0.9% AD-VAN 50 ML IV SCH ×4 (01:50→20:23)
[2019-05-21 06:23] LABS: Basophils # (auto) 0.03 K/uL (0-0.2); Basophils % (auto) 0.4 %; Eosinophils # (auto) 0.42 K/uL (0-0.5); Eosinophils % (auto) 5.5 %; Hematocrit (blood only) 36.8 % (37-47); Hemoglobin 12.2 g/dL (12.0-16.0); Immature Granulocytes # (auto) 0.04 K/uL (0.00-0.02); Immature Granulocytes % (auto) 0.5 %; Lymphocytes # (auto) 1.54 K/uL (1.2-3.4); Lymphocytes % (auto) 20.2 %; Mean Corpuscular Hgb Conc 33.2 g/dL (32-36); Mean Corpuscular Volume 99.5 fL (80-100); Mean Platelet Volume 10.2 fL (7.4-10.4); Monocytes # (auto) 0.88 K/uL (0.11-0.59); Monocytes % (auto) 11.5 %; Neutrophils # (auto) 4.73 K/uL (1.4-6.5); Neutrophils % (auto) 61.9 %; Platelet Count 297 K/uL (130-400); RDW Coefficient of Variation 15.1 % (11.5-14.5); RDW Standard Deviation 54.4 fL (36.4-46.3); White Blood Count 7.64 K/uL (4.8-10.8)
[2019-05-21 06:51] LABS: Albumin Level 3.2 gm/dl (3.4-5.0); BUN Creatinine Ratio 17.4 (10-20); Calcium 9.9 mg/dl (8.5-10.1); Creatinine Clr Calc Pharmacy 40.5 ml/min; Est GFR (African American) 66.8; Est GFR (Non-African American) 57.6; Potassium 3.5 mmol/L (3.5-5.1)
[2019-05-21 06:54] LABS: Albumin Globulin Ratio 0.9 (0.9-2); Bilirubin,Total 0.4 mg/dl (0.2-1); Globulin 3.7 gm/dl (2.5-4.0); Total Protein 6.9 gm/dl (6.4-8.2)
[2019-05-21] MEDS: SERTRALINE HCL 100 MG TABLET PO SCH (08:09)
[2019-05-21] MEDS: ASPIRIN 81 MG ECTAB PO SCH (08:09)
[2019-05-21] MEDS: METOPROLOL SUCC 50MG EXT REL TAB PO SCH (08:09)
[2019-05-21] MEDS: MIRTAZAPINE TAB 15 MG TAB PO SCH (08:09)
[2019-05-21] MEDS: FUROSEMIDE 40 MG in SYRINGE 0 ML IV SCH ×2 (08:10→18:02)
[2019-05-21] MEDS: HEPARIN SOD 5,000 UNIT/0.5 ML VIAL SQ SCH ×2 (08:10→20:23)
[2019-05-21] MEDS: POTASSIUM CHLORIDE 20 MEQ TABCR PO SCH (08:10)
--- NOTE | 2019-05-21 15:19 | Hospitalist Progress Note ---
Date of Service May 21, 2019 Assessment & Plan (1) CHF (congestive heart failure): Acute diastolic congestive heart failure-continues on IV Lasix and is doing well. She is still requiring an increased amount of oxygen at 6L/min which may be her new baseline. Will continue to diurese (2) Acute and chronic respiratory failure: Secondary to acute diastolic congestive heart failure in the setting of an interstitial lung disease not amenable to further treatment per pulmonary. Her baseline oxygen needs are 4 L/min, however she is oxygenating 92% on 6 L/min and has significant desaturation events with minimal movement. Continue diuresis with IV Lasix as tolerated to optimize her. (3) Hypokalemia: Secondary to IV diuresis, continue potassium supplementation and trend BMP. (4) UTI (urinary tract infection): Secondary to E faecalis. Continue ampicillin (5) Depression: cont home sertraline (6) DVT prophylaxis: Heparin Full Dispo-uncertain at this time. Plan for SNF when optimized. Denise Birmingham DO [facility] Hospitalist Subjective significant desaturations with minimal movement. pt reports that she wants to go home as a goal, but that PT didn't go well. Denies pain or other symptoms at this time Doesn't want to be in bed all day., Daughter was updated. Review of Systems Review of Systems: All systems reviewed & are unremarkable except as noted in HPI & below Physical Exam Physical Exam: CONSTITUTIONAL: WNWD, vitals as above, generally well- appearing EYES: normal conjunctivae, no scleral icterus ENT: MMM RESPIRATORY: Bilateral crackles at bases that extend up to mid lung field bilaterally. No rales or wheezing throughout. Some difficulty recovering from recently moving around, otherwise no increased respiratory effort. Minimal conversational dyspnea on 6 L nasal cannula peer CARDIOVASCULAR: regular rate and rhythm, S1 and 2 heard without murmurs, gallops or rubs, no JVD, no peripheral edema GASTROINTESTINAL: normal bowel sounds, soft, nontender, nondistended MUSCULOSKELETAL: moves all extremities equally SKIN: warm and dry NEUROLOGIC: CN 2-12 grossly intact, normal cognition, no gross focal deficits PSYCHIATRIC: alert cooperative and oriented to person, place and time. Results & Data Vital Signs (Past 12 Hours) Vital Signs Temp Pulse Pulse Resp BP Pulse Ox 05/21/19 12:25 36.7 C 80 18 110/74 97 05/21/19 09:48 80 05/21/19 07:43 37.0 C 76 20 106/65 93 Laboratory Results Short CBC 05/21/19 Range/Units 05:50 WBC 7.64 (4.8-10.8) K/uL Hgb 12.2 (12.0-16.0) g/dL Hct 36.8 L (37-47) % Plt Count 297 (130-400) K/uL BMP 05/21/19 05:50 Sodium 140 Potassium 3.5 Chloride 100 Carbon Dioxide 32 BUN 17 Creatinine 0.98 Glucose 115 H Calcium 9.9 Liver Function 05/21/19 Range/Units 05:50 Total Bilirubin 0.4 (0.2-1) mg/dl AST 20 (15-37) U/L ALT 15 (12-78) U/L Alkaline Phosphatase 99 (45-117) U/L Albumin 3.2 L (3.4-5.0) gm/dl Medications Administered Current Inpatient Medications Aspirin (Ecotrin Ectab) 81 mg PO DAILY TOY Stop: 06/18/19 08:59 Last Admin: 05/21/19 08:09 Dose: 81 mg Documented by: Heparin Sodium (Porcine) (Heparin Sodium (Porcine)) 5,000 units SQ Q12 TOY Stop: 06/17/19 20:59 Last Admin: 05/21/19 08:10 Dose: 5,000 units Documented by: Furosemide 40 mg/ Syringe 4 mls @ 4 mls/min IV [id number] TOY Stop: 06/18/19 08:59 Last Admin: 05/21/19 08:10 Dose: 4 mls/min Documented by: Ampicillin Sodium 1,000 mg/ (Sodium Chloride) 50 mls @ 100 mls/hr IV Q6H TOY Stop: 05/25/19 13:59 Last Admin: 05/21/19 14:51 Dose: 100 mls/hr Documented by: Levalbuterol HCl (Xopenex 1.25mg/0.5ml Neb) 1.25 mg NEB Q6H PRN PRN Reason: shortness of breath or wheezing Stop: 06/17/19 15:14 Metoprolol Succinate (Toprol Xl) 50 mg PO DAILY TOY Stop: 06/18/19 08:59 Last Admin: 05/21/19 08:09 Dose: 50 mg Documented by: Mirtazapine (Remeron) 7.5 mg PO DAILY TOY Stop: 06/18/19 08:59 Last Admin: 05/21/19 08:09 Dose: 7.5 mg Documented by: Potassium Chloride (Klor-Con M20) 40 meq PO QAM TOY Stop: 06/18/19 08:59 Last Admin: 05/21/19 08:10 Dose: 40 meq Documented by: Sertraline HCl (Zoloft) 200 mg PO DAILY TOY Stop: 06/18/19 08:59 Last Admin: 05/21/19 08:09 Dose: 200 mg Documented by: Simvastatin (Zocor) 10 mg PO PM TOY Stop: 06/17/19 20:59 Last Admin: 05/20/19 21:05 Dose: 10 mg Documented by: (1) CHF (congestive heart failure) Heart failure chronicity: unspecified Heart failure type: unspecified Qualified Code(s): I50.9 - Heart failure, unspecified
[2019-05-21] MEDS: SIMVASTATIN 10 MG TAB PO SCH (20:23)
[2019-05-22] MEDS: AMPICILLIN 1,000 MG in SODIUM CHLOR 0.9% AD-VAN 50 ML IV SCH ×4 (01:49→19:34)
[2019-05-22 06:39] LABS: Hematocrit (blood only) 39.4 % (37-47); Mean Corpuscular Hemoglobin 32.1 pg (25-34); Mean Corpuscular Volume 97.3 fL (80-100); Platelet Count 304 K/uL (130-400); RDW Coefficient of Variation 14.9 % (11.5-14.5); RDW Standard Deviation 53.3 fL (36.4-46.3); Red Blood Count 4.05 M/uL (4.2-5.4); White Blood Count 9.55 K/uL (4.8-10.8)
[2019-05-22 07:08] LABS: BUN Creatinine Ratio 16.6 (10-20); Calcium 9.8 mg/dl (8.5-10.1); Creatinine Clr Calc Pharmacy 41.4 ml/min; Est GFR (African American) 68.5; Est GFR (Non-African American) 59.1; Potassium 3.3 mmol/L (3.5-5.1)
[2019-05-22] MEDS ORDERED: POTASSIUM CHLORIDE 20 MEQ TABCR PO ONE (08:00)
[2019-05-22] MEDS: FUROSEMIDE 40 MG in SYRINGE 0 ML IV SCH ×2 (09:07→16:29)
[2019-05-22] MEDS: ASPIRIN 81 MG ECTAB PO SCH (09:07)
[2019-05-22] MEDS: SERTRALINE HCL 100 MG TABLET PO SCH (09:07)
[2019-05-22] MEDS: METOPROLOL SUCC 50MG EXT REL TAB PO SCH (09:07)
[2019-05-22] MEDS: POTASSIUM CHLORIDE 20 MEQ TABCR PO SCH (09:08)
[2019-05-22] MEDS: MIRTAZAPINE TAB 15 MG TAB PO SCH (09:08)
[2019-05-22] MEDS: HEPARIN SOD 5,000 UNIT/0.5 ML VIAL SQ SCH ×2 (09:10→20:34)
[2019-05-22] MEDS: LETROZOLE 2.5 MG TAB PO SCH (14:45)
--- NOTE | 2019-05-22 15:53 | Hospitalist Progress Note ---
Date of Service May 22, 2019 Assessment & Plan (1) CHF (congestive heart failure): Acute diastolic congestive heart failure-continues on IV Lasix and is doing well. She is still requiring an increased amount of oxygen at 6L/min which may be her new baseline. Will continue to diurese today and track urine output with [place] in hopes that her hypoxia with ambulation will improve more so she can go to rehabilitation tomorrow. (2) Acute and chronic respiratory failure: Secondary to acute diastolic congestive heart failure in the setting of an interstitial lung disease not amenable to further treatment per pulmonary. Her baseline oxygen needs are 4 L/min, however she is oxygenating 92% on 6 L/min and has significant desaturation events with minimal movement. Continue diuresis with IV Lasix as tolerated to optimize her. (3) Hypokalemia: Secondary to IV diuresis, continue potassium supplementation and trend BMP. (4) UTI (urinary tract infection): Secondary to E faecalis. Continue ampicillin (5) Depression: cont home sertraline (6) DVT prophylaxis: Heparin Full Dispo-uncertain at this time. She needs to maintain an oxygen saturation of 88% or greater with ambulation in order to be discharged. Will discuss these goals further with Pulmonary so we can maximize quality of life while keeping her out of the hospital as much as possible. At this time she states that she would be OK with Hospice but doesn't want to . I have asked the nurses to help ambulate her as much as they are able, not only to help rehabilitate her but also to prove to her what she truly is capable of, and help her see her restrictions realistically so we can make good choices regarding treatment options and disposition. Denise Birmingham DO [facility]ist Subjective Patient states she wants to go home despite the fact that she desaturates with just standing and is a maximum assistance with ambulation. She reports having difficulties and run-ins with nursing staff overnight. This was discussed with nursing supervisor frame sample and pattern. We decided to make efforts to have her be more independent including no using bed bands in lieu of bedside commode if able, DC telemetry to eliminate some of the excess weight on her shoulders. I discussed the patient's desires with Arabella, who would be her main take away attendant at home and she agrees for mom going to [facility] when able. However, mom multiple desaturations with minimal movement preclude this transition currently. The patient denies any issues with breathing but admits she has significant dyspnea with exertion. Denies chest pain or other symptoms at this time. Review of Systems Review of Systems: All systems reviewed & are unremarkable except as noted in HPI & below Physical Exam Physical Exam: CONSTITUTIONAL: WNWD, vitals as above, generally well- appearing EYES: normal conjunctivae, no scleral icterus ENT: MMM RESPIRATORY: Crackles to bases bilaterally up to mid lung field, no wheezes or rales. Good air movement. No conversational dyspnea or increased respiratory effort noted. CARDIOVASCULAR: regular rate and rhythm, S1 and 2 heard without murmurs, gallops or rubs, no JVD, no peripheral edema GASTROINTESTINAL: normal bowel sounds, soft, nontender, nondistended MUSCULOSKELETAL: strength 5/5 throughout, head is normocephalic and atraumatic SKIN: warm and dry NEUROLOGIC: CN 2-12 grossly intact, normal cognition, no gross focal deficits. PSYCHIATRIC: alert cooperative and oriented to person, place and time. Results & Data Vital Signs (Past 12 Hours) Vital Signs Temp Pulse Pulse Resp BP BP Pulse Ox 05/22/19 15:26 36.5 C 85 18 128/81 92 05/22/19 07:48 83 05/22/19 07:00 36.4 C L 86 18 112/77 94 05/22/19 05:57 91 05/22/19 04:26 36.7 C 78 18 132/78 95 Laboratory Results Short CBC 05/22/19 Range/Units 06:19 WBC 9.55 (4.8-10.8) K/uL Hgb 13.0 (12.0-16.0) g/dL Hct 39.4 (37-47) % Plt Count 304 (130-400) K/uL BMP 05/22/19 06:19 Sodium 137 Potassium 3.3 L Chloride 97 L Carbon Dioxide 31 BUN 16 Creatinine 0.96 Glucose 107 H Calcium 9.8 Medications Administered Current Inpatient Medications Aspirin (Ecotrin Ectab) 81 mg PO DAILY TOY Stop: 06/18/19 08:59 Last Admin: 05/22/19 09:07 Dose: 81 mg Documented by: Heparin Sodium (Porcine) (Heparin Sodium (Porcine)) 5,000 units SQ Q12 TOY Stop: 06/17/19 20:59 Last Admin: 05/22/19 09:10 Dose: 5,000 units Documented by: Furosemide 40 mg/ Syringe 4 mls @ 4 mls/min IV [id number] TOY Stop: 06/18/19 08:59 Last Admin: 05/22/19 09:07 Dose: 4 mls/min Documented by: Ampicillin Sodium 1,000 mg/ (Sodium Chloride) 50 mls @ 100 mls/hr IV Q6H TOY Stop: 05/25/19 13:59 Last Infusion: 05/22/19 15:44 Dose: Infused Documented by: Letrozole (Femara) 2.5 mg PO DAILY TOY Stop: 06/21/19 09:04 Last Admin: 05/22/19 14:45 Dose: Not Given Documented by: Levalbuterol HCl (Xopenex 1.25mg/0.5ml Neb) 1.25 mg NEB Q6H PRN PRN Reason: shortness of breath or wheezing Stop: 06/17/19 15:14 Metoprolol Succinate (Toprol Xl) 50 mg PO DAILY TOY Stop: 06/18/19 08:59 Last Admin: 05/22/19 09:07 Dose: 50 mg Documented by: Mirtazapine (Remeron) 7.5 mg PO DAILY TOY Stop: 06/18/19 08:59 Last Admin: 05/22/19 09:08 Dose: 7.5 mg Documented by: Potassium Chloride (Klor-Con M20) 40 meq PO QAM TOY Stop: 06/18/19 08:59 Last Admin: 05/22/19 09:08 Dose: 40 meq Documented by: Sertraline HCl (Zoloft) 200 mg PO DAILY TOY Stop: 06/18/19 08:59 Last Admin: 05/22/19 09:07 Dose: 200 mg Documented by: Simvastatin (Zocor) 10 mg PO PM TOY Stop: 06/17/19 20:59 Last Admin: 05/21/19 20:23 Dose: 10 mg Documented by: (1) CHF (congestive heart failure) Heart failure chronicity: unspecified Heart failure type: unspecified Qualified Code(s): I50.9 - Heart failure, unspecified
[2019-05-22] MEDS: SIMVASTATIN 10 MG TAB PO SCH (20:33)
[2019-05-23] MEDS: AMPICILLIN 1,000 MG in SODIUM CHLOR 0.9% AD-VAN 50 ML IV SCH ×3 (02:14→15:29)
[2019-05-23] MEDS ORDERED: PROMETHAZINE HCL 12.5 MG in SODIUM CHLORIDE 0.9% 50 ML IV PRN (05:32)
[2019-05-23] MEDS ORDERED: POLYETHYLENE (MIRALAX) 17 GM PACK PO PRN (05:33)
[2019-05-23] MEDS ORDERED: DOCUSATE SODIUM/SENNA 50/8.6MG TAB PO SCH (05:35)
[2019-05-23] MEDS ORDERED: ALBUT/IPRATROP 3MG/0.5MG NEB 3 ML VIAL NEB STA (05:39)
[2019-05-23] MEDS ORDERED: FUROSEMIDE 40 MG in SYRINGE 0 ML IV SCH (05:45)
[2019-05-23 06:11] LABS: Basophils # (auto) 0.03 K/uL (0-0.2); Basophils % (auto) 0.4 %; Eosinophils # (auto) 0.45 K/uL (0-0.5); Eosinophils % (auto) 5.6 %; Hematocrit (blood only) 34.4 % (37-47); Hemoglobin 11.7 g/dL (12.0-16.0); Immature Granulocytes # (auto) 0.03 K/uL (0.00-0.02); Immature Granulocytes % (auto) 0.4 %; Lymphocytes # (auto) 1.56 K/uL (1.2-3.4); Lymphocytes % (auto) 19.5 %; Mean Corpuscular Hemoglobin 32.5 pg (25-34); Mean Corpuscular Volume 95.6 fL (80-100); Mean Platelet Volume 9.6 fL (7.4-10.4); Monocytes # (auto) 0.83 K/uL (0.11-0.59); Monocytes % (auto) 10.4 %; Neutrophils # (auto) 5.09 K/uL (1.4-6.5); Neutrophils % (auto) 63.7 %; Platelet Count 260 K/uL (130-400); RDW Coefficient of Variation 14.9 % (11.5-14.5); RDW Standard Deviation 51.9 fL (36.4-46.3); White Blood Count 7.99 K/uL (4.8-10.8)
[2019-05-23 06:16] LABS: Base Excess ABG 6.3 mEq/L (-9-1.8); HCO3 ABG 30 mmol/L (19-24); Oxygen Saturation ABG 95.8 % (90-95); PCO2 ABG 41 mmHg (35-46); PO2 ABG 78 mm/Hg (80-95); pH ABG 7.49 (7.35-7.45)
[2019-05-23 06:22] LABS: Allen Test Pos (Pos)
[2019-05-23 06:30] LABS: Albumin Level 3.1 gm/dl (3.4-5.0); BUN Creatinine Ratio 19.1 (10-20); Creatinine Clr Calc Pharmacy 53.3 ml/min; Est GFR (African American) 86.7; Est GFR (Non-African American) 74.8; Magnesium 1.7 mg/dl (1.8-2.4)
[2019-05-23 06:33] LABS: Albumin Globulin Ratio 0.9 (0.9-2); Bilirubin,Total 0.4 mg/dl (0.2-1); Globulin 3.6 gm/dl (2.5-4.0); Total Protein 6.7 gm/dl (6.4-8.2)
[2019-05-23] MEDS ORDERED: POTASSIUM CHLORIDE 10 MEQ TABCR PO ONE (07:15)
[2019-05-23] MEDS ORDERED: MAGNESIUM SULFATE / D5W 1 GM/100 ML BAG IV ONE ×2 (07:15→08:30)
--- NOTE | 2019-05-23 07:32 | XRay Report ---
XR chest 1V portable CLINICAL HISTORY: 73 years-old Female presenting with low o2. TECHNIQUE: Portable upright AP view of the chest was obtained. COMPARISON: 05/20/2019. FINDINGS: Atherosclerosis of the aortic arch. Cardiac silhouette enlarged. Persistent diffuse bilateral hazy op acity on a background of coarsened and reticular lung markings. Trace right pleural effusion may be p resent. No pneumothorax. Posttraumatic deformity of the right humerus. Upper abdomen normal. IMPRESSION: 1. No significant change from prior. Persistent diffuse bilateral pulmonary infiltrates on a backgro und of chronic lung disease. 2. Possible trace right pleural effusion. 3. Cardiomegaly. Electronically signed by: Az Reaves M.D. 05/23/2019 7:31 AM
[2019-05-23] MEDS: HEPARIN SOD 5,000 UNIT/0.5 ML VIAL SQ SCH (08:13)
[2019-05-23] MEDS: LETROZOLE 2.5 MG TAB PO SCH (08:14)
[2019-05-23] MEDS: ASPIRIN 81 MG ECTAB PO SCH (08:17)
[2019-05-23] MEDS: SERTRALINE HCL 100 MG TABLET PO SCH (08:17)
[2019-05-23] MEDS: METOPROLOL SUCC 50MG EXT REL TAB PO SCH (08:18)
[2019-05-23] MEDS: POTASSIUM CHLORIDE 20 MEQ TABCR PO SCH (08:19)
--- NOTE | 2019-05-23 09:47 | Cardiology Consultation ---
Date of Consultation May 23, 2019 Assessment & Plan (1) Acute on chronic respiratory failure with hypoxemia: (2) Chronic diastolic heart failure: (3) Pulmonary hypertension: (4) History of coronary artery stent placement: (5) Ascending aortic aneurysm: (6) Dementia: 73-year-old female admitted with acute hypoxemic respiratory failure. Treated with intravenous diuretic therapy due to evidence of volume overload however, patient appears compensated today without edema. Adequate diuresis noted overnight with stable renal function. No conversational dyspnea at rest. Patient participating with occupational therapy currently. Recommend transition to oral diuretic therapy at time of discharge, Lasix 40 mg daily with repeat basic metabolic panel in 1 week. She appears stable from a cardiovascular perspective for transfer to rehab today. Recent resting 2D transthoracic echocardiogram reviewed revealing preserved LV systolic function with indirect evidence of moderate to severe pulmonary hypertension (stable). No evidence of acute coronary syndrome during hospitalization. Continue treatment of interstitial lung disease per pulmonary medicine, patient aware that treatment options are limited at this time. Record daily weights while in a monitored setting. Give an additional 40 mg of oral Lasix if weight increases more than 2 pounds in a 48-hour period, or 5 pounds in 1 week to maintain optimal volume status. Encourage patient to avoid excessive fluid and sodium intake. Continue current dose of beta-beatriz as previously ordered. No further inpatient cardiac testing at this time. Thank you for allowing to participate in the care of your patient. History of Present Illness Reason for Consultation: Volume overload, shortness of breath. Requesting Physician: Dr. Denise Birmingham Attending Physician: Denise Birmingham, History of Present Illness 73-year-old female admitted 05/18/2019 with progressive shortness of breath. Recently admitted on May 12 for similar complaints. Consultation requested due to volume overload. Patient carries a history of interstitial lung disease with chronic hypoxia. Typically wears 4 to 6 L of oxygen at home. Echocardiogram performed approximately 10 days ago demonstrates preserved LV systolic function and unchanged compared to prior echocardiogram performed July 2018. I previously evaluated patient in July 2018 regarding shortness of breath and possible volume overload. Patient carries history of stenting to undisclosed coronary vessel. Outpatient sweatband separator is Dr. Sesay. Patient feeling well from a cardiovascular standpoint today. No conversational dyspnea. Reports chronic two-pillow orthopnea without paroxysmal nocturnal dyspnea. Denies palpitations, lightheadedness, dizziness, syncope, or near syncope. Participating with occupational therapy today. Fluid balance negative approximately 800 cc overnight. Creatinine remains stable. Treated with IV Lasix, 40 every 12 hours over the past 2 days. Denies cough, fever, chills, or sick contacts. Typically taking 20 mg Lasix daily outpatient setting, however, patient is unaware of her current medications. She offers no complaints at this time. Allergies Allergy/AdvReac Type Severity Reaction Status Date / Time No Known Allergies Allergy Verified 05/18/19 12:41 Home Medications Home Medications Medication Instructions Recorded Confirmed Type albuterol sulfate [Ventolin HFA] 2 puff INHALATION Q6H PRN 08/11/18 05/18/19 History alendronate 75 mg PO LU@0900 08/11/18 05/18/19 History aspirin 81 mg PO DAILY 08/11/18 05/18/19 History betamethasone, augmented 1 applic TOPICAL DAILY PRN 08/11/18 05/18/19 History letrozole 2.5 mg PO DAILY 08/11/18 05/18/19 History metoprolol succinate [Toprol XL] 50 mg PO DAILY 08/11/18 05/18/19 History mirtazapine 7.5 mg PO DAILY 08/11/18 05/18/19 History sertraline [Zoloft] 200 mg PO DAILY 08/11/18 05/18/19 History furosemide 20 mg PO QAM 30 Days #30 tab 05/15/19 05/18/19 Rx simvastatin 10 mg PO PM 30 Days #30 tab 05/15/19 05/18/19 Rx Patient History Medical History Avascular necrosis of bone Ascending aortic aneurysm Hypoxemia (Acute) CHF (congestive heart failure) (Acute) Lung disease, interstitial (Acute) HTN (hypertension) (Chronic) CAD (coronary artery disease) (Chronic) Depression Suicidal ideation Surgical History History of coronary artery stent placement (Resolved) History of colon resection (Resolved) H/O hernia repair (Resolved) H/O: hysterectomy (Resolved) History of cholecystectomy (Resolved) Family History Other No significant family history Social History Preferred Language: Mongolian Communication Ability: Effective Adult Literacy Teacher Required: No Beliefs That Will Affect Care: None marital status: Current Living Situation: Spouse Other Information That Helps Us Care for You: No Feels Safe at Home: Yes Safety Concerns: Feels Safe At This Time Smoking Status: Former smoker Do You Dip or Chew Tobacco: No ; Second Hand Exposure: No ; Tobacco Cessation Education Requested by Patient: No Hx Alcohol Use: No Hx Substance Use: No Review of Systems Review of Systems: All systems reviewed & are unremarkable except as noted in HPI & below Physical Exam Physical Exam: General: NAD, AAO x3, well nourished. Chronically ill.HEENT: Normocephalic. Atraumatic. Conjunctiva pink, no scleral icterus. Neck: No carotid bruits, the carotid upstrokes are brisk. No JVD. No HJR Heart: Regular normal S-1 and S-2 no S-3 or S-4 gallop. No murmurs or rub appreciated. PMI is not displaced. No RV heave. Lungs: +Dry crackles bilateral, no rhonchi or wheeze.Abdomen: Normal bowel sounds. Soft. Nontender. No masses or organomegaly. No abdominal bruits. Extremities: No clubbing, cyanosis, or edema. Pulses: radial=2/4, Dorsalis pedis =2/4, posterior tibial=2/4. Neuro: Cranial nerves grossly intact. No focal motor deficit. Results & Data Vital Signs (Past 12 Hours) Vital Signs Temp Pulse Resp BP BP Pulse Ox 05/23/19 07:09 82 19 92 05/23/19 07:00 36.6 C 87 18 134/86 90 05/23/19 05:38 37.1 C 79 18 115/75 94 05/22/19 23:24 36.7 C 76 22 94/61 L 90 05/22/19 22:48 36.4 C L 83 24 122/70 91 Laboratory Results Laboratory Results - last 24 hr 05/23/19 05/23/19 05/23/19 06:03 06:03 06:03 WBC 7.99 RBC 3.60 L Hgb 11.7 L Hct 34.4 L MCV 95.6 MCH 32.5 MCHC 34.0 RDW Std Deviation 51.9 H RDW Coeff of Nicanor 14.9 H Plt Count 260 MPV 9.6 Immature Gran % (Auto) 0.4 Neut % (Auto) 63.7 Lymph % (Auto) 19.5 [place] % (Auto) 10.4 Eos % (Auto) 5.6 Baso % (Auto) 0.4 Immature Gran # (Auto) 0.03 H Neut # (Auto) 5.09 Lymph # (Auto) 1.56 [place] # (Auto) 0.83 H Eos # (Auto) 0.45 Baso # (Auto) 0.03 ABG pH 7.49 H ABG pCO2 41 ABG pO2 78 L ABG HCO3 30 H ABG O2 Saturation 95.8 H ABG Base Excess 6.3 H Mark[place] Test Pos Barometric Pressure 734.3 Oxygen Given 6L Sodium 137 Potassium 3.0 L Chloride 99 Carbon Dioxide 31 Anion Gap 7.0 BUN 15 Creatinine 0.79 Est Cr Clr Drug Dosing 53.3 Est GFR ( Amer) 86.7 Est GFR (Non-Af Amer) 74.8 BUN/Creatinine Ratio 19.1 Glucose 103 H Calcium 9.0 Magnesium 1.7 L Total Bilirubin 0.4 AST 20 ALT 16 Alkaline Phosphatase 88 Total Protein 6.7 Albumin 3.1 L Globulin 3.6 Albumin/Globulin Ratio 0.9
[2019-05-23] MEDS ORDERED: POTASSIUM CHLORIDE 20 MEQ TABCR PO ONE (13:00)
--- NOTE | 2019-05-23 14:51 | Discharge Summary ---
Date of Service May 23, 2019 Admission HPI Per Admitting Provider This is a 73 year old female with recent hospitalizations primarily for treatment of changes in mental status which has been attributed to steroids and then ultimately to dementia, with unspecified interstitial lung disease, and chronic respiratory failure with hypoxia whose baseline oxygen use is 4 liters/min, who was discharged on 05/15/19 with baseline oxygen use and returns to the ED on 05/18/19 because of increased oxygen requirements and lung imaging findings of acute congestive heart failure exacerbation. As per daughter, patient returned home with and daughter also living with them. At night the, patient's oxygenation "dropped to 45" and was using up the oxygen supplies quickly. When patient's daughter is asked whether or not the patient has been taking the home medications including Lasix, the daughter says that the patient's gives the patient's the medications. Patient's reports he has been giving the home medications every day. In the ED, patient has been ordered Lasix. Oxygen requirement is 6 liter's minute. On review of systems, patient appears to be breathing comfortable. She denies other areas of pain in the ED. But she did report of feeling chest pressure when with EMS. Patient denies other symptoms. She has dementia history but today she seem very sharp in answering and asking questions. Discussed with patient and patient's family members and they affirmed that the code status is Do Not Resuscitate/Do NOT INTUBATE. Discussed with patient and patient's family members that the likely diagnosis is congestive heart failure exacerbation. In the event that patient has heart attack (myocardial infarction), the patient and family member would not want to have cardiac catheterization and prefers only medical management Admission Exam Per Admitting Provider Constitutional: cooperative Eyes: PERRL, conjunctivae normal, anicteric sclerae EOM intact bilaterally ENMT: external ear and nose normal, oropharynx normal Neck: normal visual inspection Respiratory: Auscultation: + crackles Cardiovascular: Rate/Rhythm: regular rate and regular rhythm Gastrointestinal (Abdomen): normal bowel sounds, soft, nontender, no hepatosplenomegaly Musculoskeletal: Head/Neck/Chest: normocephalic and head atraumatic Neurologic: PERRL, EOMI, accommodation nl, no face palsy, no dysarthria CN's II-XI intact bilaterally Psychiatric: Orientation: alert, oriented to person, oriented to place and cooperative Principal Diagnosis Chronic respiratory failure ILD CHF Discharge Data Allergies Allergy/AdvReac Type Severity Reaction Status Date / Time STEROIDS AdvReac Confusion Uncoded 05/26/19 21:45 Consultations 05/18/19 14:12 ED Decision to Admit Stat 05/18/19 16:35 Consult Case Management - Discharge Planning Routine 05/19/19 15:29 Consult Pulmonology Routine 05/23/19 08:53 Consult Cardiology Routine Hospital Course (1) CHF (congestive heart failure): (2) Acute and chronic respiratory failure: (3) UTI (urinary tract infection): 73-year-old female with interstitial lung disease refractory to treatment presented as a readmission for increased shortness of breath. She was admitted to the hospitalist service for acute diastolic congestive heart failure in the setting of interstitial lung disease and pulmonary hypertension. She returns after being discharged to [place] [facility] where she was compliant with Lasix. An elevated troponin of 0.046 was seen which was trended to within normal range of 0.021 and then 0.027. BNP was 8560. A urine culture revealed E faecalis and she was treated with ampicillin. Pulmonary was consulted and had no further recommendations for treatment recommending consideration of hospice. The patient was continued on IV Lasix 40 mg twice daily for the next several days. She continued to be more hypoxic than normal requiring approximately 6 L/min but showing significant desaturation with any movement especially with standing up. She would desaturate into the 70s and takes several minutes to recover on higher amount of oxygen. Ambulation was difficult for this reason and [facility] was recommended. On day of discharge she was evaluated by cardiology who felt that the patient appeared compensated without edema. She was noted to have no conversational dyspnea at rest and Lasix 40 mg oral daily was recommended going home with repeat basic metabolic panel in 1 week. It was recommended that she avoid excessive fluid or sodium intake. At time of discharge a [id number] examination was performed revealing a hemodynamically stable and afebrile patient who was mentating at baseline. She was oxygenating 94% on 6L nasal cannula.Physical exam revealed crackles throughout the lungs without rales or wheezes present. Heart exam was normal, and she had no peripheral edema. She was sent to SNF in guarded condition with close primary care follow-up recommended. Total Time Total Time Spent Total Time Spent (In Minutes): 60 Total Time Includes: Examination of the Patient, Discharge Planning, Medication Reconciliation and Communication With Other Providers Discharge Plan Discharge Items Patient Disposition: Transfer Custodial Fac Reason For Visit: CHF EXACERBATION,ACUTE RESPIRATORY FAILURE Discharge Diagnosis: Chronic respiratory failure ILD CHF Condition on Discharge: Good Health Concerns: Significant deconditioning and this is adding to her desaturation component with movement. She is optimized from a lung standpoint, and will need to be physically rehabilitated slowly as she can tolerate. Activity: As commented below Activity Comment: per SNF therapists Non-emergency contact: Primary Care Provider Call non-emergency contact if: you have any medication questions, your symptoms worsen, your pain is not controlled, your pain is worsening, your pain is unusual for you, your pain is concerning for you and you have a fever Follow-up/Referrals: Vince Alcantara MD [Physician] - Jose Manuel Morocho [Primary Care Provider] - Diet: Low Sodium (2gm) Addtl Attending Provider Instructions: CHF INSTRUCTIONS: Call 911 and go to the Emergency Room if: * You have tightness or pain in your chest that does not go away with rest or Nitroglycerin * You are very short of breath even with rest Call your doctor if any of the following symptoms or problems start or get worse: * Shortness of breath or difficulty breathing * Wake up at night short of breath * Chest pain * Cough * Swelling of your hands, fee, or legs * More fatigued or tired with your normal activity * Palpitations - sudden fast heart beats WEIGHT * Weigh yourself every morning after using the bathroom. * Use the same scale. * Wear the same amount of clothing. * Write your weight down on your chart. * Call your doctor if you gain more than 2-3 pounds in 1-2 days. MEDICATIONS * Use this discharge instruction sheet for instructions. * Take your medications at the time your doctor ordered. * Do not skip a dose of your medicines. * If you miss a dose of medicine, take as soon as possible, but DO NOT DOUBLE A DOSE. * Read your medicine information when you get home. * Know all of the side effects of your medicine. * Call your doctor's office if you have any side effects. * Be sure all of your doctors know what medicine and herbs you take (including cold, flu, and herbal medicine). * Pain Medicine: If you do not get relief from your pain, please call your doctor for help. Take the following with you to your follow-up doctor appointments: * Weight Chart * Medication List * List of questions Do not drink excessive alcohol, beer or wine. ADDITIONAL PROVIDER INSTRUCTIONS: Please take all medications as instructed on discharge list below. Please ensure you follow-up with your side door worker in the next couple of weeks as scheduled. It is recommended that you follow-up with your primary care physician within one week of discharge from the rehabilitation facility. Continue nightly BIPAP per home regimen with oxygen supplementation, which may need some adjustments with your increased oxygen needs. Respiratory therapy will assist with this. Please increase your supplemental oxygen to at least 6 lpm with ambulation, and you may need more to keep oxygen saturation levels 88% or greater. It was a pleasure taking care of you! Please call if you have any questions or problems. You can reach a [facility] hospitalist on duty at [facility] 24 hours a day by calling [phone]. Take care of yourself. Denise Birmingham, DO [facility] Pending Studies at Discharge: No Stand-Alone Forms: My [facility] Skilled Items Patient informed of condition?: Yes DNR: Yes Discharge Level of Care: Skilled Communicable Disease: No Discharge Prognosis: Improving Lines: None Urinary Catheter: No Medications and DC Order Prescriptions: New furosemide 40 mg tablet 40 mg PO DAILY Qty: 30 RF: 0 potassium chloride 20 mEq packet 20 meq PO DAILY Qty: 30 RF: 0 Continued simvastatin 10 mg Tablet 10 mg PO PM 30 Days Qty: 30 RF: 0 metoprolol succinate [Toprol XL] 50 mg Tablet Extended Release 24 Hr 50 mg PO DAILY RF: 0 sertraline [Zoloft] 100 mg Tablet 200 mg PO DAILY RF: 0 aspirin 81 mg Tablet,Delayed Release (Dr/Ec) 81 mg PO DAILY RF: 0 alendronate 35 mg Tablet 75 mg PO LU@0900 RF: 0 letrozole 2.5 mg Tablet 2.5 mg PO DAILY RF: 0 albuterol sulfate [Ventolin HFA] 90 mcg/actuation Hfa Aerosol Inhaler 2 puff INHALATION Q6H RF: 0 mirtazapine 7.5 mg Tablet 7.5 mg PO DAILY RF: 0 buspirone 5 mg Tablet 5 mg PO TID PRN (Reason: Anxiety) RF: 0 ipratropium-albuterol 0.5 mg-3 mg(2.5 mg base)/3 mL Solution For Nebulization 3 ml INHALATION QID RF: 0 morphine 10 mg/5 mL solution 5 mg PO Q6H PRN (Reason: pain or shortness of breath) Qty: 15 RF: 0 lorazepam 1 mg tablet 1 mg BUCCAL BID PRN (Reason: anxiety) Qty: 10 RF: 0 Discontinued furosemide 20 mg Tablet 20 mg PO QAM 30 Days Qty: 30 RF: 0 Discharge Orders: Discharge Order (Routine); Ordered 05/23/19 Ordered By: Denise Birmingham Admission Data Admit Date/Time: 05/18/19 14:58 Attending Provider: Denise Birmingham Admit Provider: Leonel Frazier Primary Care Provider: Jose Manuel Morocho Other Providers: Leonel Frazier ; Vince Alcantara ; Ronald Ambrose Other Interventions: Discharge Summary Assessment (RN) Last Done: 05/23/19 15:10 DC Date/Time DO NOT enter until pt leaves facility: 05/23/19 16:42
[2019-05-23] MEDS ORDERED: MIRTAZAPINE TAB 15 MG TAB PO SCH (21:00)
[2019-05-25] MEDS ORDERED: ALENDRONATE SODIUM 70 MG TAB PO SCH (09:00)
== END 2019-05-23 16:42 | DRG 291 ==
LOC: ED 12:06 → SUATTDRO 14:58 → 2N 14:58

== ENCOUNTER 2019-05-26 18:40 | Inpatient (IN) ==
[2019-05-26] MEDS ORDERED: ALBUT/IPRATROP 3MG/0.5MG NEB 3 ML VIAL INH STA (19:03)
[2019-05-26] MEDS ORDERED: methylPREDNISolone 125 MG/2 ML VIAL IV STA (19:03)
--- NOTE | 2019-05-26 19:30 | XRay Report ---
XR chest 1V portable CLINICAL HISTORY: 73 years-old Female presenting with Dyspnea. TECHNIQUE: Portable upright AP view of the chest was obtained. COMPARISON: 05/23/2019. FINDINGS: Atherosclerosis of the aortic arch. Cardiac silhouette enlarged. Diffuse hazy added density of the steven ngs on background of reticular lung markings and cystic change. Bronchial wall thickening. No new foc al opacity. No large effusion or pneumothorax. Degenerative changes of the thoracic spine. Posttrauma tic deformity of the right humerus. Upper abdomen normal. IMPRESSION: 1. No significant change from prior. Chronic lung disease. No new superimposed infiltrate. If there is continuing clinical concern for acute pathology, consider chest CT. 2. Cardiomegaly. Electronically signed by: Az Reaves M.D. 05/26/2019 7:29 PM
[2019-05-26 19:51] LABS: Basophils # (auto) 0.04 K/uL (0-0.2); Basophils % (auto) 0.3 %; Eosinophils # (auto) 0.44 K/uL (0-0.5); Eosinophils % (auto) 3.5 %; Hematocrit (blood only) 35.9 % (37-47); Hemoglobin 12.1 g/dL (12.0-16.0); Immature Granulocytes # (auto) 0.04 K/uL (0.00-0.02); Immature Granulocytes % (auto) 0.3 %; Lymphocytes # (auto) 1.81 K/uL (1.2-3.4); Lymphocytes % (auto) 14.3 %; Mean Corpuscular Hemoglobin 32.8 pg (25-34); Mean Corpuscular Hgb Conc 33.7 g/dL (32-36); Mean Corpuscular Volume 97.3 fL (80-100); Mean Platelet Volume 10.1 fL (7.4-10.4); Monocytes # (auto) 1.39 K/uL (0.11-0.59); Neutrophils # (auto) 8.92 K/uL (1.4-6.5); Neutrophils % (auto) 70.6 %; Platelet Count 298 K/uL (130-400); RDW Standard Deviation 53.3 fL (36.4-46.3); Red Blood Count 3.69 M/uL (4.2-5.4); White Blood Count 12.64 K/uL (4.8-10.8)
[2019-05-26 20:05] LABS: Base Excess ABG 4.6 mEq/L (-9-1.8); HCO3 ABG 28 mmol/L (19-24); Oxygen Saturation ABG 79.7 % (90-95); PCO2 ABG 37 mmHg (35-46); PO2 ABG 43 mm/Hg (80-95); Partial Thromboplastin Time 26.2 Seconds (21.0-31.0); Prothrombin Time 10.6 Seconds (9.0-12.0); pH ABG 7.49 (7.35-7.45)
[2019-05-26 20:09] LABS: Albumin Level 3.4 gm/dl (3.4-5.0); BUN Creatinine Ratio 17.2 (10-20); Creatinine Clr Calc Pharmacy 58.5 ml/min; Est GFR (African American) 100.3; Est GFR (Non-African American) 86.6; Potassium 3.1 mmol/L (3.5-5.1)
[2019-05-26 20:14] LABS: Bilirubin,Total 0.4 mg/dl (0.2-1); Globulin 3.5 gm/dl (2.5-4.0); Total Protein 6.9 gm/dl (6.4-8.2)
[2019-05-26 20:19] LABS: Influenza A virus by PCR Neg for Influ A (Neg); Influenza B virus by PCR Neg for Influ B (Neg)
[2019-05-26] MEDS ORDERED: POTASSIUM CHLORIDE 10 MEQ TABCR PO STA (20:23)
[2019-05-26 20:45] LABS: Allen Test Pos (Pos)
--- NOTE | 2019-05-26 22:27 | History & Physical Report ---
Date of Service May 26, 2019 Assessment & Plan (1) Acute and chronic respiratory failure with hypoxia: (2) Interstitial lung disease: (3) Chronic diastolic heart failure: -Admit to [facility] with telemetry -Patient presenting from [facility] for evaluation of shortness of breath -Patient with several admissions recently for acute on chronic hypoxic respiratory failure secondary to interstitial lung disease and diastolic CHF -Most recently admitted 05/18 through 05/23; at discharge, patient was requiring 6 L of oxygen and Lasix was increased from 20 mg to 40 mg -Steroids have been avoided in the past secondary to psychiatric side effects -As per nursing report, patient was saturating in the 50s; currently now saturating well on 7 L via oxygen mask -proBNP is elevated from previous admission (2846 -> 3796) -No obvious infiltrate or consolidation on CXR -will give Lasix 20 mg IV x1 tonight, reevaluate volume status in the morning -Seems that patient may have had a panic attack earlier which could be contributing to her symptoms -CTA chest pending (4) Anxiety: (5) Depression: -? If anxiety is contributing to some of the patient's pulmonary symptoms -For now continue home medications -Consider psych eval (6) CAD (coronary artery disease): -Appears stable, no reports of chest pain -Continue aspirin, beta-beatriz, statin (7) DVT prophylaxis: -SQ heparin (8) Full code status: -Extensive discussion was held with patient and her family regarding CODE STATUS. During last admission, patient was made a DO NOT RESUSCITATE/DO NOT INTUBATE. Patient expresses wishes to be full code during this admission. Reports that when she was transferred to [facility], she was told that she could change her mind and therefore POLST form is not accurate anymore. This likely will be an ongoing discussion with patient and her family. History of Present Illness Chief Complaint: Shortness of breath Primary Care Provider: Jose Manuel Morocho 73-year-old female who presents the ED for evaluation of shortness of breath. Patient is very well-known to our service and has had several hospital admissions recently due to acute on chronic hypoxic respiratory failure secondary to interstitial lung disease and diastolic CHF. Most recently admitted 05/18 through 05/23 and discharged to [facility]. Patient reports that while working with therapy today, she had sudden onset of shortness of breath. Per records sent from [facility], patient was desaturating into the 50s. EMS was called and patient was brought to the ED for further evaluation. She reports she felt as though she was having a panic attack earlier. Reports she had improvement in her symptoms when she went outside and got some fresh air. Patient denies chest pain. She reports as though she has not been being given a low-sodium diet while at [facility]. Denies cough and sputum production. No lower extremity edema. Reports she frequently wakes up in the middle the night gasping for air. She had been getting breathing treatments with improvement. She denies lightheadedness, dizziness, diaphoresis, syncopal events. No abdominal pain, nausea, vomiting, diarrhea. No fevers or chills. She denies urinary symptoms. Upon arrival to the ER, patient was requiring 15 L of oxygen via oxygen mask. She is currently now on 7 L. At most recent discharge, patient was requiring 6 L. CXR appears unchanged from baseline. Patient received nebulizer treatment and IV Solu-Medrol. Allergies Allergy/AdvReac Type Severity Reaction Status Date / Time STEROIDS AdvReac Confusion Uncoded 05/26/19 21:45 Home Medications Home Medications Medication Instructions Recorded Confirmed Type albuterol sulfate [Ventolin HFA] 2 puff INHALATION Q6H 08/11/18 05/26/19 History alendronate 75 mg PO LU@0900 08/11/18 05/26/19 History aspirin 81 mg PO DAILY 08/11/18 05/26/19 History letrozole 2.5 mg PO DAILY 08/11/18 05/26/19 History metoprolol succinate [Toprol XL] 50 mg PO DAILY 08/11/18 05/26/19 History mirtazapine 7.5 mg PO DAILY 08/11/18 05/26/19 History sertraline [Zoloft] 200 mg PO DAILY 08/11/18 05/26/19 History simvastatin 10 mg PO PM 30 Days #30 tab 05/15/19 05/26/19 Rx furosemide 40 mg PO DAILY #30 tab 05/23/19 05/26/19 Rx potassium chloride 20 meq PO DAILY #30 ea 05/23/19 05/26/19 Rx amoxicillin 500 mg PO BID 05/26/19 05/26/19 History buspirone 5 mg PO TID PRN 05/26/19 05/26/19 History ipratropium-albuterol 3 ml INHALATION QID 05/26/19 05/26/19 History Past Med/Surg History Medical History Chronic respiratory failure with hypoxia (Chronic) Interstitial lung disease (Chronic) Chronic diastolic heart failure (Chronic) Dementia (Chronic) Pulmonary hypertension (Chronic) Ascending aortic aneurysm (Chronic) HTN (hypertension) (Chronic) CAD (coronary artery disease) (Chronic) Depression (Chronic) Surgical History History of coronary artery stent placement (Resolved) History of colon resection (Resolved) H/O hernia repair (Resolved) H/O: hysterectomy (Resolved) History of cholecystectomy (Resolved) Family History Other No significant family history Social History Preferred Language: Wallisian Communication Ability: Effective Forensic Manager Required: No Beliefs That Will Affect Care: None marital status: Current Living Situation: Spouse Feels Safe at Home: Yes Smoking Status: Former smoker Second Hand Exposure: No ; Hx Alcohol Use: No Hx Substance Use: No Review of Systems Review of Systems: ROS per HPI, all other systems reviewed and negative Physical Exam Constitutional: WD/WN, vitals as above Eyes: PERRL, conjunctivae normal, anicteric sclerae ENMT: external ear and nose normal, oropharynx normal Respiratory: normal respiratory effort and able to speak in complete sentences; no respiratory distress Auscultation: + diminished lung sounds and + crackles (Mid to lower lung doss bilaterally); no wheezes Cardiovascular: Rate/Rhythm: regular rate and regular rhythm Vessels: normal peripheral pulses Extremities: no edema Gastrointestinal (Abdomen): normal bowel sounds, soft, nontender, no hepatosplenomegaly Musculoskeletal: no cyanosis or clubbing, extremities motor strength 5/5 Skin: no rashes, warm and dry Neurologic: PERRL, EOMI, accommodation nl, no face palsy, no dysarthria Psychiatric: A+Ox3, euthymic affect Results & Data Vital Signs (Past 12 Hours) Vital Signs Temp Pulse Pulse Pulse Resp BP BP 05/26/19 21:15 89 35 H 137/65 05/26/19 19:44 05/26/19 19:10 87 18 05/26/19 18:35 36.9 C 88 26 H 134/67 Pulse Ox 05/26/19 21:15 95 05/26/19 19:44 95 05/26/19 19:10 97 05/26/19 18:35 99 Code Status & VTE Plan Code Status Patient is a full code as per my discussion with her. VTE Prophylaxis Plan VTE Prophylaxis will be ordered: Yes Supervising Physician Co-Signing Physician Notes I, Dr. Leonel Frazier, have seen and examined the patient with nurse practitioner and would like to comment that This is a 73 year old patient with multiple recent hospitalizations and the major pulmonary diagnosis has been chronic respiratory failure secondary to interstitial lung disease that has been refractory to steroids and there have been no other practical interventions other than diuretics. Patient current presents to the hospital for increased shortness of breath, noted to have tachypnea in the ER vital signs and may have acute on chronic respiratory failure with hypoxia. However, patients Chest X ray does not show acute changes despite mildly more elevated BNP of 3796 compared 2846 on 05/20/19 for the chronic diastolic congestive heart failure Will give additional dose of IV Lasix 20 mg tonight Assisting patient to manage anxiety with tachypnea may help with symptoms. Will have prn Ativan q8 hours for anxiety Patient on oxymask, will order BIPAP at bedside if needed. Patients code status is full code despite patients familys members interested in transition to [facility]. Patient's daughter reports that patient does not wish to return to [facility] after the hospital stay In the ED patient was ordered CT chest. Full Results are pending Agree with other assessment and plan of health issues as per nurse practitioner General: verbal, speaks in full sentences HEENT: external exam normal Eyes: extraoccular movements intact Lungs: crackles, no wheezing Heart: regular rate Abdomen: soft, nontender, positive bowel sounds Extremities: moves all extremities at rest My colleague Dr. Birmingham will be following the patient as hospitalist starting on 05/27/2019 (1) CAD (coronary artery disease) Associated angina: without angina Coronary Disease-Associated Artery/Lesion type: tribe artery [place] vs. transplanted heart: tribe heart Qualified Code(s): I25.10 - Atherosclerotic heart disease of tribe coronary artery without angina pectoris
[2019-05-26] MEDS ORDERED: OPTIRAY 320 125ml IV PRN (22:28)
--- NOTE | 2019-05-26 22:36 | CT Scan Report ---
CT angio chest PE protocol CLINICAL HISTORY: 73 years-old Female presenting with hypoxia, shortness of breath, clinical concern for pulmonary embolus. TECHNIQUE: Multidetector CT angiography of the chest was performed after administration of intravenou s contrast. 3-D volumetric and/or maximum intensity projection (MIP) images were subsequently reconst ructed for review. IV contrast: 79 mL of Optiray 320. One or more dose lowering techniques were used consistent with the principles of ALARA (as low as reasonably achievable), including automatic exposu re control, mA or kV adjustment to individual patient size, and/or use of iterative reconstruction. COMPARISON: Noncontrast CT chest from 12/25/2018. CT DOSE (mGy.cm): The estimated cumulative dose is 274.36 mGy.cm. 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 Pulmonary vasculature: The study is adequate for assessment of the pulmonary vascular tree. No filling defect within the pul monary arteries to suggest embolus. Mid pulmonary artery enlarged measuring 3.5 cm in diameter. No fl attening of the interventricular septum. No intracardiac filling defect. Reflux of contrast into the IVC and hepatic veins. This likely indicates elevated right heart pressure. Remaining chest: Soft tissues: Normal thyroid and thoracic inlet. No axillary, supraclavicular, mediastinal, or hilar lymphadenopathy. Atherosclerosis of the aorta. Tortuosity of the branch vessels of the aorta suggests chronic hypertension. Multichamber enlargement of the heart. Coronary artery and aortic valve calcif ication. No pericardial or pleural effusion. Large sliding-type hiatal hernia. Spleen may be enlarged . Lungs and airways: No pneumothorax. Tracheomegaly. Central airways patent. Diffuse bronchiectasis. Pu lmonary arteries enlarged relative to adjacent bronchi. Diffuse interlobular septal thickening. Added density of the lungs is new from prior exam. This groundglass opacity is diffuse and bilateral. Prev iously suggested irregular nodule at the right apex is poorly appreciated due to the degree of added density in the lungs. No other gross evidence of a new nodule allowing for respiratory motion artifac t, which degrades evaluation of the lung parenchyma. Musculoskeletal: Degenerative changes of the spine. IMPRESSION: 1. Diffuse groundglass opacity resulting in added density of the lungs bilaterally may represent pul monary edema given the presence of cardiomegaly and other evidence of congestive change. An atypical infectious etiology is less likely though cannot be excluded. 2. Severe underlying chronic lung disease. 3. Pulmonary artery hypertension. 4. Poorly demonstrated right apical nodule noted on prior exam. 5. Large hiatal hernia. 6. Suspected splenomegaly. Electronically signed by: Az Reaves M.D. 05/26/2019 10:35 PM
[2019-05-26] MEDS ORDERED: ACETAMINOPHEN 325 MG TAB PO PRN (22:55)
[2019-05-26] MEDS ORDERED: LORazepam 0.25 MG/0.5 ML VIAL IV PRN (22:58)
[2019-05-26] MEDS ORDERED: ALBUT/IPRATROP 3MG/0.5MG NEB 3 ML VIAL INH SCH (23:00)
[2019-05-26] MEDS ORDERED: POTASSIUM CHLORIDE 20 MEQ TABCR PO ONE (23:30)
[2019-05-26] MEDS ORDERED: FUROSEMIDE 20 MG in SYRINGE 0 ML IV ONE (23:30)
[2019-05-26] MEDS: HEPARIN SOD 5,000 UNIT/0.5 ML VIAL SQ SCH (23:38)
--- NOTE | 2019-05-26 23:41 | Emergency Department Note ---
Entered by Socorro Ellis acting as a scribe for History of Present Illness General Chief complaint: Shortness of Breath/Dyspnea Stated complaint: HYPOXIA Source: patient Limitations: no limitations History of Present Illness Provider complaint: Shortness of Breath Onset (ago): day(s) (today) Location: chest Radiation: non-radiation Severity: moderate Pain Consistency: + now resolved Maximum Pain Intensity: 0 Relieved By: + other (Oxygen) Exacerbated By: + none Associated symptoms: + denies other symptoms and + shortness of breath Treatments prior to arrival: other (Oxygen) The patient is a 73 year old female who presents to the Emergency Department for shortness of breath and hypoxemia. At home, the patient is normally on 4 L of oxygen, if she still cannot breath they bump up the oxygen to 5 L. The patient denies other symptoms. She has had no fever, cough, chest pain. She does have chronic swelling to her legs. This is unchanged from baseline. Per nursing staff, the staff at her residence checked on her and she was short of breath with a pulse ox in the 50s despite being on oxygen. Her oxygen was increased and when EMS arrived her pulse ox went up to the 70s. EMS placed on a nonrebreather and her pulse ox went up into the 90s. The patient states she feels much better at this time. She denies any history of PE or DVT. Home Medications Home Medications Medication Instructions Recorded Confirmed Type albuterol sulfate [Ventolin HFA] 2 puff INHALATION Q6H 08/11/18 05/26/19 History alendronate 75 mg PO LU@0900 08/11/18 05/26/19 History aspirin 81 mg PO DAILY 08/11/18 05/26/19 History letrozole 2.5 mg PO DAILY 08/11/18 05/26/19 History metoprolol succinate [Toprol XL] 50 mg PO DAILY 08/11/18 05/26/19 History mirtazapine 7.5 mg PO DAILY 08/11/18 05/26/19 History sertraline [Zoloft] 200 mg PO DAILY 08/11/18 05/26/19 History simvastatin 10 mg PO PM 30 Days #30 tab 05/15/19 05/26/19 Rx furosemide 40 mg PO DAILY #30 tab 05/23/19 05/26/19 Rx potassium chloride 20 meq PO DAILY #30 ea 05/23/19 05/26/19 Rx amoxicillin 500 mg PO BID 05/26/19 05/26/19 History buspirone 5 mg PO TID PRN 05/26/19 05/26/19 History ipratropium-albuterol 3 ml INHALATION QID 05/26/19 05/26/19 History Allergies Allergy/AdvReac Type Severity Reaction Status Date / Time STEROIDS AdvReac Confusion Uncoded 05/26/19 21:45 Past Med/Surg History Medical History Chronic respiratory failure with hypoxia (Chronic) Interstitial lung disease (Chronic) Chronic diastolic heart failure (Chronic) Dementia (Chronic) Pulmonary hypertension (Chronic) Ascending aortic aneurysm (Chronic) HTN (hypertension) (Chronic) CAD (coronary artery disease) (Chronic) Depression (Chronic) Surgical History History of coronary artery stent placement (Resolved) History of colon resection (Resolved) H/O hernia repair (Resolved) H/O: hysterectomy (Resolved) History of cholecystectomy (Resolved) Family History Other No significant family history Social History Preferred Language: Estonian Communication Ability: Effective Warp Spooler Required: No Beliefs That Will Affect Care: None marital status: Current Living Situation: Spouse Feels Safe at Home: Yes Smoking Status: Former smoker Second Hand Exposure: No ; Hx Alcohol Use: No Hx Substance Use: No Review of Systems See HPI for pertinent positives & negatives. and A total of 10 systems reviewed and were otherwise negative Physical Exam Vital Signs Vital Signs - 24 hr 05/26/19 18:35 05/26/19 19:10 05/26/19 19:44 Temperature 36.9 C Temperature Source Oral Sepsis Recent Fever Within 48 Hours No Sepsis New/Unexplained Change in Mental Status No Sepsis Action Taken by Nursing No Action Required Oxygen Flow Rate - Titration 15 Pulse Rate 88 Pulse Rate [Apical] Pulse Rate [Right Radial] 87 Respiratory Rate 26 H 18 Respiratory Effort / Characteristics Non-Labored Non-Labored Spontaneous Respiratory Depth Shallow Respiratory Pattern Regular Blood Pressure 134/67 Blood Pressure [Left Arm] Blood Pressure Mean 89 Blood Pressure Mean [Left Arm] Blood Pressure Position Lying Pulse Oximetry 99 97 95 Oxygen Delivery Method Oxymask Oxymask Nebulizer Oxygen Flow Rate 15 15 05/26/19 21:15 Temperature Temperature Source Sepsis Recent Fever Within 48 Hours Sepsis New/Unexplained Change in Mental Status Sepsis Action Taken by Nursing Oxygen Flow Rate - Titration Pulse Rate Pulse Rate [Apical] 89 Pulse Rate [Right Radial] Respiratory Rate 35 H Respiratory Effort / Characteristics Short of Breath Respiratory Depth Respiratory Pattern Blood Pressure Blood Pressure [Left Arm] 137/65 Blood Pressure Mean Blood Pressure Mean [Left Arm] 89 Blood Pressure Position Pulse Oximetry 95 Oxygen Delivery Method Oxymask Oxygen Flow Rate 7 Constitutional: Vital signs reviewed. Eyes: Pupils are equal round reactive to light. Conjunctiva are noninjected. ENT: Pharynx is clear without erythema or exudate. Mucous membranes are moist. Neck supple without meningeal signs. Respiratory: Breath sounds are equal bilaterally. Poor air entry and diffuse expiratory wheezing bilaterally. Cardiovascular: Regular rate and rhythm. No rubs or gallops. GI: Soft, nondistended and nontender. Bowel sounds are present. Musculoskeletal: No peripheral edema. No lower extremity tenderness. Integumentary: No cyanosis. Neurological: The patient is awake and alert. No focal deficits. Psychiatric: Normal affect. Course 1702: Medical records reviewed. The patient was seen in room B2, a physical examination was performed. 2026: I reassessed the patient whose breathing improved with diminished wheezing. I discussed her test results with her, she is still getting the nebulizer treatment. She declines steroids because she states they make her, crazy. 2050: POC trop is 0.01. Her nebulizer is done, continued wheezing. 2056: I spoke with Dr. Quinn, [facility] Hospitalist, about the patients case and he agreed to accept the patient for further admission. 2109: The patient was admitted. Administered Medications Albuterol (Duoneb) 3 ml INH QIDR TOY Stop: 06/25/19 22:59 Last Admin: 05/26/19 23:32 Dose: 3 ml Documented by: [id number] Discontinued Medications Albuterol (Duoneb) 12 ml INH ONE STA Stop: 05/26/19 19:04 Last Admin: 05/26/19 19:08 Dose: 12 ml Documented by: [id number] Ioversol (Optiray 320 125ml) 79 ml IV ONCE PRN PRN Reason: Interaction Checking Stop: 05/30/19 22:27 Last Admin: 05/26/19 22:28 Dose: 79 ml Documented by: [id number] Methylprednisolone (Solumedrol) 60 mg IV NOW STA Stop: 05/26/19 19:04 Last Admin: 05/26/19 19:30 Dose: Not Given Documented by: [id number] Potassium Chloride (Klor-Con M10) 40 meq PO NOW STA Stop: 05/26/19 20:24 Last Admin: 05/26/19 20:54 Dose: 40 meq Documented by: [id number] Medical Decision Making Differential Diagnosis Differential Diagnosis: Interstitial lung disease, respiratory failure, CHF exacerbation, pleural effusion, PNA Medical Records Attestation: I reviewed the patient's medical records. The patient was admitted on May 18 for CHF exacerbation and acute chronic respiratory failure with hypokalemia. She has a history of chronic respiratory failure with hypoxia. Home Medications Current Medication List: was personally reviewed by me Laboratory Data Attestation: I reviewed the patient's lab results. Result diagrams: 05/26/19 19:42 05/26/19 19:42 Lab Results 05/26/19 05/26/19 05/26/19 Range/Units 19:35 19:42 19:42 WBC 12.64 H (4.8-10.8) K/uL RBC 3.69 L (4.2-5.4) M/uL Hgb 12.1 (12.0-16.0) g/dL Hct 35.9 L (37-47) % MCV 97.3 (80-100) fL MCH 32.8 (25-34) pg MCHC 33.7 (32-36) g/dL RDW Std Deviation 53.3 H (36.4-46.3) fL RDW Coeff of Nicanor 15.0 H (11.5-14.5) % Plt Count 298 (130-400) K/uL MPV 10.1 (7.4-10.4) fL Immature Gran % (Auto) 0.3 % Neut % (Auto) 70.6 % Lymph % (Auto) 14.3 % [place] % (Auto) 11.0 % Eos % (Auto) 3.5 % Baso % (Auto) 0.3 % Immature Gran # (Auto) 0.04 H (0.00-0.02) K/uL Neut # (Auto) 8.92 H (1.4-6.5) K/uL Lymph # (Auto) 1.81 (1.2-3.4) K/uL [place] # (Auto) 1.39 H (0.11-0.59) K/uL Eos # (Auto) 0.44 (0-0.5) K/uL Baso # (Auto) 0.04 (0-0.2) K/uL PT 10.6 (9.0-12.0) Seconds INR 1.0 (0.9-1.1) APTT 26.2 (21.0-31.0) Seconds PTT Ratio 1.0 ABG pH (7.35-7.45) ABG pCO2 (35-46) mmHg ABG pO2 (80-95) mm/Hg ABG HCO3 (19-24) mmol/L ABG O2 Saturation (90-95) % ABG Base Excess (-9-1.8) mEq/L Markell Test (Pos) Barometric Pressure mm/Hg Oxygen Given Sodium (136-145) mmol/L Potassium (3.5-5.1) mmol/L Chloride (98-107) mmol/L Carbon Dioxide (21-32) mmol/L Anion Gap (3-11) BUN (7-18) mg/dl Creatinine (0.6-1.2) mg/dl Est Cr Clr Drug Dosing ml/min Est GFR ( Amer) Est GFR (Non-Af Amer) BUN/Creatinine Ratio (10-20) Glucose (70-99) mg/dl Calcium (8.5-10.1) mg/dl Total Bilirubin (0.2-1) mg/dl AST (15-37) U/L ALT (12-78) U/L Alkaline Phosphatase (45-117) U/L NT-Pro-B Natriuret Pep (0-900) pg/ml Total Protein (6.4-8.2) gm/dl Albumin (3.4-5.0) gm/dl Globulin (2.5-4.0) gm/dl Albumin/Globulin Ratio (0.9-2) Influenza Type A (PCR) Neg for Influ A (Neg) Influenza Type B (PCR) Neg for Influ B (Neg) 05/26/19 05/26/19 Range/Units 19:42 19:42 WBC (4.8-10.8) K/uL RBC (4.2-5.4) M/uL Hgb (12.0-16.0) g/dL Hct (37-47) % MCV (80-100) fL MCH (25-34) pg MCHC (32-36) g/dL RDW Std Deviation (36.4-46.3) fL RDW Coeff of Nicanor (11.5-14.5) % Plt Count (130-400) K/uL MPV (7.4-10.4) fL Immature Gran % (Auto) % Neut % (Auto) % Lymph % (Auto) % [place] % (Auto) % Eos % (Auto) % Baso % (Auto) % Immature Gran # (Auto) (0.00-0.02) K/uL Neut # (Auto) (1.4-6.5) K/uL Lymph # (Auto) (1.2-3.4) K/uL [place] # (Auto) (0.11-0.59) K/uL Eos # (Auto) (0-0.5) K/uL Baso # (Auto) (0-0.2) K/uL PT (9.0-12.0) Seconds INR (0.9-1.1) APTT (21.0-31.0) Seconds PTT Ratio ABG pH 7.49 H (7.35-7.45) ABG pCO2 37 (35-46) mmHg ABG pO2 43 L (80-95) mm/Hg ABG HCO3 28 H (19-24) mmol/L ABG O2 Saturation 79.7 L (90-95) % ABG Base Excess 4.6 H (-9-1.8) mEq/L Markell Test Pos (Pos) Barometric Pressure 736.1 mm/Hg Oxygen Given 15% Sodium 138 (136-145) mmol/L Potassium 3.1 L (3.5-5.1) mmol/L Chloride 102 (98-107) mmol/L Carbon Dioxide 26 (21-32) mmol/L Anion Gap 10.0 (3-11) BUN 12 (7-18) mg/dl Creatinine 0.70 (0.6-1.2) mg/dl Est Cr Clr Drug Dosing 58.5 ml/min Est GFR ( Amer) 100.3 Est GFR (Non-Af Amer) 86.6 BUN/Creatinine Ratio 17.2 (10-20) Glucose 112 H (70-99) mg/dl Calcium 10.0 (8.5-10.1) mg/dl Total Bilirubin 0.4 (0.2-1) mg/dl AST 22 (15-37) U/L ALT 16 (12-78) U/L Alkaline Phosphatase 98 (45-117) U/L NT-Pro-B Natriuret Pep 3796 H (0-900) pg/ml Total Protein 6.9 (6.4-8.2) gm/dl Albumin 3.4 (3.4-5.0) gm/dl Globulin 3.5 (2.5-4.0) gm/dl Albumin/Globulin Ratio 1.0 (0.9-2) Influenza Type A (PCR) (Neg) Influenza Type B (PCR) (Neg) Imaging Data Radiologist's Impression: Radiology results as stated below per my review and the radiologist's interpretation: XR chest 1V portable CLINICAL HISTORY: 73 years-old Female presenting with Dyspnea. TECHNIQUE: Portable upright AP view of the chest was obtained. COMPARISON: 05/23/2019. FINDINGS: Atherosclerosis of the aortic arch. Cardiac silhouette enlarged. Diffuse hazy added density of the lungs on background of reticular lung markings and cystic change. Bronchial wall thickening. No new focal opacity. No large effusion or pneumothorax. Degenerative changes of the thoracic spine. Posttraumatic deformity of the right humerus. Upper abdomen normal. IMPRESSION: 1. No significant change from prior. Chronic lung disease. No new superimposed infiltrate. If there is continuing clinical concern for acute pathology, consider chest CT. 2. Cardiomegaly. Electronically signed by: Az Raeves M.D. 05/26/2019 7:[address] angio chest PE protocol CLINICAL HISTORY: 73 years-old Female presenting with hypoxia, shortness of breath, clinical concern for pulmonary embolus. TECHNIQUE: Multidetector CT angiography of the chest was performed after administration of intravenous contrast. 3-D volumetric and/or maximum intensity projection (MIP) images were subsequently reconstructed for review. IV contrast: 79 mL of Optiray 320. One or more dose lowering techniques were used consistent with the principles of ALARA (as low as reasonably achievable), including automatic exposure control, mA or kV adjustment to individual patient size, and/or use of iterative reconstruction. COMPARISON: Noncontrast CT chest from 12/25/2018. CT DOSE (mGy.cm): The estimated cumulative dose is 274.36 mGy.cm. FINDINGS: Weight Trainer topogram: Unremarkable. Pulmonary vasculature: The study is adequate for assessment of the pulmonary vascular tree. No filling defect within the pulmonary arteries to suggest embolus. Mid pulmonary artery enlarged measuring 3.5 cm in diameter. No flattening of the interventricular septum. No intracardiac filling defect. Reflux of contrast into the IVC and h epatic veins. This likely indicates elevated right heart pressure. Remaining chest: Soft tissues: Normal thyroid and thoracic inlet. No axillary, supraclavicular, mediastinal, or hilar lymphadenopathy. Atherosclerosis of the aorta. Tortuosity of the branch vessels of the aorta suggests chronic hypertension. Multichamber enlargement of the heart. Coronary artery and aortic valve calcification. No pericardial or pleural effusion. Large sliding-type hiatal hernia. Spleen may be enlarged. Lungs and airways: No pneumothorax. Tracheomegaly. Central airways patent. Diffuse bronchiectasis. Pulmonary arteries enlarged relative to adjacent bronchi. Diffuse interlobular septal thickening. Added density of the lungs is new from prior exam. This groundglass opacity is diffuse and bilateral. Previous ly suggested irregular nodule at the right apex is poorly appreciated due to the degree of added density in the lungs. No other gross evidence of a new nodule allowing for respiratory motion artifact, which degrades evaluation of the lung parenchyma. Musculoskeletal: Degenerative changes of the spine. IMPRESSION: 1. Diffuse groundglass opacity resulting in added density of the lungs bilaterally may represent pulmonary edema given the presence of cardiomegaly and other evidence of congestive change. An atypical infectious etiology is less likely though cannot be excluded. 2. Severe underlying chronic lung disease. 3. Pulmonary artery hypertension. 4. Poorly demonstrated right apical nodule noted on prior exam. 5. Large hiatal hernia. 6. Suspected splenomegaly. Electronically signed by: Az Reaves M.D. 05/26/2019 10:35 PM ECG Data Attestation: I personally reviewed and interpreted this ECG as follows: Indication: SOB/dyspnea Rate (beats per minute): 92 Rhythm: normal sinus Findings: + other (LVH); no PVC and no ST elevation Blood Pressure Blood Pressure Findings: Elevated blood pressure Blood Pressure Disposition: further management by hospitalist AJ Narrative I did evaluate the patient as noted above. The patient was brought in for hypoxemia while at her residence. Her only complaint is shortness of breath. S he has no other associated symptoms. IV access was established. The patient was placed on a continuous solar installation foreman. The patient was placed on 15 L of O2 here. On my examination she has diffuse wheezing and poor air entry bilaterally. I did treat her with a continuous hour-long DuoNeb. I did order Solu-Medrol for her but the patient states that it makes her crazy and she refused it. I did order and personally review the patient's 12-lead EKG as described above. Twelve-lead EKG shows LVH without any acute ischemic changes. I did order and personally reviewed the images of the patient's chest x-ray as described above. Chest x-ray shows chronic changes. I did order and review the patient's blood work as noted in the electronic medical record. Her white count is elevated. Potassium is 3.1. Troponin is negative. I did treat her with IV KCl. I did reassess the patient. She was still getting her nebulizer and she felt she was doing better and she had improved air entry with diminished wheezing. I did assess her again after nebulizer and she had continued wheezing with fair air entry bilaterally. ABG demonstrates hypoxemia despite being on a nebulizer. After discussion with the patient, I did order a CT angiogram of the chest. I did review the images myself as well as the radiology report as described above. There is no evidence of pulmonary embolism. Patient was admitted to the hospital for further evaluation. I did discuss case with the hospitalist and employment case manager. Impression & Plan Hypoxemia, Interstitial lung disease, Hypokalemia, Acute respiratory failure with hypoxia Critical Care Time Critical Care Time: Yes Total Critical Care Time: 35 I have personally spent approximately 35 minutes of critical care time in the direct management of this patient. This includes bedside care, interpretation of diagnostic studies, and testing, discussion with consultants, patient, and family members, and other required patient management activities. This 35 minutes is in excess of all separately billable procedures. Discharge Plan Visit Data *Final* Discharge Date/Time: 05/26/19 22:35 Chief Complaint: Shortness of Breath/Dyspnea Stated Complaint: HYPOXIA ED Provider: Augusto Clark Discharge Problem: Hypoxemia, Interstitial lung disease, Hypokalemia, Acute respiratory failure with hypoxia Patient Disposition: Admitted As Inpatient Discharge Instructions Interventions: ED Discharge Assessment Last Done: 05/26/19 22:35 The scribe's documentation has been prepared under my direction and personally reviewed by me in its entirety. I confirm that the note above accurately reflects all work, treatment, procedures, and medical decision making performed by me.
[2019-05-27] MEDS ORDERED: XOPENEX/ATROVENT 1.25mg/0.5MG NEB COMBO NEB STA (00:34)
[2019-05-27] MEDS ORDERED: IPRATROPIUM BROMIDE NEB SOLN 0.02% 2.5 ML VIAL INH STA (00:40)
[2019-05-27] MEDS ORDERED: LEVALBUTEROL 1.25MG/0.5ML NEB INH STA (00:40)
[2019-05-27] MEDS: IPRATROPIUM BROMIDE NEB SOLN 0.02% 2.5 ML VIAL INH SCH ×4 (00:55→19:28)
[2019-05-27] MEDS: LEVALBUTEROL 1.25MG/0.5ML NEB INH SCH ×4 (00:55→19:28)
[2019-05-27] MEDS ORDERED: FUROSEMIDE 40 MG in SYRINGE 0 ML IV ONE (01:00)
[2019-05-27] MEDS ORDERED: XOPENEX/ATROVENT 1.25mg/0.5MG NEB COMBO NEB SCH (01:00)
[2019-05-27] MEDS ORDERED: POTASSIUM CHLORIDE 20 MEQ TABCR PO ONE (01:00)
[2019-05-27] MEDS: FUROSEMIDE 40 MG in SYRINGE 0 ML IV SCH ×2 (06:06→21:01)
[2019-05-27] MEDS: HEPARIN SOD 5,000 UNIT/0.5 ML VIAL SQ SCH ×3 (06:08→21:02)
[2019-05-27] MEDS ORDERED: MICONAZOLE NITRATE POWDER 43 GM EXT PRN (06:23)
[2019-05-27] MEDS ORDERED: MAGNESIUM SULFATE / D5W 1 GM/100 ML BAG IV ONE (06:33)
[2019-05-27 06:37] LABS: Hematocrit (blood only) 39.4 % (37-47); Hemoglobin 12.8 g/dL (12.0-16.0); Mean Corpuscular Hemoglobin 31.9 pg (25-34); Mean Corpuscular Hgb Conc 32.5 g/dL (32-36); Mean Corpuscular Volume 98.3 fL (80-100); Mean Platelet Volume 9.9 fL (7.4-10.4); Platelet Count 289 K/uL (130-400); RDW Standard Deviation 54.3 fL (36.4-46.3); Red Blood Count 4.01 M/uL (4.2-5.4); White Blood Count 12.89 K/uL (4.8-10.8)
--- NOTE | 2019-05-27 06:43 | XRay Report ---
XR chest 1V portable CLINICAL HISTORY: sob COMPARISON STUDY: 05/26/2019 FINDINGS: The heart remains enlarged. There is a retrocardiac opacity consistent with a hiatal hernia . There are persistent coarse bilateral interstitial opacities, likely secondary to chronic lung dise ase.[There is an old proximal right humeral deformity. There are no significant pleural effusions. IMPRESSION: Cardiomegaly and radiographic evidence of chronic interstitial lung disease. Electronically signed by: Ab Mckeon M.D. 05/27/2019 6:42 AM
[2019-05-27 07:12] LABS: Base Excess ABG 5.9 mEq/L (-9-1.8); HCO3 ABG 31 mmol/L (19-24); Oxygen Saturation ABG 93.3 % (90-95); PCO2 ABG 47 mmHg (35-46); PO2 ABG 67 mm/Hg (80-95); pH ABG 7.44 (7.35-7.45)
[2019-05-27 07:15] LABS: Allen Test Pos (Pos)
[2019-05-27 07:26] LABS: BUN Creatinine Ratio 10.2 (10-20); Creatinine Clr Calc Pharmacy 46.6 ml/min; Est GFR (African American) 78.2; Est GFR (Non-African American) 67.5; Magnesium 1.9 mg/dl (1.8-2.4); Potassium 3.6 mmol/L (3.5-5.1)
[2019-05-27] MEDS: LETROZOLE 2.5 MG TAB PO SCH (08:23)
[2019-05-27] MEDS: ASPIRIN 81 MG ECTAB PO SCH (08:23)
[2019-05-27] MEDS: METOPROLOL SUCC 50MG EXT REL TAB PO SCH (08:24)
[2019-05-27] MEDS: POTASSIUM CHLORIDE PWD 20 MEQ PACK PO SCH (08:24)
[2019-05-27] MEDS: SERTRALINE HCL 100 MG TABLET PO SCH (08:25)
[2019-05-27 08:57] LABS: Appearance Urine Clear (Clear); Bilirubin Urine Negative (Negative); Blood Urine Negative (Negative); Color Urine Yellow; Glucose Urine UA Negative (Negative); Ketones Urine Negative (Negative); Leukocyte Esterase Urine Negative (Negative); Nitrite Urine Negative (Negative); Protein Urine Negative (Negative); Specific Gravity Urine 1.016 (1.000-1.030); Urobilinogen Urine Negative (Negative)
[2019-05-27] MEDS ORDERED: FUROSEMIDE 40 MG in SYRINGE 0 ML IV SCH (09:00)
[2019-05-27] MEDS ORDERED: FUROSEMIDE 40 MG TAB PO SCH (09:00)
[2019-05-27] MEDS ORDERED: AMOXICILLIN 500 MG CAP PO SCH (09:00)
--- NOTE | 2019-05-27 09:11 | Palliative Care Consultation ---
Date of Consultation May 27, 2019 Assessment & Plan (1) Goals of care, counseling/discussion: -73 year old female with PMH Avascular necrosis of bone, ascending aortic aneurysm, hypoxemia, CHF, severe interstitial lung disease, HTN, CAD, depression, presented to the hospital now for the third time recently with acute on chronic respiratory failure. Patient has been trialed previously on steroids for the treatment of her lung disease, but unfortunately she developed severe psychosis and had to be weaned off. Her condition is also complicated by chronic heart failure. On previous admission she was seen by cardiology, was diuresed with Lasix and medically optimized. She was seen by palliative care and wished to be a DNR, but would be okay with elective intubation short-term if needed. She now presented again with acute onset of SOB during therapy at [facility] where she was for rehab after last hospital stay. Her BNP was slightly elevated from previous admission so she was given IV Lasix. She is requiring 4-5L via mask. Quickly desaturates into the 70s with any movement or exertion. Takes several minutes to recover from any activity, even standing at bedside. Patient is weak and deconditioned, prognosis is very poor given her multiple medical problems, and difficulty treating her advanced ILD. Palliative care is reconsulted to discuss code status and goals of care. -Met with patient in room 277. She is AA&Ox4. Visibly dyspneic, but denies feeling discomfort from SOB. -Discussed the course of this last month and multiple hospitalizations. Patient states she is tired and does not want to continue coming to and from hospital. Patient stated, "I've decided I want to go home with hospice care." She states her daughter Arabella is the one to make decisions if she is unable and is who I should be talking to about discharge planning. -Arabella is also known to me. I called Arabella. She confirmed that she would like patient to come home with hospice care. Arabella will be primary caregiver. Arabella has already been in contact with [facility] and would like a referral made to them. -Discussed completing new POLST form, Arabella agrees. Completed new POLST form with patient as follows: DNR, comfort measures only, trial of abx with comfort as the goal, trial of IVF if indicated but no feeding tube. Patient was able to sign. -Patient again confirmed she is a DNR/DNI. -Returned to the room then when Arabella and her son were at lorenzo's bedside. Dr. Birmingham there as well and all plans were confirmed: home with hospice, possibly tomorrow after equipment is delivered. -Patient and daughter state patient becomes anxious in evening, Dr. Birmingham to schedule some lorazepam. -Discussed keeping Arambula catheter for comfort-- patient okay with this. Will likely keep it in upon discharge as well. -Please contact palliative care team with any further palliative care needs. (2) Acute and chronic respiratory failure with hypoxia: (3) Interstitial lung disease: (4) Anxiety: Supervising Physician Co-Signing Physician Notes Chart reviewed, patient seen and examined Collaborated with GUANAKO Ellis PE: Increased work of breathing, no distress, oxygen mask in place Respiratory: Diminished breath sounds bilaterally CV: Regular rate Abdomen: Obese Agree with above note, assessment and plan as per GUANAKO Ellis-plan is for patient to return home with hospice. History of Present Illness Attending Physician: Denise Birmingham, Allergies Allergy/AdvReac Type Severity Reaction Status Date / Time STEROIDS AdvReac Confusion Uncoded 05/26/19 21:45 Home Medications Home Medications Medication Instructions Recorded Confirmed Type albuterol sulfate [Ventolin HFA] 2 puff INHALATION Q6H 08/11/18 05/26/19 History alendronate 75 mg PO LU@0900 08/11/18 05/26/19 History aspirin 81 mg PO DAILY 08/11/18 05/26/19 History letrozole 2.5 mg PO DAILY 08/11/18 05/26/19 History metoprolol succinate [Toprol XL] 50 mg PO DAILY 08/11/18 05/26/19 History mirtazapine 7.5 mg PO DAILY 08/11/18 05/26/19 History sertraline [Zoloft] 200 mg PO DAILY 08/11/18 05/26/19 History simvastatin 10 mg PO PM 30 Days #30 tab 05/15/19 05/26/19 Rx furosemide 40 mg PO DAILY #30 tab 05/23/19 05/26/19 Rx potassium chloride 20 meq PO DAILY #30 ea 05/23/19 05/26/19 Rx amoxicillin 500 mg PO BID 05/26/19 05/26/19 History buspirone 5 mg PO TID PRN 05/26/19 05/26/19 History ipratropium-albuterol 3 ml INHALATION QID 05/26/19 05/26/19 History Patient History Medical History Chronic respiratory failure with hypoxia (Chronic) Interstitial lung disease (Chronic) Chronic diastolic heart failure (Chronic) Dementia (Chronic) Pulmonary hypertension (Chronic) Ascending aortic aneurysm (Chronic) HTN (hypertension) (Chronic) CAD (coronary artery disease) (Chronic) Depression (Chronic) Surgical History History of coronary artery stent placement (Resolved) History of colon resection (Resolved) H/O hernia repair (Resolved) H/O: hysterectomy (Resolved) History of cholecystectomy (Resolved) Family History Other No significant family history Social History Preferred Language: Yakut Communication Ability: Effective Television Schedule Coordinator Required: No Beliefs That Will Affect Care: None marital status: Current Living Situation: Spouse Feels Safe at Home: Yes Smoking Status: Never smoker Do You Dip or Chew Tobacco: No ; Second Hand Exposure: No ; Tobacco Cessation Education Requested by Patient: No Hx Alcohol Use: No Hx Substance Use: No Results & Data Vital Signs (Past 12 Hours) Vital Signs Temp Pulse Pulse Pulse Resp BP Pulse Ox 05/27/19 07:38 35.9 C L 103 H 22 148/86 H 93 05/27/19 07:23 36.8 C 97 H 40 H 112/59 L 97 05/27/19 05:36 110 H 38 H 97 05/27/19 05:32 110 H 36 H 97 05/27/19 04:15 37.1 C 95 H 16 127/77 97 05/27/19 00:55 92 H 38 H 97 05/27/19 00:00 36 C L 22 117/75 96 05/26/19 23:55 38 H 98 05/26/19 23:32 96 H 32 H 85 L 05/26/19 22:54 90 05/26/19 21:15 89 35 H 137/65 95 PG Care Time/CCT Prolonged Care Time Prolonged Care Time: Yes Total Prolonged Care Time: 100 Time Spent Midlevel 100 minutes with >50% of time spent at bedside with patient and family discussing condition, GOC, code status and POLSt.
--- NOTE | 2019-05-27 14:04 | Hospitalist Progress Note ---
Date of Service May 27, 2019 Assessment & Plan (1) Acute and chronic respiratory failure with hypoxia: Multifactorial including CHF exacerbation, pulmonary hypertension secondary to valvular heart disease, probable diastolic dysfunction and underlying structural lung disease. Cont Lasix BID as orders, and will plan to continue Lasix BID going home (2) Interstitial lung disease: She has had adverse reactions to treatments including pirfenidone, and was unable to tolerate steroid taper 2/2 steroid induced psychosis prompting successive hospitalizations. Per previous pulmonary recommendations, the presumptive working diagnosis has been idiopathic fibrosis/UIP, however, the CT scan was not absolutely consistent with this as there was not a basilar predominance or significantly associated bronchiectasis. Additional serologies were sent for fungus, etc and all studies were negative. She is not a candidate for lung transplant and not a candidate for bronchoscopy at this point. (3) CHF exacerbation: diastolic exacerbation-Lasix BID (4) Anxiety: Give scheduled Lorazepam, and PRN as needed. (5) CAD (coronary artery disease): -Appears stable, no reports of chest pain -Continue aspirin, beta-beatriz, statin (6) DVT prophylaxis: -SQ heparin DNR/DNI Dispo-Home with Hospice tomorrow. Per POA, home supply should be delivering her equipment. Denise motley, [facility] Hospitalist Subjective 73 yo F with terminal ILD unable to tolerate steroids or other therapies, who has had multiple admissions back and forth to the hospital for worsening hypoxia. She also has had CHF exacerbations in addiiton to this. She is reporting that her breathing is "fine" this morning. Palliative has determined with the patient and family that she wishes to go home with Hospice at this point. Her daughter and POA is already in contact with a Hospice agency who should be bringing the home supplies tomorrow to her home. We discussed as a group that the patient is wanting to continue current medical therapy even when she goes home tomorrow, and delay transitioning to morphine and Ativan until necessary. Additionally, she has some regular anxiety noted in the afternoons and we discussed scheduling an Ativan at this time, which she will receive today. She will also consider going home with the Arambula in place as she has significant desaturation events with movement, even just standing up at the bedside. Review of Systems Review of Systems: All systems reviewed & are unremarkable except as noted in HPI & below Physical Exam Physical Exam: CONSTITUTIONAL: WNWD, vitals as above, generally well- appearing EYES: normal conjunctivae, no scleral icterus ENT: MMM RESPIRATORY: crackles all throughout lungs, no rales or wheezes, increased respiratory effort, currently on 10 L oxymask CARDIOVASCULAR: regular rate and rhythm, S1 and 2 heard without murmurs, gallops or rubs, no JVD, no peripheral edema GASTROINTESTINAL: normal bowel sounds, soft, nontender, nondistended MUSCULOSKELETAL: strength 5/5 throughout, head is normocephalic and atraumatic SKIN: warm and dry NEUROLOGIC: CN 2-12 grossly intact, no sensory deficit, normal cognition, normal speech, no gross focal deficits. PSYCHIATRIC: alert cooperative and oriented to person, place and time. Results & Data Vital Signs (Past 12 Hours) Vital Signs Temp Pulse Pulse Resp BP Pulse Ox 05/27/19 13:27 85 20 92 05/27/19 12:32 93 05/27/19 11:29 36.4 C L 100 H 36 H 118/78 92 05/27/19 07:38 35.9 C L 103 H 22 148/86 H 93 05/27/19 07:23 36.8 C 97 H 40 H 112/59 L 97 05/27/19 05:36 110 H 38 H 97 05/27/19 05:32 110 H 36 H 97 05/27/19 04:15 37.1 C 95 H 16 127/77 97 Laboratory Results Short CBC 05/26/19 05/27/19 Range/Units 19:42 06:13 WBC 12.64 H 12.89 H (4.8-10.8) K/uL Hgb 12.1 12.8 (12.0-16.0) g/dL Hct 35.9 L 39.4 (37-47) % Plt Count 298 289 (130-400) K/uL BMP 05/26/19 05/27/19 19:42 06:13 Sodium 138 140 Potassium 3.1 L 3.6 D Chloride 102 101 Carbon Dioxide 26 30 BUN 12 9 Creatinine 0.70 0.86 Glucose 112 H 133 H Calcium 10.0 10.0 Liver Function 05/26/19 Range/Units 19:42 Total Bilirubin 0.4 (0.2-1) mg/dl AST 22 (15-37) U/L ALT 16 (12-78) U/L Alkaline Phosphatase 98 (45-117) U/L Albumin 3.4 (3.4-5.0) gm/dl Urine 05/27/19 Range/Units 08:30 Urine Color Yellow Urine Appearance Clear (Clear) Urine pH 5.0 (4.5-7.5) Ur Specific [place] 1.016 (1.000-1.030) Urine Protein Negative (Negative) Urine Glucose (UA) Negative (Negative) Medications Administered Current Inpatient Medications Acetaminophen (Tylenol) 650 mg PO Q4H PRN PRN Reason: pain/fever Stop: 06/25/19 22:54 Aspirin (Ecotrin Ectab) 81 mg PO DAILY TOY Stop: 06/26/19 08:59 Last Admin: 05/27/19 08:23 Dose: 81 mg Documented by: Buspirone HCl (Buspar) 5 mg PO TID PRN PRN Reason: Anxiety Stop: 06/26/19 05:09 Heparin Sodium (Porcine) (Heparin Sodium (Porcine)) 5,000 units SQ Q8 TOY Stop: 06/25/19 23:29 Last Admin: 05/27/19 06:08 Dose: 5,000 units Documented by: Lorazepam (Ativan) 0.25 mg in 0.5 mls @ 0.5 mls/min IV Q8H PRN PRN Reason: Anxiety Stop: 06/25/19 22:57 Last Admin: 05/27/19 00:03 Dose: 0.5 mls/min Documented by: Furosemide 40 mg/ Syringe 4 mls @ 4 mls/min IV BID TOY Stop: 05/27/19 21:00 Last Admin: 05/27/19 06:06 Dose: 4 mls/min Documented by: Ipratropium [place] (Atrovent 0.02% 0.5mg/2.5ml) 0.5 mg INH Q6R TOY Stop: 06/26/19 00:59 Last Admin: 05/27/19 13:24 Dose: 0.5 mg Documented by: Letrozole (Femara) 2.5 mg PO DAILY TOY Stop: 06/26/19 08:59 Last Admin: 05/27/19 08:23 Dose: 2.5 mg Documented by: Levalbuterol HCl (Xopenex 1.25mg/0.5ml Neb) 1.25 mg INH Q6R TOY Stop: 06/26/19 00:59 Last Admin: 05/27/19 13:24 Dose: 1.25 mg Documented by: Lorazepam (Ativan) 0.5 mg PO DAILY@1700 [facility] Stop: 06/26/19 16:59 Metoprolol Succinate (Toprol Xl) 50 mg PO DAILY TOY Stop: 06/26/19 08:59 Last Admin: 05/27/19 08:24 Dose: 50 mg Documented by: Miconazole Nitrate (Desenex) 1 appln EXT PRN PRN PRN Reason: Affected Skin Folds Stop: 06/26/19 06:22 Mirtazapine (Remeron) 7.5 mg PO HS [facility] Stop: 06/26/19 20:59 Potassium Chloride (Klor-Con Pwd) 20 meq PO DAILY TOY Stop: 06/26/19 08:59 Last Admin: 05/27/19 08:24 Dose: 20 meq Documented by: Sertraline HCl (Zoloft) 200 mg PO DAILY TOY Stop: 06/26/19 08:59 Last Admin: 05/27/19 08:25 Dose: 200 mg Documented by: Simvastatin (Zocor) 10 mg PO PM TOY Stop: 06/26/19 20:59 (1) CAD (coronary artery disease) Associated angina: without angina Coronary Disease-Associated Artery/Lesion type: [place] artery [place] vs. transplanted heart: [place] heart Qualified Code(s): I25.10 - Atherosclerotic heart disease of [place] coronary artery without angina pectoris
[2019-05-27] MEDS ORDERED: LORazepam 0.5 MG TAB PO SCH (17:00)
[2019-05-27] MEDS ORDERED: SIMVASTATIN 10 MG TAB PO SCH (21:00)
[2019-05-27] MEDS ORDERED: MIRTAZAPINE TAB 15 MG TAB PO SCH (21:00)
[2019-05-28] MEDS: IPRATROPIUM BROMIDE NEB SOLN 0.02% 2.5 ML VIAL INH SCH ×3 (01:08→14:03)
[2019-05-28] MEDS: LEVALBUTEROL 1.25MG/0.5ML NEB INH SCH ×3 (01:08→14:04)
[2019-05-28] MEDS: HEPARIN SOD 5,000 UNIT/0.5 ML VIAL SQ SCH ×2 (05:44→14:18)
[2019-05-28] MEDS: SERTRALINE HCL 100 MG TABLET PO SCH (07:34)
[2019-05-28] MEDS: METOPROLOL SUCC 50MG EXT REL TAB PO SCH (07:34)
[2019-05-28] MEDS: LETROZOLE 2.5 MG TAB PO SCH (07:35)
[2019-05-28] MEDS: ASPIRIN 81 MG ECTAB PO SCH (07:35)
[2019-05-28] MEDS: POTASSIUM CHLORIDE PWD 20 MEQ PACK PO SCH (07:35)
[2019-05-28] MEDS ORDERED: FUROSEMIDE 40 MG TAB PO SCH (09:00)
--- NOTE | 2019-05-28 10:58 | Discharge Summary ---
Date of Service May 28, 2019 Admission HPI Per Admitting Provider 73-year-old female who presents the ED for evaluation of shortness of breath. Patient is very well-known to our service and has had several hospital admissions recently due to acute on chronic hypoxic respiratory failure secondary to interstitial lung disease and diastolic CHF. Most recently admitted 05/18 through 05/23 and discharged to [facility]. Patient reports that while working with therapy today, she had sudden onset of shortness of breath. Per records sent from [facility], patient was desaturating into the 50s. EMS was called and patient was brought to the ED for further evaluation. She reports she felt as though she was having a panic attack earlier. Reports she had improvement in her symptoms when she went outside and got some fresh air. Patient denies chest pain. She reports as though she has not been being given a low-sodium diet while at [facility]. Denies cough and sputum production. No lower extremity edema. Reports she frequently wakes up in the middle the night gasping for air. She had been getting breathing treatments with improvement. She denies lightheadedness, dizziness, diaphoresis, syncopal events. No abdominal pain, nausea, vomiting, diarrhea. No fevers or chills. She denies urinary symptoms. Upon arrival to the ER, patient was requiring 15 L of oxygen via oxygen mask. She is currently now on 7 L. At most recent discharge, patient was requiring 6 L. CXR appears unchanged from baseline. Patient received nebulizer treatment and IV Solu-Medrol. Admission Exam Per Admitting Provider Constitutional: WD/WN, vitals as above Eyes: PERRL, conjunctivae normal, anicteric sclerae ENMT: external ear and nose normal, oropharynx normal Respiratory: normal respiratory effort and able to speak in complete sentences; no respiratory distress Auscultation: + diminished lung sounds and + crackles (Mid to lower lung doss bilaterally); no wheezes Cardiovascular: Rate/Rhythm: regular rate and regular rhythm Vessels: normal peripheral pulses Extremities: no edema Gastrointestinal (Abdomen): normal bowel sounds, soft, nontender, no hepatosplenomegaly Musculoskeletal: no cyanosis or clubbing, extremities motor strength 5/5 Skin: no rashes, warm and dry Neurologic: PERRL, EOMI, accommodation nl, no face palsy, no dysarthria Psychiatric: A+Ox3, euthymic affect Principal Diagnosis acute on chronic hypoxic respiratory failure ILD acute diastolic heart failure exacerbation Discharge Data Allergies Allergy/AdvReac Type Severity Reaction Status Date / Time STEROIDS AdvReac Confusion Uncoded 05/26/19 21:45 Consultations 05/26/19 20:55 ED Decision to Admit Stat 05/26/19 22:55 Consult Case Management - Discharge Planning Routine 05/27/19 08:20 Consult Palliative Care Routine Ordered Studies 05/26/19 20:55 CT angio chest PE protocol Stat Hospital Course (1) Acute and chronic respiratory failure with hypoxia: (2) Interstitial lung disease: (3) CHF exacerbation: 73-year-old female presented from [facility] for evaluation of shortness of breath. She has a history of acute on chronic respiratory failure with hypoxia and interstitial lung disease along with chronic diastolic heart failure and pulmonary hypertension. She was recently admitted multiple times for hypoxia and similar issues. proBNP was found to be elevated to 3796. Chest x- ray revealed no obvious infiltrate or consolidation. IV Lasix was started. CTA of the chest was performed revealing diffuse ground glass opacities resulting in added density of the lungs bilaterally which may ribs and pulmonary edema and the presence of cardiomegaly another evidence of congestive change, severe underlying chronic lung disease, pulmonary hypertension and a large hiatal hernia. She was admitted to hospitalist service and IV Lasix was continued. A palliative care consult was ordered as the patient initially reported she wanted to be full code with very poor prognosis. Per palliative discussion with the patient and her POA and daughter, Arabella, the patient was changed to a DNR CODE STATUS and requested to be transition to home hospice. She remained in the hospital for another 24 hours until the supplies and DME equipment could be delivered to her home via home hospice agency. At time of discharge a [id number] examination was performed revealing a hypoxic patient in no acute distress oxygenating well on 9 L oxygen mask. She was mentating at baseline and significantly deconditioned. She appeared fatigued. Lung exam revealed crackles all throughout lung doss without evidence of wheezes. Heart exam was normal and no peripheral edema was seen. She was sent home in guarded condition on home hospice with likely fast transition to comfort care measures. Morphine and Ativan were given at time of discharge and close primary care follow-up was recommended, however, as the patient is likely homebound at this point [facility]. Total Time Total Time Spent Total Time Spent (In Minutes): 60 Total Time Includes: Examination of the Patient, Discharge Planning, Medication Reconciliation and Communication With Other Providers Discharge Plan Discharge Items Patient Disposition: Hospice - Home Reason For Visit: SHORTNESS OF BREATH Discharge Diagnosis: acute on chronic hypoxic respiratory failure ILD acute diastolic heart failure exacerbation Goals: Pain and anxiety control Activity: Resume your previous activity Non-emergency contact: Primary Care Provider Call non-emergency contact if: you have any medication questions, your symptoms worsen, your pain is not controlled, your pain is worsening, your pain is unusual for you, your pain is concerning for you and you have a fever Follow-up/Referrals: Jose Manuel Morocho [Primary Care Provider] - Diet: Low Sodium (2gm) Addtl Attending Provider Instructions: Please continue all medications as instructed on the discharge summary. Please work with your Hospice nurses regarding additional medications for comfort as needed, such as morphine to help you breathe better and fight against any pain, and Ativan to help you with anxiety. It was a pleasure taking care of you! Please call if you have any questions or problems. You can reach a [facility] hospitalist on duty at [facility] 24 hours a day by calling [phone]. Take care of yourself. Denise Birmingham DO [facility] Hospitalist Pending Studies at Discharge: No Stand-Alone Forms: My [facility] Medications and DC Order Prescriptions: New morphine 10 mg/5 mL solution 5 mg PO Q6H PRN (Reason: pain or shortness of breath) Qty: 15 RF: 0 lorazepam 1 mg tablet 1 mg BUCCAL BID PRN (Reason: anxiety) Qty: 10 RF: 0 Continued simvastatin 10 mg Tablet 10 mg PO PM 30 Days Qty: 30 RF: 0 metoprolol succinate [Toprol XL] 50 mg Tablet Extended Release 24 Hr 50 mg PO DAILY RF: 0 sertraline [Zoloft] 100 mg Tablet 200 mg PO DAILY RF: 0 aspirin 81 mg Tablet,Delayed Release (Dr/Ec) 81 mg PO DAILY RF: 0 alendronate 35 mg Tablet 75 mg PO LU@0900 RF: 0 letrozole 2.5 mg Tablet 2.5 mg PO DAILY RF: 0 albuterol sulfate [Ventolin HFA] 90 mcg/actuation Hfa Aerosol Inhaler 2 puff INHALATION Q6H RF: 0 mirtazapine 7.5 mg Tablet 7.5 mg PO DAILY RF: 0 furosemide 40 mg tablet 40 mg PO DAILY Qty: 30 RF: 0 potassium chloride 20 mEq packet 20 meq PO DAILY Qty: 30 RF: 0 buspirone 5 mg Tablet 5 mg PO TID PRN (Reason: Anxiety) RF: 0 ipratropium-albuterol 0.5 mg-3 mg(2.5 mg base)/3 mL Solution For Nebulization 3 ml INHALATION QID RF: 0 Discontinued amoxicillin 500 mg Capsule 500 mg PO BID RF: 0 Discharge Orders: Discharge Order (Routine); Ordered 05/28/19 Ordered By: Denise Birmingham Admission Data Admit Date/Time: 05/26/19 21:58 Attending Provider: Denise Birmingham Admit Provider: Leonel Frazier Primary Care Provider: Jose Manuel Morocho Other Providers: Cory Quinn ; Luda Venegas Other Interventions: Discharge Summary Assessment (RN) Last Done: 05/28/19 11:02 DC Date/Time DO NOT enter until pt leaves facility: 05/28/19 14:20
== END 2019-05-28 14:20 | disposition hospice, home (50) | DRG 291 ==
LOC: ED 18:40 → 2N 21:58